=== PATIENT | male | born 1940 | race Caucasian/White ===

== ENCOUNTER 2016-08-20 05:41 | Outpatient (CLI) | payer MEDICARE, MEDICAID ==
[~2016-08-20] VITALS: Ht 167.6 cm; Wt 77.2 kg
[~2016-08-20 05:41] MED LIST: ACHD5005 PO; AMIO400T5 PO; ASP325T PO; ASP81CT PO; ASPI-266 PO; ASPI-875 PO; ATOR40TA70 PO; ATOR80TA PO; DABI150C2 PO; DIGO250T PO; DILT180C55 PO; DILT240C PO; DILT240C53 PO; DILT240C86 PO; ENAL2.5T PO; ENAL5TAB PO; FLEC100T PO; FLEC50TA PO; HYDR-34 PO; METO-272 PO; METO50TA7 PO; MTP25TSR PO; NITR1PAT26 TD; ONDA-42 SL; PNT40TEC PO; PRAS10TA6 PO; RANO10003 PO; RANO500T2 PO; SULF1TAB38 PO
--- OUTSIDE RECORDS SUMMARY | 2016-08-20 05:47 | XMS REPORT | Continuity of Care Document ---
Author Author [facility] Organization [facility] Address Unknown Phone Unavailable Allergies Active Description Code Type Severity Reaction Onset Reported/Identified Relationship to Patient Clinical Status Yes No Known Drug Allergies [id number] Drug Allergy Unknown N/ A 05/22/2010 Medications Problems Date Dx Coded Attending Type Code Diagnosis Diagnosed By 02/23/2010 Ot 802.0 02/23/2010 Ot 850.11 02/23/2010 Ot 871.4 02/23/2010 Ot 959.09 02/23/2010 Ot E000.9 02/23/2010 Ot E849.0 02/23/2010 Ot E906.8 05/22/2010 Ot 401.9 05/22/2010 Ot 414.01 05/22/2010 Ot 425.4 05/22/2010 Ot 427.31 05/22/2010 Ot 785.0 05/22/2010 Ot V58.66 05/22/2010 Ot V58.69 04/23/2011 Ot 272.4 HYPERLIPIDEMIA NEC/NOS 04/23/2011 Ot 305.1 TOBACCO USE DISORDER 04/23/2011 Ot 413.9 ANGINA PECTORIS NEC/NOS 04/23/2011 Ot 414.01 CORONARY ATHEROSCLEROSIS OF [place] CORON 04/23/2011 Ot 427.31 ATRIAL FIBRILLATION 04/23/2011 Ot 428.0 CONGESTIVE HEART FAILURE NOS 04/23/2011 Ot 794.30 ABN CARDIOVASC STUDY NOS 04/23/2011 Ot V45.82 PERCUTANEOUS TRANSLUM CORON ANGIOPLASTY 09/11/2011 Ot 272.4 HYPERLIPIDEMIA NEC/NOS 09/11/2011 Ot 401.9 HYPERTENSION NOS 09/11/2011 Ot 414.01 CORONARY ATHEROSCLEROSIS OF [place] CORON 09/11/2011 Ot 424.0 MITRAL VALVE DISORDER 09/11/2011 Ot 427.31 ATRIAL FIBRILLATION 09/11/2011 Ot 428.0 CONGESTIVE HEART FAILURE NOS 09/11/2011 Ot V58.61 ANTICOAGULANTS,LT,CURRENT USE 09/11/2011 Ot V58.69 OTH MED,LT,CURRENT USE 06/20/2013 DYLAN MARTINS MD Ot V16.0 FAMILY HX-GI MALIGNANCY 06/20/2013 DYLAN MARTINS MD Ot V18.51 FAMILY HISTORY, COLONIC POLYPS 06/20/2013 LAKSHMI CHERRY, DYLAN Alarcon Ot V76.51 SCREEN MAL NEOP-COLON 08/17/2013 LUCITA LYON MD Ot 272.4 HYPERLIPIDEMIA NEC/NOS 08/17/2013 LUCITA LYON MD Ot 401.9 HYPERTENSION NOS 08/17/2013 LUCITA LYON MD Ot 414.01 CORONARY ATHEROSCLEROSIS OF [place] CORON 08/17/2013 LUCITA LYON MD Ot 427.31 ATRIAL FIBRILLATION 08/17/2013 LUCITA LYON MD Ot 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 08/17/2013 LUCITA LYON MD Ot 786.59 CHEST PAIN NEC 08/17/2013 LUCITA LYON MD Ot V45.82 PERCUTANEOUS TRANSLUM CORON ANGIOPLASTY 05/25/2014 Ot 401.9 05/25/2014 Ot 428.0 05/25/2014 Ot 397.0 05/25/2014 Ot 424.0 05/25/2014 Ot 428.0 05/25/2014 Ot 414.00 05/25/2014 Ot 428.0 05/25/2014 Ot 414.01 05/25/2014 Ot 427.31 05/25/2014 Ot 428.0 05/25/2014 Ot V58.66 05/25/2014 Ot V58.69 05/25/2014 Ot 401.9 05/25/2014 Ot 428.0 05/25/2014 DYLAN MARTINS MD Ot V72.84 05/25/2014 DEIDRA HUFF Ot 401.9 05/25/2014 DEIDRA HUFF Ot 414.00 05/25/2014 DEIDRA HUFF Ot 427.31 05/25/2014 DEIDRA HUFF Ot 780.2 06/07/2014 CASE ALLRED DO Ot 729.5 PAIN IN LIMB 06/07/2014 CASE ALLRED DO Ot 844.9 SPRAIN OF KNEE LEG NOS 06/07/2014 CASE ALLRED DO Ot E000.8 OTHER EXTERNAL CAUSE STATUS 06/07/2014 CHALINO DO, CASE K Ot E928.9 ACCIDENT NOS 07/24/2014 Ot 401.9 07/24/2014 Ot 428.0 07/24/2014 Ot 397.0 07/24/2014 Ot 424.0 07/24/2014 Ot 428.0 07/24/2014 Ot 414.00 07/24/2014 Ot 428.0 07/24/2014 Ot 414.01 07/24/2014 Ot 427.31 07/24/2014 Ot 428.0 07/24/2014 Ot V58.66 07/24/2014 Ot V58.69 07/24/2014 Ot 401.9 07/24/2014 Ot 428.0 07/24/2014 LAKSHMI CHERRY, DYLAN Alracon Ot V72.84 07/24/2014 DEIDRA HUFF Ot 401.9 07/24/2014 DEIDRA HUFF Ot 414.00 07/24/2014 DEIDRA HUFF Ot 427.31 07/24/2014 DEIDRA HUFF Ot 780.2 07/24/2014 DEIDRA HUFF Ot 401.9 07/24/2014 DEIDRA HUFF Ot 414.00 07/24/2014 DEIDRA HUFF Ot 427.31 07/24/2014 DEIDRA HUFF Ot 780.2 08/09/2014 LUCITA LYON MD Ot 272.4 HYPERLIPIDEMIA NEC/NOS 08/09/2014 LUCITA LYON MD Ot 401.9 HYPERTENSION NOS 08/09/2014 LUCITA LYON MD Ot 414.01 CORONARY ATHEROSCLEROSIS OF [place] CORON 08/09/2014 LUCITA LYON MD Ot 427.31 ATRIAL FIBRILLATION 08/09/2014 LUCITA LYON MD Ot 428.0 CONGESTIVE HEART FAILURE NOS 08/09/2014 LUCITA LYON MD Ot 780.2 SYNCOPE AND COLLAPSE 08/09/2014 LUCITA LYON MD Ot 786.50 CHEST PAIN NOS 08/09/2014 LUCITA LYON MD Ot V45.82 PERCUTANEOUS TRANSLUM CORON ANGIOPLASTY 08/09/2014 LUCITA LYON MD Ot V58.61 ANTICOAGULANTS,LT,CURRENT USE 08/09/2014 LUCITA LYON MD Ot V58.69 OTH MED,LT,CURRENT USE 08/10/2014 Ot 401.9 08/10/2014 Ot 428.0 08/10/2014 Ot 397.0 08/10/2014 Ot 424.0 08/10/2014 Ot 428.0 08/10/2014 Ot 414.00 08/10/2014 Ot 428.0 08/10/2014 Ot 414.01 08/10/2014 Ot 427.31 08/10/2014 Ot 428.0 08/10/2014 Ot V58.66 08/10/2014 Ot V58.69 08/10/2014 Ot 401.9 08/10/2014 Ot 428.0 08/10/2014 LAKSHMI CHERRY, DYLAN Alarcon Ot V72.84 08/10/2014 DEIDRA HUFF Ot 401.9 08/10/2014 DEIDRA HUFF Ot 414.00 08/10/2014 DEIDRA HUFF Ot 427.31 08/10/2014 DEIDRA HUFF Ot 780.2 11/12/2014 CHIRAG CHERRY, MYRNA Kulkarni Ot 276.8 HYPOPOTASSEMIA 11/12/2014 CHIRAG CHERRY, MYRNA Kulkarni Ot 787.01 NAUSEA WITH VOMITING 11/12/2014 CHIRAG CHERRY, MYRNA Kulkarni Ot 787.91 DIARRHEA 01/31/2015 DEIDRA HUFF Ot 401.9 01/31/2015 DEIDRA HUFF Ot 414.00 01/31/2015 DEIDRA HUFF Ot 427.31 01/31/2015 DEIDRA HUFF Ot 780.2 03/15/2015 Ot 401.9 03/15/2015 Ot 428.0 03/15/2015 Ot 397.0 03/15/2015 Ot 424.0 03/15/2015 Ot 428.0 03/15/2015 Ot 414.00 03/15/2015 Ot 428.0 03/15/2015 Ot 414.01 03/15/2015 Ot 427.31 03/15/2015 Ot 428.0 03/15/2015 Ot V58.66 03/15/2015 Ot V58.69 03/15/2015 Ot 401.9 03/15/2015 Ot 428.0 03/15/2015 DYLAN MARTINS MD Ot V72.84 03/15/2015 DEIDRA HUFF Ot 401.9 03/15/2015 DEIDRA HUFF Ot 414.00 03/15/2015 DEIDRA HUFF Ot 427.31 03/15/2015 DEIDRA HUFF Ot 780.2 05/09/2015 LUCITA LYON MD Ot I25.10 ATHSCL HEART DISEASE OF [place] CORONARY 05/09/2015 LUCITA LYON MD Ot I48.91 UNSPECIFIED ATRIAL FIBRILLATION 05/09/2015 LUCITA LYON MD Ot I65.29 OCCLUSION AND STENOSIS OF UNSPECIFIED CA 05/09/2015 LUCITA LYON MD Ot R55 SYNCOPE AND COLLAPSE 05/15/2015 LUCITA LYON MD Ot I25.10 05/15/2015 LUCITA LYON MD Ot I48.91 05/15/2015 LUCITA LYON MD Ot I65.29 05/15/2015 LUCITA LYON MD Ot R55 05/16/2015 LUCITA LYON MD Ot I25.10 05/16/2015 LUCITA LYON MD Ot I48.91 05/16/2015 LUCITA LYON MD Ot I65.29 05/16/2015 LUCITA LYON MD Ot R55 05/16/2015 LUCITA LYON MD Ot I25.10 05/16/2015 LUCITA LYON MD Ot I48.91 05/16/2015 LUCITA LYON MD Ot I65.29 05/16/2015 LUCITA LYON MD Ot R55 06/06/2015 Dorian CERRATO MD Ot E78.5 HYPERLIPIDEMIA, UNSPECIFIED 06/06/2015 Dorian CERRATO MD Ot I10 ESSENTIAL (PRIMARY) HYPERTENSION 06/06/2015 Dorian CERRATO MD Ot I25.10 ATHSCL HEART DISEASE OF [place] CORONARY 06/06/2015 Dorian CERRATO MD Ot I48.91 UNSPECIFIED ATRIAL FIBRILLATION 06/06/2015 Dorian CERRATO MD Ot I50.9 HEART FAILURE, UNSPECIFIED 06/06/2015 SAQIB CHERRY, Dorian MOONEY Ot R55 SYNCOPE AND COLLAPSE 06/06/2015 Dorian CERRATO MD Ot 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 06/06/2015 Dorian CERRATO MD Ot Z79.899 OTHER TECHNOLOGY OFFICER (CURRENT) DRUG THERAPY 06/11/2015 LUCITA LYON MD Ot I25.10 06/11/2015 LUCITA LYON MD Ot I48.91 06/11/2015 LUCITA LYON MD Ot I65.29 06/11/2015 LUCITA LYON MD Ot R55 06/11/2015 Ot 401.9 06/11/2015 Ot 428.0 06/11/2015 Ot 397.0 06/11/2015 Ot 424.0 06/11/2015 Ot 428.0 06/11/2015 Ot 414.00 06/11/2015 Ot 428.0 06/11/2015 Ot 414.01 06/11/2015 Ot 427.31 06/11/2015 Ot 428.0 06/11/2015 Ot V58.66 06/11/2015 Ot V58.69 06/11/2015 Ot 401.9 06/11/2015 Ot 428.0 06/11/2015 LAKSHMI CHERRY, DYLAN Alarcon Ot V72.84 06/11/2015 DEIDRA HUFF Ot 401.9 06/11/2015 DEIDRA HUFF Ot 414.00 06/11/2015 DEIDRA HUFF Ot 427.31 06/11/2015 DEIDRA HUFF Ot 780.2 06/11/2015 LUCITA LYON MD Ot I25.10 06/11/2015 LUCITA LYON MD Ot I48.91 06/11/2015 LUCITA LYON MD Ot I65.29 06/11/2015 LUCITA LYON MD Ot R55 06/21/2015 Ot 401.9 06/21/2015 Ot 428.0 06/21/2015 Ot 397.0 06/21/2015 Ot 424.0 06/21/2015 Ot 428.0 06/21/2015 Ot 414.00 06/21/2015 Ot 428.0 06/21/2015 Ot 414.01 06/21/2015 Ot 427.31 06/21/2015 Ot 428.0 06/21/2015 Ot V58.66 06/21/2015 Ot V58.69 06/21/2015 Ot 401.9 06/21/2015 Ot 428.0 06/21/2015 LAKSHMI CHERRY, DYLAN Alarcon Ot V72.84 06/21/2015 DEIDRA HUFF Ot 401.9 06/21/2015 DEIDRA HUFF Ot 414.00 06/21/2015 DEIDRA HUFF Ot 427.31 06/21/2015 DEIDRA HUFF Ot 780.2 06/21/2015 SONALI CHERRY, LUCITA Lyles Ot I25.10 06/21/2015 SONALI CHERRY, LUCITA Lyles Ot I48.91 06/21/2015 SONALI CHERRY, LUCITA Lyles Ot I65.29 06/21/2015 SONALI CHERRY, LUCITA Lyles Ot R55 06/27/2015 SNOALI CHERRY, LUCITA Lyles Ot I25.10 06/27/2015 SONALI CHERRY, LUCITA Lyles Ot I48.91 06/27/2015 SONALI CHERRY, LUCITA Lyles Ot I65.29 06/27/2015 SONALI CHERRY, LUCITA Lyles Ot R55 02/13/2016 Ot 397.0 TRICUSPID VALVE DISEASE 02/13/2016 Ot 424.0 MITRAL VALVE DISORDER 02/13/2016 Ot 428.0 CONGESTIVE HEART FAILURE NOS 02/13/2016 Ot 414.00 CORON ATHEROSCLER NOS TYPE VESSEL, NATIV 02/13/2016 Ot 428.0 CONGESTIVE HEART FAILURE NOS 02/13/2016 Ot 414.01 CORONARY ATHEROSCLEROSIS OF [place] CORON 02/13/2016 Ot 427.31 ATRIAL FIBRILLATION 02/13/2016 Ot 428.0 CONGESTIVE HEART FAILURE NOS 02/13/2016 Ot V58.66 LONG-TERM (CURRENT) USE OF ASPIRIN 02/13/2016 Ot V58.69 OTH MED,LT,CURRENT USE 02/13/2016 Ot 401.9 HYPERTENSION NOS 02/13/2016 Ot 428.0 CONGESTIVE HEART FAILURE NOS 02/13/2016 LAKSHMI CHERRY, DYLAN Alarcon Ot V72.84 EXAM PRE-OPERATIVE NOS 02/13/2016 DEIDRA HUFF Ot 401.9 HYPERTENSION NOS 02/13/2016 DEIDRA HUFF Ot 414.00 CORON ATHEROSCLER NOS TYPE VESSEL, NATIV 02/13/2016 DEIDRA HUFF Ot 427.31 ATRIAL FIBRILLATION 02/13/2016 DEIDRA HUFF Ot 780.2 SYNCOPE AND COLLAPSE 02/13/2016 LUCITA LYON MD Ot I25.10 ATHSCL HEART DISEASE OF [place] CORONARY 02/13/2016 LUCITA LYON MD Ot I48.91 UNSPECIFIED ATRIAL FIBRILLATION 02/13/2016 LUCITA LYON MD Ot I65.29 OCCLUSION AND STENOSIS OF UNSPECIFIED CA 02/13/2016 LUCITA LYON MD Ot R55 SYNCOPE AND COLLAPSE 2016 LUCITA LYON MD Ot E78.5 HYPERLIPIDEMIA, UNSPECIFIED 2016 LUCITA LYON MD Ot I10 ESSENTIAL (PRIMARY) HYPERTENSION 2016 LUCITA LYON MD Ot I25.10 ATHSCL HEART DISEASE OF [place] CORONARY 2016 LUCITA LYON MD Ot I48.0 PAROXYSMAL ATRIAL FIBRILLATION 2016 LUCITA LYON MD Ot R55 SYNCOPE AND COLLAPSE 2016 LUCITA LYON MD Ot Z72.0 TOBACCO USE 2016 LUCITA LYON MD Ot Z79.899 OTHER TECHNOLOGY OFFICER (CURRENT) DRUG THERAPY 2016 LUCITA LYON MD Ot Z95.5 PRESENCE OF CORONARY ANGIOPLASTY IMPLANT 03/04/2016 LUCITA LYON MD Ot E78.5 HYPERLIPIDEMIA, UNSPECIFIED 03/04/2016 LUCITA LYON MD Ot I10 ESSENTIAL (PRIMARY) HYPERTENSION 03/04/2016 LUCITA LYON MD Ot I25.10 ATHSCL HEART DISEASE OF [place] CORONARY 03/04/2016 LUCITA LYON MD Ot I48.0 PAROXYSMAL ATRIAL FIBRILLATION 03/04/2016 LUCITA LYON MD Ot R55 SYNCOPE AND COLLAPSE 03/04/2016 LUCITA LYON MD Ot Z72.0 TOBACCO USE 03/04/2016 LUCITA LYON MD Ot Z79.899 OTHER DETENTION (CURRENT) DRUG THERAPY 03/04/2016 LUCITA LYON MD Ot Z95.5 PRESENCE OF CORONARY ANGIOPLASTY IMPLANT 03/04/2016 LUCITA LYON MD Ot E78.5 HYPERLIPIDEMIA, UNSPECIFIED 03/04/2016 LUCITA LYON MD Ot I10 ESSENTIAL (PRIMARY) HYPERTENSION 03/04/2016 LUCITA LYON MD Ot I25.10 ATHSCL HEART DISEASE OF [place] CORONARY 03/04/2016 LUCITA LYON MD Ot I48.0 PAROXYSMAL ATRIAL FIBRILLATION 03/04/2016 LUCITA LYON MD Ot R55 SYNCOPE AND COLLAPSE 03/04/2016 LUICTA LYON MD Ot Z72.0 TOBACCO USE 03/04/2016 LUCITA LYON MD Ot Z79.899 OTHER DETENTION (CURRENT) DRUG THERAPY 03/04/2016 LUCITA LYON MD Ot Z95.5 PRESENCE OF CORONARY ANGIOPLASTY IMPLANT 03/11/2016 Ot 397.0 TRICUSPID VALVE DISEASE 03/11/2016 Ot 424.0 MITRAL VALVE DISORDER 03/11/2016 Ot 428.0 CONGESTIVE HEART FAILURE NOS 03/11/2016 Ot 414.00 CORON ATHEROSCLER NOS TYPE VESSEL, NATIV 03/11/2016 Ot 428.0 CONGESTIVE HEART FAILURE NOS 03/11/2016 Ot 414.01 CORONARY ATHEROSCLEROSIS OF [place] CORON 03/11/2016 Ot 427.31 ATRIAL FIBRILLATION 03/11/2016 Ot 428.0 CONGESTIVE HEART FAILURE NOS 03/11/2016 Ot V58.66 LONG-TERM (CURRENT) USE OF ASPIRIN 03/11/2016 Ot V58.69 OTH MED,LT,CURRENT USE 03/11/2016 Ot 401.9 HYPERTENSION NOS 03/11/2016 Ot 428.0 CONGESTIVE HEART FAILURE NOS 03/11/2016 LAKSHMI CHERRY, DYLAN Alarcon Ot V72.84 EXAM PRE-OPERATIVE NOS 03/11/2016 DEIDRA HUFF Ot 401.9 HYPERTENSION NOS 03/11/2016 DEIDRA HUFF Ot 414.00 CORON ATHEROSCLER NOS TYPE VESSEL, NATIV 03/11/2016 DEIDRA HUFF Ot 427.31 ATRIAL FIBRILLATION 03/11/2016 DEIDRA HUFF Ot 780.2 SYNCOPE AND COLLAPSE 03/11/2016 LUCITA LYON MD Ot I25.10 ATHSCL HEART DISEASE OF [place] CORONARY 03/11/2016 LUCITA LYON MD Ot I48.91 UNSPECIFIED ATRIAL FIBRILLATION 03/11/2016 LUCITA LYON MD Ot I65.29 OCCLUSION AND STENOSIS OF UNSPECIFIED CA 03/11/2016 LUCITA LYON MD Ot R55 SYNCOPE AND COLLAPSE 03/11/2016 LUCITA LYON MD Ot E78.5 HYPERLIPIDEMIA, UNSPECIFIED 03/11/2016 LUCITA LYON MD Ot I10 ESSENTIAL (PRIMARY) HYPERTENSION 03/11/2016 LUCITA LYON MD Ot I25.10 ATHSCL HEART DISEASE OF [place] CORONARY 03/11/2016 LUCITA LYON MD Ot I48.0 PAROXYSMAL ATRIAL FIBRILLATION 03/11/2016 LUCITA LYON MD Ot R55 SYNCOPE AND COLLAPSE 03/11/2016 LUCITA LYON MD Ot Z72.0 TOBACCO USE 03/11/2016 LUCITA LYON MD Ot Z79.899 OTHER TECHNOLOGY OFFICER (CURRENT) DRUG THERAPY 03/11/2016 LUCITA LYON MD Ot Z95.5 PRESENCE OF CORONARY ANGIOPLASTY IMPLANT 03/21/2016 Ot 397.0 TRICUSPID VALVE DISEASE 03/21/2016 Ot 424.0 MITRAL VALVE DISORDER 03/21/2016 Ot 428.0 CONGESTIVE HEART FAILURE NOS 03/21/2016 Ot 414.00 CORON ATHEROSCLER NOS TYPE VESSEL, NATIV 03/21/2016 Ot 428.0 CONGESTIVE HEART FAILURE NOS 03/21/2016 Ot 414.01 CORONARY ATHEROSCLEROSIS OF [place] CORON 03/21/2016 Ot 427.31 ATRIAL FIBRILLATION 03/21/2016 Ot 428.0 CONGESTIVE HEART FAILURE NOS 03/21/2016 Ot V58.66 LONG-TERM (CURRENT) USE OF ASPIRIN 03/21/2016 Ot V58.69 OTH MED,LT,CURRENT USE 03/21/2016 Ot 401.9 HYPERTENSION NOS 03/21/2016 Ot 428.0 CONGESTIVE HEART FAILURE NOS 03/21/2016 DYLAN AMRTINS MD Ot V72.84 EXAM PRE-OPERATIVE NOS 03/21/2016 DEIDRA HUFF Ot 401.9 HYPERTENSION NOS 03/21/2016 DEIDRA HUFF Ot 414.00 CORON ATHEROSCLER NOS TYPE VESSEL, NATIV 03/21/2016 DEIDRA HUFF Ot 427.31 ATRIAL FIBRILLATION 03/21/2016 DEIDRA HUFF Ot 780.2 SYNCOPE AND COLLAPSE 03/21/2016 LUCITA LYON MD Ot I25.10 ATHSCL HEART DISEASE OF [place] CORONARY 03/21/2016 LUCITA LYON MD Ot I48.91 UNSPECIFIED ATRIAL FIBRILLATION 03/21/2016 LUCITA LYON MD Ot I65.29 OCCLUSION AND STENOSIS OF UNSPECIFIED CA 03/21/2016 LUCITA LYON MD Ot R55 SYNCOPE AND COLLAPSE 03/21/2016 LUCITA LYON MD Ot E78.5 HYPERLIPIDEMIA, UNSPECIFIED 03/21/2016 LUCITA LYON MD Ot I10 ESSENTIAL (PRIMARY) HYPERTENSION 03/21/2016 LUCITA LYON MD Ot I25.10 ATHSCL HEART DISEASE OF [place] CORONARY 03/21/2016 LUCITA LYON MD Ot I48.0 PAROXYSMAL ATRIAL FIBRILLATION 03/21/2016 LUCITA LYON MD Ot R55 SYNCOPE AND COLLAPSE 03/21/2016 LUCITA LYON MD Ot Z72.0 TOBACCO USE 03/21/2016 LUCITA LYON MD Ot Z79.899 OTHER TECHNOLOGY OFFICER (CURRENT) DRUG THERAPY 03/21/2016 LUCITA LYON MD Ot Z95.5 PRESENCE OF CORONARY ANGIOPLASTY IMPLANT 03/24/2016 LUCITA LYON MD Ot I48.0 PAROXYSMAL ATRIAL FIBRILLATION 03/24/2016 LUCITA LYON MD Ot E78.2 MIXED HYPERLIPIDEMIA 03/24/2016 LUCITA LYON MD Ot I10 ESSENTIAL (PRIMARY) HYPERTENSION 03/24/2016 LUCITA LYON MD Ot I25.10 ATHSCL HEART DISEASE OF [place] CORONARY 03/24/2016 LUCITA LYON MD Ot I48.0 PAROXYSMAL ATRIAL FIBRILLATION 03/24/2016 LUCITA LYON MD Ot 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 03/24/2016 LUCITA LYON MD Ot E78.2 MIXED HYPERLIPIDEMIA 03/24/2016 LUCITA LYON MD Ot I10 ESSENTIAL (PRIMARY) HYPERTENSION 03/24/2016 LUCITA LYON MD Ot I25.10 ATHSCL HEART DISEASE OF [place] CORONARY 03/24/2016 LUCITA LYON MD Ot I48.0 PAROXYSMAL ATRIAL FIBRILLATION 03/24/2016 LUCITA LYON MD Ot 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 03/25/2016 LUCITA LYON MD Ot E78.2 MIXED HYPERLIPIDEMIA 03/25/2016 LUCITA LYON MD Ot I10 ESSENTIAL (PRIMARY) HYPERTENSION 03/25/2016 LUCITA LYON MD Ot I25.10 ATHSCL HEART DISEASE OF [place] CORONARY 03/25/2016 LUCITA LYON MD Ot I48.0 PAROXYSMAL ATRIAL FIBRILLATION 03/25/2016 LUCITA LYON MD Ot 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 03/25/2016 LUCITA LYON MD Ot I48.0 PAROXYSMAL ATRIAL FIBRILLATION 03/25/2016 LUCITA LYON MD Ot E78.2 MIXED HYPERLIPIDEMIA 03/25/2016 LUCITA LYON MD Ot I10 ESSENTIAL (PRIMARY) HYPERTENSION 03/25/2016 LUCITA LYON MD Ot I25.10 ATHSCL HEART DISEASE OF [place] CORONARY 03/25/2016 LUCITA LYON MD Ot I48.0 PAROXYSMAL ATRIAL FIBRILLATION 03/25/2016 LUCITA LYON MD Ot 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 03/27/2016 LUCITA LYON MD Ot E78.5 HYPERLIPIDEMIA, UNSPECIFIED 03/27/2016 LUCITA LYON MD Ot I10 ESSENTIAL (PRIMARY) HYPERTENSION 03/27/2016 LUCITA LYON MD Ot I25.10 ATHSCL HEART DISEASE OF [place] CORONARY 03/27/2016 LUCITA LYON MD Ot I48.0 PAROXYSMAL ATRIAL FIBRILLATION 03/27/2016 LUCITA LYON MD Ot R55 SYNCOPE AND COLLAPSE 03/27/2016 LUCITA LYON MD Ot Z72.0 TOBACCO USE 03/27/2016 LUCITA LYON MD Ot Z79.899 OTHER TECHNOLOGY OFFICER (CURRENT) DRUG THERAPY 03/27/2016 LUCITA LYON MD Ot Z95.5 PRESENCE OF CORONARY ANGIOPLASTY IMPLANT 03/29/2016 LUCITA LYON MD Ot E78.5 HYPERLIPIDEMIA, UNSPECIFIED 03/29/2016 LUCITA LYON MD Ot I08.0 RHEUMATIC DISORDERS OF BOTH MITRAL AND A 03/29/2016 LUCITA LYON MD Ot I10 ESSENTIAL (PRIMARY) HYPERTENSION 03/29/2016 LUCITA LYON MD Ot I48.0 PAROXYSMAL ATRIAL FIBRILLATION 03/29/2016 LUCITA LYON MD Ot R00.0 TACHYCARDIA, UNSPECIFIED 03/29/2016 LUCITA LYON MD Ot R41.82 ALTERED MENTAL STATUS, UNSPECIFIED 03/29/2016 LUCITA LYON MD Ot R55 SYNCOPE AND COLLAPSE 03/29/2016 LUCITA LYON MD Ot 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 OFFICER (CURRENT) USE OF ANTICOAGULANT 03/29/2016 LUCITA LYON MD Ot Z79.899 OTHER TECHNOLOGY OFFICER (CURRENT) DRUG THERAPY 03/30/2016 LUCITA LYON MD Ot E78.2 MIXED HYPERLIPIDEMIA 03/30/2016 LUCITA LYON MD Ot I10 ESSENTIAL (PRIMARY) HYPERTENSION 03/30/2016 LUCITA LYON MD Ot I25.10 ATHSCL HEART DISEASE OF [place] CORONARY 03/30/2016 LUCITA LYON MD Ot I48.0 PAROXYSMAL ATRIAL FIBRILLATION 03/30/2016 LUCITA LYON MD Ot 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 04/01/2016 Ot 414.00 CORON ATHEROSCLER NOS TYPE VESSEL, NATIV 04/01/2016 Ot 428.0 CONGESTIVE HEART FAILURE NOS 04/01/2016 Ot 414.01 CORONARY ATHEROSCLEROSIS OF [place] CORON 04/01/2016 Ot 427.31 ATRIAL FIBRILLATION 04/01/2016 Ot 428.0 CONGESTIVE HEART FAILURE NOS 04/01/2016 Ot V58.66 LONG-TERM (CURRENT) USE OF ASPIRIN 04/01/2016 Ot V58.69 OTH MED,LT,CURRENT USE 04/01/2016 Ot 401.9 HYPERTENSION NOS 04/01/2016 Ot 428.0 CONGESTIVE HEART FAILURE NOS 04/01/2016 LAKSHMI CHERRY, DYLAN Alarcon Ot V72.84 EXAM PRE-OPERATIVE NOS 04/01/2016 DEIDRA HUFF Ot 401.9 HYPERTENSION NOS 04/01/2016 DEIDRA HUFF Ot 414.00 CORON ATHEROSCLER NOS TYPE VESSEL, NATIV 04/01/2016 DEIDRA HUFF Ot 427.31 ATRIAL FIBRILLATION 04/01/2016 DEIDRA HUFF Ot 780.2 SYNCOPE AND COLLAPSE 04/01/2016 LUCITA LYON MD Ot I25.10 ATHSCL HEART DISEASE OF [place] CORONARY 04/01/2016 LUCITA LYON MD Ot I48.91 UNSPECIFIED ATRIAL FIBRILLATION 04/01/2016 LUCITA LYON MD Ot I65.29 OCCLUSION AND STENOSIS OF UNSPECIFIED CA 04/01/2016 LUCITA LYON MD Ot R55 SYNCOPE AND COLLAPSE 04/01/2016 LUCITA LYON MD Ot E78.5 HYPERLIPIDEMIA, UNSPECIFIED 04/01/2016 LUCITA LYON MD Ot I10 ESSENTIAL (PRIMARY) HYPERTENSION 04/01/2016 LUCITA LYON MD Ot I25.10 ATHSCL HEART DISEASE OF [place] CORONARY 04/01/2016 LUCITA LYON MD Ot I48.0 PAROXYSMAL ATRIAL FIBRILLATION 04/01/2016 LUCITA LYON MD Ot R55 SYNCOPE AND COLLAPSE 04/01/2016 LUCITA LYON MD Ot Z72.0 TOBACCO USE 04/01/2016 LUCITA LYON MD Ot Z79.899 OTHER TECHNOLOGY OFFICER (CURRENT) DRUG THERAPY 04/01/2016 LUCITA LYON MD Ot Z95.5 PRESENCE OF CORONARY ANGIOPLASTY IMPLANT 04/01/2016 LUCITA LYON MD Ot E78.2 MIXED HYPERLIPIDEMIA 04/01/2016 LUCITA LYON MD Ot I10 ESSENTIAL (PRIMARY) HYPERTENSION 04/01/2016 LUCITA LYON MD Ot I25.10 ATHSCL HEART DISEASE OF [place] CORONARY 04/01/2016 LUCITA LYON MD Ot I48.0 PAROXYSMAL ATRIAL FIBRILLATION 04/01/2016 LUCITA LYON MD Ot 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 04/01/2016 LUCITA LYON MD Ot E78.2 MIXED HYPERLIPIDEMIA 04/01/2016 LUCITA LYON MD Ot I10 ESSENTIAL (PRIMARY) HYPERTENSION 04/01/2016 LUCITA LYON MD Ot I25.10 ATHSCL HEART DISEASE OF [place] CORONARY 04/01/2016 LUCITA LYON MD Ot I48.0 PAROXYSMAL ATRIAL FIBRILLATION 04/01/2016 LUCITA LYON MD Ot 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 04/01/2016 LUCITA LYON MD Ot E78.2 MIXED HYPERLIPIDEMIA 04/01/2016 LUCITA LYON MD Ot I10 ESSENTIAL (PRIMARY) HYPERTENSION 04/01/2016 LUCITA LYON MD Ot I25.10 ATHSCL HEART DISEASE OF [place] CORONARY 04/01/2016 LUCITA LYON MD Ot I48.0 PAROXYSMAL ATRIAL FIBRILLATION 04/01/2016 LUCITA LYON MD Ot 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 04/09/2016 LUCITA LYON MD Ot E78.2 MIXED HYPERLIPIDEMIA 04/09/2016 LUCITA LYON MD Ot I10 ESSENTIAL (PRIMARY) HYPERTENSION 04/09/2016 LUCITA LYON MD Ot I25.10 ATHSCL HEART DISEASE OF [place] CORONARY 04/09/2016 LUCITA LYON MD Ot I48.0 PAROXYSMAL ATRIAL FIBRILLATION 04/09/2016 LUCITA LYON MD Ot 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 04/23/2016 LUCITA LYON MD Ot E78.5 HYPERLIPIDEMIA, UNSPECIFIED 04/23/2016 LUCITA LYON MD Ot I08.0 RHEUMATIC DISORDERS OF BOTH MITRAL AND A 04/23/2016 LUCITA LYON MD Ot I10 ESSENTIAL (PRIMARY) HYPERTENSION 04/23/2016 LUCITA LYON MD Ot I48.0 PAROXYSMAL ATRIAL FIBRILLATION 04/23/2016 LUCITA LYON MD Ot R00.0 TACHYCARDIA, UNSPECIFIED 04/23/2016 LUCITA LYON MD Ot R41.82 ALTERED MENTAL STATUS, UNSPECIFIED 04/23/2016 LUCITA LYON MD Ot R55 SYNCOPE AND COLLAPSE 04/23/2016 LUCITA LYON MD Ot 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 OFFICER (CURRENT) USE OF ANTICOAGULANT 04/23/2016 LUCITA LYON MD Ot Z79.899 OTHER DETENTION (CURRENT) DRUG THERAPY 07/03/2016 Ot 401.9 HYPERTENSION NOS 07/03/2016 Ot 428.0 CONGESTIVE HEART FAILURE NOS 07/03/2016 LAKSHMI CHERRY, DYLAN Alarcon Ot V72.84 EXAM PRE-OPERATIVE NOS 07/03/2016 DEIDRA HUFF Ot 401.9 HYPERTENSION NOS 07/03/2016 DEIDRA HUFF Ot 414.00 CORON ATHEROSCLER NOS TYPE VESSEL, NATIV 07/03/2016 DEIDRA HUFF Ot 427.31 ATRIAL FIBRILLATION 07/03/2016 DEIDRA HUFF Ot 780.2 SYNCOPE AND COLLAPSE 07/03/2016 LUCITA LYON MD Ot I25.10 ATHSCL HEART DISEASE OF [place] CORONARY 07/03/2016 LUCITA LYON MD Ot I48.91 UNSPECIFIED ATRIAL FIBRILLATION 07/03/2016 LUCITA LYON MD Ot I65.29 OCCLUSION AND STENOSIS OF UNSPECIFIED CA 07/03/2016 LUICTA LYON MD Ot R55 SYNCOPE AND COLLAPSE 07/03/2016 LUCITA LYON MD Ot E78.5 HYPERLIPIDEMIA, UNSPECIFIED 07/03/2016 LUCITA LYON MD Ot I10 ESSENTIAL (PRIMARY) HYPERTENSION 07/03/2016 LUCITA LYON MD Ot I25.10 ATHSCL HEART DISEASE OF [place] CORONARY 07/03/2016 LUCITA LYON MD Ot I48.0 PAROXYSMAL ATRIAL FIBRILLATION 07/03/2016 LUCITA LYON MD Ot R55 SYNCOPE AND COLLAPSE 07/03/2016 LUCITA LYON MD Ot Z72.0 TOBACCO USE 07/03/2016 LUCITA LYON MD Ot Z79.899 OTHER TECHNOLOGY OFFICER (CURRENT) DRUG THERAPY 07/03/2016 LUCITA LYON MD Ot Z95.5 PRESENCE OF CORONARY ANGIOPLASTY IMPLANT 07/03/2016 LUCITA LYON MD Ot E78.2 MIXED HYPERLIPIDEMIA 07/03/2016 LUCITA LYON MD Ot I10 ESSENTIAL (PRIMARY) HYPERTENSION 07/03/2016 LUCITA LYON MD Ot I25.10 ATHSCL HEART DISEASE OF [place] CORONARY 07/03/2016 LUCITA LYON MD Ot I48.0 PAROXYSMAL ATRIAL FIBRILLATION 07/03/2016 LUCITA LYON MD Ot 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 07/03/2016 LUCITA LYON MD Ot E78.2 MIXED HYPERLIPIDEMIA 07/03/2016 LUCITA LYON MD Ot I10 ESSENTIAL (PRIMARY) HYPERTENSION 07/03/2016 LUCITA LYON MD Ot I25.10 ATHSCL HEART DISEASE OF [place] CORONARY 07/03/2016 LUCITA LYON MD Ot I48.0 PAROXYSMAL ATRIAL FIBRILLATION 07/03/2016 LUCITA LYON MD Ot 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 07/24/2016 Dorian CERRATO MD Ot E78.5 HYPERLIPIDEMIA, UNSPECIFIED 07/24/2016 Dorian CERRATO MD Ot I10 ESSENTIAL (PRIMARY) HYPERTENSION 07/24/2016 Dorian CERRATO MD Ot I25.10 ATHSCL HEART DISEASE OF [place] CORONARY 07/24/2016 Dorian CERRATO MD Ot I48.0 PAROXYSMAL ATRIAL FIBRILLATION 07/24/2016 Dorian CERRATO MD Ot I50.9 HEART FAILURE, UNSPECIFIED 07/24/2016 Dorian CERRATO MD, Ot M79.606 PAIN IN LEG, UNSPECIFIED 07/24/2016 Dorian CERRATO MD Ot R55 SYNCOPE AND COLLAPSE 07/24/2016 Dorian CERRATO MD Ot T82.7XXA INFECT/INFLM REACT D/T OTH CARDI/VASC DE 07/24/2016 Dorian CERRATO MD Ot Z45.09 ENCOUNTER FOR ADJUSTMENT AND MANAGEMENT 07/24/2016 Dorian CERRATO MD, Ot Z79.899 OTHER DETENTION (CURRENT) DRUG THERAPY 07/24/2016 Dorian CERRATO MD Ot Z95.5 PRESENCE OF CORONARY ANGIOPLASTY IMPLANT 08/01/2016 Dorian CERRATO MD Ot E78.5 HYPERLIPIDEMIA, UNSPECIFIED 08/01/2016 Dorian CERRATO MD Ot I10 ESSENTIAL (PRIMARY) HYPERTENSION 08/01/2016 Dorian CERRATO MD Ot I25.10 ATHSCL HEART DISEASE OF [place] CORONARY 08/01/2016 Dorian CERRATO MD Ot I48.0 PAROXYSMAL ATRIAL FIBRILLATION 08/01/2016 Dorian CERRATO MD Ot I50.9 HEART FAILURE, UNSPECIFIED 08/01/2016 Dorian CERRATO MD, Ot M79.606 PAIN IN LEG, UNSPECIFIED 08/01/2016 Dorian CERRATO MD Ot R55 SYNCOPE AND COLLAPSE 08/01/2016 Dorian CERRATO MD, Ot T82.7XXA INFECT/INFLM REACT D/T OTH CARDI/VASC DE 08/01/2016 Dorian CERRATO MD Ot Z45.09 ENCOUNTER FOR ADJUSTMENT AND MANAGEMENT 08/01/2016 Dorian CERRATO MD Ot Z79.899 OTHER DETENTION (CURRENT) DRUG THERAPY 08/01/2016 Dorian CERRATO MD Ot Z95.5 PRESENCE OF CORONARY ANGIOPLASTY IMPLANT Procedures Results Test Result Range Automated blood complete blood count (hemogram) panel - 03/28/16 07:15 Blood leukocytes automated count (number/volume) 7.1 10*3/ uL 4.3-11.0 Blood erythrocytes automated count (number/volume) 4.55 10*6 /uL 4.35-5.85 Venous blood hemoglobin measurement (mass/volume) 15.2 g/dL 13.3-17.7 Blood hematocrit (volume fraction) 44 % 40-54 Automated erythrocyte mean corpuscular volume 97 [foz_us] 80-99 Automated erythrocyte mean corpuscular hemoglobin (mass per erythrocyte) 33 pg 25-34 Automated erythrocyte mean corpuscular hemoglobin concentration measurement ( mass/volume) 34 g/dL 32-36 Automated erythrocyte distribution width ratio 13.2 % 10.0-14.5 Automated blood platelet count (count/volume) 168 10*3/uL 130-400 Automated blood platelet mean volume measurement 10.2 [foz_ us] 7.4-10.4 PT panel in platelet poor plasma by coagulation assay - 03/28/16 07:15 Prothrombin time (PT) in platelet poor plasma by coagulation assay 14.6 s 12.2-14.7 INR in platelet poor plasma or blood by coagulation assay 1.2 0.8-1.4 Activated partial thromboplastin time (aPTT) in platelet poor plasma bycoagulation assay - 03/28/16 07:15 Activated partial thromboplastin time (aPTT) in platelet poor plasma bycoagulation assay 46 s 24-35 Comprehensive metabolic panel - 03/28/16 07:15 Serum or plasma sodium measurement (moles/volume) 142 mmol/ L 135-145 Serum or plasma potassium measurement (moles/volume) 4.2 mmol/L 3.6-5.0 Serum or plasma chloride measurement (moles/volume) 107 mmol /L 98-107 Carbon dioxide 24 mmol/L 21-32 Serum or plasma anion gap determination (moles/volume) 11 mmol/L 5-14 Serum or plasma urea nitrogen measurement (mass/volume) 15 mg/dL 7-18 Serum or plasma creatinine measurement (mass/volume) 1.12 mg /dL 0.60-1.30 Serum or plasma urea nitrogen/creatinine mass ratio 13 NRG Serum or plasma creatinine measurement with calculation of estimated glomerular filtration rate > NRG Serum or plasma glucose measurement (mass/volume) 105 mg/dL 70-105 Serum or plasma calcium measurement (mass/volume) 9.6 mg/dL 8.5-10.1 Serum or plasma total bilirubin measurement (mass/volume) 0.8 mg/dL 0.1-1.0 Serum or plasma alkaline phosphatase measurement (enzymatic activity/volume) 85 U/L 40-136 Serum or plasma aspartate aminotransferase measurement (enzymatic activity/ volume) 12 U/L 5-34 Serum or plasma alanine aminotransferase measurement (enzymatic activity/volume ) 18 U/L 0-55 Serum or plasma protein measurement (mass/volume) 6.7 g/dL 6.4-8.2 Serum or plasma albumin measurement (mass/volume) 4.2 g/dL 3.2-4.5 Lipid 1996 panel - 03/28/16 07:15 Serum or plasma triglyceride measurement (mass/volume) 86 mg /dL <150 Serum or plasma cholesterol measurement (mass/volume) 129 mg /dL < 200 Serum or plasma cholesterol in HDL measurement (mass/volume) 48 mg/dL 40-60 Cholesterol in LDL [mass/volume] in serum or plasma by direct assay 64 mg/dL 1-129 Serum or plasma cholesterol in VLDL measurement (mass/volume) 17 mg/dL 5-40 Methicillin resistant Staphylococcus aureus (MRSA) screening culture - 07:15 Methicillin resistant Staphylococcus aureus (MRSA) screening culture NEG NRG Gram stain microscopy - 07/03/16 15:05 GRAM STAIN RESULT FEW WBC'S NRG Gram stain microscopy - 07/03/16 15:05 GRAM STAIN RESULT OCCASIONAL WBC NRG Bacteria identification in wound by culture - 07/03/16 15:05 Bacteria identification in wound by culture [id number] NRG FREE TEXT EXTERNAL 2 COLONY TYPES OF COAG NEGATIVE STAPH NRG QUANTITY OF GROWTH Moderate Growth NRG FREE TEXT ENTRY 2 NO FURTHER STUDIES UNLESS REQUESTED NRG Bacteria identification in wound by culture - 07/03/16 15:05 Bacteria identification in wound by culture [id number] NRG QUANTITY OF GROWTH Scant Growth NRG Encounters ACCT No. Visit Date/Time Discharge Status Pt. Type Provider Facility Loc./Unit Complaint [id number] 03/28/2016 06:52:00 2015 09:20:00 DIS Outpatient SONALI CHERRY, LUCITA [facility] CATH AF W/RVR,PALPITATIONS,DYSPNEA [id number] 06/06/2015 08:50:00 2014 09:29:00 DIS Outpatient Dorian CERRATO MD [facility] CATH INCISION PAIN [id number] 05/09/2015 10:30:00 2014 13:12:00 DIS Outpatient LUCITA LYON MD [facility] CARD AF, CAD, CAROTID STENOSIS [id number] 05/01/2015 12:54:00 2014 23:59:59 CLS Outpatient LUCITA LYON MD [facility] CARD AF,CAD,CAROTID STENOSIS [id number] 11/12/2014 18:56:00 2014 20:48:00 DIS Emergency MYRNA BEARD MD [facility] ER VOMITING [id number] 08/09/2014 06:42:00 2014 13:25:00 DIS Outpatient LUCITA LYON MD [facility] CATH CHF,AFIB,CAD,HTN,HLP [id number] 06/07/2014 08:56:00 2013 12:42:00 DIS Emergency CHALINO DOCASE K [facility] ER LEFT LEG PAIN [id number] 04/03/2014 07:59:00 2013 23:59:59 CLS Outpatient DEIDRA HUFF [facility] CARD CAD,HTN,CAD [id number] 08/16/2013 10:06:00 2013 12:20:00 DIS Inpatient LUCITA LYON MD [facility] CSD AFIB, RVR [id number] 06/20/2013 06:51:00 2012 10:10:00 DIS Outpatient DYLAN MARTINS MD [facility] SDC SCREENING [id number] 06/15/2013 07:19:00 2012 23:59:59 CLS Outpatient DYLAN MARTINS MD [facility] PREOP SCREENING [id number] 07/03/2016 14:18:00 ACT Outpatient Dorian CERRATO MD [facility] CATH LINQ EXPOSURE [id number] 03/24/2016 08:00:00 ACT Outpatient LUCITA LYON MD [facility] CARD AF,CAD,HTN [id number] 03/21/2016 09:54:00 ACT Outpatient LUCITA LYON MD [facility] CARD AF,CAD,CAROTID STENOSIS [id number] 02/13/2016 07:50:00 ACT Outpatient LUCITA LYON MD [facility] CATH PAF,DIZZINESS,CAD [id number] 01/27/2012 11:50:00 Document Registration [id number] 09/10/2011 07:20:00 Document Registration [id number] 04/23/2011 07:16:00 Document Registration [id number] 12/17/2010 10:09:00 Document Registration [id number] 12/10/2010 09:01:00 Document Registration [id number] 10/07/2010 08:18:00 Document Registration [id number] 08/15/2010 08:47:00 Document Registration [id number] 05/22/2010 06:39:00 Document Registration [id number] 02/23/2010 15:40:00 Document Registration
[2016-08-20 11:49] VITALS: BP 128/75
[2016-08-21] MEDS ORDERED: HYDR-3062 PO (11:08)
== END 2016-08-20 14:54 | disposition home or self-care (01) ==
LOC: PREOP 05:41
PROVIDERS: ATTEND Surgery
DX: Z01.818 Encounter for other preprocedural examination (principal); Z11.2 Encounter for screening for other bacterial diseases; L72.3 Sebaceous cyst
CPT/HCPCS: 87081

== ENCOUNTER 2016-08-21 09:50 | Day surgery (SDC) | payer MEDICARE, MEDICAID ==
[~2016-08-21] VITALS: Ht 167.6 cm; Wt 77.2 kg
--- OUTSIDE RECORDS SUMMARY | 2016-08-21 09:58 | XMS REPORT | Continuity of Care Document ---
Author Author [facility] Organization [facility] Address Unknown Phone Unavailable Care Team Providers Care Industrial Pipefitter Journeyman Name Role Phone BRAULIO GUTIERREZ DO PCP Insurance Providers Payer Name Policy Number Subscriber Name Relationship [employer] Gold Choice [id number] Guerrero Dewitt 18 Self / Same As Patient [facility] [id number] Guerrero Dewitt 18 Self / Same As Patient Advance Directives Directive Response Recorded Date/Time Advance Directives No 08/20/16 11:43am Health Care Power of Spray Machine Operator Y Oralia Esdras 08/20/16 11:43am Organ Donor No 08/20/16 11:43am Resuscitation Status Full Code 08/20/16 11:43am Problems Active Problems Medical Problem Onset Date Status Atrial fibrillation Unknown Acute Diarrhea Unknown Acute Diarrhea Unknown Acute Nausea and vomiting Unknown Acute Strain of left knee and leg Unknown Acute Medications Current Home Medications Medication Dose Units Route Directions Days/Qty Instructions Start Date Nitroglycerin 0.2 Mg/Patch 0.2 Mg Transderm Daily APPLY ONE PATCH TO CHEST WALL EVERY MORNING AND REMOVE AT BEDTIME 04/23/11 Dabigatran Etexilate Mesylate 150 Mg 150 Mg Oral Twice A Day Atorvastatin Calcium 40 Mg 40 Mg Oral Bedtime 08/16/13 Pantoprazole Sod 40 Mg 40 Mg Oral Daily 08/09/14 Metoprolol Succinate 50 Mg 50 Mg Oral Daily 03/28/16 Ranolazine 1,000 Mg 500 Mg Oral Twice A Day TAKES 1/2 (1000MG) TABLET 03/28/16 Flecainide Acetate 100 Mg 100 Mg Oral Twice A Day 60 03/29/16 Past Home Medications Medication Directions Ordered Status Acetaminophen/Hydrocodone Bitart ([place]) 1 Each Tablet, 1 - 2 Each Oral Q6hr Prn 02/23/10 Discontinued Metoprolol Succinate 25 Mg Tab.sr.24h, 25 Mg Oral Daily 05/22/10 Discontinued Diltiazem Hcl 180 Mg Cap.sr.24h, 180 Mg Oral Daily 05/22/10 Discontinued Aspirin 325 Mg Tab, 325 Mg Oral Daily 05/22/10 Discontinued Enalapril Maleate 2.5 Mg Tablet, 2.5 Mg Oral Twice A Day 05/22/10 Discontinued Prasugrel Hydrochloride 10 Mg Tablet, 10 Mg Oral Daily 04/23/11 Discontinued Atorvastatin Calcium 80 Mg Tablet, 40 Mg Oral Bedtime 04/23/11 Discontinued Ranolazine 500 Mg Tab.sr.12h, 500 Mg Oral Twice A Day 04/23/11 Discontinued Aspirin 81 Mg Chew, 81 Mg Oral Daily 09/11/11 Discontinued Amiodarone Hcl 400 Mg Tablet, 200 Mg Oral Twice A Day 09/11/11 Discontinued Enalapril Maleate 5 Mg Tablet, 5 Mg Oral Twice A Day 08/16/13 Discontinued Aspirin 81 Mg Tablet.dr, 81 Mg Oral Daily 08/16/13 Discontinued Diltiazem Hcl (Cardizem Cd) 240 Mg Cap.sr.24h, 240 Mg Oral Daily 08/17/13 Discontinued Pantoprazole Sodium 40 Mg Tablet.dr, 40 Mg Oral Daily@0700 08/17/13 Discontinued Acetaminophen/Hydrocodone Bitart ([place]) 1 Each Tablet, 1-2 Each Oral Every 6 Hours as needed for Pain 06/07/14 Discontinued Diltiazem Hcl 240 Mg Cap.er.24h, 240 Mg Oral Daily 08/09/14 Discontinued Aspirin 81 Mg Tablet.dr, 81 Mg Oral Daily 08/09/14 Discontinued Ondansetron Hcl 4 Mg Tab, 4 Mg Sublingual Every 4HRS as needed for Nausea/ Vomiting 11/12/14 Discontinued Flecainide Acetate 50 Mg Tablet, 50 Mg Oral Every 12 Hours 03/28/16 Discontinued Diltiazem Hcl 240 Mg Cap.er.24h, 240 Mg Oral Daily 03/28/16 Discontinued Social History Social History Problem Response Recorded Date/Time Alcohol Use Occasionally Uses 11/12/2014 7:10pm Recreational Drug Use No 11/12/2014 7:10pm Recent Foreign Travel No 08/20/2016 11:42am Recent Infectious Disease Exposure No 08/20/2016 11:42am Sexually Transmitted Disease No 08/20/2016 11:43am HIV/AIDS No 08/20/2016 11:43am Smoking Status Never a Smoker 08/20/2016 11:43am Do you dip or chew tobacco? Yes 11/12/2014 7:10pm Type Used Smokeless Tobacco 08/20/2016 11:43am Recent Hopitalizations No 08/20/2016 11:43am Sexually Transmitted Disease No 08/20/2016 11:43am Hx Sexually Transmitted Disorders No 10/17/2008 8:48am Query Response Start Date Stop Date Smoking Status Never a Smoker Hospital Discharge Instructions No hospital discharge instructions. Plan of Care Discharge Date 08/20/16 2:54pm Prescriptions See Medication Section Functional Status No functional status results. Allergies, Adverse Reactions, Alerts No known allergies. Immunizations No immunization records. Vital Signs Acute Vital Signs Vital Response Date/Time Pulse Rate (adult) 56 bpm (60 - 90) 08/20/2016 11:49am Respiratory Rate 16 bpm (12 - 24) 08/20/2016 11:49am Blood Pressure 128/75 mm Hg 08/20/2016 11:49am Blood Pressure Mean 92 mm Hg 08/20/2016 11:49am Pain Numeric Pain Scale 3 08/20/2016 11:49am Height (Feet) 5 feet 08/20/2016 11:42am Height (Inches) 6.00 inches 08/20/2016 11:42am Height (Calculated Centimeters) 167.645808 cm 08/20/2016 11:42am Weight (Pounds) 170 pounds 08/20/2016 11:42am Weight (Ounces) 4.0 oz 08/20/2016 11:42am Weight (Calculated Grams) 70981.10 gm 08/20/2016 11:42am Weight (Calculated Kilograms) 77.494948 kilograms 08/20/2016 11:42am Calculated BMI 27.5 08/20/2016 11:42am Results No known relevant diagnostic tests, laboratory data and/or discharge summary. Procedures No known history of procedures. Encounters Encounter Location Arrival/Admit Date Discharge/Depart Date Attending Provider Departed Clinic [facility] 08/20/16 5:41am 08/20/16 2: 54pm SOFI WALLACE DO
--- OUTSIDE RECORDS SUMMARY | 2016-08-21 09:59 | XMS REPORT | Continuity of Care Document ---
Author Author [facility] Organization [facility] Address Unknown Phone Unavailable Care Team Providers Care Wastewater Plant Operator Name Role Phone BRAULIO GUTIERREZ DO PCP Insurance Providers Payer Name Policy Number Subscriber Name Relationship [employer] Gold Choice [id number] Guerrero Dewitt 18 Self / Same As Patient [facility] [id number] Guerrero Dewitt 18 Self / Same As Patient Advance Directives Directive Response Recorded Date/Time Advance Directives No 08/20/16 11:43am Health Care Power of Gps Field Data Collector Y Oralia Esdras 08/20/16 11:43am Organ Donor [...] Medications Medication Directions Ordered Status Acetaminophen/Hydrocodone Bitart ([place]) 1 Each Tablet, 1 - 2 Each [...] Mg Oral Daily@0700 08/17/13 Discontinued Acetaminophen/Hydrocodone Bitart ([place]) 1 Each Tablet, 1-2 Each Oral Every [...] 6.00 inches 08/20/2016 11:42am Height (Calculated Centimeters) 167.765233 cm 08/20/2016 11:42am Weight (Pounds) 170 pounds 08/20/2016 11:42am Weight (Ounces) 4.0 oz 08/20/2016 11:42am Weight (Calculated Grams) 00847.10 gm 08/20/2016 11:42am Weight (Calculated Kilograms) 77.596153 kilograms 08/20/2016 11:42am Calculated BMI 27.5 08/20/2016 11:42am Results No known relevant diagnostic tests, laboratory data and/or discharge summary. Procedures No known history of procedures. Encounters Encounter Location Arrival/Admit Date Discharge/Depart Date Attending Provider Departed Clinic [facility] 08/20/16 5:41am 08/20/16 2: 54pm SOFI WALLACE DO
[2016-08-21 10:05] VITALS: BP 170/92
[2016-08-21] MEDS ORDERED: ceFAZolin 1,000 MG (ANCEF) VIAL ONE (10:14)
[2016-08-21] MEDS ORDERED: NS (IVPB) 50 ML ONE (10:14)
[2016-08-21] MEDS ORDERED: LACTATED RINGERS 1,000 ML IV ONE (10:40)
[2016-08-21] MEDS ORDERED: fentaNYL INJECTION 100 MCG/2 ML AMP ONE (10:40)
[2016-08-21] MEDS ORDERED: proPOfol 200 MG/20 ML (DIPRIVAN) VIAL IV ONE (10:40)
[2016-08-21] MEDS ORDERED: FAMOTIDINE 20MG/2ML IV (PEPCID) ONE (10:41)
[2016-08-21] MEDS ORDERED: BUPIVACAINE 0.5% 30 ML (SENSORCAINE) VIAL ONE (10:41)
[2016-08-21] MEDS ORDERED: LIDOCAINE 1% INJ 20 ML (XYLOCAINE) VIAL ONE (10:42)
[2016-08-21] MEDS ORDERED: MIDAZOLAM 2 MG/2 ML (VERSED) VIAL ONE (10:43)
--- NOTE | 2016-08-21 10:44 | Progress Note-Pre Operative ---
Pre-Operative Progress Note H&P Reviewed The H&P was reviewed, patient examined and no changes noted. Date H&P Reviewed: Aug 21, 2016 Time H&P Reviewed: 10:43 Pre-Operative Diagnosis: cyst back SOFI WALLACE DO Aug 21, 2016 10:44
[2016-08-21] MEDS ORDERED: ceFAZolin 1 GM/NS 50 ML IVPB IV ONE ×2 (11:00)
[2016-08-21] MEDS ORDERED: HYDR-3062 PO (11:08)
--- NOTE | 2016-08-21 11:11 | Discharge Inst-Simple/Standard ---
Discharge Inst-Standard Discharge Medications New, Converted or Re-Newed RX: RX on Chart Patient Instructions/Follow Up Plan of Care/Instructions/FU: Follow up with Dr. Russ 12 days Activity as Tolerated: No Discharge Diet: No Restrictions Other Inst to Patient Follow up Appt: Make appointment for 12 days. Instructions: No lifting greater than 10 pounds. No strenuous activity. May shower in 24 hours, no tub bath or soaking. Use incentive spirometer at home as directed. No Smoking Skin/Wound Care: May remove bandages. You need to leave the white strips over incision on they will fall off on their own. Symptoms to Report: Appetite Changes, Extremity Discoloration, Numbness/Tingling, Swelling Increased , Bleeding Excessive, Eyesight Changes, Pain Increased, Urine Color Change, Constipation(Persistent), Fever over 101 degree F, Pain/Pressure in chest, Urinating Difficulty, Cough Up/Vomit Blood, Heart Beat Irreg/Pounding, Pain/ Pressure in jaw, Vaginal Bleeding Increase, Cramps in feet or legs, Lightheadedness, Pain/Pressure in shoulder, Diarrhea(Persistent), Memory Changes Suddenly, Questions/Concerns, Weight gain consecutive days, Dizziness/ Fainting, Nausea/Vomiting, Shortness of Breath, Weight gain over 2 pounds If questions or concerns contact your physician Or seek help at emergency department. LILI CRUZ APRN Aug 21, 2016 11:11
[2016-08-21] MEDS ORDERED: LACTATED RINGERS 1,000 ML IV SCH (11:15)
--- NOTE | 2016-08-21 11:39 | Progress Note-Post Operative ---
Post-Operative Progess Note Pre-Operative Diagnosis cyst back Post-Operative Diagnosis same Post-Op Procedure Note Date of Procedure: Aug 21, 2016 Name of Procedure: excision cyst back 4.4x2cm skin and subcutaneous tissue Procedure Note/Findings see note Anesthesia Type general Estimated blood loss (mL): minimal Specimen(s) collected skin and cyst SOFI WALLACE DO Aug 21, 2016 11:39 am
[2016-08-21] MEDS ORDERED: morphine INJ 10 MG/ML 1ML (SYR OR VIAL) IV PRN (11:45)
[2016-08-21] MEDS ORDERED: fentaNYL INJECTION 250 MCG/5 ML AMP IV PRN (11:45)
[2016-08-21] MEDS ORDERED: ONDANSETRON 4 MG/2 ML (SDV) Z0FRAN IV PRN (11:45)
[2016-08-21 12:05] VITALS: BP 150/70
[2016-08-21 12:35] VITALS: BP 162/74
--- NOTE | 2016-08-23 10:03 | OPERATIVE REPORT ---
PROCEDURE PHYSICIAN: SOFI WALLACE DATE OF PROCEDURE: 08/21/2016 PREOPERATIVE DIAGNOSIS: Sebaceous cyst of back. POSTOPERATIVE DIAGNOSIS: Sebaceous cyst of back. PROCEDURE: Excision of cyst of the back 4.4 x 2 cm, skin and subcutaneous tissue. SURGEON: Petrona. ANESTHESIA: MAC with local, 10 mL of 1% lidocaine and 0.5% Marcaine at 50:50 ratio. ESTIMATED BLOOD LOSS: Minimal. COMPLICATIONS: None. INDICATIONS: The patient is a 76-year-old male with large cyst on the back that has continued to increase in size. He wished to have this removed. He understands the risks and benefits and consent was signed on the chart. PROCEDURE: The patient was taken to the operating suite. He was prepped and draped in sterile fashion. A surgical pause was performed. Local anesthetic was infiltrated into the area. There was a small spinous which an incision was made around and then cautery was used to dissect down through the subcutaneous tissues. The cyst ruptured on the superior aspect. Dissection was continued to be carried around the cyst removing the cyst and contents. Hemostasis was achieved. The wound was then irrigated with copious amounts of irrigation. The skin was then reapproximated using 3-0 nylon in a simple interrupted fashion. The area was then washed and dried. Sterile bandage was applied. The patient tolerated the procedure well without any complications and taken to the recovery room in stable condition. Job ID: [id number] Dictated Date: 08/21/2016 11:53:04 Staffing Branch Manager Date: 08/23/2016 09:58:37 / matt
== END 2016-08-21 12:46 | disposition home or self-care (01) ==
LOC: SDC 09:50
PROVIDERS: ATTEND Surgery
DX: L72.3 Sebaceous cyst (principal)
CPT/HCPCS: 88304

== ENCOUNTER 2016-11-15 13:55 | Emergency (ER) | payer MEDICARE, MEDICAID ==
[~2016-11-15] VITALS: Ht 175.3 cm; Wt 77.1 kg
[~2016-11-15 13:55] MED LIST changes: +HYDR-3062 PO
[2016-11-15] MEDS ORDERED: DEXAMETHASONE PF 10 MG/ML (DECADRON) VIAL IM STA (14:08)
--- NOTE | 2016-11-15 14:16 | ED Cough/URI ---
General Chief Complaint: Cough/Cold/Flu Symptoms Stated Complaint: HEAD COLD, DIZZINESS Source: patient Exam Limitations: no limitations History of Present Illness Time seen by provider: 14:03 Initial Comments Here with report of cough and congestion with sore throat that began on for a few days. He has been trying Mucinex and that has not helped. Had some increasing dizziness today so presented for further evaluation. Does have heart history which is what the concern was that mainly his complaint is related to sore throat, cough and runny nose. He did have coughing fit today that caused vomiting but otherwise has not had any nausea or difficulty with eating. Timing/Duration: getting worse Severity/Quality: mild, moderate, dry cough Prior Episodes/Possible Cause: occasional episodes Modifying Factors: Worse With Activity, Worse With Coughing, Improves With Rest Associated Symptoms: chest pain/soreness, cough, dizziness, fever/chills, nasal congestion, nasal drainage, shortness of breath, sore throat Allergies and Home Medications Allergies Coded Allergies: No Known Drug Allergies (Unverified , 08/20/16) Home Medications Atorvastatin Calcium 40 Mg Tablet, 40 MG PO HS, (Reported) Dabigatran Etexilate Mesylate 150 Mg Capsule, 150 MG PO BID, (Reported) Flecainide Acetate 100 Mg Tablet, 100 MG PO BID, #60 Prescribed by: SHANNAN IL on 03/29/16 0901 Hydrocodone/Acetaminophen 1 Each Tablet, 1 EACH PO q4-6hrs PRN for PAIN, #10 Prescribed by: LILI LEONARD NWAGW on 08/21/16 1108 Metoprolol Succinate 50 Mg Tab.er.24h, 50 MG PO DAILY, (Reported) Nitroglycerin 0.2 Mg/Patch Patch, 0.2 MG TD DAILY, (Reported) APPLY ONE PATCH TO CHEST WALL EVERY MORNING AND REMOVE AT BEDTIME Pantoprazole Sod 40 Mg Tab, 40 MG PO DAILY, (Reported) Ranolazine 1,000 Mg Tab.er.12h, 500 MG PO BID, (Reported) TAKES 1/2 (1000MG) TABLET Constitutional: see HPI, No chills, No fever EENTM: nose congestion, see HPI, throat pain Respiratory: cough Cardiovascular: No edema, Hx of Intervention Gastrointestinal: No abdominal pain, No diarrhea, No nausea, vomiting Genitourinary: no symptoms reported Musculoskeletal: no symptoms reported Skin: no symptoms reported All Other Systems Reviewed Negative Unless Noted: Yes Past Dhrtcnb-Gsvdkh-Hysvpe Hx Patient Social History Alcohol Use: Denies Use Recreational Drug Use: No Smoking Status: Never a Smoker Type Used: Smokeless Tobacco Recent Foreign Travel: No Contact w/Someone Who Travel: No Recent Hopitalizations: No Seasonal Allergies Seasonal Allergies: No Surgeries HX Surgeries: Yes (BACK SURGERY (2000), HERNIA SURGERY (2007)) Surgeries: Coronary Stent, Eye Surgery Respiratory Hx Respiratory Disorders: No Cardiovascular Hx Cardiac Disorders: Yes Cardiac Disorders: Atrial Fibrillation, Coronary Artery Disease, High Cholesterol Neurological Hx Neurological Disorders: No Reproductive System Hx Reproductive Disorders: No Sexually Transmitted Disease: No HIV/AIDS: No Genitourinary Hx Genitourinary Disorders: No Gastrointestinal Hx Gastrointestinal Disorders: Yes Gastrointestinal Disorders: Gastroesophageal Reflux Musculoskeletal Hx Musculoskeletal Disorders: Yes (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) Musculoskeletal Disorders: Arthritis Endocrine Hx Endocrine Disorders: No HEENT HX ENT Disorders: Yes (GLASSES) HEENT Disorders: Cataract Loss of Vision: Bilateral Hearing Impairment: Denies Cancer Hx Cancer: No Psychosocial Hx Psychiatric Problems: No Integumentary HX Skin/Integumentary Disorder: No Blood Transfusions Hx Blood Disorders: No Adverse Reaction to a Blood Tr: No (N/A) Reviewed Nursing Assessment Reviewed/Agree w Nursing PMH: Yes Family Medical History Family Medial History: Cancer of colon 09 BROTHER Family history: Gastrointestinal disease 09 BROTHER Kidney disease 09 BROTHER Physical Exam Vital Signs Vital Sign - Last 12Hours 11/15/16 14:11 Temp 96.9 Pulse 70 Resp 16 B/P (MAP) 172/81 O2 Delivery Room Air Capillary Refill : General Appearance: WD/WN, no apparent distress HEENT: PERRL/EOMI, pharyngeal erythema, other (moderate bilateral nasal congestion with purulent rhinorrhea and moderate erythema.) Respiratory: no respiratory distress, no accessory muscle use, wheezing (few scattered) Cardiovascular: regular rate, rhythm, no murmur Gastrointestinal: non tender, soft Neurologic/Psychiatric: alert, oriented x 3 Skin: normal color, warm/dry Progress/Results/Core Measures Results/Orders My Orders Orders - IAN PÉREZ MD Chest Pa/Lat (2 View) (11/15/16 14:08) Dexamethasone Pf Injection (Decadron Pf (11/15/16 14:08) Vital Signs/I&O Vital Sign - Last 12Hours 11/15/16 14:11 Temp 96.9 Pulse 70 Resp 16 B/P (MAP) 172/81 O2 Delivery Room Air Progress Note : Progress Note Seen and evaluated. Chest x-ray ordered. Decadron 10 mg IM. No acute findings on x-ray. Likely upper respiratory infection. Discharged home with return precautions. Patient verbalize understanding instructions and agreement with plan. Departure Impression Impression: Primary Impression: Upper respiratory infection Qualified Codes: J06.9 - Acute upper respiratory infection, unspecified Disposition: HOME, SELF-CARE Condition: Stable Departure-Patient Inst. Decision time for Depature: 14:15 Referrals: BRAULIO GUTIERREZ DO (PCP/Family) Primary Care Physician Patient Instructions: Bacterial Upper Respiratory Infection, Adult (DC) Add. Discharge Instructions: All discharge instructions reviewed with patient and/or family. Voiced understanding. Take medications as directed. Follow up with your Dr. in a few days for recheck. Return for worse pain, breathing problems, weakness, dizziness, chest pain, vomiting or other concerns as needed. Drink plenty of fluids. You may use Afrin nasal spray or the generic, 12 hour relief, 2 sprays to each nostril twice daily for 3 hours only and then stop. Do not use for more than 3 days. Scripts Cefdinir (Cefdinir) 300 Mg Capsule 300 MG PO BID, #14 CAP 0 Refills Prov: IAN PÉREZ MD 11/15/16 IAN PÉREZ MD November 15, 2016 14:16
--- NOTE | 2016-11-15 14:33 | Diagnostic Imaging Report ---
INDICATION: Cough, congestion and sore throat for 4 days. EXAMINATION: PA and lateral views of the chest. FINDINGS: The heart size and vascularity are normal. Lungs are clear. There is no effusion. There is no acute bony abnormality. IMPRESSION: No acute abnormality is seen. There is no significant change from 03/28/16. Dictated by: Dictated on workstation # [id number]
[2016-11-15] MEDS ORDERED: CEFD300C3 PO (15:21)
[2016-11-15 16:30] VITALS: BP 132/70
== END 2016-11-15 16:30 | disposition home or self-care (01) ==
LOC: EDUNIT# 13:55 → ER 13:57
DX: J06.9 Acute upper respiratory infection, unspecified (principal); I25.10 Atherosclerotic heart disease of native coronary artery without angina pectoris; I48.2 Chronic atrial fibrillation; Z79.899 Other long term (current) drug therapy; Z95.5 Presence of coronary angioplasty implant and graft
CPT/HCPCS: 71020; 96372; 99282

== ENCOUNTER 2017-03-09 09:24 | Emergency (ER) | payer MEDICARE, MEDICAID ==
[~2017-03-09] VITALS: Ht 175.3 cm; Wt 77.2 kg
[~2017-03-09 09:24] MED LIST changes: +CEFD300C3 PO
[2017-03-09] MEDS ORDERED: LIDOCAINE 2% 20 ML (XYLOCAINE) VIAL ONE (10:55)
[2017-03-09] MEDS ORDERED: cefTRIAXone 1 GM (ROCEPHIN) VIAL IM ONE (11:00)
[2017-03-09] MEDS ORDERED: LIDOCAINE 1% INJ 20 ML (XYLOCAINE) VIAL INJ ONE (11:00)
[2017-03-09] MEDS ORDERED: TETANUS,DIPTH,PERTUSS P/F (BOOSTRIX) 0.5 ML VIAL IM ONE (11:00)
[2017-03-09] MEDS ORDERED: LIDOCAINE 2% 20 ML (XYLOCAINE) VIAL INJ ONE (11:00)
--- NOTE | 2017-03-09 11:12 | ED Upper Extremity ---
General Chief Complaint: Upper Extremity Stated Complaint: RT HAND INJURY Nursing Triage Note: PT. WAS PUSHING GARBAGE CAN. CAUGHT CAN ON ROCKS ET BOTH HANDS GOT JAMMED INTO HANDLES. PT. STATES CUT TO BOTH FINGER ARE DEEP. BANDAGES TO BOTH HANDS BILATE NOTED. Nursing Sepsis Screen: No Definite Risk Source: patient Exam Limitations: no limitations History of Present Illness Time seen by provider: 11:08 Initial Comments To ER with laceration to the dorsal aspect of the right [place] third finger and the left third and fourth finger. Patient was taking his rolling trash dumpster out to the street last night when it hit a large rock causing him to fall. He kept ahold of the trash dumpster and his hands became pinched between the gravel on the ground and the bottom of the trash dumpster. Tetanus is not up-to-date. The bandage this at home the pain is worse today. Onset: yesterday Severity: moderate Pain/Injury Location: bilateral 2nd finger, bilateral 3rd finger Method of Injury: fell Allergies and Home Medications Allergies Coded Allergies: No Known Drug Allergies (Unverified , 08/20/16) Home Medications Atorvastatin Calcium 40 Mg Tablet, 40 MG PO HS, (Reported) Cefdinir 300 Mg Capsule, 300 MG PO BID, #14 Ref 0 Prescribed by: INA PÉREZ on 11/15/16 1521 Dabigatran Etexilate Mesylate 150 Mg Capsule, 150 MG PO BID, (Reported) Flecainide Acetate 100 Mg Tablet, 100 MG PO BID, #60 Prescribed by: SHANNAN LI on 03/29/16 0901 Hydrocodone/Acetaminophen 1 Each Tablet, 1 EACH PO q4-6hrs PRN for PAIN, #10 Prescribed by: LILI [facility] on 08/21/16 1108 Metoprolol Succinate 50 Mg Tab.er.24h, 50 MG PO DAILY, (Reported) Nitroglycerin 0.2 Mg/Patch Patch, 0.2 MG TD DAILY, (Reported) APPLY ONE PATCH TO CHEST WALL EVERY MORNING AND REMOVE AT BEDTIME Pantoprazole Sod 40 Mg Tab, 40 MG PO DAILY, (Reported) Ranolazine 1,000 Mg Tab.er.12h, 500 MG PO BID, (Reported) TAKES 1/2 (1000MG) TABLET Constitutional: see HPI EENTM: see HPI Respiratory: no symptoms reported Cardiovascular: no symptoms reported Genitourinary: no symptoms reported Musculoskeletal: see HPI Skin: see HPI Psychiatric/Neurological: No Symptoms Reported Past Qyxpbgs-Nkidco-Fddsan Hx Patient Social History Alcohol Use: Regular Use Number of Drinks Today: AA Alcohol Beverage of Choice: Beer Recreational Drug Use: Yes (ALCOHOL) Smoking Status: Current Everyday Smoker Type Used: Smokeless Tobacco Former Smoker, Quit: Jul 13, 1975 Recent Foreign Travel: No Contact w/Someone Who Travel: No Recent Infectious Disease Expo: No Recent Hopitalizations: No Seasonal Allergies Seasonal Allergies: No Surgeries History of Surgeries: Yes (BACK SURGERY (1999), HERNIA SURGERY (2007)) Surgeries: Coronary Stent, Eye Surgery Respiratory History of Respiratory Disorde: No Cardiovascular History of Cardiac Disorders: Yes Cardiac Disorders: Atrial Fibrillation, Coronary Artery Disease, High Cholesterol Neurological History of Neurological Disord: No Reproductive System Hx Reproductive Disorders: No Sexually Transmitted Disease: No HIV/AIDS: No Gastrointestinal History of Gastrointestinal Di: Yes Gastrointestinal Disorders: Gastroesophageal Reflux Musculoskeletal History of Musculoskeletal Dis: Yes (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) Musculoskeletal Disorders: Arthritis Endocrine History of Endocrine Disorders: No HEENT HEENT Disorders: Cataract Loss of Vision: Bilateral Hearing Impairment: Denies Cancer History of Cancer: No Psychosocial History of Psychiatric Problem: No Integumentary History of Skin or Integumenta: No Blood Transfusions History of Blood Disorders: No Adverse Reaction to a Blood Tr: No (N/A) Family Medical History Family Medial History: Cancer of colon 09 BROTHER Family history: Gastrointestinal disease 09 BROTHER Kidney disease 09 BROTHER Physical Exam Vital Signs Vital Sign - Last 12Hours 03/09/17 09:57 Temp 98.6 Pulse 60 Resp 18 B/P (MAP) 133/72 Pulse Ox 95 O2 Delivery Room Air Capillary Refill : Less Than 3 Seconds General Appearance: WD/WN, no apparent distress HEENT: PERRL/EOMI, normal ENT inspection Neck: non-tender, full range of motion Respiratory: no respiratory distress, no accessory muscle use Gastrointestinal: normal bowel sounds, non tender, soft Shoulder: normal inspection Elbow/Forearm: normal inspection, non-tender Wrist: Yes normal inspection, Yes non-tender Hand: Bilateral, laceration (abrasions to the dorsal aspect of the middle phalanx of the right second and third finger. These are fairly deep. There is gravel and debris noted within these. There is swelling proximally. The) Neurologic/Psychiatric: alert, normal mood/affect, oriented x 3 Skin: normal color, warm/dry Progress/Results/Core Measures Results/Orders My Orders Orders - JOHN VINSON APRN Dipht,Pertyoanna(Acell),Tet Adult (Boostrix (03/09/17 11:00) Lidocaine 2% Injection 20 Ml (Xylocaine (03/09/17 11:00) Ceftriaxone Injection (Rocephin Injectio (03/09/17 11:00) Lidocaine 1% Injection (Xylocaine 1% Inj (03/09/17 11:00) Lidocaine 2% Injection 20 Ml (Xylocaine (03/09/17 10:55) Hand, Right, 3 Views (03/09/17 11:14) Wound Culture (03/09/17 11:17) Wound Care Physician Consult (03/09/17 11:17) Medications Given in ED Current Medications Medications Dose Ordered Sig/Marika Route Start Time Stop Time Status Last Admin Dose Admin Ceftriaxone Sodium 1,000 mg ONCE ONCE IM 03/09/17 11:00 03/09/17 11:02 DC 03/09/17 11:17 1,000 MG Diphtheria/ Tetanus/Acell Pertussis 0.5 ml ONCE ONCE IM 03/09/17 11:00 03/09/17 11:02 DC 03/09/17 11:19 0.5 ML Lidocaine HCl 2.1 ml ONCE ONCE INJ 03/09/17 11:00 03/09/17 11:02 DC 03/09/17 11:17 2.1 ML Vital Signs/I&O Vital Sign - Last 12Hours 03/09/17 09:57 Temp 98.6 Pulse 60 Resp 18 B/P (MAP) 133/72 Pulse Ox 95 O2 Delivery Room Air Blood Pressure Mean: 92 Progress Note : Progress Note I did a digital block using 10 mL of 2 percent lidocaine without epinephrine to each of the fingers the right pointer and middle finger. I was then able to lift the flap of skin and debridement the foreign bodies. There was a multitude of small gravel chunks beneath the flap and visualization of the extensor tendon on the middle finger. Same to the right pointer finger. However, there was no visualization of the extensor tendon on that finger this was covered with Adaptic and tube gauze. Diagnostic Imaging Diagonstic Imaging: Xray Comments NAME: GUERRERO JONHSON [facility] REC#: [id number] PT STATUS: REG ER : 1940 PHYSICIAN: JOHN VINSON APRN ADMIT DATE: 03/09/17/ER Draft Date of Exam:03/09/17 HAND, RIGHT, 3 VIEWS INDICATION: Fall. Pain. Trauma. COMPARISON: None. FINDINGS: 3 views of the right hand show no fractures, dislocations, or other acute bony abnormalities identified. Osteoarthritic changes are noted. Otherwise, joint spaces are well maintained throughout. The soft tissues appear unremarkable. Benign chronic appearing soft tissue calcifications are present. No radiopaque foreign bodies are identified. IMPRESSION: No acute fractures or dislocations of the right hand. Dictated on workstation # [id number] Dict: 03/09/17 1138 Trans: 03/09/17 1145 [id number] Interpreted by: DICK CASON Electronically signed by: Departure Impression Impression: Primary Impression: Hand laceration Disposition: 01 HOME, SELF-CARE Condition: Stable Departure-Patient Inst. Decision time for Depature: 11:59 Referrals: BRAULIO GUTIERREZ DO (PCP/Family) Primary Care Physician STEPHANY PINA DO Patient Instructions: Wound Care Add. Discharge Instructions: 1. I have left a message with Dr. Pina's construction secretary (hand surgeon) they should be calling you today with an appointment time. If they are unable to see you before Thursday and U should return to the emergency room on Thursday evening for dressing change 2. Pain medication and antibiotics as directed All discharge instructions reviewed with patient and/or family. Voiced understanding. Scripts Hydrocodone/Acetaminophen ([place] 5-325 Tablet) 1 Each Tablet 1 EACH PO Q6H Y for PAIN-MODERATE TO SEVERE, #14 TAB Prov: JOHN VINSON APRN 03/09/17 Clindamycin HCl (Clindamycin HCl) 150 Mg Capsule 300 MG PO TID for 7 Days, CAP Prov: JOHN VINSON APRN 03/09/17 Copy Copies To 1: STEPHANY PINA PETER J APRN Mar 09, 2017 11:12
--- NOTE | 2017-03-09 11:45 | Diagnostic Imaging Report ---
INDICATION: Fall. Pain. Trauma. COMPARISON: None. FINDINGS: 3 views of the right hand show no fractures, dislocations, or other acute bony abnormalities identified. Osteoarthritic changes are noted. Otherwise, joint spaces are well maintained throughout. The soft tissues appear unremarkable. Benign chronic appearing soft tissue calcifications are present. No radiopaque foreign bodies are identified. IMPRESSION: No acute fractures or dislocations of the right hand. Dictated by: Dictated on workstation # [id number]
[2017-03-09] MEDS ORDERED: CLIN150C17 PO (12:04)
[2017-03-09] MEDS ORDERED: HYDR-757 PO (12:04)
[2017-03-09 12:16] VITALS: BP 140/70
== END 2017-03-09 12:16 | disposition home or self-care (01) ==
LOC: EDUNIT# 09:24 → ER 09:26
DX: S61.212A Laceration without foreign body of right middle finger without damage to nail, initial encounter (principal); S61.210A Laceration without foreign body of right index finger without damage to nail, initial encounter; K21.9 Gastro-esophageal reflux disease without esophagitis; I25.10 Atherosclerotic heart disease of native coronary artery without angina pectoris; I48.91 Unspecified atrial fibrillation; E78.00 Pure hypercholesterolemia, unspecified; F17.290 Nicotine dependence, other tobacco product, uncomplicated; Z95.1 Presence of aortocoronary bypass graft; Z23 Encounter for immunization; W23.0XXA Caught, crushed, jammed, or pinched between moving objects, initial encounter
CPT/HCPCS: 73130; 90471; 90715; 96372; 99284

== ENCOUNTER 2017-03-11 13:21 | Emergency (ER) | payer MEDICARE, MEDICAID ==
[~2017-03-11] VITALS: Ht 170.2 cm; Wt 77.1 kg
[~2017-03-11 13:21] MED LIST changes: +CLIN150C17 PO; +HYDR-757 PO
--- NOTE | 2017-03-11 14:32 | ED Suture Removal/Wound Check ---
Suture/Wound Re-check General Appearance: WD/WN, no apparent distress Neuro/Tendon: normal sensation, normal motor functions Skin Exam: normal color, warm/dry Physical Exam Vital Signs Vital Sign - Last 12Hours 03/11/17 13:36 Pulse 86 Resp 14 B/P (MAP) 156/72 Pulse Ox 97 O2 Delivery Room Air Capillary Refill : General Appearance: WD/WN, no apparent distress HEENT: PERRL/EOMI, normal ENT inspection Neck: non-tender, full range of motion Respiratory: no respiratory distress, no accessory muscle use Gastrointestinal: normal bowel sounds, non tender, soft Neurologic/Psychiatric: alert, normal mood/affect, oriented x 3 Skin: normal color, warm/dry Skin Problem Character: other (traumatic wound) Comments . On the pointer finger there is granulation tissue noted with minimal necrotic tissue. On the middle finger there is a bit more necrotic/yellowish fibrinous tissue noted. The necrotic tissue was trimmed as best possible. Redressed with will emulsion dressing and tube gauze. We will continue the clindamycin. As mentioned he is able to make a fist more easily today than he was 3 days ago when I saw him. There is no pus drainage. We will continue the clindamycin. Wound culture has been sent. Dr. Yanes agrees to see the patient next week. Departure Impression Impression: Primary Impression: Visit for wound check Disposition: HOME, SELF-CARE Condition: Stable Departure-Patient Inst. Decision time for Depature: 14:31 Referrals: BRAULIO GUTIERREZ DO (PCP/Family) Primary Care Physician TRACEY YANES MD Patient Instructions: Wound Care (DC) Add. Discharge Instructions: 1. Return here on Thursday for dressing change 2. Call Dr Yanes for an appointment time tomorrow. 3. Continue the antibiotics 4. Return to ER for any concerns All discharge instructions reviewed with patient and/or family. Voiced understanding. Copy Copies To 1: TRACEY YANES MD, PETER J APRN Mar 11, 2017 14:32
[2017-03-11 14:44] VITALS: BP 156/72
== END 2017-03-11 14:43 | disposition home or self-care (01) ==
LOC: EDUNIT# 13:21 → ER 13:24
DX: S61.208D Unspecified open wound of other finger without damage to nail, subsequent encounter (principal); X58.XXXD Exposure to other specified factors, subsequent encounter
CPT/HCPCS: 87070; 87077; 87205; 99282

== ENCOUNTER 2017-03-14 16:12 | Emergency (ER) | payer MEDICARE, MEDICAID ==
[~2017-03-14] VITALS: Ht 170.2 cm; Wt 77.2 kg
[2017-03-14] MEDS ORDERED: HYDR-3812 PO (16:35)
--- NOTE | 2017-03-14 16:35 | ED Suture Removal/Wound Check ---
Physical Exam Vital Signs Vital Sign - Last 12Hours 03/14/17 16:24 Pulse 63 Resp 18 B/P (MAP) 148/75 Pulse Ox 97 Capillary Refill : Departure Departure-Patient Inst. Referrals: BRAULIO GUTIERREZ DO (PCP/Family) Primary Care Physician Scripts Hydrocodone/Acetaminophen (Hydrocodon -Acetaminophen 5-325) 1 Each Tablet 1 EACH PO Q6H Y for PAIN, #20 TAB 0 Refills Prov: BAR BISHOP 03/14/17 BAR BISHOP Mar 14, 2017 16:35
[2017-03-14 16:56] VITALS: BP 132/78
== END 2017-03-14 16:56 | disposition home or self-care (01) ==
LOC: EDUNIT# 16:12 → ER 16:14
DX: S61.210D Laceration without foreign body of right index finger without damage to nail, subsequent encounter (principal); S61.212D Laceration without foreign body of right middle finger without damage to nail, subsequent encounter; S61.213D Laceration without foreign body of left middle finger without damage to nail, subsequent encounter; S61.215D Laceration without foreign body of left ring finger without damage to nail, subsequent encounter; X58.XXXD Exposure to other specified factors, subsequent encounter

== ENCOUNTER → 2017-03-23 | Outpatient (CLI) | payer MEDICARE, MEDICAID ==
[~2017-03-23] MED LIST changes: +HYDR-3812 PO
== END ==
LOC: WOUNDCARE 09:04
PROVIDERS: ATTEND Surgery
DX: S61.200A Unspecified open wound of right index finger without damage to nail, initial encounter (principal); S61.202A Unspecified open wound of right middle finger without damage to nail, initial encounter; L03.113 Cellulitis of right upper limb; T65.212A Toxic effect of chewing tobacco, intentional self-harm, initial encounter
CPT/HCPCS: 11042; 87070; 87075; 87205; 99212

== ENCOUNTER → 2017-03-30 | Outpatient (CLI) | payer MEDICARE, MEDICAID | LOC: WOUNDCARE 08:52 | PROVIDERS: ATTEND Surgery | DX: S61.200A Unspecified open wound of right index finger without damage to nail, initial encounter (principal); S61.202A Unspecified open wound of right middle finger without damage to nail, initial encounter; L03.113 Cellulitis of right upper limb; T65.212A Toxic effect of chewing tobacco, intentional self-harm, initial encounter | CPT/HCPCS: 11042 ==

== ENCOUNTER → 2017-04-06 | Outpatient (CLI) | payer MEDICARE, MEDICAID | LOC: WOUNDCARE 08:54 | PROVIDERS: ATTEND Surgery | DX: S61.202A Unspecified open wound of right middle finger without damage to nail, initial encounter (principal); L03.113 Cellulitis of right upper limb; T65.212A Toxic effect of chewing tobacco, intentional self-harm, initial encounter | CPT/HCPCS: 11042 ==

== ENCOUNTER → 2017-04-13 | Outpatient (CLI) | payer MEDICARE, MEDICAID | LOC: WOUNDCARE 08:54 | PROVIDERS: ATTEND Surgery | DX: S61.202A Unspecified open wound of right middle finger without damage to nail, initial encounter (principal); T65.212A Toxic effect of chewing tobacco, intentional self-harm, initial encounter | CPT/HCPCS: 99212 ==

== ENCOUNTER → 2017-10-12 | Outpatient (CLI) | payer MEDICARE, MEDICAID ==
[~2017-10-12] MED LIST changes: -HYDR-3812 PO; -METO-272 PO; +METO-370 PO
--- NOTE | 2017-10-12 11:04 | Diagnostic Imaging Report ---
INDICATION: Fall. FINDINGS: There is an oblique fracture through the distal fibula. There is no other fracture or dislocation in the foot. There is some degenerative spurring in the calcaneus. IMPRESSION: Oblique fracture through the distal fibular diaphysis. Degenerative spurring of the calcaneus Dictated by: Dictated on workstation # [id number]
== END ==
LOC: RAD 10:43
PROVIDERS: ATTEND Nurse Practitioner Family
DX: S82.431A Displaced oblique fracture of shaft of right fibula, initial encounter for closed fracture (principal); W19.XXXA Unspecified fall, initial encounter
CPT/HCPCS: 73630

== ENCOUNTER 2017-11-25 05:40 | Outpatient (CLI) | payer MEDICARE, MEDICAID ==
[~2017-11-25] VITALS: Ht 170.2 cm; Wt 77.1 kg
[2017-11-25] MEDS ORDERED: DABI150C5 PO (10:19)
[2017-11-25] MEDS ORDERED: NITR1PAT57 TD (10:19)
[2017-11-25] MEDS ORDERED: FLEC100T PO (10:20)
[2017-11-25] MEDS ORDERED: PANT40TA3 PO (10:20)
[2017-11-25] MEDS ORDERED: DIAZ2TAB2 PO (10:20)
[2017-11-25] MEDS ORDERED: ERGO50006 PO (10:20)
[2017-11-25] MEDS ORDERED: RANO500T3 PO (10:20)
[2017-11-25] MEDS ORDERED: ATOR40TA70 PO (10:20)
[2017-11-25] MEDS ORDERED: METO-387 PO (10:20)
[2017-11-25] MEDS ORDERED: DULO30CA48 PO (10:20)
== END 2017-11-25 10:23 ==
LOC: PREOP 05:40
PROVIDERS: ATTEND Specialist
DX: Z01.818 Encounter for other preprocedural examination (principal)

== ENCOUNTER 2018-03-17 07:04 | Day surgery (SDC) | payer MEDICARE, MEDICAID ==
[2018-03-17] VITALS (15 sets, daily range): BP systolic 109–153; BP diastolic 62–100
[~2018-03-17] VITALS: Ht 167.6 cm; Wt 75.7 kg
[~2018-03-17 07:04] MED LIST changes: +DABI150C5 PO; +DIAZ2TAB2 PO; +DULO30CA48 PO; +ERGO50006 PO; +HYDR-4226 PO; -HYDR-757 PO; +METO-387 PO; +NITR1PAT57 TD; +PANT40TA3 PO; +RANO500T3 PO
[2018-03-17] MEDS ORDERED: LIDOCAINE 2% VISCOUS 15 ML UDC ONE (07:14)
[2018-03-17] MEDS ORDERED: NS IV 1000 ML 1,000 ML ONE (07:14)
[2018-03-17] MEDS ORDERED: NS IV 1000 ML 1,000 ML IV SCH (07:20)
--- NOTE | 2018-03-17 07:41 | Diagnostic Imaging Report ---
Indication: Preop. Findings: Portable chest shows lungs to be well aerated and clear. Heart not enlarged. There is no pulmonary edema. No hilar adenopathy. No pneumothorax or pleural effusion. No bony abnormality. Impression: Normal portable chest. Dictated by: Dictated on workstation # [id number]
[2018-03-17 07:52] LABS: MEAN PLATELET VOLUME 9.4 FL (7.4-10.4); RED BLOOD COUNT 4.18 10^6/uL (4.35-5.85); RED CELL DISTRIBUTION WIDTH 12.3 % (10.0-14.5); WHITE BLOOD COUNT 5.7 10^3/uL (4.3-11.0)
[2018-03-17 08:07] LABS: INR 1.2 (0.8-1.4); PROTHROMBIN TIME PATIENT 14.9 SEC (12.2-14.7)
[2018-03-17] MEDS ORDERED: METO-370 PO (08:08)
[2018-03-17] MEDS ORDERED: LISI-556 PO (08:08)
[2018-03-17 08:12] LABS: ALANINE AMINOTRANSFERASE 41 U/L (0-55); ALBUMIN 4.1 GM/DL (3.2-4.5); ALKALINE PHOSPHATASE 92 U/L (40-136); BILIRUBIN,TOTAL 0.8 MG/DL (0.1-1.0); BUN/CREATININE RATIO 9; CALCIUM 9.6 MG/DL (8.5-10.1); CARBON DIOXIDE 22 MMOL/L (21-32); CHLORIDE 104 MMOL/L (98-107); CHOLESTEROL 129 MG/DL (< 200); CREATININE SERUM 0.89 MG/DL (0.60-1.30); GFR ESTIMATED > 60; GLUCOSE 101 MG/DL (70-105); HDL CHOLESTEROL 61 MG/DL (40-60); POTASSIUM 4.2 MMOL/L (3.6-5.0); SODIUM 138 MMOL/L (135-145); TOTAL PROTEIN 6.8 GM/DL (6.4-8.2); TRIGLYCERIDES 48 MG/DL (<150); VLDL CHOLESTEROL 10 MG/DL (5-40)
--- NOTE | 2018-03-17 08:24 | Cardiac Procedure Note-CS/ASA ---
Pre-Procedure Note Pre-Op Procedure Note H&P Reviewed The H&P was reviewed, patient examined and no changes noted. Date H&P Reviewed: Mar 17, 2018 Time H&P Reviewed: 08:23 Conscious Sedation Pre-Proced Time Reviewed: 08:23 ASA Class: 3 Airway Mallampati Classification: ([place] appropriate class) I. II. III, IV Lungs Heart ASA score ASA 1: a normal healthy patient ASA 2: a patient with a mild systemic disease (mid diabetes, controlled hypertension, obesity x ASA 3: a patient with a severe systemic disease that limits activity (angina , COPD, prior Myocardial infarction) ASA 4: a patient with an incapacitating disease that is a constant threat to life (CHF, renal failure) ASA 5: a moribund patient not expected to survive 24 hrs. (ruptured aneurysm) ASA 6: a declared brain patient whose organs are being harvested. For emergent operations, add the letter E after the classification Grade 3 Sedation Plan: Analgesia, Amnesia, Plan communicated to team members, Discussed options with patient/fam, Discussed risks with patient/fam Note The patient is an appropriate candidate to undergo the planned procedure, sedation, and anesthesia. The patient immediately re-assessed prior to indication. LUCITA LYON MD Mar 17, 2018 08:23
[2018-03-17 08:55] LABS: BILIRUBIN,URINE NEGATIVE (NEGATIVE); CLARITY,URINE CLEAR; COLOR,URINE YELLOW; GLUCOSE, URINE (UA) NEGATIVE (NEGATIVE); KETONES,URINE NEGATIVE (NEGATIVE); LEUKOCYTE ESTERASE ,URINE 1+ (NEGATIVE); NITRITE,URINE NEGATIVE (NEGATIVE); PH,URINE 5 (5-9); PROTEIN,URINE 1+ (NEGATIVE); UROBILINOGEN,URINE NORMAL (NORMAL)
[2018-03-17 09:11] LABS: BACTERIA,URINE NEGATIVE /HPF; RBC,URINE RARE /HPF; WBC,URINE 0-2 /HPF
[2018-03-17 09:12] LABS: SQUAMOUS EPITHELIAL CELL,UR 0-2 /HPF
[2018-03-17] MEDS ORDERED: LIDOCAINE 2% VISCOUS 15 ML UDC PO ONE (09:20)
[2018-03-17] MEDS ORDERED: proPOfol 200 MG/20 ML (DIPRIVAN) VIAL IV ONE ×2 (09:25→10:02)
[2018-03-17] MEDS ORDERED: MIDAZOLAM 5 MG/5 ML (VERSED) VIAL ONE (09:25)
--- NOTE | 2018-03-17 09:56 | Clinic Account Progress/Dx ---
Clinic Account Progress/Dx DIAGNOSIS: Date Seen by Provider: Mar 17, 2018 Time Seen by Provider: 09:56 Chronic Atrial flutter Hypertension Hyperlipidemia Palpitation LUCITA LYON MD Mar 17, 2018 09:56
--- NOTE | 2018-03-17 10:08 | Anesthesia-Procedure Note ---
Procedures/Interventions Procedure Start/Stop/Diagnosis Date of Procedure: Mar 17, 2018 Start Time: 09:40 Referring Physician: Ava Preprocedural Diagnosis: atrial flutter Stop Time: 09:54 ENDER/Cardioversion Anesthesia Type: MAC ASA Class: 2 Medications Versed 2 mg and Propofol 50mg Monitors and Equipment: BP Cuff - Left, Continuous EKG, End Tidal CO2, IV ( Right AC), Pulse Oximeter CHERYL VANCE CRNA Mar 17, 2018 10:08
== END 2018-03-17 13:05 | disposition home or self-care (01) ==
LOC: CATH 07:04
PROVIDERS: ATTEND Internal Medicine Cardiovascular Disease
DX: I48.0 Paroxysmal atrial fibrillation (principal); I25.10 Atherosclerotic heart disease of native coronary artery without angina pectoris; I10 Essential (primary) hypertension; E78.5 Hyperlipidemia, unspecified; I34.0 Nonrheumatic mitral (valve) insufficiency; R55 Syncope and collapse; F17.220 Nicotine dependence, chewing tobacco, uncomplicated; Z79.01 Long term (current) use of anticoagulants; Z95.5 Presence of coronary angioplasty implant and graft
CPT/HCPCS: 36415; 71045; 80053; 80061; 81000; 85027; 85610; 85730; 87081; 93005; 93312; 93320; 93325

== ENCOUNTER 2019-05-23 11:42 | Outpatient (RCR) | payer MEDICAID, MEDICARE ==
[~2019-05-23 11:42] MED LIST changes: -DULO30CA48 PO; +DULO30CA49 PO; +LISI-556 PO; -METO-370 PO; -METO-387 PO
== END 2019-08-21 | disposition home or self-care (01) ==
LOC: CARD 11:42
PROVIDERS: ATTEND Internal Medicine Cardiovascular Disease
DX: I48.92 Unspecified atrial flutter (principal); I48.91 Unspecified atrial fibrillation; E78.2 Mixed hyperlipidemia; I10 Essential (primary) hypertension; R55 Syncope and collapse
CPT/HCPCS: 93225; 93226

== ENCOUNTER → 2019-05-30 | Outpatient (CLI) | payer MEDICAID, MEDICARE ==
[~2019-05-30] MED LIST changes: +METO-370 PO; +METO-387 PO
== END ==
LOC: CARD 08:44
PROVIDERS: ATTEND Internal Medicine Cardiovascular Disease
DX: I08.3 Combined rheumatic disorders of mitral, aortic and tricuspid valves (principal); I48.91 Unspecified atrial fibrillation; E78.5 Hyperlipidemia, unspecified; I10 Essential (primary) hypertension
CPT/HCPCS: 93306

== ENCOUNTER → 2019-06-15 | Outpatient (CLI) | payer MEDICAID, MEDICARE ==
[~2019-06-15] VITALS: Ht 172 cm; Wt 72.0 kg
[~2019-06-15] MED LIST changes: +CATHETER FLUSH 10 ML SYR IV PRN; +FLU QUADRIvalent (5+ YOA) 2019-2020 (AFLURIA) 0.5 ML IM ONE; +REGADENOSON 0.4 MG/5 ML SYR (LEXISCAN) IV ONE
[2019-06-15 13:30] VITALS: BP 173/75
--- NOTE | 2019-06-15 18:28 | STRESS TEST ---
DATE OF SERVICE: 06/15/2019 LEXISCAN MYOVIEW STRESS TEST REPORT Baseline heart rate is 56. Baseline blood pressure 168/91. Baseline EKG is sinus rhythm with no ischemic changes. In summary, the patient was injected with 10.29 mCi of technetium-99 Myoview and the resting images were obtained. Then, the patient received 0.4 mg of Lexiscan followed by 27.8 mCi of technetium-99 Myoview. Throughout the test, there were no EKG changes. The resting and stress images were reviewed and compared in the short axis, horizontal long axis, and vertical long axis views. Review of the images showed good radiotracer uptake with no significant ischemia or infarction. SSS is 3, SDS 3, TID value 1.07. On the gated images, the left ventricle appeared to be normal size with normal contractility. Calculated ejection fraction 65%. CONCLUSION: 1. The patient tolerated Lexiscan well. 2. No significant ischemia or infarction on SPECT images. 3. Normal left ventricular size with normal contractility. Calculated ejection fraction 65%. Job ID: [id number] DocumentID: [id number] Dictated Date: 06/15/2019 17:15:10 Postal Carrier Date: 06/15/2019 18:27:10 Dictated By: LUCITA LYON MD
== END ==
LOC: CARD 06-07 11:53
PROVIDERS: ATTEND Internal Medicine Cardiovascular Disease
DX: I48.91 Unspecified atrial fibrillation (principal); E78.5 Hyperlipidemia, unspecified; I10 Essential (primary) hypertension
CPT/HCPCS: 78452; 93017

== ENCOUNTER 2019-09-24 19:33 | Inpatient (IN) | payer MEDICARE ==
[~2019-09-24] VITALS: Ht 167.6 cm; Wt 75.7 kg
[~2019-09-24 19:33] MED LIST changes: -CATHETER FLUSH 10 ML SYR IV PRN; -FLU QUADRIvalent (5+ YOA) 2019-2020 (AFLURIA) 0.5 ML IM ONE; -HYDR-3062 PO; -METO-370 PO; -METO-387 PO; -REGADENOSON 0.4 MG/5 ML SYR (LEXISCAN) IV ONE
[2019-09-24] MEDS ORDERED: NS IV 500 ML 500 ML IV ONE (19:39)
[2019-09-24 19:46] LABS: BASOPHILS % (AUTO) 1 % (0-10); EOSINOPHILS # (AUTO) 0.1 10^3/uL (0.0-0.3); EOSINOPHILS % (AUTO) 2 % (0-10); HEMATOCRIT 44 % (40-54); HEMOGLOBIN 15.7 G/DL (13.3-17.7); LYMPHOCYTES # (AUTO) 1.5 X 10^3 (1.0-4.0); LYMPHOCYTES % (AUTO) 27 % (12-44); MEAN CORPUSCULAR HEMOGLOBIN 35 PG (25-34); MEAN CORPUSCULAR HGB CONC 36 G/DL (32-36); MEAN CORPUSCULAR VOLUME 96 FL (80-99); MEAN PLATELET VOLUME 9.5 FL (7.4-10.4); MONOCYTES # (AUTO) 0.6 X 10^3 (0.0-1.0); MONOCYTES % (AUTO) 10 % (0-12); NEUTROPHILS # (AUTO) 3.5 X 10^3 (1.8-7.8); NEUTROPHILS % (AUTO) 61 % (42-75); PLATELET COUNT 181 10^3/uL (130-400); RED CELL DISTRIBUTION WIDTH 12.5 % (10.0-14.5); WHITE BLOOD COUNT 5.7 10^3/uL (4.3-11.0)
[2019-09-24 20:05] LABS: ALANINE AMINOTRANSFERASE 17 U/L (0-55); ALBUMIN 3.7 GM/DL (3.2-4.5); ALKALINE PHOSPHATASE 84 U/L (40-136); BILIRUBIN,TOTAL 0.8 MG/DL (0.1-1.0); BUN/CREATININE RATIO 9; CALCIUM 8.8 MG/DL (8.5-10.1); CARBON DIOXIDE 18 MMOL/L (21-32); CREATININE SERUM 0.86 MG/DL (0.60-1.30); GFR ESTIMATED > 60; GLUCOSE 93 MG/DL (70-105); TOTAL PROTEIN 6.4 GM/DL (6.4-8.2)
[2019-09-24 20:19] LABS: CHLORIDE 101 MMOL/L (98-107); POTASSIUM 4.1 MMOL/L (3.6-5.0); SODIUM 133 MMOL/L (135-145)
--- NOTE | 2019-09-24 20:23 | Diagnostic Imaging Report ---
INDICATION: Fell and struck head on the floor. EXAMINATION: Portable chest. FINDINGS: Normal heart size and vascularity. The lungs are clear. There is no effusion or pneumothorax. There is no bony abnormality. IMPRESSION: No acute abnormality is seen with no change from 03/17/2018. Dictated by: Dictated on workstation # [id number]
--- NOTE | 2019-09-24 20:25 | Diagnostic Imaging Report ---
PROCEDURE: CT head and CT cervical spine without contrast. TECHNIQUE: Multiple contiguous axial images were obtained through the brain and cervical spine without the use of intravenous contrast. Sagittal and coronal reformations through the cervical spine were then performed. Auto Exposure Controls were utilized during the CT exam to meet ALARA standards for radiation dose reduction. INDICATION: Fell and hit head. Laceration The ventricles are normal in size, shape and position. There is cortical atrophy. There is no acute parenchymal hemorrhage, edema or mass. There is no skull fracture. There is normal height and alignment of the cervical vertebral bodies. There are degenerative changes present with spondylosis causing some narrowing of the canal at C3-C4 and less so at C5-C6. No fracture or other acute abnormality seen. IMPRESSION: CT of the head shows atrophy with no acute abnormality. CT of the cervical spine shows degenerative changes with no acute abnormality. Dictated by: Dictated on workstation # [id number]
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
--- NOTE | 2019-09-24 20:37 | NUR ---
C-COLLAR REMOVED BY DR. PÉREZ
[2019-09-24] MEDS ORDERED: LACTATED RINGERS 1,000 ML IV ONE (21:44)
[2019-09-24 21:45] VITALS: BP 159/95
[2019-09-24 22:00] VITALS: BP 143/86
[2019-09-24 22:00] LABS: BILIRUBIN,URINE NEGATIVE (NEGATIVE); CLARITY,URINE CLEAR; COLOR,URINE AMBER; GLUCOSE, URINE (UA) NEGATIVE (NEGATIVE); KETONES,URINE NEGATIVE (NEGATIVE); LEUKOCYTE ESTERASE ,URINE NEGATIVE (NEGATIVE); NITRITE,URINE NEGATIVE (NEGATIVE); PROTEIN,URINE NEGATIVE (NEGATIVE)
[2019-09-24 22:15] VITALS: BP 148/83
[2019-09-24] MEDS ORDERED: LACTATED RINGERS 1,000 ML IV SCH (22:15)
[2019-09-24] MEDS ORDERED: ACETAMINOPHEN 500 MG TAB (TYLENOL) PO PRN (22:15)
[2019-09-24 22:22] LABS: AMPHETAMINE SCREEN, URINE NEGATIVE (NEGATIVE); BARBITURATE SCREEN URINE NEGATIVE (NEGATIVE); BENZODIAZEPINES SCREEN URINE NEGATIVE (NEGATIVE); CANNABINOID SCREEN, URINE NEGATIVE (NEGATIVE); COCAINE SCREEN URINE NEGATIVE (NEGATIVE); METHADONE STAT NEGATIVE (NEGATIVE); METHAMPHETAMINE SCREEN URINE S NEGATIVE (NEGATIVE); OPIATE SCREEN URINE NEGATIVE (NEGATIVE); OXYCODONE STAT NEGATIVE (NEGATIVE); PROPOXYPHENE STAT NEGATIVE (NEGATIVE); TRICYCLIC ANTIDEPRESSANTS SCRE NEGATIVE (NEGATIVE)
[2019-09-24 22:23] LABS: BACTERIA,URINE NEGATIVE /HPF; SQUAMOUS EPITHELIAL CELL,UR RARE /HPF
[2019-09-24 22:30] VITALS: BP 153/85
[2019-09-24 22:45] VITALS: BP 155/85
[2019-09-24 23:00] VITALS: BP 139/78
[2019-09-24 23:17] LABS: BUN/CREATININE RATIO 12; CALCIUM 8.6 MG/DL (8.5-10.1); CARBON DIOXIDE 18 MMOL/L (21-32); CHLORIDE 102 MMOL/L (98-107); CREATININE SERUM 0.78 MG/DL (0.60-1.30); GFR ESTIMATED > 60; GLUCOSE 90 MG/DL (70-105); POTASSIUM 4.4 MMOL/L (3.6-5.0); SODIUM 133 MMOL/L (135-145)
[2019-09-25] VITALS (14 sets, daily range): BP systolic 119–158; BP diastolic 63–117
--- NOTE | 2019-09-25 01:25 | NUR ---
THIS RN NOTIFIED EICU OF PATIENT THROWING UP. ATTEMPTING TO GET EKG AT THIS TIME. ORDERS RECEIVED, CONTINUE TO MONITOR. EKG FAXED TO EICU THE QTC AND QRS HAVE BOTH INCREASED.
[2019-09-25] MEDS ORDERED: diphenhydrAMINE 50 MG/ML INJ (BENADRYL) ONE (01:47)
[2019-09-25] MEDS ORDERED: diphenhydrAMINE 50 MG/ML INJ (BENADRYL) IVP ONE (02:00)
--- NOTE | 2019-09-25 02:30 | NUR ---
ELISHA SHAVER FROM POISON CONTROL CALLED, DISCUSSED EKG TRACING AND LAB LEVELS. [facility]Q PER KG X1 DIRECTED BY POISON CONTROL DUE TO EKG CHANGES. ORDERS RECEIVED.
[2019-09-25] MEDS ORDERED: SODIUM BICARB 8.4% 50 MEQ/50 ML VIAL ONE (02:38)
[2019-09-25] MEDS ORDERED: SODIUM BICARB 8.4% 50 MEQ/50 ML VIAL IV ONE (03:00)
[2019-09-25 03:23] LABS: BASOPHILS % (AUTO) 0 % (0-10); EOSINOPHILS % (AUTO) 0 % (0-10); HEMATOCRIT 45 % (40-54); HEMOGLOBIN 15.5 G/DL (13.3-17.7); LYMPHOCYTES % (AUTO) 13 % (12-44); MEAN CORPUSCULAR HEMOGLOBIN 34 PG (25-34); MEAN CORPUSCULAR HGB CONC 34 G/DL (32-36); MEAN CORPUSCULAR VOLUME 98 FL (80-99); MONOCYTES # (AUTO) 0.5 X 10^3 (0.0-1.0); MONOCYTES % (AUTO) 7 % (0-12); NEUTROPHILS # (AUTO) 6.2 X 10^3 (1.8-7.8); NEUTROPHILS % (AUTO) 80 % (42-75); PLATELET COUNT 162 10^3/uL (130-400); RED CELL DISTRIBUTION WIDTH 12.7 % (10.0-14.5); WHITE BLOOD COUNT 7.8 10^3/uL (4.3-11.0)
[2019-09-25 03:42] LABS: BUN/CREATININE RATIO 11; CALCIUM 8.8 MG/DL (8.5-10.1); CARBON DIOXIDE 16 MMOL/L (21-32); CHLORIDE 101 MMOL/L (98-107); CREATININE SERUM 0.82 MG/DL (0.60-1.30); GFR ESTIMATED > 60; GLUCOSE 108 MG/DL (70-105); MAGNESIUM 1.9 MG/DL (1.6-2.4); PHOSPHORUS 3.4 MG/DL (2.3-4.7); POTASSIUM 5.2 MMOL/L (3.6-5.0); SODIUM 130 MMOL/L (135-145)
[2019-09-25 03:57] LABS: SALICYLATE < 5.0 MG/DL (5.0-20.0)
[2019-09-25 03:58] LABS: ACETAMINOPHEN < 10 UG/ML (10-30)
--- NOTE | 2019-09-25 04:00 | NUR ---
NOTIFIED EICU OF FURTHER EKG CHANGES, ORDERS RECEIVED.
[2019-09-25] MEDS ORDERED: SODIUM BICARB 8.4% 50 MEQ/50 ML (ABBOTT) SYR IV ONE (04:30)
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
[2019-09-25] MEDS ORDERED: NS IV 1000 ML 1,000 ML IV SCH (06:30)
--- NOTE | 2019-09-25 07:21 | Diagnostic Imaging Report ---
INDICATION: Overdose and head injury. TIME OF EXAM: 3:24 AM CORRELATION is made with prior study of one day earlier. Heart size is normal. The lungs appear to be fairly clear. No significant infiltrate is seen. There is a nodular density in the left base which was not well seen yesterday and may represent superimposition of tissues. There is no effusion or pneumothorax. IMPRESSION: No acute cardiopulmonary process is detected. Dictated by: Dictated on workstation # [id number]
[2019-09-25 07:32] LABS: BUN/CREATININE RATIO 11; CALCIUM 8.5 MG/DL (8.5-10.1); CARBON DIOXIDE 26 MMOL/L (21-32); CHLORIDE 99 MMOL/L (98-107); CREATININE SERUM 0.84 MG/DL (0.60-1.30); GFR ESTIMATED > 60; GLUCOSE 106 MG/DL (70-105); POTASSIUM 4.1 MMOL/L (3.6-5.0); SODIUM 138 MMOL/L (135-145)
--- NOTE | 2019-09-25 08:16 | History & Physical-Hospitalist ---
History of Present Illness HPI/Chief Complaint Pt is a 79yoCM with a PMH of HTN, CAD, pAF who presented to the ER after an intentional overdose. He is very cryptic in his answer and at first did not tell me about the history of overdose without direct asking. He states he is here because he fell 4 days ago and hit his head. He is supposed to be on Pradaxa but states he has not taken his meds in over a year because they cause dizziness. He states this is the only reason he is here. Only when pointedly asked about taking too many pills did he admit to it. He asked me how I knew that and then was very limited with answers. He states that he took too many pills but is unsure when he took them. (At first agreed it was yesterday and then said it was 3-4 days ago.) He states that last week was the anniversary of his 's and that yesterday his dog was hit by a car and that prompted this. When pointedly asked if he took the pills with the intention of not waking up and he said yes. When asked if he still thought that way he shrugged. Source: patient Date Seen 09/25/19 Time Seen by a Provider: 08:14 Attending Physician Lisy Pichardo MD PCP Fariba Christopher MD Referring Physician Date of Admission Sep 24, 2019 at 21:18 Home Medications & Allergies Home Medications Reviewed patient Home Medication Reconciliation performed by pharmacy medication reconciliations obstetrics technician and/or nursing. Patients Allergies have been reviewed. Allergies Allergies Coded Allergies No Known Drug Allergies (Unverified08/20/16) Past Rvflqez-Ricckg-Yvqdnl Hx Past Med/Social Hx: Reviewed Nursing Past Med/Soc Hx Patient Social History Alcohol Use: Occasionally Uses Number of Drinks Today: 2 Alcohol Beverage of Choice: Beer Recreational Drug Use: No Smoking Status: Former Smoker Former Smoker, Quit: Mar 17, 1976 Type Used: Cigarettes Recent Foreign Travel: No Contact w/other who traveled: No Recent Hopitalizations: No Recent Infectious Disease Expo: No Seasonal Allergies Seasonal Allergies: No Past Medical History Surgeries: Coronary Stent, Eye Surgery Cardiac: Atrial Fibrillation, Coronary Artery Disease, High Cholesterol Reproductive: No Sexually Transmitted Disease: No HIV/AIDS: No Gastrointestinal: Gastroesophageal Reflux Musculoskeletal: Arthritis HEENT: Cataract Loss of Vision: Bilateral Hearing Impairment: Denies History of Blood Disorders: No Adverse Reaction to Blood Sánchez: No (N/A) Family History Reviewed Nursing Family Hx Cancer of colon 09 BROTHER Family history: Gastrointestinal disease 09 BROTHER Kidney disease 09 BROTHER Review of Systems Constitutional: No chills, No fever EENTM: no symptoms reported Respiratory: No cough, No short of breath Cardiovascular: No chest pain, No palpitations Gastrointestinal: no symptoms reported Genitourinary: no symptoms reported Musculoskeletal: no symptoms reported Skin: no symptoms reported Psychiatric/Neurological: See HPI Physical Exam Physical Exam Vital Signs Vital Signs - First Documented 09/24/19 19:45 Temp 36.5 Pulse 74 Resp 19 B/P (MAP) 145/10 (55) Pulse Ox 97 O2 Delivery Room Air Capillary Refill : Less Than 3 Seconds Height, Weight, BMI Height: 5'6.00" Weight: 167lbs. 0.0oz. 75.144005tn; 25.99 BMI Method:Stated General Appearance: No Apparent Distress, Chronically ill HEENT: Other (unequeal pupils with right eye cataract (patient reports this is chronic)) Neck: Normal Inspection, Supple Respiratory: Lungs Clear, No Accessory Muscle Use, No Respiratory Distress Cardiovascular: Regular Rate, Rhythm, No Murmur Gastrointestinal: Normal Bowel Sounds, Non Tender, Soft Extremity: Normal Capillary Refill, No Calf Tenderness, No Pedal Edema Neurologic/Psychiatric: Alert, Oriented x3, Other (flat affect) Results Results/Procedures Labs Laboratory Tests 09/24/19 19:35 09/24/19 22:39 09/25/19 02:48 09/25/19 07:07 Patient resulted labs reviewed. Imaging Date of Exam:09/25/19 CHEST 1 VIEW, AP/PA ONLY INDICATION: Overdose and head injury. TIME OF EXAM: 3:24 AM CORRELATION is made with prior study of one day earlier. Heart size is normal. The lungs appear to be fairly clear. No significant infiltrate is seen. There is a nodular density in the left base which was not well seen yesterday and may represent superimposition of tissues. There is no effusion or pneumothorax. IMPRESSION: No acute cardiopulmonary process is detected. Date of Exam:09/24/19 CT HEAD/CERVICAL SPINE WO PROCEDURE: CT head and CT cervical spine without contrast. TECHNIQUE: Multiple contiguous axial images were obtained through the brain and cervical spine without the use of intravenous contrast. Sagittal and coronal reformations through the cervical spine were then performed. Auto Exposure Controls were utilized during the CT exam to meet ALARA standards for radiation dose reduction. INDICATION: Fell and hit head. Laceration The ventricles are normal in size, shape and position. There is cortical atrophy. There is no acute parenchymal hemorrhage, edema or mass. There is no skull fracture. There is normal height and alignment of the cervical vertebral bodies. There are degenerative changes present with spondylosis causing some narrowing of the canal at C3-C4 and less so at C5-C6. No fracture or other acute abnormality seen. IMPRESSION: CT of the head shows atrophy with no acute abnormality. CT of the cervical spine shows degenerative changes with no acute abnormality. Assessment/Plan Admission Diagnosis Intentional Overdose Admission Status: Observation Assessment and Plan Intentional Overdose Suicide Attempt Poison control contact and advised monitoring serial EKGs and treated for prolong QTc Bicarb given x2 last manager diabetes on telemetry Cardiology consulted, appreciate recs Will need behavioral health consult likely tomorrow if continues to do well pAF HTN Consulted, cardiology appreciate recs Hold home Flecainide Resume anticoagulation Fall PT for strengthening Diagnosis/Problems Diagnosis/Problems (1) Suicide attempt Status: Acute (2) Overdose Status: Acute Qualifiers: Encounter type: initial encounter Injury intent: intentional self-harm Qualified Codes: T50.902A - Poisoning by unspecified drugs, medicaments and biological substances, intentional self-harm, initial encounter (3) Minor head injury Status: Acute Qualifiers: Encounter type: initial encounter Qualified Codes: S09.90XA - Unspecified injury of head, initial encounter (4) Atrial fibrillation Status: Acute Qualifiers: Atrial fibrillation type: paroxysmal Qualified Codes: I48.0 - Paroxysmal atrial fibrillation Clinical Quality Measures DVT/VTE Risk/Contraindication: Risk Factor Score Per Nursin RFS Level Per Nursing on Admit: 4+=Very High LISY PICHARDO MD Sep 25, 2019 08:16
[2019-09-25] MEDS ORDERED: MELATONIN 3 MG TABLET PO PRN (09:45)
[2019-09-25] MEDS ORDERED: ONDANSETRON 4 MG/2 ML (SDV) Z0FRAN IV PRN (09:45)
[2019-09-25] MEDS ORDERED: MILK OF MAGNESIA 400 MG/5 ML 30 ML UDC PO PRN (09:45)
[2019-09-25] MEDS ORDERED: BENZONATATE 100 MG (TESSALON) CAPSULE PO PRN (09:45)
[2019-09-25] MEDS ORDERED: ANTACID SUSP 30 ML UDC (MYLANTA) PO PRN (09:45)
--- NOTE | 2019-09-25 10:13 | Consultation-Cardiology ---
HPI-Cardiology Cardiology Consultation Date of Consultation 09/25/19 Date of Admission Time Seen by Provider: 10:07 Indication: Paroxysmal atrial fibrillation HPI 79-year-old gentleman with extensive cardiovascular history, paroxysmal atrial fibrillation, hypertension, has lost his last year and lost his dog recently, attempted suicide with taking multiple flecainide and Ranexa pills. Came into the emergency room, currently feeling better, denied any chest pain, no shortness of breath, no palpitation, no syncope. Sustained a fall earlier last week resulted in laceration on his head. Home Medications & Allergies Allergies: Coded Allergies: No Known Drug Allergies (Unverified , 08/20/16) Home Medication List Reviewed: Yes YFG-Paawrr-Sygvuo Hx Patient Social History Marital Status: , Employed/Student: retired Alcohol Use: Occasionally Uses Recreational Drug Use: No Smoking Status: Former Smoker Type Used: Cigarettes Recent Foreign Travel: No Recent Infectious Disease Expo: No Recent Hopitalizations: No Past Medical History Discussed below Family Medical History Family History: Cancer of colon 09 BROTHER Family history: Gastrointestinal disease 09 BROTHER Kidney disease 09 BROTHER Review of Systems-General Review of Systems Constitutional: no symptoms reported, see HPI, weakness EENTM: see HPI, no symptoms reported Respiratory: see HPI; No cough, No short of breath Cardiovascular: see HPI; No chest pain, No palpitations Gastrointestinal: no symptoms reported, see HPI Genitourinary: no symptoms reported, see HPI Musculoskeletal: no symptoms reported, see HPI Skin: no symptoms reported, see HPI Psychiatric/Neurological: See HPI All Other Systems Reviewed Negative Unless Noted: Yes Reviewed Test Results Reviewed Test Results Lab Laboratory Tests Test 09/24/19 19:35 09/24/19 21:50 09/24/19 22:39 09/25/19 02:48 Range/Units White Blood Count 5.7 7.8 4.3-11.0 10^3/uL Red Blood Count 4.54 4.62 4.35-5.85 10^6/uL Hemoglobin 15.7 15.5 13.3-17.7 G/DL Hematocrit 44 45 40-54 % Mean Corpuscular Volume 96 98 80-99 FL Mean Corpuscular Hemoglobin 35 H 34 25-34 PG Mean Corpuscular Hemoglobin Concent 36 34 32-36 G/DL Red Cell Distribution Width 12.5 12.7 10.0-14.5 % Platelet Count 181 162 130-400 10^3/uL Mean Platelet Volume 9.5 10.0 7.4-10.4 FL Neutrophils (%) (Auto) 61 80 H 42-75 % Lymphocytes (%) (Auto) 27 13 12-44 % Monocytes (%) (Auto) 10 7 0-12 % Eosinophils (%) (Auto) 2 0 0-10 % Basophils (%) (Auto) 1 0 0-10 % Neutrophils # (Auto) 3.5 6.2 1.8-7.8 X 10^3 Lymphocytes # (Auto) 1.5 1.0 1.0-4.0 X 10^3 Monocytes # (Auto) 0.6 0.5 0.0-1.0 X 10^3 Eosinophils # (Auto) 0.1 0.0 0.0-0.3 10^3/uL Basophils # (Auto) 0.0 0.0 0.0-0.1 10^3/uL Sodium Level 133 L 133 L 130 L 135-145 MMOL/L Potassium Level 4.1 4.4 5.2 H 3.6-5.0 MMOL/L Chloride Level 101 102 101 98-107 MMOL/L Carbon Dioxide Level 18 L 18 L 16 L 21-32 MMOL/L Anion Gap 14 13 13 5-14 MMOL/L Blood Urea Nitrogen 8 9 9 7-18 MG/DL Creatinine 0.86 0.78 0.82 0.60-1.30 MG/DL Estimat Glomerular Filtration Rate > 60 > 60 > 60 BUN/Creatinine Ratio 9 12 11 Glucose Level 93 90 108 H 70-105 MG/DL Calcium Level 8.8 8.6 8.8 8.5-10.1 MG/DL Corrected Calcium 9.0 8.5-10.1 MG/DL Magnesium Level 2.0 1.9 1.6-2.4 MG/DL Total Bilirubin 0.8 0.1-1.0 MG/DL Aspartate Amino Transf (AST/SGOT) 22 5-34 U/L Alanine Aminotransferase (ALT/SGPT) 17 0-55 U/L Alkaline Phosphatase 84 40-136 U/L Troponin I < 0.028 <0.028 NG/ML C-Reactive Protein High Sensitivity 0.03 0.00-0.50 MG/DL Total Protein 6.4 6.4-8.2 GM/DL Albumin 3.7 3.2-4.5 GM/DL Serum Alcohol 37 H <10 MG/DL Urine Color BERNARDINO H Urine Clarity CLEAR Urine pH 6.0 5-9 Urine Specific [place] >=1.030 1.016-1.022 Urine Protein NEGATIVE NEGATIVE Urine Glucose (UA) NEGATIVE NEGATIVE Urine Ketones NEGATIVE NEGATIVE Urine Nitrite NEGATIVE NEGATIVE Urine Bilirubin NEGATIVE NEGATIVE Urine Urobilinogen 0.2 < = 1.0 MG/DL Urine Leukocyte Esterase NEGATIVE NEGATIVE Urine RBC (Auto) NEGATIVE NEGATIVE Urine RBC NONE /HPF Urine WBC NONE /HPF Urine Squamous Epithelial Cells RARE /HPF Urine Crystals NONE /LPF Urine Bacteria NEGATIVE /HPF Urine Casts NONE /LPF Urine Mucus NEGATIVE /LPF Urine Culture Indicated NO Urine Opiates Screen NEGATIVE NEGATIVE Urine Oxycodone Screen NEGATIVE NEGATIVE Urine Methadone Screen NEGATIVE NEGATIVE Urine Propoxyphene Screen NEGATIVE NEGATIVE Urine Barbiturates Screen NEGATIVE NEGATIVE Ur Tricyclic Antidepressants Screen NEGATIVE NEGATIVE Urine Phencyclidine Screen NEGATIVE NEGATIVE Urine Amphetamines Screen NEGATIVE NEGATIVE Urine Methamphetamines Screen NEGATIVE NEGATIVE Urine Benzodiazepines Screen NEGATIVE NEGATIVE Urine Cocaine Screen NEGATIVE NEGATIVE Urine Cannabinoids Screen NEGATIVE NEGATIVE Phosphorus Level 3.4 2.3-4.7 MG/DL Salicylates Level < 5.0 L 5.0-20.0 MG/DL Acetaminophen Level < 10 L 10-30 UG/ML Test 09/25/19 07:07 Range/Units Sodium Level 138 135-145 MMOL/L Potassium Level 4.1 3.6-5.0 MMOL/L Chloride Level 99 98-107 MMOL/L Carbon Dioxide Level 26 21-32 MMOL/L Anion Gap 13 5-14 MMOL/L Blood Urea Nitrogen 9 7-18 MG/DL Creatinine 0.84 0.60-1.30 MG/DL Estimat Glomerular Filtration Rate > 60 BUN/Creatinine Ratio 11 Glucose Level 106 H 70-105 MG/DL Calcium Level 8.5 8.5-10.1 MG/DL Physical Exam Physical Exam Vital Signs Vital Signs - First Documented 09/24/19 19:45 Temp 36.5 Pulse 74 Resp 19 B/P (MAP) 145/10 (55) Pulse Ox 97 O2 Delivery Room Air Capillary Refill : Less Than 3 Seconds Height, Weight, BMI Height: 5'6.00" Weight: 167lbs. 0.0oz. 75.726316gt; 25.99 BMI Method:Stated General Appearance: No Apparent Distress, Chronically ill Eyes: Bilateral Eye Normal Inspection, Bilateral Eye PERRL, Bilateral Eye EOMI HEENT: Other Neck: Normal Inspection, Supple Respiratory: Lungs Clear, No Accessory Muscle Use, No Respiratory Distress Cardiovascular: Regular Rate, Rhythm, No Murmur Gastrointestinal: Normal Bowel Sounds, Non Tender, Soft Back: Normal Inspection, No CVA Tenderness, No Vertebral Tenderness Extremity: Normal Capillary Refill, No Calf Tenderness, No Pedal Edema Neurologic/Psychiatric: Alert, Oriented x3, Other Skin: Warm/Dry, Ecchymosis, Other (abrasion/contusion to the right side of the head with bleeding controlled.) Lymphatic: No Adenopathy A/P-Cardiology Admission Diagnosis Prolonged QT interval Paroxysmal atrial fibrillation Depression Hypertension Assessment/Plan Flecainide overdose, took 4 tablets yesterday morning, has been not taking his medication for couple of months. Currently has borderline QT prolongation. Continue to monitor on EKG. Depression, managed by primary care physician Paroxysmal atrial fibrillation, currently in sinus rhythm, maintained on Pradaxa, I will restart oral anticoagulation Status post Reveal device implantation, infection in June 2016, extracted. Site has healed well. Coronary artery disease, history of stent using 2.25x24 mm Taxus drug-eluting stent in May 2010 to LAD. In 2010 patient had a cardiac catheterization showing severe spasm in the LAD responsive to nitroglycerin. Repeat cardiac catheterization was done on August 09, 2014 showing small vessel disease including mid and distal LAD, small arteries, patent stent in the proximal LAD, coronary spasm induced by the catheter in the right coronary artery, normal left ventricle size and function. Planning to repeat stress test and echo Syncope, he is reporting multiple syncopal episodes in the past, His reveal device interrogation showed a pause for 3 seconds occurred on May 18 at 13:48, he was asymptomatic. It occurred when he converted from atrial fibrillation to sinus rhythm. Had another reveal device implanted, had infection at the site, device extracted, no complication, wound is healed well. Tinea to monitor Hypertension, monitor blood pressure Dizziness and lightheadedness, was significant after starting lisinopril and reported improvement after stopping the medication. Does not report any dizziness at this time Hyperlipidemia, monitor lipids History of mild carotid stenosis bilaterally, last carotid duplex done in October 2018, continue to monitor Clinical Quality Measures DVT/VTE Risk/Contraindication: Risk Factor Score Per Nursin RFS Level Per Nursing on Admit: 4+=Very High LUCITA LYON MD Sep 25, 2019 10:13
[2019-09-25] MEDS: NICOTINE 14 MG (NICODERM) PATCH TD SCH (13:08)
[2019-09-25] MEDS: DABIGATRAN 150 MG (PRADAXA) CAPSULE PO SCH (17:03)
[2019-09-25] MEDS: NAPROXEN 250 MG (NAPROSYN) TABLET PO PRN (20:31)
[2019-09-26] VITALS: BP 130/67
[2019-09-26 03:44] LABS: BASOPHILS % (AUTO) 0 % (0-10); EOSINOPHILS # (AUTO) 0.1 10^3/uL (0.0-0.3); EOSINOPHILS % (AUTO) 1 % (0-10); HEMATOCRIT 40 % (40-54); HEMOGLOBIN 13.6 G/DL (13.3-17.7); LYMPHOCYTES # (AUTO) 1.3 X 10^3 (1.0-4.0); LYMPHOCYTES % (AUTO) 19 % (12-44); MEAN CORPUSCULAR HEMOGLOBIN 33 PG (25-34); MEAN CORPUSCULAR HGB CONC 34 G/DL (32-36); MEAN CORPUSCULAR VOLUME 97 FL (80-99); MEAN PLATELET VOLUME 10.2 FL (7.4-10.4); MONOCYTES # (AUTO) 0.6 X 10^3 (0.0-1.0); MONOCYTES % (AUTO) 10 % (0-12); NEUTROPHILS # (AUTO) 4.7 X 10^3 (1.8-7.8); NEUTROPHILS % (AUTO) 70 % (42-75); PLATELET COUNT 135 10^3/uL (130-400); RED CELL DISTRIBUTION WIDTH 12.7 % (10.0-14.5); WHITE BLOOD COUNT 6.7 10^3/uL (4.3-11.0)
[2019-09-26 04:00] VITALS: BP 142/75
[2019-09-26 04:25] LABS: ALANINE AMINOTRANSFERASE 15 U/L (0-55); ALBUMIN 3.2 GM/DL (3.2-4.5); ALKALINE PHOSPHATASE 71 U/L (40-136); BUN/CREATININE RATIO 9; CALCIUM 8.5 MG/DL (8.5-10.1); CARBON DIOXIDE 24 MMOL/L (21-32); CHLORIDE 99 MMOL/L (98-107); CHOLESTEROL 118 MG/DL (< 200); GFR ESTIMATED > 60; GLUCOSE 100 MG/DL (70-105); HDL CHOLESTEROL 52 MG/DL (40-60); MAGNESIUM 1.8 MG/DL (1.6-2.4); PHOSPHORUS 3.1 MG/DL (2.3-4.7); POTASSIUM 3.8 MMOL/L (3.6-5.0); SODIUM 132 MMOL/L (135-145); TOTAL PROTEIN 5.3 GM/DL (6.4-8.2); TRIGLYCERIDES 50 MG/DL (<150); VLDL CHOLESTEROL 10 MG/DL (5-40)
--- NOTE | 2019-09-26 04:44 | Pulmonary Progress Note ---
Subjective Time Seen by a Provider: 04:42 Sepsis Event Evaluation Height, Weight, BMI Height: 5'6.00" Weight: 167lbs. 0.0oz. 75.680350fr; 25.99 BMI Method:Stated Exam Exam Vital Signs Date Time Temp Pulse Resp B/P (MAP) Pulse Ox O2 Delivery O2 Flow Rate FiO2 09/26/19 04:00 37.2 95 Room Air 09/26/19 01:00 65 09/26/19 00:50 37.0 97 Room Air 09/26/19 00:00 65 14 130/67 (88) Room Air 09/25/19 20:15 Room Air 09/25/19 20:00 67 19 158/89 (112) Room Air 09/25/19 20:00 67 19 158/89 (112) 98 Room Air 09/25/19 19:00 67 09/25/19 16:00 69 28 155/76 (102) Room Air 09/25/19 12:47 73 09/25/19 12:30 26 119/63 (81) Room Air 09/25/19 11:55 37.0 09/25/19 10:00 67 16 131/72 (91) 98 Room Air 09/25/19 09:00 70 14 140/67 (91) 97 Room Air 09/25/19 08:00 74 29 127/73 (91) 98 Room Air 09/25/19 07:30 100 Room Air 09/25/19 07:30 37.4 09/25/19 07:00 79 27 157/117 (130) 97 Room Air 09/25/19 06:45 81 09/25/19 06:00 68 14 133/74 (93) 95 Room Air 09/25/19 05:00 71 19 145/71 (95) 96 Room Air I & O 09/26/19 07:00 Intake Total 1650 ml Output Total 1150 ml Balance 500 ml Height & Weight Height: 5'6.00" Weight: 167lbs. 0.0oz. 75.477405dg; 25.99 BMI Method:Stated General Appearance: No Apparent Distress, Chronically ill HEENT: Other Neck: Normal Inspection, Supple Respiratory: Lungs Clear, No Accessory Muscle Use, No Respiratory Distress Cardiovascular: Regular Rate, Rhythm, No Murmur Capillary Refill: Less Than 3 Seconds Extremity: Normal Capillary Refill, No Calf Tenderness, No Pedal Edema Neurologic/Psychiatric: Alert, Oriented x3, Other Skin: Warm/Dry, Ecchymosis, Other (abrasion/contusion to the right side of the head with bleeding controlled.) Lymphatic: No Adenopathy Results Lab Laboratory Tests 09/24/19 19:35 09/24/19 22:39 09/25/19 02:48 09/25/19 07:07 09/26/19 03:18 Assessment/Plan Assessment/Plan Acute OD -Poison control following and treating for prolonged QT -s/p 6 amps bicarb IV -Suicidal attempt -behavioral health -Tele sitter Hyperkalemia -Q4 BMP per poison control -Change LR to NS at 150 -Monitor Alcolol dependance -CIWA protocol S/p fall -CT head negative Major depression MELA BENNETT DO Sep 26, 2019 04:44
[2019-09-26] MEDS ORDERED: POTASSIUM CL 10MEQ/50ML IVPB 50 ML IV SCH (06:00)
[2019-09-26] MEDS ORDERED: MAGNESIUM 1 GM/100 ML IVPB 100 ML IV SCH (06:00)
[2019-09-26] MEDS ORDERED: KCL 20 MEQ TAB (K-DUR) PO SCH (06:00)
[2019-09-26 07:02] VITALS: BP 118/69
[2019-09-26] MEDS: DABIGATRAN 150 MG (PRADAXA) CAPSULE PO SCH (08:16)
[2019-09-26] MEDS: NICOTINE 14 MG (NICODERM) PATCH TD SCH (08:16)
[2019-09-26] MEDS: NAPROXEN 250 MG (NAPROSYN) TABLET PO PRN (08:17)
--- NOTE | 2019-09-26 08:24 | Cardiology Progress Note ---
Subjective Date Seen by Provider: Sep 26, 2019 Time Seen by Provider: 08:23 Subjective/Events-last exam Patient is laying down in bed, feeling better. No new complaint. No chest pain or shortness of breath Review of Systems General: No Chills, No Night Sweats, No Fatigue, No Malaise, No Appetite, No Other HEENT: No Head Aches, No Visual Changes, No Eye Pain, No Ear Pain, No Dysphasia, No Sinus Congestion, No Post Nasal Drip, No Sore Throat, No Other Pulmonary: No Dyspnea, No Cough, No Pleuritic Chest Pain, No Other Cardiovascular: No: Chest Pain, Palpitations, Orthopnea, Paroxysmal Noc. Dyspnea, Edema, Lt Headedness, Other Objective-Cardiology Exam Last Set of Vital Signs Vital Signs 09/26/19 07:02 Temp 37.2 Pulse 73 Resp 16 B/P (MAP) 118/69 (85) Pulse Ox 96 Capillary Refill : Less Than 3 Seconds I&O Intake and Output 09/26/19 00:00 Intake Total 1750 ml Output Total 1925 ml Balance -175 ml Intake Oral 1450 ml IV Total 300 ml Output Urine Total 1925 ml General: Alert, Oriented X3, Cooperative HEENT: Atraumatic, PERRLA Neck: Supple, No JVD, No Thyromegaly Lungs: Clear to Auscultation, Normal Air Movement Heart: Regular Rate, Normal S1, Normal S2, No Murmurs Abdomen: Normal Bowel Sounds, Soft, No Tenderness, No Hepatosplenomegaly, No Masses Extremities: No Clubbing, No Cyanosis, No Edema, Normal Pulses, No Tenderness/Swelling Skin: No Rashes, No Breakdown, No Significant Lesion Neuro: Normal Gait, Normal Speech, Strength at 5/5 X4 Ext, Normal Tone, Sensation Intact Psych/Mental Status: Mental Status NL, Mood NL Results Lab Laboratory Tests 09/26/19 03:18 A/P-Cardiology Admission Diagnosis Prolonged QT interval Paroxysmal atrial fibrillation Depression Hypertension Assessment/Plan Flecainide overdose, EKG is better, return to baseline. Okay for discharge from cardiology standpoint Depression, managed by primary care physician Paroxysmal atrial fibrillation, currently in sinus rhythm, maintained on Pradaxa Status post Reveal device implantation, infection in June 2016, extracted. Site has healed well. Coronary artery disease, history of stent using 2.25x24 mm Taxus drug-eluting stent in May 2010 to LAD. In 2010 patient had a cardiac catheterization showing severe spasm in the LAD responsive to nitroglycerin. Repeat cardiac catheterization was done on August 09, 2014 showing small vessel disease including mid and distal LAD, small arteries, patent stent in the proximal LAD, coronary spasm induced by the catheter in the right coronary artery, normal left ventricle size and function. Planning to repeat stress test and echo Syncope, he is reporting multiple syncopal episodes in the past, His reveal gee ce interrogation showed a pause for 3 seconds occurred on May 18 at 13:48, he was asymptomatic. It occurred when he converted from atrial fibrillation to sinus rhythm. Had another reveal device implanted, had infection at the site, device extracted, no complication, wound is healed well. Tinea to monitor Hypertension, monitor blood pressure Dizziness and lightheadedness, was significant after starting lisinopril and reported improvement after stopping the medication. Does not report any dizziness at this time Hyperlipidemia, monitor lipids History of mild carotid stenosis bilaterally, last carotid duplex done in October 2018, continue to monitor Clinical Quality Measures DVT/VTE Risk/Contraindication: Risk Factor Score Per Nursin RFS Level Per Nursing on Admit: 4+=Very High LUCITA LYON MD Sep 26, 2019 08:24
[2019-09-26] MEDS ORDERED: NICOTINE PATCH REMOVAL TP SCH (08:59)
--- NOTE | 2019-09-26 09:42 | NUR ---
REPORT TAKEN AT THIS TIME FROM Geovanny VEGA RN AT THIS TIME.
--- NOTE | 2019-09-26 10:08 | NUR ---
PT TO ROOM 429 VIA BED ACCOMPANIED BY THIS JERRY AND TECH, FAMILY AT BEDSIDE, ALL PERSONAL BELONGINGS SENT WITH FAMILY. Addendum: 09/26/19 at 1011 by KODY VEGA RN REPORT GIVEN TO KOFI PRIOR TO TRANSFER.
--- NOTE | 2019-09-26 10:12 | NUR ---
1005 PATIENT TO ROOM 429-1 VIA HOSPITAL BED AT THIS TIME ACCOMPANIED BY Geovanny VEGA RN AND PCT FROM ICU. THIS RN WILL ASSUME CARE OF THIS PATIENT AT THIS TIME.
--- NOTE | 2019-09-26 11:56 | Physical Therapy Daily Note ---
PT Daily Note-Current Transfers SCALE: Activities may be completed with or without assistive devices. 1-Oagwcbykst-sqwcsdo completes the activity by him/herself with no assistance from a helper. 5-Set-up or Clean-up Assistance-helper sets up or cleans up; patient completes activity. Clarissa assists only prior to or following the activity. 4-Supervision or Touching Assistance-helper provides verbal cues and/or touching/steadying and/or contact guard assistance as patient completes activity. Assistance may be provided throughout the activity or intermittently. 3-Partial/Moderate Assistance-helper does LESS THAN HALF the effort. Clarissa lifts, holds or supports trunk or limbs, but provides less than half the effort. 2-Substantial/Maximal Assistance-helper does MORE THAN HALF the effort. Clarissa lifts or holds trunk or limbs and provides more than half the effort. 1-Lqzdjjlsv-bbmeam does ALL the effort. Patient does none of the effort to complete the activity. Or, the assistance of 2 or more helpers is required for the patient to complete the activity. If activity was not attempted, code reason: 7-Patient Refused. 9-Not Applicable-not attempted and the patient did not perform the activity before the current illness, exacerbation or injury. 10-Not Attempted due to Environmental Limitations-(lack of equipment, weather restraints, etc.). 88-Not Attempted due to Medical Conditions or Safety Concerns. Gait Training Does the Patient Walk?: No and Walking Goal IS indicated Exercises Supine Ex: Straight leg raise Assessment Current Status: Good Progress, Fair Progress DARION WALTERS PT Sep 26, 2019 11:56
[2019-09-26 12:00] VITALS: BP 173/83
--- NOTE | 2019-09-26 13:46 | NUR ---
CM/SS visited with the patient for social service consult. The patient was sitting up in bed and pleasantly greeted this SS. CM/SS asked what brought the patient in to the hospital and he verbalized that it was due to depression and the anniversary of his 's along with the loss of his dog. He did not state he took pills or tried to kill himself at the beginning of the conversation. CM/SS asked the patient if this was an attempt to kill himself and the patient stated "yes". He was asked if he felt that way today and he verbalized that he didn't and realized how this would negatively affect his family. CM/SS informed the patient that [facility] would be coming to screen him. He verbalized understanding. CM/SS contacted [facility] and spoke with intake. CM/SS made a referral and Tez Carr was the screener. Tez screened the patient and stated that he did not report being suicidal at this time. He was not willing to sign himself in to [facility] and felt that he did not need the treatment. He did however report he would be following up with [facility] outpatient for alcohol use. Tez spoke with this SS and stated he felt the patient was a "high risk" patient to attempt suicide again. Tez suggestion was to call [facility] ([facility]) [facility]. CM/SS contacted [facility] and spoke with intake. Handy Browning, from [facility] called this SS and gathered information and deemed it necessary to assess. Handy assessed the patient and reported that he too, believes he is able to go home with an outpatient plan. A copy of the assessment/ outpatient plan was put into his medical file. Home health could not be set up due to the patient not have a primary care physician. CM/SS gave the patient the number to [facility] where he has his other treatment and he stated he will contact them. No other needs at this time.
--- NOTE | 2019-09-26 14:55 | Physical Therapy Evaluation ---
PT Evaluation-General Medical Diagnosis Admission Date Sep 24, 2019 at 21:18 Medical Diagnosis: OD/Fall/ minor head injury Onset Date: Sep 24, 2019 Therapy Diagnosis Therapy Diagnosis: Impaired mobility Height/Weight Height (Feet): 5 Height (Inches): 6.00 Weight (Pounds): 167 Weight (Ounces): 0.0 Precautions Precautions/Isolations: Fall Prevention, Standard Precautions Weight Bear Status Right Lower Extremity: Right Weight Bearing/Tolerated Left Lower Extremity: Left Weight Bearing/Tolerated Referral Physician: Marino Reason for Referral: Evaluation/Treatment Medical History Pertinent Medical History: Atrial Fib, Alcoholism, CAD, GERD Current History EMS 2nd to OD with fall Reviewed History: Yes Social History Home: Single Level Current Living Status: Family Entry Into Home: Stairs Without Railing (1x) PT Steps Into Home: 1 Prior Prior Level of Function SCALE: Activities may be completed with or without assistive devices. 2-Lnjonrsmrg-jfllutt completes the activity by him/herself with no assistance from a helper. 5-Set-up or Clean-up Assistance-helper sets up or cleans up; patient completes activity. [place] assists only prior to or following the activity. 4-Supervision or Touching Assistance-helper provides verbal cues and/or touching/steadying and/or contact guard assistance as patient completes activit y. Assistance may be provided throughout the activity or intermittently. 3-Partial/Moderate Assistance-helper does LESS THAN HALF the effort. [place] lifts, holds or supports trunk or limbs, but provides less than half the effort. 2-Substantial/Maximal Assistance-helper does MORE THAN HALF the effort. [place] lifts or holds trunk or limbs and provides more than half the effort. 2-Cfiflyhmo-jsdxgh does ALL the effort. Patient does none of the effort to complete the activity. Or, the assistance of 2 or more helpers is required for the patient to complete the activity. If activity was not attempted, code reason: 7-Patient Refused. 9-Not Applicable-not attempted and the patient did not perform the activity before the current illness, exacerbation or injury. 10-Not Attempted due to Environmental Limitations-(lack of equipment, weather restraints, etc.). 88-Not Attempted due to Medical Conditions or Safety Concerns. Bed Mobility: 5 Transfers (B,C,W/C): 5 Gait: 5 Stairs: Independent Prior Device Use: SPC PT Evaluation-Current Subjective No pain reported Pt/Family Goals Return home Objective Patient Orientation: Person, Place, Eyes Open Attachments: IV ROM/Strength ROM Lower Extremities WFL Strength Lower Extremities Gross strength test WNL 5/5 Integumentary/Posture Bowel Incontinence: Yes Bladder Incontinence: Yes Neuromuscular (Tone, Coordination, Reflexes) grossly intact Sensory Vision: Wears Glasses Hearing: Functional Sensation Right Lower Extremit: Intact Sensation Left Lower Extremity: Intact Transfers Roll Left to Right (QC): 5 Sit to Lying (QC): 5 Lying to Sitting/Side of Bed(Q: 5 Sit to Stand (QC): 4 (CGA for safety) Chair/Zmf-py-Vdlbo Xfer(QC): 4 (CGA and progressed to SBA at end of session.) Toilet Transfer: 4 (SBA for safety) Gait Does the Patient Walk?: Yes Walk 10 feet (QC): 4 Walk 50 ft with 2 Turns(QC): 4 (SBA) Walk 150 ft (QC): 4 (SBA) Distance: 450 Gait Assistive Device: FWW Comments/Gait Description safe and functional with rapid pace Balance Sitting Static: Normal Sitting Dynamic: Good Standing Static: Normal Standing Dynamic: Good Picking up an Object (QC): 4 (CGA) Assessment/Needs Patient complete all activities WNL with only safety cues to maintain inpatient safety regulations in the hospital. Rehab Potential: Fair PT Plan Problem List Problem List: Activity Tolerance, Functional Strength, Safety, Balance, Gait, Transfer, Bed Mobility, ROM Treatment/Plan Treatment Plan: Discontinue PT Treatment Plan: Bed Mobility, Concurrent Therapy, Education, Functional Activity Monty, Functional Strength, Group Therapy, Gait, Safety, Therapeutic Exercise, Transfers Treatment Duration: Sep 26, 2019 Frequency: 1 time per week Estimated Hrs Per Day: .5 hour per day Safety Risks/Education Patient Education: Gait Training, Disease Process, Safety Issues Teaching Recipient: Patient Teaching Methods: Demonstration, Discussion, Audiovisual Response to Teaching: Verbalize Understanding, Return Demonstration, Reinforcement Needed Time/GCodes Time In: 1350 Time Out: 1410 Total Billed Treatment Time: 20 Total Billed Treatment 1 visit EVM 20' DARION WALTERS PT Sep 26, 2019 14:55
--- NOTE | 2019-09-26 15:16 | Discharge Summary ---
Discharge Summary Reconcile Patient Problems Problems Reviewed?: Yes Instructions for Patient Via Anonymess, Assessment/Instructions take medications as prescribed. Participate in therapies. Discharge Diet for Home: No Restrictions Hospital Course Date of Admission: Sep 24, 2019 at 21:18 Admission Diagnosis : Family Physician/Provider: Deleted Date of Discharge: 09/26/19 Discharge Diagnosis: [ ] Hospital Course: [ ] Labs and Pending Lab Test: Laboratory Tests 09/26/19 03:18: White Blood Count 6.7, Red Blood Count 4.08L, Hemoglobin 13.6, Hematocrit 40, Mean Corpuscular Volume 97, Mean Corpuscular Hemoglobin 33, Mean Corpuscular Hemoglobin Concent 34, Red Cell Distribution Width 12.7, Platelet Count 135, Mean Platelet Volume 10.2, Neutrophils (%) (Auto) 70, Lymphocytes (%) (Auto) 19, Monocytes (%) (Auto) 10, Eosinophils (%) (Auto) 1, Basophils (%) (Auto) 0, Neutrophils # (Auto) 4.7, Lymphocytes # (Auto) 1.3, Monocytes # (Auto) 0.6, Eosinophils # (Auto) 0.1, Basophils # (Auto) 0.0, Sodium Level 132L, Potassium Level 3.8, Chloride Level 99, Carbon Dioxide Level 24, Anion Gap 9, Blood Urea Nitrogen 10, Creatinine 1.10, Estimat Glomerular Filtration Rate > 60, BUN/Creatinine Ratio 9, Glucose Level 100, Calcium Level 8.5, Corrected Calcium 9.1, Phosphorus Level 3.1, Magnesium Level 1.8, Total Bilirubin 1.0, Aspartate Amino Transf (AST/SGOT) 20, Alanine Aminotransferase (ALT/SGPT) 15, Alkaline Phosphatase 71, Total Protein 5.3L, Albumin 3.2, Triglycerides Level 50, Cholesterol Level 118, LDL Cholesterol Direct 61, VLDL Cholesterol 10, HDL Cholesterol 52 Microbiology 09/24/19 MRSA Screen - Final, Complete MRSA not isolated Home Meds Active Reported Lisinopril 5 Mg Tablet 5 Mg PO DAILY Metoprolol Succinate 50 Mg Tab.er.24h 50 Mg PO DAILY Flecainide Acetate 100 Mg Tablet 100 Mg PO BID Ranexa (Ranolazine) 500 Mg Tab.er.12h 500 Mg PO BID Pantoprazole Sodium 40 Mg Tablet.dr 40 Mg PO DAILY Atorvastatin Calcium 40 Mg Tablet 40 Mg PO HS Pradaxa (Dabigatran Etexilate Mesylate) 150 Mg Capsule 150 Mg PO BID Nitroglycerin 0.2mg/HR Patch (Nitroglycerin) 1 Each Patch.td24 1 Each TD DAILY apply patch in am and removed in pm Patient Allergies: Coded Allergies: No Known Drug Allergies (Unverified , 08/20/16) Height (Feet): 5 Height (Inches): 6.00 Weight (Pounds): 167 Weight (Ounces): 0.0 Home Health Need/Face to Face Date of Face to Face: Sep 26, 2019 Clinical Findings: Instability, Muscle weakness I have seen Pt [id number]: Yes Discharged To: Home Diagnosis/Conditions: weakness Patient is Homebound due to: Lisa fall risk due to instabilty, Muscle weakness Homebound Status Due to the above stated illness, injury or surgical procedure (medical condition or diagnosis) and associated clinical findings, the patient is homebound because of his/her inability to leave home except with aid of a supportive device and/or person AND leaving the home requires a considerable and taxing effort or is medically contraindicated. Pt req the following assistanc: Aid of another person Home Health Nursing Orders Home Health Services Order: Nursing Services, Physical Therapy-Evaluate & Treat Therapy Orders Therapy Orders: Physical Therapy, PT to assess for OT Therapy Specific Orders: Eval assistive deivces, Gait training, Increase strength/endurance Certify Stmt I certify that this patient is under my care and that I, a nurse practitioner or a physician; a surgical services assistant working with me, had a face to face encounter that - meets the physician face to face encounter requirements with this patient as dated. Discharge Physical Exam General: Alert, Oriented X3, Cooperative, No Acute Distress HEENT: EOMI, Mucous Memb Moist/[place] Lungs: Clear to Auscultation, Normal Air Movement Heart: Regular Rate, Normal S1, Normal S2, No Murmurs Abdomen: Normal Bowel Sounds, Soft Extremities: No Edema, No Tenderness/Swelling Skin: No Rashes, No Significant Lesion Neuro: Normal Speech, Normal Tone Psych/Mental Status: Mental Status NL, Mood NL MATILDA WILL MD Sep 26, 2019 15:10
--- NOTE | 2019-09-26 15:33 | Discharge Summary ---
Discharge Summary Hospital Course Was the Problem List Reviewed?: Yes Problems/Dx: (1) Suicide attempt Status: Acute (2) Overdose Status: Acute Qualifiers: Qualified Codes: T50.902A - Poisoning by unspecified drugs, medicaments and biological substances, intentional self-harm, initial encounter (3) Minor head injury Status: Acute Qualifiers: Qualified Codes: S09.90XA - Unspecified injury of head, initial encounter (4) Atrial fibrillation Status: Acute Qualifiers: Qualified Codes: I48.0 - Paroxysmal atrial fibrillation Hospital Course Date of Admission: Sep 24, 2019 at 21:18 Admission Diagnosis : intentional overdose Family Physician/Provider: Deleted Date of Discharge: 09/26/19 Discharge Diagnosis: intentional overdose Hospital Course: Prateek Dewitt is a 79-year-old male who presented after an intentional overdose of flecainide in a suicide attempt. He was monitored and remained medically stable. He was evaluated for psychiatric hospitalization but was cleared. He was discharged home. Labs and Pending Lab Test: Laboratory Tests 09/26/19 03:18: White Blood Count 6.7, Red Blood Count 4.08L, Hemoglobin 13.6, Hematocrit 40, Mean Corpuscular Volume 97, Mean Corpuscular Hemoglobin 33, Mean Corpuscular Hemoglobin Concent 34, Red Cell Distribution Width 12.7, Platelet Count 135, Mean Platelet Volume 10.2, Neutrophils (%) (Auto) 70, Lymphocytes (%) (Auto) 19, Monocytes (%) (Auto) 10, Eosinophils (%) (Auto) 1, Basophils (%) (Auto) 0, Neutrophils # (Auto) 4.7, Lymphocytes # (Auto) 1.3, Monocytes # (Auto) 0.6, Eosinophils # (Auto) 0.1, Basophils # (Auto) 0.0, Sodium Level 132L, Potassium Level 3.8, Chloride Level 99, Carbon Dioxide Level 24, Anion Gap 9, Blood Urea Nitrogen 10, Creatinine 1.10, Estimat Glomerular Filtration Rate > 60, BUN/Creatinine Ratio 9, Glucose Level 100, Calcium Level 8.5, Corrected Calcium 9.1, Phosphorus Level 3.1, Magnesium Level 1.8, Total Bilirubin 1.0, Aspartate Amino Transf (AST/SGOT) 20, Alanine Aminotransferase (ALT/SGPT) 15, Alkaline Ph osphatase 71, Total Protein 5.3L, Albumin 3.2, Triglycerides Level 50, Cholesterol Level 118, LDL Cholesterol Direct 61, VLDL Cholesterol 10, HDL Cholesterol 52 Microbiology 09/24/19 MRSA Screen - Final, Complete MRSA not isolated Home Meds Active Reported Lisinopril 5 Mg Tablet 5 Mg PO DAILY Metoprolol Succinate 50 Mg Tab.er.24h 50 Mg PO DAILY Flecainide Acetate 100 Mg Tablet 100 Mg PO BID Ranexa (Ranolazine) 500 Mg Tab.er.12h 500 Mg PO BID Pantoprazole Sodium 40 Mg Tablet.dr 40 Mg PO DAILY Atorvastatin Calcium 40 Mg Tablet 40 Mg PO HS Pradaxa (Dabigatran Etexilate Mesylate) 150 Mg Capsule 150 Mg PO BID Nitroglycerin 0.2mg/HR Patch (Nitroglycerin) 1 Each Patch.td24 1 Each TD DAILY apply patch in am and removed in pm Assessment/Pt Instructions take medications as prescribed. Establish care with her primary care physician. Follow up with cardiology. Discharge Planning: <30 minutes discharge planning Discharge Instructions Discharge Diet: No Restrictions Activity as Tolerated: Yes Pneumonia Vaccine Order Indica: Yes Discharge Physical Examination Vital Signs Vital Signs Date Time Temp Pulse Resp B/P (MAP) Pulse Ox O2 Delivery O2 Flow Rate FiO2 09/26/19 12:02 66 09/26/19 12:00 36.0 16 173/83 (113) 99 09/26/19 08:44 Room Air General Appearance: No Apparent Distress, WD/WN Respiratory: Lungs Clear, Normal Breath Sounds, No Respiratory Distress Cardiovascular: Regular Rate, Rhythm, No Edema, No Murmur Gastrointestinal: Normal Bowel Sounds, Non Tender, Soft Extremity: Normal Inspection, Non Tender, No Pedal Edema Skin: Normal Color, Warm/Dry Neurologic/Psychiatric: Alert, Oriented x3, No Motor/Sensory Deficits, Depressed Affect Allergies: Coded Allergies: No Known Drug Allergies (Unverified , 08/20/16) Discharge Summary Date of Admission Sep 24, 2019 at 21:18 Date of Discharge Discharge Date: Sep 26, 2019 Discharge Time: 09:00 Admission Diagnosis Intentional Overdose Consults/Procedures Consulations cardiology Discharge Diagnosis (1) Suicide attempt Status: Acute (2) Overdose Status: Acute Qualifiers: Qualified Codes: T50.902A - Poisoning by unspecified drugs, medicaments and biological substances, intentional self-harm, initial encounter (3) Minor head injury Status: Acute Qualifiers: Qualified Codes: S09.90XA - Unspecified injury of head, initial encounter (4) Atrial fibrillation Status: Acute Qualifiers: Qualified Codes: I48.0 - Paroxysmal atrial fibrillation Clinical Quality Measures DVT/VTE Risk/Contraindication: Risk Factor Score Per Nursin RFS Level Per Nursing on Admit: 4+=Very High MATILDA WLIL MD Sep 26, 2019 15:25
[2019-09-26 15:45] VITALS: BP 173/83
== END 2019-09-26 16:20 | disposition home or self-care (01) | DRG 918 ==
LOC: EDUNIT# 19:33 → ER 19:35 → ICU 21:18 → 4TH 09-26 10:03
PROVIDERS: ADMIT Family Medicine; ATTEND Family Medicine
DX: T46.2X2A Poisoning by other antidysrhythmic drugs, intentional self-harm, initial encounter (principal); T44.7X2A Poisoning by beta-adrenoreceptor antagonists, intentional self-harm, initial encounter; R53.1 Weakness; S00.83XA Contusion of other part of head, initial encounter; I48.0 Paroxysmal atrial fibrillation; I25.10 Atherosclerotic heart disease of native coronary artery without angina pectoris; E78.5 Hyperlipidemia, unspecified; K21.9 Gastro-esophageal reflux disease without esophagitis; M19.91 Primary osteoarthritis, unspecified site; F10.20 Alcohol dependence, uncomplicated; E87.5 Hyperkalemia; F32.9 Major depressive disorder, single episode, unspecified; I10 Essential (primary) hypertension; I65.23 Occlusion and stenosis of bilateral carotid arteries; Z87.891 Personal history of nicotine dependence; Z95.5 Presence of coronary angioplasty implant and graft; W19.XXXA Unspecified fall, initial encounter
CPT/HCPCS: 36415; 70450; 71045; 72125; 80048; 80053; 80061; 80306; 80320; 80329; 81000; 82310; 83735; 84100; 84484; 85025; 86141; 87081; 93005; 93041

== ENCOUNTER 2022-08-29 18:33 | Inpatient (IN) | payer MEDICARE ==
[~2022-08-29] VITALS: Ht 165 cm; Wt 69.6 kg
[~2022-08-29 18:33] MED LIST changes: -CLIN150C17 PO; +CLIN150C20 PO; -LISI-556 PO; +LISI5TAB20 PO; -PANT40TA3 PO; +PANT40TA52 PO
[2022-08-29] MEDS ORDERED: NS IV 1000 ML 1,000 ML IV SCH (19:15)
[2022-08-29 19:23] LABS: BASOPHILS % (AUTO) 0 % (0-10); EOSINOPHILS # (AUTO) 0.1 10^3/uL (0.0-0.3); EOSINOPHILS % (AUTO) 2 % (0-10); HEMATOCRIT 47 % (40-54); HEMOGLOBIN 16.4 g/dL (13.3-17.7); LYMPHOCYTES # (AUTO) 1.5 10^3/uL (1.0-4.0); LYMPHOCYTES % (AUTO) 21 % (12-44); MEAN CORPUSCULAR HEMOGLOBIN 34 pg (25-34); MEAN CORPUSCULAR HGB CONC 35 g/dL (32-36); MEAN CORPUSCULAR VOLUME 98 fL (80-99); MEAN PLATELET VOLUME 10.5 fL (9.0-12.2); MONOCYTES # (AUTO) 0.5 10^3/uL (0.0-1.0); MONOCYTES % (AUTO) 7 % (0-12); NEUTROPHILS # (AUTO) 4.7 10^3/uL (1.8-7.8); NEUTROPHILS % (AUTO) 69 % (42-75); PLATELET COUNT 177 10^3/uL (130-400); WHITE BLOOD COUNT 6.9 10^3/uL (4.3-11.0)
--- NOTE | 2022-08-29 19:28 | ED General ---
General Chief Complaint: General Problems/Pain Stated Complaint: LOW BP Source of Information: Patient (POOR HISTORIAN), Other (SON) History of Present Illness Date Seen by Provider: Aug 29, 2022 Time Seen by Provider: 19:00 Initial Comments PT ARRIVES VIA POV FROM HOME WITH SON--PT LIVES WITH SON FOR THE LAST 3 YEARS SON STATES THAT PT HAS HAD A GENERAL DECLINE IN HEALTH OVER THE LAST MONTH. HE HAS HAD GENERALIZED WEAKNESS, PT WAS AMBULATORY, AND NOW CANNOT STAND OR WALK ON HIS OWN AT ALL DECREASED APPETITE--TODAY HE HAD A FEW BITES OF WAFFLE AND A FEW SIPS OF BEER HE NORMALLY DRINKS BEER EVERY DAY AND HAS FOR YEARS HE HAS HAD SEVERAL FALLS, UNKNOWN IF HE HAS HIT HIS HEAD OR HAD LOSS OF CONSCIOUSNESS. SON DOES NOT BELIEVE HE HAS FALLEN IN THE LAST MONTH. C/O LEFT HIP PAIN WITH STANDING HAS HAD SLIGHT SHORTNESS OF BREATH NO CHEST PAIN NO COUGH NO FEVER/SWEATS/CHILLS HE HAD SOME NAUSEA AND VOMITED YESTERDAY. NO DIARRHEA.NO ABDOMINAL PIAN PT STATES HE IS URINATING OK. HE HAS LOST AN UNKNOWN AMOUNT OF WEIGHT OVER THE LAST MONTH. PT HAS NOT SEEN ANY DRFranny IN AT LEAST 5 YEARS, AND NEVER HAD A PRIMARY CARE HE HAS SEEN DR. LYON FOR CARDIOLOGY, YEARS AGO, BUT DOES NOT KNOW WHAT KIND OF HEART PROBLEMS HE HAS HAD. HE HAS BEEN PRESCRIBED UNKNOWN MEDICATIONS IN THE PAST--DOES NOT KNOW WHAT MEDICATIONS OR WHAT THEY WERE FOR--HE HAS NOT TAKEN ANY MEDICATIONS OF ANY KIND FOR AT LEAST 5 YEARS. IN ADDITION TO DRINKING BEER DAILY, HE HAS HISTORY OF CHEWING TOBACCO, BUT NONE RECENTLY PT STATES HAS NOT HAD ANY PRIOR SURGERIES ON REVIEW OF OLD RECORDS, PT HAS HAD BACK SURGERY, HERNIA SURGERY AND CARDIAC STENT ALSO HAS LISTED ON PMH: ATRIAL FIB, HTN, HYPERLIPIDEMIA, CAD WITH STENT. PT HAS NOT HAD COVID OR FLU VACCINES. NONE OF THESE SYMPTOMS ARE DIFFERENT TODAY IN ANY WAY HAS NOT SOUGHT CARE UNTIL TODAY (THURSDAY NIGHT) SON TOOK HIM TO [facility], AND WAS SENT HERE FOR "LOW BLOOD PRESSURE"--REPORTEDLY WAS 80 SYSTOLIC PCP: NONE Allergies and Home Medications Allergies Coded Allergies: No Known Drug Allergies (Unverified , 08/20/16) Patient Home Medication List Home Medication List Reviewed: Yes No Active Prescriptions or Reported Meds Review of Systems Review of Systems Constitutional: see HPI; No chills, No diaphoresis, No dizziness, No fever; malaise, weakness EENTM: no symptoms reported Respiratory: see HPI, short of breath Cardiovascular: no symptoms reported; No chest pain, No edema, No palpitations, No syncope, No vascular heart diseas Gastrointestinal: see HPI; No abdominal pain, No diarrhea; nausea, vomiting Genitourinary: no symptoms reported Musculoskeletal: see HPI, other (HIP PAIN ) Skin: no symptoms reported Psychiatric/Neurological: See HPI; Denies Headache, Denies Numbness, Denies Pa resthesia, Denies Seizure, Denies Tingling, Denies Tremors; Weakness (GENERALIZED WEAKNESS) Hematologic/Lymphatic: No Symptoms Reported Immunological/Allergic: no symptoms reported Past Qqbjwhq-Hjydlz-Otbbvk Hx Patient Social History Tobacco Use?: Yes Tobacco type used: Cigarettes Smoking Status: Former Smoker Smokeless Tobacco Frequency: Former User Substance use?: No Alcohol Use?: Yes Alcohol type: Beer Alcohol Frequency: Daily Seasonal Allergies Seasonal Allergies: No Past Medical History Surgeries: Yes (BACK SURGERY (1999), HERNIA SURGERY (2007)) Abdominal, Cardiac, Coronary Stent, Eye Surgery, Orthopedic Respiratory: No Cardiac: Yes (CHF; TRICUSPID & MITRAL REGURG; CAROTID STENOSIS) Atrial Fibrillation, Coronary Artery Disease, High Cholesterol, Hypertension, Peripheral Vascular, Valvular Heart Disease Neurological: No Reproductive Disorders: No Sexually Transmitted Disease: No HIV/AIDS: No Genitourinary: No Gastrointestinal: Yes Gastroesophageal Reflux Musculoskeletal: Yes (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) Arthritis, Chronic Back Pain Endocrine: No HEENT: Yes (LEFT PUPIL LARGER THAN RIGHT SECONDARY TO CATARACT SURGERY) Cataract Loss of Vision: Bilateral Hearing Impairment: Denies Cancer: No Psychosocial: Yes (OVERDOSED 2019 WITH SUICIDE ATTEMPT-FLECANIDE + RANEXA) Suicide Attempts, Depression Integumentary: No Blood Disorders: No Adverse Reaction/Blood Tranf: No (N/A) Family Medical History Cancer of colon 09 BROTHER Family history: Gastrointestinal disease 09 BROTHER Kidney disease 09 BROTHER SOCIAL HISTORY: -SMOKED 1 PPD, QUIT SEVERAL YEARS AGO -CHEWED TOBACCO 1/2 CAN/DAY--QUIT SEVERAL YEARS AGO -ETOH--DRINKS BEER DAILY--USED TO DRINK VERY HEAVILY EVERY DAY, BUT NOW FAMILY RATIONS HIM TO 2 BEERS A DAY. -DRUGS--DENIES USE PAST SURGICAL HISTORY: -BACK SURGERY 1999 -RIGHT INGUINAL SURGERY 2008 -CATARACT SURGERY--RIGHT 11/2017; -CARDIAC CATH WITH STENT TO LAD 05/2010 -CARDIAC CATH 08/06/[address] LYON: PATENT STENT TO LAD. NO INTERVENTION -REVEAL DEVICE PLACED 2015--REMOVED DUE TO INFECTION Physical Exam Vital Signs Vital Signs - First Documented 08/29/22 08/29/22 18:55 19:00 Temp 36.0 Pulse 144 Resp 20 B/P (MAP) 128/77 (94) Pulse Ox 100 O2 Delivery Nasal Cannula O2 Flow Rate 2.00 Capillary Refill : Height, Weight, BMI Height: 5'6.00" Weight: 167lbs. 0.0oz. 75.058144ge; 25.99 BMI Method:Stated General Appearance: No Apparent Distress, WD/WN, Chronically ill HEENT: Other (RIGHT PUPIL IS PINPOINT, LEFT PUPIL IS DILATED 5-6 MM--THIS IS CHRONIC FOR PT, DUE TO PREVIOUS CATARACT SURGERY; EDENTULOUS. ORAL MUCOSA DRY) Neck: Normal Inspection, Non Tender, Supple; No JVD Respiratory: Chest Non Tender, Normal Breath Sounds, No Accessory Muscle Use, No Respiratory Distress Cardiovascular: Systolic Murmur (2/6), Irregularly Irregular, Tachycardia Gastrointestinal: Normal Bowel Sounds, No Organomegaly, No Pulsatile Mass, Non Tender, Soft Back: No CVA Tenderness, No Vertebral Tenderness, Other (ENTIRE BACK WITH EXTENSIVE BRUISING OF VARIOUS AGES, WITH SOME PETECHIAE SCATTERED OVER BACK, WITH SCABBED WOUND TO RIGHT POSTERIOR LOWER RIB AREA. THERE IS A DECUBITUS ULCER TO RIGHT ISCHIAL TUBEROSITY AREA--AT LEAST STAGE 2 ON GROSS EXAM. NO DRAINAGE. NO OBVIOUS SIGNS OF INFECTION. SKIN TO BUTTOCKS AND LOWER BACK HAS THICK SCALING / SLOUGHING OF SKIN. THERE IS NO GROSS DEFORMITY TO SPINE OR RIBS, NO CREPITANCE OR SUB Q AIR. ) Extremity: Other (THERE ARE EXTENSIVE BRUISES OF VARIOUS AGES TO ARMS AND LEGS. LEFT HIP IS NON-TENDER TO TOUCH--PT STATES IT JUST HURTS WHEN HE WALKS. HANDS ARE COLD AND DUSKY, WITH VERY POOR CAPILLARY REFILL. FEET, ANKLES AND LOWER LEGS ARE DUSKY, COLD AND WITH DIFFUSE PETECHIAE INCLUDING ON SOLES OF FEET. PEDAL PULSES ARE NOT PALPABLE. THERE IS NO EDEMA. THERE ARE NO OBVIOUS ULCERATIONS TO FEET. ) Neurologic/Psychiatric: Alert, Oriented x3, No Motor/Sensory Deficits (MOVES ALL EXTREMITIES EQUALLY--NO FOCAL DEFICITS, BUT PT HAS GENERALIZED WEAKNESS. ), ethnic origins teacher II-XII Norm as Tested Skin: Ecchymosis, Petechia, Other ( ABOVE) Focused Exam Lactate Level 08/29/22 19:08: Lactic Acid Level 3.13*H Lactic Acid Level Laboratory Tests Test 08/29/22 19:08 Lactic Acid Level 3.13 MMOL/L (0.50-2.00) *H Progress/Results/Core Measures Suspected Sepsis SIRS Temperature: Pulse: Respiratory Rate: Blood Pressure / Mean: 08/29/22 19:08: Lactic Acid Level 3.13*H Laboratory Tests 08/29/22 19:08: INR Comment 1.1 Results/Orders Lab Results Laboratory Tests Test 08/29/22 00:02 08/29/22 19:08 08/29/22 19:27 08/29/22 19:35 Range/Units Troponin I < 0.028 < 0.028 <0.028 NG/ML Vitamin B1 Level Vitamin B12 Level 838 284-4522 pg/mL White Blood Count 6.9 4.3-11.0 10^3/uL Red Blood Count 4.79 4.30-5.52 10^6/uL Hemoglobin 16.4 13.3-17.7 g/dL Hematocrit 47 40-54 % Mean Corpuscular Volume 98 80-99 fL Mean Corpuscular Hemoglobin 34 25-34 pg Mean Corpuscular Hemoglobin Concent 35 32-36 g/dL Red Cell Distribution Width 13.2 10.0-14.5 % Platelet Count 177 130-400 10^3/uL Mean Platelet Volume 10.5 9.0-12.2 fL Immature Granulocyte % (Auto) 1 % Neutrophils (%) (Auto) 69 42-75 % Lymphocytes (%) (Auto) 21 12-44 % Monocytes (%) (Auto) 7 0-12 % Eosinophils (%) (Auto) 2 0-10 % Basophils (%) (Auto) 0 0-10 % Neutrophils # (Auto) 4.7 1.8-7.8 10^3/uL Lymphocytes # (Auto) 1.5 1.0-4.0 10^3/uL Monocytes # (Auto) 0.5 0.0-1.0 10^3/uL Eosinophils # (Auto) 0.1 0.0-0.3 10^3/uL Basophils # (Auto) 0.0 0.0-0.1 10^3/uL Immature Granulocyte # (Auto) 0.1 0.0-0.1 10^3/uL Erythrocyte Sedimentation Rate 45 H 0-30 MM/HR Prothrombin Time 15.1 H 12.2-14.7 SEC INR Comment 1.1 0.8-1.4 Activated Partial Thromboplast Time 32 24-35 SEC Sodium Level 136 135-145 MMOL/L Potassium Level 3.9 3.6-5.0 MMOL/L Chloride Level 99 98-107 MMOL/L Carbon Dioxide Level 18 L 21-32 MMOL/L Anion Gap 19 H 5-14 MMOL/L Blood Urea Nitrogen 29 H 7-18 MG/DL Creatinine 1.23 0.60-1.30 MG/DL Estimat Glomerular Filtration Rate 59 BUN/Creatinine Ratio 24 Glucose Level 98 70-105 MG/DL Lactic Acid Level 3.13 *H 0.50-2.00 MMOL/L Calcium Level 9.8 8.5-10.1 MG/DL Corrected Calcium 10.4 H 8.5-10.1 MG/DL Magnesium Level 2.1 1.6-2.4 MG/DL Total Bilirubin 2.5 H 0.1-1.0 MG/DL Aspartate Amino Transf (AST/SGOT) 18 5-34 U/L Alanine Aminotransferase (ALT/SGPT) 13 0-55 U/L Alkaline Phosphatase 72 40-136 U/L Ammonia 17 11-32 UMOL/L Total Creatine Kinase 24 L 30-200 U/L Creatine Kinase MB 0.4 <6.6 NG/ML Myoglobin 52.7 10.0-92.0 NG/ML C-Reactive Protein High Sensitivity 2.72 H 0.00-0.50 MG/DL B-Type Natriuretic Peptide 315.0 H <100.0 PG/ML Total Protein 6.6 6.4-8.2 GM/DL Albumin 3.3 3.2-4.5 GM/DL Amylase Level 35 25-125 U/L Lipase 45 8-78 U/L TSH [place] Testing 4.80 0.35-4.94 UIU/ML Serum Alcohol 11 H <10 MG/DL Influenza Type A (RT-PCR) Not Detected Not Detecte Influenza Type B (RT-PCR) Not Detected Not Detecte SARS-CoV-2 RNA (RT-PCR) Not Detected Not Detecte Urine Color ORANGE Urine Clarity SL CLOUDY Urine pH 5.5 5-9 Urine Specific Cornish >=1.030 1.016-1.022 Urine Protein 1+ H NEGATIVE Urine Glucose (UA) TRACE H NEGATIVE Urine Ketones 1+ H NEGATIVE Urine Nitrite POSITIVE H NEGATIVE Urine Bilirubin 3+ H NEGATIVE Urine Urobilinogen 4.0 < = 1.0 MG/DL Urine Leukocyte Esterase NEGATIVE NEGATIVE Urine RBC (Auto) TRACE-I H NEGATIVE Urine RBC 2-5 H /HPF Urine WBC 5-10 H /HPF Urine Squamous Epithelial Cells 2-5 /HPF Urine Crystals PRESENT H /LPF Urine Amorphous Sediment FEW JUSTINO URATES H /LPF Urine Bacteria FEW H /HPF Urine Casts PRESENT /LPF Urine Hyaline Casts >50 H /LPF Urine Granular Casts 0-2 H /LPF Urine White Blood Cell Casts 2-5 H /LPF Urine Mucus LARGE H /LPF Urine Culture Indicated YES Urine Opiates Screen NEGATIVE NEGATIVE Urine Oxycodone Screen NEGATIVE NEGATIVE Urine Methadone Screen NEGATIVE NEGATIVE Urine Propoxyphene Screen NEGATIVE NEGATIVE Urine Barbiturates Screen NEGATIVE NEGATIVE Ur Tricyclic Antidepressants Screen NEGATIVE NEGATIVE Urine Phencyclidine Screen NEGATIVE NEGATIVE Urine Amphetamines Screen NEGATIVE NEGATIVE Urine Methamphetamines Screen NEGATIVE NEGATIVE Urine Benzodiazepines Screen NEGATIVE NEGATIVE Urine Cocaine Screen NEGATIVE NEGATIVE Urine Cannabinoids Screen NEGATIVE NEGATIVE Blood Gas Puncture Site R RAD Blood Gas Patient Temperature 36 Arterial Blood pH 7.47 H 7.37-7.43 Arterial Blood Partial Pressure CO2 23 L 35-45 MMHG Arterial Blood Partial Pressure O2 178 H 79-93 MMHG Arterial Blood HCO3 17 *L 23-27 MMOL/L Arterial Blood Total CO2 17.7 L 21.0-31.0 MMOL/L Arterial Blood Oxygen Saturation 100 94-100 % Arterial Blood Base Excess -6.3 L -2.5-2.5 MMOL/L Tommy Test YES-POS Blood Gas Ventilator Setting NO Blood Gas Inspired Oxygen UNK Micro Results Microbiology 08/29/22 Urine Culture - Final, Complete NO GROWTH My Orders Orders - CASE ALLRED DO Ekg Tracing (08/29/22 19:06) O2 (08/29/22 19:06) Monitor-Rhythm Ecg Trace Only (08/29/22 19:06) Chest 1 View, Ap/Pa Only (08/29/22 19:06) Pelvis/Deonte Hips 5> Views (08/29/22 19:06) Acetaminophen (2/17/23 19:06) Alcohol (08/29/22 19:06) Ammonia (08/29/22 19:06) Amylase (08/29/22 19:) Arterial Blood Gas (08/29/22 19:35) Bnp Casi (08/29/22 19:06) Cbc With Automated Diff (08/29/22 19:06) Comprehensive Metabolic Panel (08/29/22:) Creatine Kinase (08/29/22:) Creatine Kinase Mb (08/29/22 19:06) Hs C Reactive Protein (08/29/22 19:06) Lactic Acid Analyzer (08/29/22:) Lipase (08/29/22:) Magnesium (08/29/22:) Protime With Inr (08/29/22:) Partial Thromboplastin Time (08/29/22:06) Thyroid Analyzer (08/29/22 19:06) Ua Culture If Indicated (08/29/22:) Erythrocyte Sedimentation Rate (08/29/22 19:06) Myoglobin Serum (08/29/22 19:06) Troponin I Casi (08/29/22 19:06) Ct Head/Cervical Spine Wo (08/29/22 19:06) Covid 19 Inhouse Test (08/29/22 19:06) Influenza A And B By Pcr (08/29/22 19:06) Isolation Central Supply Req (08/29/22 19:06) Ed Iv/Invasive Line Start (08/29/22 19:10) Ns Iv 1000 Ml (Sodium Chloride 0.9%) (08/29/22 19:15) Diltiazem Injection (Cardizem Injection) (08/29/22 19:30) Diltiazem Drip Pre-Mix (Cardizem Drip Pr (08/29/22 19:30) Lidocaine 2% (Urojet) (Xylocaine Urojet) (08/29/22 19:45) Ekg Tracing (08/29/22 19:55) Urine Culture (08/29/22 19:27) Ceftriaxone 1 Gm Pre-Mix (Rocephin 1 Gm (08/29/22 20:15) Enoxaparin Injection (Lovenox Injection) (08/29/22 21:00) Aspirin Chewable Tablet (Baby Aspirin Ch (08/29/22 21:00) Pantoprazole Injection (Protonix Injecti (08/29/22 21:00) Ct Roxanne Chest/Noang Abd-Pelv W (08/29/22 21:00) Ct Thoracic/Lumbar Spine Wo (08/29/22 21:00) Iohexol Injection (Omnipaque 350 Mg/Ml 1 (08/29/22 21:15) Di Iv Start (Assessment) .IV start (08/29/22 21:10) Received Contrast (Hold Metformin- Contr (08/29/22 21:15) Ns (Ivpb) (Sodium Chloride 0.9% Ivpb Bag (08/29/22 21:15) Medications Given in ED Vital Signs/I&O 08/29/22 08/29/22 08/29/22 08/29/22 18:55 19:00 19:45 19:46 Temp 36.0 Pulse 144 135 135 Resp 20 B/P (MAP) 128/77 (94) 112/99 112/99 Pulse Ox 100 97 O2 Delivery Nasal Cannula O2 Flow Rate 2.00 08/29/22 22:06 Pulse 98 Resp 14 B/P (MAP) 107/66 Pulse Ox 100 Capillary Refill : Progress Note : Progress Note GIVEN: -IV FLUIDS -CARDIZEM BOLUS AND DRIP -ASPIRIN -LOVENOX VITALS STABLE AT TIME OF ADMIT HR <100, BP 110'S SYSTOLIC. O2 SATS 98-100% ON 2L/NC. NO DETERIORATION IN PT'S CONDITION DURING ER STAY COMPLEX PATIENT DUE TO MULTIPLE ISSUES, INCLUDING: ATRIAL FIBRILLATION WITH RVR, GENERALIZED WEAKNESS AND DECONDITIONING, DAILY ALCOHOL USE, DEHYDRATION, PULMONARY EMBOLI, DECUBITUS ULCER, VERY POOR PERIPHERAL CIRCULATION, WITH POSSIBLE DISTAL ARTERIAL OCCLUSIONS REVIEWED PRIOR RECORDS, INCLUDING ER VISITS, H&P'S, CONSULTS, TESTS/PROCEDURES, DISCHARGE SUMMARIES DISCUSSED TEST RESULTS WITH PT AND SON, AND NEED FOR ADMIT. DISCUSSED CODE STATUS WITH SON, WHO STATES HE IS TO BE A DNR/DNI. ECG Initial ECG Impression Date: Aug 29, 2022 Initial ECG Impression Time: 19:17 Initial ECG Rate: 150 Initial ECG Rhythm: A Fib/Flutter Initial ECG Impression: Atrial Fibrillation w/RVR Comment INTERPRETED BY ME EKG : EKG Time: 19:52 Rate: 98 Rhythm: A Fib/Flutter Comment INTERPRETED BY UNCHANGED, EXCEPT FOR LOWER HEART RATE Diagnostic Imaging Comments PER RADIOLOGIST REPORTS AT 2030 CXR-- FINDINGS: Lungs/pleura: Lungs are clear. There is no pneumothorax. There is no pleural effusion. Mediastinum: Unremarkable. Pulmonary vasculature: Unremarkable. Heart: Unremarkable. Bones/extrathoracic soft tissue: There are hypertrophic spurs involving the thoracic spine. There is no acute fracture seen. IMPRESSION: There is no radiographic evidence of acute cardiopulmonary process. PELVIS/BILATERAL HIPS: FINDINGS: X-ray of the pelvis and both hips show no acute fracture or dislocation. There are hypertrophic spurs involving the lower lumbar spine. Sacroiliac joints show mild sclerosis and spurring, but otherwise unremarkable. There is no gross fracture of the pelvis or sacrum. Multiple surgical clips are seen overlying the pelvis. IMPRESSION: There is no acute fracture or dislocation. CT HEAD/CERVICAL SPINE-- Findings: Head CT: There is no evidence of acute cerebral infarct, intracranial hemorrhage or gross mass effect. There is interval progression of diffuse brain parenchymal volume loss including the temporal lobes. Chronic small vessel ischemic disease is seen. There is normal cabello-white matter distinction. There is no significant midline shift or herniation. There is no evidence of hydrocephalus. The basal cisterns are unremarkable. The skull, extracranial soft tissue and orbits are unremarkable. The paranasal sinuses are unremarkable. Temporal bones show no significant abnormality. Cervical spine CT: There is no acute cervical spine fracture or dislocation. There is slight progression of vertebral body spurs and now severe loss of disk space height involving the C3-C4 and C5-C6 levels. There is severe right C3-C4 and C5-C6 neural foramen narrowing and moderate left C3-C4 and C5-C6 neural foramen narrowing. There is no significant neck soft tissue abnormality. Impression: 1: There is no evidence of acute intracranial process. There is no skull fracture. 2: There is interval progression of brain parenchymal volume loss and chronic small vessel ischemic disease. 3: There is progression of cervical spine degenerative disease with no acute fracture. CT CHEST ANGIOGRAM / ABDOMEN-PELVIS--PER RADIOLOGIST VIA PHONE AT 2154 Findings: There is bilateral apical pleural parenchymal thickening/scarring. There is small amount of patchy airspace opacities involving the posterior aspects of both lungs. There is a nodular opacity involving the mid posterior aspect of right lung. These findings may be related to atelectasis, but superimposed infiltrates cannot be completely excluded. There is a calcified granuloma in the right lung apex. Otherwise, lungs are clear. There is no pleural effusion or pneumothorax. There is no mediastinal, hilar or axillary lymphadenopathy. There is an abrupt area of diminished contrast within a right lower lobe pulmonary artery posteriorly concerning for pulmonary emboli. There is also concern for possible pulmonary emboli within a distal subsegmental branch of the anterior aspect of the right lower lobe. There are no other areas of pulmonary embolism seen. The thoracic aorta is nonaneurysmal. There is no significant contrast within the thoracic aorta to evaluate for dissection regarding the arch. The distal descending thoracic aorta, abdominal aorta and bilateral common iliac arteries are patent with no aneurysmal dilation or dissection. The bilateral external and internal iliac arteries are patent. The celiac artery and SMA show no significant stenosis and are patent. Left renal artery is patent. There is mild narrowing of the origin of the right renal artery. The liver, spleen, pancreas, gallbladder and adrenal glands are unremarkable. There is a roughly 4.6 cm cyst involving the midportion of the right kidney. Both kidneys are otherwise unremarkable. No hydronephrosis or mass. Bladder is partially fluid-filled with bowel wall thickening. This is nonspecific and may be related to incomplete distention, sequelae from bladder dysfunction or cystitis. There is no intra-abdominal free air or free fluid. There is no lymphadenopathy. There is no intestinal obstruction. There is wall thickening involving the distal esophagus which may be related to contraction or esophagitis. There is no significant stool load. Appendix is unremarkable. The extra-abdominal and extra-pelvic soft tissue structures are unremarkable. Impression: 1: There is evidence of occlusive pulmonary emboli involving the right lower lobe with two vessels involved. There is no evidence of heart strain. 2: There is no aneurysmal dilation of the thoracic aorta. The abdominal aorta and common iliac arteries show no aneurysmal dilation or dissection. 3: There is mild patchy airspace opacities involving both lower lobes with the right side more than the left which may represent atelectasis, but infiltrates may also be considered. These findings may also be due to pulmonary embolism in this region. 4: There is bladder wall thickening which is nonspecific and may be related to contraction versus cystitis or bladder dysfunction. 5: The remainder of this exam shows no other acute abnormality. CT THORACIC / LUMBAR SPINE--PER RADIOLOGIST REPORT VIA PHONE AT [id number] Findings: There is no acute thoracic spine fracture or dislocation. There are hypertrophic flowing osteophytes seen throughout the thoracic spine. There is no significant bony central canal or neural foramen narrowing. There is atelectasis involving the posterior aspects of both lungs. There is no significant paraspinal soft tissue abnormality. There is no acute lumbar spine fracture. There is grade 1 anterolisthesis of L4 on L5 with facet arthropathy/hypertrophy. There is no pars defect seen. There are hypertrophic spurs throughout the lumbar spine and facet arthropathy. There is concern for at least moderate stenosis at the L4-L5 level. There is severe bilateral L4-L5 neural foramen narrowing. There is also severe bilateral L5-S1 neural foramen narrowing with diffuse disk bulges and facet arthropathy. There is no significant paraspinal soft tissue abnormality. There is a roughly 4.4 cm cyst involving the right kidney. Impression: 1: There is no acute thoracic spine or lumbar spine fracture. 2: There is multilevel lumbar spine degenerative disease. Reviewed: Reviewed by Me Critical Care Note Critical Care Start Time: 19:00 Stop Time: 20:00 Total Time (minutes) 60 Departure Communication (Admissions) 2039--SPOKE WITH DR. WILL, HOSPITALIST, ACCEPTS PT FOR ADMIT. ( CT CHEST/ABD PELVIS AND SPINE REPORT PENDING) 2050--SPOKE WITH DR. LYON, POULTRYMAN, FOR CONSULT, ORDERS NOTED. ( CT CHEST/ABD PELVIS AND SPINE REPORT PENDING) 2231--REPORT TO E-ICU PHYSICIAN Impression Primary Impression: Atrial fibrillation with RVR Additional Impressions: Generalized weakness Frequent falls Urinary tract infection Alcohol abuse, daily use Lactic acidosis Dehydration Pulmonary emboli Disposition: ADMITTED INPATIENT Condition: Stable Admissions Decision to Admit Reason: Admit from ER (General) Decision to Admit/Date: Aug 29, 2022 Time/Decision to Admit Time: 20:40 Departure-Patient Inst. Referrals: NO,LOCAL PHYSICIAN (PCP/Family) Primary Care Physician Scripts No Active Prescriptions or Reported Meds CASE ALLRED DO Aug 29, 2022 19:27
[2022-08-29] MEDS ORDERED: dilTIAZem DRIP PRE-MIX 125 ML IV SCH (19:30)
[2022-08-29 19:35] LABS: INR 1.1 (0.8-1.4); PROTHROMBIN TIME PATIENT 15.1 SEC (12.2-14.7)
[2022-08-29 19:36] LABS: CLARITY,URINE SL CLOUDY; COLOR,URINE ORANGE; GLUCOSE, URINE (UA) TRACE (NEGATIVE); KETONES,URINE 1+ (NEGATIVE); LEUKOCYTE ESTERASE ,URINE NEGATIVE (NEGATIVE); NITRITE,URINE POSITIVE (NEGATIVE); PH,URINE 5.5 (5-9); PROTEIN,URINE 1+ (NEGATIVE)
[2022-08-29] MEDS ORDERED: LIDOCAINE UROJET 2% GEL 10 ML PKG TOP ONE (19:45)
[2022-08-29 19:48] LABS: ALANINE AMINOTRANSFERASE 13 U/L (0-55); ALBUMIN 3.3 GM/DL (3.2-4.5); ALKALINE PHOSPHATASE 72 U/L (40-136); AMMONIA 17 UMOL/L (11-32); AMYLASE 35 U/L (25-125); BILIRUBIN,TOTAL 2.5 MG/DL (0.1-1.0); BUN/CREATININE RATIO 24; CALCIUM 9.8 MG/DL (8.5-10.1); CARBON DIOXIDE 18 MMOL/L (21-32); CHLORIDE 99 MMOL/L (98-107); CREATINE KINASE 24 U/L (30-200); CREATININE SERUM 1.23 MG/DL (0.60-1.30); GFR ESTIMATED 59; GLUCOSE 98 MG/DL (70-105); LIPASE 45 U/L (8-78); MAGNESIUM 2.1 MG/DL (1.6-2.4); POTASSIUM 3.9 MMOL/L (3.6-5.0); SODIUM 136 MMOL/L (135-145); TOTAL PROTEIN 6.6 GM/DL (6.4-8.2)
[2022-08-29 19:51] LABS: ERYTHROCYTE SEDIMENTATION RATE 45 MM/HR (0-30)
[2022-08-29 19:54] LABS: BILIRUBIN,URINE 3+ (NEGATIVE); HYALINE CASTS, URINE >50 /LPF
[2022-08-29 19:58] LABS: AMORPHOUS SEDIMENT,UR FEW AMOR URATES /LPF; BACTERIA,URINE FEW /HPF
[2022-08-29 20:00] LABS: CREATINE KINASE MB 0.4 NG/ML (<6.6)
[2022-08-29 20:02] LABS: GRANULAR CASTS,URINE 0-2 /LPF
[2022-08-29] MEDS ORDERED: cefTRIAXone 1 GM PRE-MIX 50 ML IV ONE (20:15)
--- NOTE | 2022-08-29 20:17 | Diagnostic Imaging Report ---
CLINICAL INDICATION: Patient status post fall with chest pain. EXAM: Portable chest x-ray upright view. COMPARISON: None. FINDINGS: Lungs/pleura: Lungs are clear. There is no pneumothorax. There is no pleural effusion. Mediastinum: Unremarkable. Pulmonary vasculature: Unremarkable. Heart: Unremarkable. Bones/extrathoracic soft tissue: There are hypertrophic spurs involving the thoracic spine. There is no acute fracture seen. IMPRESSION: There is no radiographic evidence of acute cardiopulmonary process. Dictated by: Dictated on workstation # [id number]
--- NOTE | 2022-08-29 20:18 | Diagnostic Imaging Report ---
CLINICAL INDICATION: Patient with pelvic pain status post fall. EXAM: X-ray of the pelvis AP view and x-ray of both hips, AP and frog-leg views. COMPARISON: None. FINDINGS: X-ray of the pelvis and both hips show no acute fracture or dislocation. There are hypertrophic spurs involving the lower lumbar spine. Sacroiliac joints show mild sclerosis and spurring, but otherwise unremarkable. There is no gross fracture of the pelvis or sacrum. Multiple surgical clips are seen overlying the pelvis. IMPRESSION: There is no acute fracture or dislocation. Dictated by: Dictated on workstation # [id number]
--- NOTE | 2022-08-29 20:29 | Diagnostic Imaging Report ---
Clinical indication: Patient is status post fall. Exam: Head CT without IV contrast with sagittal and coronal reformations. Axial CT scan of the cervical spine with sagittal and coronal reformations. Auto Exposure Controls were utilized during the CT exam to meet ALARA standards for radiation dose reduction. Comparison: CT scan of the head and cervical spine without contrast dated 09/24/2019. Findings: Head CT: There is no evidence of acute cerebral infarct, intracranial hemorrhage or gross mass effect. There is interval progression of diffuse brain parenchymal volume loss including the temporal lobes. Chronic small vessel ischemic disease is seen. There is normal cabello-white matter distinction. There is no significant midline shift or herniation. There is no evidence of hydrocephalus. The basal cisterns are unremarkable. The skull, extracranial soft tissue and orbits are unremarkable. The paranasal sinuses are unremarkable. Temporal bones show no significant abnormality. Cervical spine CT: There is no acute cervical spine fracture or dislocation. There is slight progression of vertebral body spurs and now severe loss of disk space height involving the C3-C4 and C5-C6 levels. There is severe right C3-C4 and C5-C6 neural foramen narrowing and moderate left C3-C4 and C5-C6 neural foramen narrowing. There is no significant neck soft tissue abnormality. Impression: 1: There is no evidence of acute intracranial process. There is no skull fracture. 2: There is interval progression of brain parenchymal volume loss and chronic small vessel ischemic disease. 3: There is progression of cervical spine degenerative disease with no acute fracture. Dictated by: Dictated on workstation # [id number]
[2022-08-29] MEDS ORDERED: ASPIRIN 81 MG CHEW (CHILDREN'S ASA) PO ONE (21:00)
[2022-08-29] MEDS ORDERED: PANTOPRAZOLE 40 MG (PROTONIX) VIAL IV ONE (21:00)
[2022-08-29] MEDS ORDERED: ENOXAPARIN 80 MG/0.8 ML (LOVENOX) SYR SC ONE (21:00)
[2022-08-29] MEDS ORDERED: HOLD METFORMIN - RECEIVED CONTRAST 20 ML VIAL IV SCH (21:15)
[2022-08-29] MEDS ORDERED: NS 100 ML (IVPB) BAG IV ONE (21:15)
[2022-08-29] MEDS ORDERED: IOHEXOL 350 MG/ML 100 ML (OMNIPAQUE 350) VIAL IV ONE (21:15)
--- NOTE | 2022-08-29 21:51 | Diagnostic Imaging Report ---
Clinical indication: Patient with low blood pressure, trauma and dyspnea. Exam: Axial CT scan of the thoracic and lumbar spine performed without IV contrast. Sagittal and coronal reformations were performed. Bone and soft tissue windows were created. Auto Exposure Controls were utilized during the CT exam to meet ALARA standards for radiation dose reduction. Comparison: None. Findings: There is no acute thoracic spine fracture or dislocation. There are hypertrophic flowing osteophytes seen throughout the thoracic spine. There is no significant bony central canal or neural foramen narrowing. There is atelectasis involving the posterior aspects of both lungs. There is no significant paraspinal soft tissue abnormality. There is no acute lumbar spine fracture. There is grade 1 anterolisthesis of L4 on L5 with facet arthropathy/hypertrophy. There is no pars defect seen. There are hypertrophic spurs throughout the lumbar spine and facet arthropathy. There is concern for at least moderate stenosis at the L4-L5 level. There is severe bilateral L4-L5 neural foramen narrowing. There is also severe bilateral L5-S1 neural foramen narrowing with diffuse disk bulges and facet arthropathy. There is no significant paraspinal soft tissue abnormality. There is a roughly 4.4 cm cyst involving the right kidney. Impression: 1: There is no acute thoracic spine or lumbar spine fracture. 2: There is multilevel lumbar spine degenerative disease. Dictated by: Dictated on workstation # [id number]
--- NOTE | 2022-08-29 22:22 | Diagnostic Imaging Report ---
Clinical indication: Patient states he was here for low blood pressure. Patient states a month ago he was able to walk and now he can barely walk. Patient states patient has declined over the last month. Exam: CT angiogram of the chest, abdomen and pelvis performed with 63 cc Omnipaque 350 IV contrast. Coronal and oblique MIP images of the vasculature were created to better evaluate anatomy. Auto Exposure Controls were utilized during the CT exam to meet ALARA standards for radiation dose reduction. Comparison: CT scan of the thoracic and lumbar spine without contrast dated 08/29/2022. Findings: There is bilateral apical pleural parenchymal thickening/scarring. There is small amount of patchy airspace opacities involving the posterior aspects of both lungs. There is a nodular opacity involving the mid posterior aspect of right lung. These findings may be related to atelectasis, but superimposed infiltrates cannot be completely excluded. There is a calcified granuloma in the right lung apex. Otherwise, lungs are clear. There is no pleural effusion or pneumothorax. There is no mediastinal, hilar or axillary lymphadenopathy. There is an abrupt area of diminished contrast within a right lower lobe pulmonary artery posteriorly concerning for pulmonary emboli. There is also concern for possible pulmonary emboli within a distal subsegmental branch of the anterior aspect of the right lower lobe. There are no other areas of pulmonary embolism seen. The thoracic aorta is nonaneurysmal. There is no significant contrast within the thoracic aorta to evaluate for dissection regarding the arch. The distal descending thoracic aorta, abdominal aorta and bilateral common iliac arteries are patent with no aneurysmal dilation or dissection. The bilateral external and internal iliac arteries are patent. The celiac artery and SMA show no significant stenosis and are patent. Left renal artery is patent. There is mild narrowing of the origin of the right renal artery. The liver, spleen, pancreas, gallbladder and adrenal glands are unremarkable. There is a roughly 4.6 cm cyst involving the midportion of the right kidney. Both kidneys are otherwise unremarkable. No hydronephrosis or mass. Bladder is partially fluid-filled with bowel wall thickening. This is nonspecific and may be related to incomplete distention, sequelae from bladder dysfunction or cystitis. There is no intra-abdominal free air or free fluid. There is no lymphadenopathy. There is no intestinal obstruction. There is wall thickening involving the distal esophagus which may be related to contraction or esophagitis. There is no significant stool load. Appendix is unremarkable. The extra-abdominal and extra-pelvic soft tissue structures are unremarkable. Impression: 1: There is evidence of occlusive pulmonary emboli involving the right lower lobe with two vessels involved. There is no evidence of heart strain. 2: There is no aneurysmal dilation of the thoracic aorta. The abdominal aorta and common iliac arteries show no aneurysmal dilation or dissection. 3: There is mild patchy airspace opacities involving both lower lobes with the right side more than the left which may represent atelectasis, but infiltrates may also be considered. These findings may also be due to pulmonary embolism in this region. 4: There is bladder wall thickening which is nonspecific and may be related to contraction versus cystitis or bladder dysfunction. 5: The remainder of this exam shows no other acute abnormality. Results of this report discussed with Dr. Janell Sanchez via the telephone on 08/29/2022 at 2155 hours. Dictated by: Dictated on workstation # [id number]
[2022-08-29 22:31] LABS: ABG BASE EXCESS -6.3 MMOL/L (-2.5-2.5); ABG OXYGEN SATURATION 100 % (94-100); ABG PCO2 23 MMHG (35-45); ABG PH 7.47 (7.37-7.43); ABG PO2 178 MMHG (79-93); ABG TCO2 17.7 MMOL/L (21.0-31.0); ALLENS TEST YES-POS; PATIENT TEMP 36; VENTILATOR NO
[2022-08-29] MEDS ORDERED: dilTIAZem DRIP 125 MG/125 ML DRIP IV SCH (23:45)
[2022-08-29] MEDS ORDERED: ACETAMINOPHEN 500 MG TAB (TYLENOL) PO PRN (23:45)
--- NOTE | 2022-08-29 23:52 | Tele-ICU Progress Note ---
Progress Note eICU- New admit 83 yo man admitted through ED with history of decline in health over 1 month, fatigue, difficult to walk, stand, scant eating- but did take waffle and beer (acc to ED Physician report and discussion)- daily beer intake , falling frequently. Reported that he is aware of history of chronic atrial fibrillation but does not take any prescription Rx or follow through on previous history of A fib, HTN, HLD, CAD, post stent. Reported asymmetry in pupil responses which is chronically R pinpoint, L dilated and contusions over the entire back and scabbing around R posterior thorax- as per EM physician notes. EKG #1 19:17 atrial fibrillation, nl axis, rate 90 ST depression, V3-V5- flattened T waves EKG #2 19:52 atrial fibrillation rate 90s essentially no other changes Labs : Na 136 K 3.9 Cl 99 Bicarb 18 Gluc 98 BUN 29 Cr 1.23 Mg 2.1 Total Bilirubin 2.5 with nl ALT/AST amylase, lipase, trop, CK CBC Hgb 16.4 WBCs 6900 Plts 177,000 PT 15.1 PTT 32 ESR 45 LA 3.13 CRP 2.72 Flu, COVID neg UA sp grav >1.030 wbcs 5-10 , + casts, + nitrite, + ketones, ETOH 33 ABGs 7.47/23/178/ [address] Head, C spine, Radiol reported Impression: 1: There is no evidence of acute intracranial process. There is no skull fracture. 2: There is interval progression of brain parenchymal volume loss and chronic small vessel ischemic disease. 3: There is progression of cervical spine degenerative disease with no acute fracture. CT Thoracic and Lumbar Spine: Radiol reported impression: 1: There is no acute thoracic spine or lumbar spine fracture. 2: There is multilevel lumbar spine degenerative disease. CXR, Pelvis : reported neg. CTA Chest: Radiol reported Impression: 1: There is evidence of occlusive pulmonary emboli involving the right lower lobe with two vessels involved. There is no evidence of heart strain. 2: There is no aneurysmal dilation of the thoracic aorta. The abdominal aorta and common iliac arteries show no aneurysmal dilation or dissection. 3: There is mild patchy airspace opacities involving both lower lobes with the right side more than the left which may represent atelectasis, but infiltrates may also be considered. These findings may also be due to pulmonary embolism in this region. 4: There is bladder wall thickening which is nonspecific and may be related to contraction versus cystitis or bladder dysfunction. 5: The remainder of this exam shows no other acute abnormality. Per video- HR 79 afib , 100/70 sats 100% on 2lpm NC A: Pulmonary emboli,atrial fibrillation, chronic etoh abuse , chronic falls- soft tissue injuries, multiple contusions, urosepsis P: Has been initiated on lovenox 70 mg BID for PE, Pantoprazole for GIB prophylaxis, Ceftriaxone for urosepsis, Diltiazem for afib rate control . I have added urine drug screen, thiamine and B12 levels to the blood in lab. I have initiated also, IV thiamine and PO B12to be started. Focused Exam Lactate Level 08/29/22 19:08: Lactic Acid Level 3.13*H Height, Weight, BMI Height: 5'6.00" Weight: 167lbs. 0.0oz. [id number]; 25.45 BMI Method:Stated BEBA FORREST DO Aug 29, 2022 23:52
[2022-08-30 00:10] LABS: AMPHETAMINE SCREEN, URINE NEGATIVE (NEGATIVE); BARBITURATE SCREEN URINE NEGATIVE (NEGATIVE); BENZODIAZEPINES SCREEN URINE NEGATIVE (NEGATIVE); CANNABINOID SCREEN, URINE NEGATIVE (NEGATIVE); COCAINE SCREEN URINE NEGATIVE (NEGATIVE); METHADONE STAT NEGATIVE (NEGATIVE); OPIATE SCREEN URINE NEGATIVE (NEGATIVE); OXYCODONE STAT NEGATIVE (NEGATIVE); PROPOXYPHENE STAT NEGATIVE (NEGATIVE); TRICYCLIC ANTIDEPRESSANTS SCRE NEGATIVE (NEGATIVE)
[2022-08-30] MEDS: D5 1/2 NS W/KCL 20 MEQ/L 1,000 ML IV SCH ×3 (00:37→15:51)
[2022-08-30] MEDS: THIAMINE INJECTION 100 MG in NS (IVPB) 50 ML IV SCH ×2 (00:38→09:29)
[2022-08-30] MEDS: RT-ALBUTEROL SULF 2.5 MG/3 ML PRE-MIX VIAL INH SCH ×4 (02:51→19:20)
[2022-08-30] MEDS ORDERED: RT-IPRATROPIUM (ATROVENT) 0.5MG/2.5ML AMP IH STA (03:30)
[2022-08-30 07:02] LABS: ALBUMIN 2.7 GM/DL (3.2-4.5); POTASSIUM 3.5 MMOL/L (3.6-5.0)
[2022-08-30 07:03] LABS: CALCIUM 8.3 MG/DL (8.5-10.1)
[2022-08-30 07:05] LABS: TOTAL PROTEIN 5.2 GM/DL (6.4-8.2)
[2022-08-30 07:06] LABS: BILIRUBIN,TOTAL 1.8 MG/DL (0.1-1.0)
[2022-08-30 07:08] LABS: CREATININE SERUM 0.98 MG/DL (0.60-1.30); PHOSPHORUS 2.9 MG/DL (2.3-4.7)
[2022-08-30 07:11] LABS: MAGNESIUM 1.7 MG/DL (1.6-2.4)
[2022-08-30] MEDS: CYANOCOBALAMIN 1,000 MCG (VITAMIN B-12) TABLET PO SCH (08:06)
[2022-08-30] MEDS ORDERED: KCL 20 MEQ TAB (K-DUR) PO ONE (08:30)
[2022-08-30] MEDS ORDERED: ENOXAPARIN 80 MG/0.8 ML (LOVENOX) SYR SC SCH (09:00)
[2022-08-30] MEDS ORDERED: ASPIRIN E.C. 81 MG (ECOTRIN) TAB PO SCH (09:00)
[2022-08-30] MEDS ORDERED: PANTOPRAZOLE 40 MG (PROTONIX) VIAL IV SCH (09:00)
[2022-08-30 09:18] LABS: BASOPHILS % (AUTO) 1 % (0-10); HEMOGLOBIN 12.5 g/dL (13.3-17.7); MEAN CORPUSCULAR VOLUME 99 fL (80-99)
[2022-08-30 09:20] LABS: EOSINOPHILS # (AUTO) 0.1 10^3/uL (0.0-0.3); EOSINOPHILS % (AUTO) 2 % (0-10); HEMATOCRIT 35 % (40-54); LYMPHOCYTES # (AUTO) 0.9 10^3/uL (1.0-4.0); LYMPHOCYTES % (AUTO) 23 % (12-44); MEAN CORPUSCULAR HEMOGLOBIN 35 pg (25-34); MEAN CORPUSCULAR HGB CONC 36 g/dL (32-36); MEAN PLATELET VOLUME 10.5 fL (9.0-12.2); MONOCYTES # (AUTO) 0.4 10^3/uL (0.0-1.0); MONOCYTES % (AUTO) 9 % (0-12); NEUTROPHILS # (AUTO) 2.6 10^3/uL (1.8-7.8); NEUTROPHILS % (AUTO) 66 % (42-75); PLATELET COUNT 126 10^3/uL (130-400); WHITE BLOOD COUNT 3.9 10^3/uL (4.3-11.0)
[2022-08-30 09:23] LABS: SMEAR SCAN COMMENT YES
[2022-08-30] MEDS: MAGNESIUM 1 GM/100 ML IVPB 100 ML IV SCH ×2 (09:30→09:31)
--- NOTE | 2022-08-30 11:21 | Physical Therapy Evaluation ---
PT Evaluation-General Medical Diagnosis Admission Date Aug 29, 2022 at 22:11 Medical Diagnosis: a-fib, weakness Onset Date: Aug 29, 2022 Therapy Diagnosis Therapy Diagnosis: debility Height/Weight Height (Feet): 5 Height (Inches): 6.00 Weight (Pounds): 167 Weight (Ounces): 0.0 Precautions Precautions/Isolations: Fall Prevention, Standard Precautions Weight Bear Status Right Lower Extremity: Right Full Weight Bearing Left Lower Extremity: Left Full Weight Bearing Referral Physician: Ricky Reason for Referral: Evaluation/Treatment Medical History Pertinent Medical History: Atrial Fib, Alcoholism, CAD, GERD Current History Pt. lives with son who has noted a decrease in ability to walk/stand over the last 3-4 weeks. Reviewed History: Yes Social History Home: Single Level Current Living Status: Children Prior Prior Level of Function SCALE: Activities may be completed with or without assistive devices. 5-Wknzchqjsw-gpgpavz completes the activity by him/herself with no assistance from a helper. 5-Set-up or Clean-up Assistance-helper sets up or cleans up; patient completes activity. [place] assists only prior to or following the activity. 4-Supervision or Touching Assistance-helper provides verbal cues and/or touching/steadying and/or contact guard assistance as patient completes activity. Assistance may be provided throughout the activity or intermittently. 3-Partial/Moderate Assistance-helper does LESS THAN HALF the effort. [place] lifts, holds or supports trunk or limbs, but provides less than half the effort. 2-Substantial/Maximal Assistance-helper does MORE THAN HALF the effort. [place] lifts or holds trunk or limbs and provides more than half the effort. 1-Okuiemlog-sljtrc does ALL the effort. Patient does none of the effort to complete the activity. Or, the assistance of 2 or more helpers is required for the patient to complete the activity. If activity was not attempted, code reason: 7-Patient Refused. 9-Not Applicable-not attempted and the patient did not perform the activity before the current illness, exacerbation or injury. 10-Not Attempted due to Environmental Limitations-(lack of equipment, weather restraints, etc.). 88-Not Attempted due to Medical Conditions or Safety Concerns. Bed Mobility: 2 Transfers (B,C,W/C): 2 Prior Devices Use: Manual wheelchair, Other-see list below Prior Device Use: w/c and cane Pt. was using a cane for basic household ambulation 3-4 weeks ago but as of the last few weeks he has been assist with all mobility and using a w/c. PT Evaluation-Current Subjective Pt. in bed, agrees to PT, son present. Pt/Family Goals home with son Objective Patient Orientation: Person Attachments: SCD's, Oxygen, IV ROM/Strength ROM Upper Extremities WFL ROM Lower Extremities WFL Strength Upper Extremities WFL Strength Lower Extremities Grossly 3+/5 (B) Integumentary/Posture Integumentary grossly intact Bladder Incontinence: Monique Cath Posture generally upright Neuromuscular (Tone, Coordination, Reflexes) diminished Sensory Vision: Wears Glasses Hearing: Functional Sensation Right Upper Extremit: Intact Sensation Left Upper Extremity: Intact Sensation Right Lower Extremit: Impaired Sensation Left Lower Extremity: Impaired Transfers Sit to Lying (QC): 4 Lying to Sitting/Side of Bed(Q: 4 Sit to Stand (QC): 3 Gait Does the Patient Walk?: No and Walking Goal IS indicated Mode of Locomotion: Walk Anticipated Mode of Locomotion: Walk Balance Sitting Static: Fair Sitting Dynamic: Fair Standing Static: Fair Standing Dynamic: Fair Assessment/Needs Pt. is an 82 y.o. male with progressive weakness over the last several weeks to being non-ambulatory. Pt. did well with initial PT, needing mod A with sit to stands x 3 at edge of bed. Pt. was able to take a few sidesteps to head of bed with walker but fatigued very quickly. Pt. would benefit from skilled PT to improve mobility and strength for return home with son. Rehab Potential: Fair PT Short Term Goals Short Term Goals Time Frame: Sep 06, 2022 Sit to lyin Lying to sitting on side of be: 6 Sit to stand: 6 Chair/jpp-xn-nghww transfer: 4 Walk 10 feet: 4 PT Plan Problem List Problem List: Activity Tolerance, Functional Strength, Safety, Balance, Gait, Transfer, Bed Mobility, ROM Treatment/Plan Treatment Plan: Continue Plan of Care Treatment Plan: Bed Mobility, Concurrent Therapy, Education, Functional Activity Monty, Functional Strength, Gait, Safety, Therapeutic Exercise, Transfers Treatment Duration: Sep 06, 2022 Frequency: 6 times per week Estimated Hrs Per Day: .25 hour per day Patient and/or Family Agrees t: Yes Time Time In: 1055 Time Out: 1110 DATE: Aug 30, 2022 Total Billed Treatment Time: 15 Total Billed Treatment 1, EVH 15' MARIELY DAVIS PT Aug 30, 2022 11:21
--- NOTE | 2022-08-30 11:47 | Tele-ICU Progress Note ---
Subjective Date Seen by a Provider: Aug 30, 2022 Time Seen by a Provider: 11:46 Subjective/Events-last exam (Tele-ICU Physician , consultation) Available chart/ vitals / labs / Images reviewed H&P is from ER notes Patient's information available about PMH, allergy reviewed in EMR. ROS as per chart and RN report Video assessment done using teleICU camera, rest of exam as per RN Discussed with RN. He is a 82-year-old male who lives with his a son admitted with overall general decline in the health with inability to walk on his own with a decrease in appetite. Apparently had a several falls but the skeletal survey did not show any fractures. CT head also negative for any acute changes. However CT of the chest with angiogram revealed acute pulmonary emboli. Hence he is admitted to the intensive care unit as his blood pressure is slightly on the soft side but not symptomatic. He is on room air with oxygen saturation of 100%. Also he has a history of alcohol abuse and a current evidence of urinary tract infection. He is on a Cardizem drip for atrial fibrillation currently heart rate contro lled. His magnesium and potassium are low which are being replaced. Impression 1. 1. Acute pulmonary emboli 2. Atrial fibrillation with rapid ventricular rate 3. Urinary tract infection 4. Severe deconditioning 5. History of alcohol abuse Recommendations 1. Continue Cardizem per cardiology services 2. Monitor electrolytes and replace as needed 3. Continue Rocephin for urinary tract infection 4. Lovenox full dose for pulmonary emboli as well as atrial fibrillation. 5. We will continue thiamine and folic acid 6. Physical therapy. Critical care time 20 minutes Coordination of care with bedside consultants and primary care physician Sepsis Event Evaluation Height, Weight, BMI Height: 5'6.00" Weight: 167lbs. 0.0oz. 75.580905wm; 25.45 BMI Method:Stated Focused Exam Lactate Level 08/29/22 19:08: Lactic Acid Level 3.13*H 08/30/22 06:35: Lactic Acid Level 1.48 Exam Exam Patient acknowledged, consented, and participated in this virtual visit which was conducted using real time audio/video Vital Signs Date Time Temp Pulse Resp B/P (MAP) Pulse Ox O2 Delivery O2 Flow Rate FiO2 08/30/22 10:00 85 11 101/67 (78) 100 Room Air 08/30/22 09:00 94 12 95/60 (72) 96 Room Air 08/30/22 08:17 92 08/30/22 08:00 97 Room Air 08/30/22 08:00 86 18 103/57 (72) 92 Room Air 08/30/22 07:49 94 Room Air 08/30/22 07:00 73 08/30/22 07:00 73 16 97/61 (73) 100 Room Air 08/30/22 07:00 81 08/30/22 06:00 81 16 106/61 (76) 100 Room Air 08/30/22 05:33 36.0 08/30/22 05:00 93 15 124/97 (106) 100 Room Air 08/30/22 04:00 86 14 105/52 (69) 100 Room Air 08/30/22 04:00 97 Room Air 08/30/22 03:00 67 15 95/57 (70) 100 Room Air 08/30/22 02:53 95 Room Air 08/30/22 02:00 73 17 88/58 (68) 100 Room Air 08/30/22 01:00 71 14 101/58 (72) 100 Room Air 08/30/22 01:00 78 08/30/22 00:00 36.0 08/30/22 00:00 74 19 104/74 (84) 100 Room Air 08/29/22 23:59 97 Room Air 08/29/22 23:50 97 28 08/29/22 23:49 Nasal Cannula 2.00 08/29/22 23:30 69 16 89/53 (65) 100 Room Air 08/29/22 23:00 73 14 90/53 (65) 100 Room Air 08/29/22 22:45 89 16 100/70 (80) 100 Room Air 08/29/22 22:30 Room Air 08/29/22 22:30 101 11 93 Room Air 08/29/22 22:27 117 08/29/22 22:27 117 08/29/22 22:15 106 11 114/69 (84) 93 Room Air 08/29/22 22:06 98 14 107/66 100 08/29/22 19:46 135 112/99 08/29/22 19:45 135 112/99 08/29/22 19:00 97 Nasal Cannula 2.00 08/29/22 18:55 36.0 144 20 128/77 (94) 100 I & O 08/30/22 07:00 Intake Total 1275 ml Output Total 0 ml Balance 1275 ml Height & Weight Height: 5'6.00" Weight: 167lbs. 0.0oz. 75.122253kk; 25.45 BMI Method:Stated General Appearance: No Apparent Distress, WD/WN, Chronically ill HEENT: Other (RIGHT PUPIL IS PINPOINT, LEFT PUPIL IS DILATED 5-6 MM--THIS IS CHRONIC FOR PT, DUE TO PREVIOUS CATARACT SURGERY; EDENTULOUS. ORAL MUCOSA DRY) Neck: Normal Inspection, Non Tender, Supple; No JVD Respiratory: Chest Non Tender, Normal Breath Sounds, No Accessory Muscle Use, No Respiratory Distress Cardiovascular: Systolic Murmur (08/18), Irregularly Irregular, Tachycardia Extremity: Other (THERE ARE EXTENSIVE BRUISES OF VARIOUS AGES TO ARMS AND LEGS. LEFT HIP IS NON-TENDER TO TOUCH--PT STATES IT JUST HURTS WHEN HE WALKS. HANDS ARE COLD AND DUSKY, WITH VERY POOR CAPILLARY REFILL. FEET, ANKLES AND LOWER LEGS ARE DUSKY, COLD AND WITH DIFFUSE PETECHIAE INCLUDING ON SOLES OF FEET. PEDAL PULSES ARE NOT PALPABLE. THERE IS NO EDEMA. THERE ARE NO OBVIOUS ULCERATIONS TO FEET. ) Neurologic/Psychiatric: Alert, Oriented x3, No Motor/Sensory Deficits (MOVES ALL EXTREMITIES EQUALLY--NO FOCAL DEFICITS, BUT PT HAS GENERALIZED WEAKNESS. ), plaster molder II-XII Norm as Tested Skin: Ecchymosis, Petechia, Other ( ABOVE) Other comments I am remotely monitoring this patient from another state. I am unable to do the bedside exam, and history/physical and pertinent information is taken from other notes in the computer and bedside staff. Results Lab Laboratory Tests 08/29/22 19:08 08/30/22 06:35 08/30/22 09:08 Assessment/Plan Assessment/Plan as above Critical Care: Critically Ill Patient Time spent with patient (mins): 20 BELLE MULLINS MD Aug 30, 2022 11:47
--- NOTE | 2022-08-30 12:02 | Consultation-Cardiology ---
HPI-Cardiology Cardiology Consultation Date of Consultation 08/30/22 Date of Admission Time Seen by Provider: 11:57 Indication: Atrial fibrillation HPI 82 years old gentleman with history of coronary artery disease, paroxysmal atrial fibrillation. Has been noncompliant with medication, stopped taking all his medications few years ago. Reportedly had worsening decline in his ab ilities and was unable to get out of bed by himself. Having significant weakness. No chest pain. Continue to progress and brought by his son to the emergency room. He was noted to be in atrial fibrillation with rapid ventricular response. He denied any chest pain but has been having generalized fatigue, dyspnea on exertion, generalized weakness Home Medications & Allergies Allergies: Coded Allergies: No Known Drug Allergies (Unverified , 08/20/16) Home Medication List Reviewed: Yes HIC-Ysiojb-Gmqdjc Hx Patient Social History Marital Status: single Employed/Student: retired Smoking Status: Former Smoker Type Used: Cigarettes Recent Hopitalizations: No Have you traveled recently?: No Alcohol Use?: Yes Past Medical History Discussed below Family Medical History Family History: Cancer of colon 09 BROTHER Family history: Gastrointestinal disease 09 BROTHER Kidney disease 09 BROTHER Review of Systems-General Review of Systems Constitutional: see HPI; No chills, No diaphoresis, No dizziness, No fever; m alaise, weakness EENTM: no symptoms reported Respiratory: see HPI, dyspnea on exertion, short of breath Cardiovascular: see HPI; No chest pain, No edema, No palpitations, No syncope, No vascular heart diseas Gastrointestinal: see HPI; No abdominal pain, No diarrhea; nausea, vomiting Genitourinary: no symptoms reported, see HPI Musculoskeletal: see HPI, other (HIP PAIN ) Skin: no symptoms reported, see HPI Psychiatric/Neurological: See HPI; Denies Headache, Denies Numbness, Denies Paresthesia, Denies Seizure, Denies Tingling, Denies Tremors; Weakness (GENERALIZED WEAKNESS) Reviewed Test Results Reviewed Test Results Lab Laboratory Tests Test 08/29/22 19:08 08/29/22 19:27 08/29/22 19:35 08/30/22 06:35 Range/Units White Blood Count 6.9 4.3-11.0 10^3/uL Red Blood Count 4.79 4.30-5.52 10^6/uL Hemoglobin 16.4 13.3-17.7 g/dL Hematocrit 47 40-54 % Mean Corpuscular Volume 98 80-99 fL Mean Corpuscular Hemoglobin 34 25-34 pg Mean Corpuscular Hemoglobin Concent 35 32-36 g/dL Red Cell Distribution Width 13.2 10.0-14.5 % Platelet Count 177 130-400 10^3/uL Mean Platelet Volume 10.5 9.0-12.2 fL Immature Granulocyte % (Auto) 1 % Neutrophils (%) (Auto) 69 42-75 % Lymphocytes (%) (Auto) 21 12-44 % Monocytes (%) (Auto) 7 0-12 % Eosinophils (%) (Auto) 2 0-10 % Basophils (%) (Auto) 0 0-10 % Neutrophils # (Auto) 4.7 1.8-7.8 10^3/uL Lymphocytes # (Auto) 1.5 1.0-4.0 10^3/uL Monocytes # (Auto) 0.5 0.0-1.0 10^3/uL Eosinophils # (Auto) 0.1 0.0-0.3 10^3/uL Basophils # (Auto) 0.0 0.0-0.1 10^3/uL Immature Granulocyte # (Auto) 0.1 0.0-0.1 10^3/uL Erythrocyte Sedimentation Rate 45 H 0-30 MM/HR Prothrombin Time 15.1 H 12.2-14.7 SEC INR Comment 1.1 0.8-1.4 Activated Partial Thromboplast Time 32 24-35 SEC Sodium Level 136 131 L 135-145 MMOL/L Potassium Level 3.9 3.5 L 3.6-5.0 MMOL/L Chloride Level 99 102 98-107 MMOL/L Carbon Dioxide Level 18 L 19 L 21-32 MMOL/L Anion Gap 19 H 10 5-14 MMOL/L Blood Urea Nitrogen 29 H 25 H 7-18 MG/DL Creatinine 1.23 0.98 0.60-1.30 MG/DL Estimat Glomerular Filtration Rate 59 77 BUN/Creatinine Ratio 24 26 Glucose Level 98 157 H 70-105 MG/DL Lactic Acid Level 3.13 *H 1.48 0.50-2.00 MMOL/L Calcium Level 9.8 8.3 L 8.5-10.1 MG/DL Corrected Calcium 10.4 H 9.3 8.5-10.1 MG/DL Magnesium Level 2.1 1.7 1.6-2.4 MG/DL Total Bilirubin 2.5 H 1.8 H 0.1-1.0 MG/DL Aspartate Amino Transf (AST/SGOT) 18 14 5-34 U/L Alanine Aminotransferase (ALT/SGPT) 13 13 0-55 U/L Alkaline Phosphatase 72 52 40-136 U/L Ammonia 17 11-32 UMOL/L Total Creatine Kinase 24 L 30-200 U/L Creatine Kinase MB 0.4 <6.6 NG/ML Myoglobin 52.7 10.0-92.0 NG/ML Troponin I < 0.028 <0.028 NG/ML C-Reactive Protein High Sensitivity 2.72 H 0.00-0.50 MG/DL B-Type Natriuretic Peptide 315.0 H <100.0 PG/ML Total Protein 6.6 5.2 L 6.4-8.2 GM/DL Albumin 3.3 2.7 L 3.2-4.5 GM/DL Amylase Level 35 25-125 U/L Lipase 45 8-78 U/L TSH [place] Testing 4.80 0.35-4.94 UIU/ML Serum Alcohol 11 H <10 MG/DL Influenza Type A (RT-PCR) Not Detected Not Detecte Influenza Type B (RT-PCR) Not Detected Not Detecte SARS-CoV-2 RNA (RT-PCR) Not Detected Not Detecte Urine Color ORANGE Urine Clarity SL CLOUDY Urine pH 5.5 5-9 Urine Specific [place] >=1.030 1.016-1.022 Urine Protein 1+ H NEGATIVE Urine Glucose (UA) TRACE H NEGATIVE Urine Ketones 1+ H NEGATIVE Urine Nitrite POSITIVE H NEGATIVE Urine Bilirubin 3+ H NEGATIVE Urine Urobilinogen 4.0 < = 1.0 MG/DL Urine Leukocyte Esterase NEGATIVE NEGATIVE Urine RBC (Auto) TRACE-I H NEGATIVE Urine RBC 2-5 H /HPF Urine WBC 5-10 H /HPF Urine Squamous Epithelial Cells 2-5 /HPF Urine Crystals PRESENT H /LPF Urine Amorphous Sediment FEW JUSTINO URATES H /LPF Urine Bacteria FEW H /HPF Urine Casts PRESENT /LPF Urine Hyaline Casts >50 H /LPF Urine Granular Casts 0-2 H /LPF Urine White Blood Cell Casts 2-5 H /LPF Urine Mucus LARGE H /LPF Urine Culture Indicated YES Urine Opiates Screen NEGATIVE NEGATIVE Urine Oxycodone Screen NEGATIVE NEGATIVE Urine Methadone Screen NEGATIVE NEGATIVE Urine Propoxyphene Screen NEGATIVE NEGATIVE Urine Barbiturates Screen NEGATIVE NEGATIVE Ur Tricyclic Antidepressants Screen NEGATIVE NEGATIVE Urine Phencyclidine Screen NEGATIVE NEGATIVE Urine Amphetamines Screen NEGATIVE NEGATIVE Urine Methamphetamines Screen NEGATIVE NEGATIVE Urine Benzodiazepines Screen NEGATIVE NEGATIVE Urine Cocaine Screen NEGATIVE NEGATIVE Urine Cannabinoids Screen NEGATIVE NEGATIVE Blood Gas Puncture Site R RAD Blood Gas Patient Temperature 36 Arterial Blood pH 7.47 H 7.37-7.43 Arterial Blood Partial Pressure CO2 23 L 35-45 MMHG Arterial Blood Partial Pressure O2 178 H 79-93 MMHG Arterial Blood HCO3 17 *L 23-27 MMOL/L Arterial Blood Total CO2 17.7 L 21.0-31.0 MMOL/L Arterial Blood Oxygen Saturation 100 94-100 % Arterial Blood Base Excess -6.3 L -2.5-2.5 MMOL/L Tommy Test YES-POS Blood Gas Ventilator Setting NO Blood Gas Inspired Oxygen UNK Phosphorus Level 2.9 2.3-4.7 MG/DL Test 08/30/22 09:08 Range/Units White Blood Count 3.9 L 4.3-11.0 10^3/uL Red Blood Count 3.57 L 4.30-5.52 10^6/uL Hemoglobin 12.5 #L 13.3-17.7 g/dL Hematocrit 35 L 40-54 % Mean Corpuscular Volume 99 80-99 fL Mean Corpuscular Hemoglobin 35 H 25-34 pg Mean Corpuscular Hemoglobin Concent 36 32-36 g/dL Red Cell Distribution Width 13.2 10.0-14.5 % Platelet Count 126 L 130-400 10^3/uL Mean Platelet Volume 10.5 9.0-12.2 fL Immature Granulocyte % (Auto) 0 % Neutrophils (%) (Auto) 66 42-75 % Lymphocytes (%) (Auto) 23 12-44 % Monocytes (%) (Auto) 9 0-12 % Eosinophils (%) (Auto) 2 0-10 % Basophils (%) (Auto) 1 0-10 % Neutrophils # (Auto) 2.6 1.8-7.8 10^3/uL Lymphocytes # (Auto) 0.9 L 1.0-4.0 10^3/uL Monocytes # (Auto) 0.4 0.0-1.0 10^3/uL Eosinophils # (Auto) 0.1 0.0-0.3 10^3/uL Basophils # (Auto) 0.0 0.0-0.1 10^3/uL Immature Granulocyte # (Auto) 0.0 0.0-0.1 10^3/uL Percent Immature Platelet Fraction 3.8 0.0-7.6 % Smear Scan YES Physical Exam Physical Exam Vital Signs Vital Signs - First Documented 08/29/22 08/29/22 08/29/22 18:55 19:00 23:50 Temp 36.0 Pulse 144 Resp 20 B/P (MAP) 128/77 (94) Pulse Ox 100 O2 Delivery Nasal Cannula O2 Flow Rate 2.00 FiO2 28 Capillary Refill : Height, Weight, BMI Height: 5'6.00" Weight: 167lbs. 0.0oz. [id number]; 25.45 BMI Method:Stated General Appearance: No Apparent Distress, WD/WN, Chronically ill HEENT: Other (RIGHT PUPIL IS PINPOINT, LEFT PUPIL IS DILATED 5-6 MM--THIS IS CHRONIC FOR PT, DUE TO PREVIOUS CATARACT SURGERY; EDENTULOUS. ORAL MUCOSA DRY) Neck: Normal Inspection, Non Tender, Supple; No JVD Respiratory: Chest Non Tender, Normal Breath Sounds, No Accessory Muscle Use, No Respiratory Distress Cardiovascular: Systolic Murmur (2/6), Irregularly Irregular, Tachycardia Gastrointestinal: Normal Bowel Sounds, No Organomegaly, No Pulsatile Mass, Non Tender, Soft Back: No CVA Tenderness, No Vertebral Tenderness, Other (ENTIRE BACK WITH EXTENSIVE BRUISING OF VARIOUS AGES, WITH SOME PETECHIAE SCATTERED OVER BACK, WITH SCABBED WOUND TO RIGHT POSTERIOR LOWER RIB AREA. THERE IS A DECUBITUS ULCER TO RIGHT ISCHIAL TUBEROSITY AREA--AT LEAST STAGE 2 ON GROSS EXAM. NO DRAINAGE. NO OBVIOUS SIGNS OF INFECTION. SKIN TO BUTTOCKS AND LOWER BACK HAS THICK SCALING / SLOUGHING OF SKIN. THERE IS NO GROSS DEFORMITY TO SPINE OR RIBS, NO CREPITANCE OR SUB Q AIR. ) Extremity: Other (THERE ARE EXTENSIVE BRUISES OF VARIOUS AGES TO ARMS AND LEGS. LEFT HIP IS NON-TENDER TO TOUCH--PT STATES IT JUST HURTS WHEN HE WALKS. HANDS ARE COLD AND DUSKY, WITH VERY POOR CAPILLARY REFILL. FEET, ANKLES AND LOWER LEGS ARE DUSKY, COLD AND WITH DIFFUSE PETECHIAE INCLUDING ON SOLES OF FEET. PEDAL PULSES ARE NOT PALPABLE. THERE IS NO EDEMA. THERE ARE NO OBVIOUS ULCERATIONS TO FEET. ) Neurologic/Psychiatric: Alert, Oriented x3, No Motor/Sensory Deficits (MOVES ALL EXTREMITIES EQUALLY--NO FOCAL DEFICITS, BUT PT HAS GENERALIZED WEAKNESS. ), electromechanical technician II-XII Norm as Tested Skin: Ecchymosis, Petechia, Other ( ABOVE) A/P-Cardiology Admission Diagnosis Acute pulmonary embolism Paroxysmal atrial fibrillation Hypertension Hyperlipidemia Assessment/Plan Acute pulmonary embolism. Right lower lobe. Started on Lovenox, will change to Eliquis 10 mg twice daily and monitor tolerance and response Paroxysmal atrial fibrillation, currently in atrial fibrillation with rapid ventricular response. Started on Cardizem drip, heart rate is better I will switch him to oral Cardizem and monitor. Coronary artery disease History of stent in May 2010 Taxus 2.25 x 24 to the LAD. Cardiac catheterization 2010 with severe spasm in the LAD responsive to nitroglycerin. Cardiac catheterization July 2014 small vessel disease including mid and distal LAD with small arteries, patent stent in the proximal LAD. Coronary spasm induced by the catheter in the right coronary artery. Depression, followed and managed by primary care physician History of syncope Multiple syncopal episodes in the past. Had history of loop monitor implant. Hypertension, monitor blood pressure History of dizziness and lightheadedness, currently getting worse. Started on IV fluid History of mild bilateral carotid stenosis Hyperlipidemia, monitor lipids History of noncompliance with medications LUCITA LYON MD Aug 30, 2022 12:02
[2022-08-30] MEDS: NICOTINE 14 MG (NICODERM) PATCH TD SCH (15:51)
--- NOTE | 2022-08-30 20:12 | History & Physical-Hospitalist ---
History of Present Illness HPI/Chief Complaint Prateek Dewitt is an 82 year old male with PMH HTN, HLD, CAD, AFib, who presented with weakness. He has been unable to walk for the past few weeks. He was previously using a cane or walker. He lives with his son. He has not seen a doctor or taking medications for at least 5 years according to his son. He denies chest pain. He has been short of breath. He denies fevers and chills. He denies palpitiatons. He denies abdominal pain, nausea, vomiting, and diarrhea. Until a few weeks ago, he drank 2 beers daily. He has not been feeling well enough to drink his beers. He has also not been eating as well as he used to. Source: patient, family Exam Limitations: no limitations Date Seen 08/30/22 Time Seen by a Provider: 10:35 Attending Physician No,Local Physician PCP Admitting Physician: Kathy Will MD Attending Physician: Kathy Will MD Referring Physician Date of Admission Aug 29, 2022 at 22:11 Home Medications & Allergies Home Medications Reviewed patient Home Medication Reconciliation performed by pharmacy medication reconciliations automobile glass technician and/or nursing. Patients Allergies have been reviewed. Allergies Allergies Coded Allergies No Known Drug Allergies (Unverified08/20/16) Past Brutaya-Ehumtg-Koihfk Hx Patient Social History Marrital Status: single Employed/Student: retired Tobacco Use?: No Smoking Status: Former Smoker Smokeless type used: Chew Smokeless Tobacco Frequency: Former User Use of E-Cig and/or Vaping dev: No Substance use?: No Alcohol Use?: Yes Alcohol type: Beer Alcohol Frequency: Daily Pt feels they are or have been: No Immunizations Up To Date Tetanus Booster (TDap): Unknown Seasonal Allergies Seasonal Allergies: No Current Status Advance Directives: No Communicates: Verbally Primary Language: Romansh Preferred Spoken Language: Romansh Is interpretation needed?: No Sensory deficits: Vision impairment Implanted or Applied Medical D: None Past Medical History Surgeries: Abdominal, Cardiac, Coronary Stent, Eye Surgery, Orthopedic Atrial Fibrillation, Coronary Artery Disease, High Cholesterol, Hypertension, Peripheral Vascular, Valvular Heart Disease Sexually Transmitted Disease: No HIV/AIDS: No Gastroesophageal Reflux Arthritis, Chronic Back Pain Cataract Loss of Vision: Bilateral Hearing Impairment: Denies Suicide Attempts, Depression Blood Disorders: No Adverse Reaction/Blood Tranf: No (N/A) Family Medical History Cancer of colon 09 BROTHER Family history: Gastrointestinal disease 09 BROTHER Kidney disease 09 BROTHER SOCIAL HISTORY: -SMOKED 1 PPD, QUIT SEVERAL YEARS AGO -CHEWED TOBACCO 1/2 CAN/DAY--QUIT SEVERAL YEARS AGO -ETOH--DRINKS BEER DAILY--USED TO DRINK VERY HEAVILY EVERY DAY, BUT NOW FAMILY RATIONS HIM TO 2 BEERS A DAY. -DRUGS--DENIES USE PAST SURGICAL HISTORY: -BACK SURGERY 1999 -RIGHT INGUINAL SURGERY 2008 -CATARACT SURGERY--RIGHT 11/2017; -CARDIAC CATH WITH STENT TO LAD 05/2010 -CARDIAC CATH 08/06/[address] LYON: PATENT STENT TO LAD. NO INTERVENTION -REVEAL DEVICE PLACED 2015--REMOVED DUE TO INFECTION Review of Systems Constitutional: weakness EENTM: no symptoms reported Respiratory: short of breath Cardiovascular: no symptoms reported Gastrointestinal: no symptoms reported Genitourinary: hesitancy, incontinence Physical Exam Physical Exam Vital Signs Vital Signs - First Documented 08/29/22 08/29/22 08/29/22 18:55 19:00 23:50 Temp 36.0 Pulse 144 Resp 20 B/P (MAP) 128/77 (94) Pulse Ox 100 O2 Delivery Nasal Cannula O2 Flow Rate 2.00 FiO2 28 Capillary Refill : Height, Weight, BMI Height: 5'6.00" Weight: 167lbs. 0.0oz. 75.049249sd; 25.45 BMI Method:Stated General Appearance: No Apparent Distress, Chronically ill HEENT: PERRL/EOMI, Pharynx Normal Neck: Normal Inspection, Supple Respiratory: Lungs Clear, Normal Breath Sounds, No Respiratory Distress Cardiovascular: No Murmur, Irregularly Irregular Gastrointestinal: Normal Bowel Sounds, Non Tender, Soft Extremity: Normal Inspection, No Pedal Edema Neurologic/Psychiatric: Alert, Oriented x3, Depressed Affect, Motor Weakness Skin: Normal Color, Warm/Dry Results Results/Procedures Labs Laboratory Tests 08/29/22 19:08 08/30/22 06:35 08/30/22 09:08 Patient resulted labs reviewed. Imaging: Reviewed Imaging Report Assessment/Plan Admission Diagnosis Atrial fibrillation with rapid ventricular response Admission Status: Inpatient Order (span 2 midnights) Reason for Inpatient Admission: PE Debility Assessment and Plan Atrial fibrillation with rapid ventricular response Cardiology consulted IV Cardizem Eliquis Acute pulmonary embolism CT with PE Eliquis Lactic acidosis Acute kidney injury Improved with IV fluids Hyponatremia Hypokalemia Monitor and correct as needed Pancytopenia Folate deficiency Begin folic acid replacement Monitor UTI Likely BPH Rocephin Flomax Debility PT/OT May need skilled placement Consult Critical Care Critically Ill Patient Diagnosis/Problems Diagnosis/Problems (1) Atrial fibrillation with RVR Status: Acute (2) Pulmonary emboli Status: Acute (3) Lactic acidosis Status: Acute (4) Urinary tract infection Status: Acute (5) Generalized weakness Status: Acute KATHY WILL MD Aug 30, 2022 20:12
[2022-08-30] MEDS ORDERED: FOLIC ACID 1 MG TAB PO ONE (20:15)
[2022-08-30] MEDS: TAMSULOSIN 0.4 MG (FLOMAX) CAP PO SCH (20:38)
[2022-08-30] MEDS: APIXABAN 5 MG (ELIQUIS) TABLET PO SCH (20:38)
[2022-08-30] MEDS: cefTRIAXone 1 GM IV (PRE-MIX) 50 ML IV SCH (20:39)
[2022-08-31] MEDS: D5 1/2 NS W/KCL 20 MEQ/L 1,000 ML IV SCH ×4 (00:31→20:38)
[2022-08-31] MEDS: ONDANSETRON 4 MG/2 ML (SDV) Z0FRAN IV PRN (01:23)
[2022-08-31 05:38] LABS: MEAN CORPUSCULAR HEMOGLOBIN 35 pg (25-34); MEAN CORPUSCULAR HGB CONC 35 g/dL (32-36); MONOCYTES # (AUTO) 0.3 10^3/uL (0.0-1.0)
[2022-08-31 05:40] LABS: BASOPHILS % (AUTO) 1 % (0-10); EOSINOPHILS # (AUTO) 0.1 10^3/uL (0.0-0.3); EOSINOPHILS % (AUTO) 3 % (0-10); HEMATOCRIT 36 % (40-54); HEMOGLOBIN 12.3 g/dL (13.3-17.7); LYMPHOCYTES # (AUTO) 0.7 10^3/uL (1.0-4.0); LYMPHOCYTES % (AUTO) 16 % (12-44); MEAN CORPUSCULAR VOLUME 101 fL (80-99); MEAN PLATELET VOLUME 10.7 fL (9.0-12.2); MONOCYTES % (AUTO) 6 % (0-12); NEUTROPHILS # (AUTO) 3.1 10^3/uL (1.8-7.8); NEUTROPHILS % (AUTO) 75 % (42-75); PLATELET COUNT 140 10^3/uL (130-400); WHITE BLOOD COUNT 4.2 10^3/uL (4.3-11.0)
[2022-08-31] MEDS: RT-ALBUTEROL SULF 2.5 MG/3 ML PRE-MIX VIAL INH SCH ×4 (05:41→19:43)
[2022-08-31 06:01] LABS: ALBUMIN 2.8 GM/DL (3.2-4.5); BILIRUBIN,TOTAL 1.5 MG/DL (0.1-1.0); CALCIUM 8.4 MG/DL (8.5-10.1); CREATININE SERUM 0.82 MG/DL (0.60-1.30); MAGNESIUM 1.8 MG/DL (1.6-2.4); POTASSIUM 4.1 MMOL/L (3.6-5.0); TOTAL PROTEIN 5.5 GM/DL (6.4-8.2)
[2022-08-31] MEDS: POTASSIUM CL 10MEQ/50ML IVPB 50 ML IV SCH (06:02)
[2022-08-31] MEDS: KCL 20 MEQ TAB (K-DUR) PO SCH (06:03)
[2022-08-31] MEDS: MAGNESIUM 1 GM/100 ML IVPB 100 ML IV SCH ×2 (06:08→07:29)
[2022-08-31] MEDS: CYANOCOBALAMIN 1,000 MCG (VITAMIN B-12) TABLET PO SCH (06:08)
[2022-08-31] MEDS: PANTOPRAZOLE 40 MG (PROTONIX) TAB PO SCH (06:08)
[2022-08-31] MEDS: THIAMINE 100 MG (VITAMIN B-1) TAB PO SCH (06:08)
[2022-08-31] MEDS: APIXABAN 5 MG (ELIQUIS) TABLET PO SCH ×2 (08:45→20:38)
[2022-08-31] MEDS: ASPIRIN E.C. 81 MG (ECOTRIN) TAB PO SCH (08:45)
[2022-08-31] MEDS: NICOTINE 14 MG (NICODERM) PATCH TD SCH (08:45)
[2022-08-31] MEDS: NICOTINE PATCH REMOVAL TP SCH (08:45)
[2022-08-31] MEDS: FOLIC ACID 1 MG TAB PO SCH (08:45)
--- NOTE | 2022-08-31 10:00 | Cardiology Progress Note ---
Subjective Date Seen by Provider: Aug 31, 2022 Time Seen by Provider: 09:59 Subjective/Events-last exam Patient was seen at bedside, laying down comfortably, feeling better. Review of Systems General: No Chills, No Night Sweats, No Fatigue, No Malaise, No Appetite, No Other HEENT: No Head Aches, No Visual Changes, No Eye Pain, No Ear Pain, No Dysphasia, No Sinus Congestion, No Post Nasal Drip, No Sore Throat, No Other Pulmonary: No Dyspnea, No Cough, No Pleuritic Chest Pain, No Other Cardiovascular: No: Chest Pain, Palpitations, Orthopnea, Paroxysmal Noc. Dyspnea, Edema, Lt Headedness, Other Focused Exam Lactate Level 08/29/22 19:08: Lactic Acid Level 3.13*H 08/30/22 06:35: Lactic Acid Level 1.48 Objective-Cardiology Exam Last Set of Vital Signs Vital Signs 08/29/22 08/31/22 08/31/22 08/31/22 23:50 07:57 09:00 09:40 Temp 35.8 Pulse 79 Resp 23 B/P (MAP) 100/60 (73) Pulse Ox 98 O2 Delivery Room Air O2 Flow Rate 0.00 FiO2 28 I&O Intake and Output 08/31/22 00:00 Intake Total 1340 ml Output Total 200 ml Balance 1140 ml Intake Oral 1090 ml IV Total 250 ml Output Urine Total 200 ml # Voids 5 General: Alert, Oriented X3, Cooperative HEENT: Atraumatic, PERRLA Neck: Supple, No JVD, No Thyromegaly Lungs: Clear to Auscultation, Normal Air Movement Heart: Normal S1, Normal S2, Other (Atrial fibrillation, systolic murmur) Abdomen: Normal Bowel Sounds, Soft, No Tenderness, No Hepatosplenomegaly, No Masses Extremities: No Clubbing, No Cyanosis, No Edema, Normal Pulses, No Tenderness/Swelling Skin: No Rashes, No Breakdown, No Significant Lesion Neuro: Normal Speech, Normal Tone, Sensation Intact Psych/Mental Status: Mental Status NL, Mood NL Results Lab Laboratory Tests 08/31/22 04:47 A/P-Cardiology Admission Diagnosis Acute pulmonary embolism Paroxysmal atrial fibrillation Hypertension Hyperlipidemia Assessment/Plan Acute pulmonary embolism. Right lower lobe. Started on Lovenox then switched to Eliquis 10 mg twice daily Paroxysmal atrial fibrillation, borderline tachycardic Increase Cardizem to 60 mg every 6 hours and evaluate tolerance and response Coronary artery disease History of stent in May 2010 Taxus 2.25 x 24 to the LAD. Cardiac catheterization 2010 with severe spasm in the LAD responsive to nitroglycerin. Cardiac catheterization July 2014 small vessel disease including mid and distal LAD with small arteries, patent stent in the proximal LAD. Coronary spasm induced by the catheter in the right coronary artery. Depression, followed and managed by primary care physician History of syncope Multiple syncopal episodes in the past. Had history of loop monitor implant. Hypertension, monitor blood pressure History of dizziness and lightheadedness, currently getting worse. Started on IV fluid History of mild bilateral carotid stenosis Hyperlipidemia, monitor lipids History of noncompliance with medications LUCITA LYON MD Aug 31, 2022 10:00
--- NOTE | 2022-08-31 12:12 | Tele-ICU Progress Note ---
Subjective Date Seen by a Provider: Aug 31, 2022 Time Seen by a Provider: 12:12 Subjective/Events-last exam (Tele-ICU Physician , Progress Note ) Service provided via interactive audio and video telecommunications E-CARE system to a patient admitted to ICU bed in [facility]. Patient is seen today due to persistent need of ICU care Available chart/ vitals / labs / Images reviewed Video assessment done using teleICU camera, rest of exam as per RN Discussed with RN Events overnight : Afebrile hemodynamically stable Respiratory - I/O = Drips: Pressors- no Consultants: Hospital course: A/P Acute pulmonary emboli -lovenox , changed to Po Eliquis - ECHO 2017 - 35 mmHg Atrial fibrillation with rapid ventricular rate - Cardizem Po per cardiology services - ECHO 08/30 - EF 35 % diffuse hypokinesis CAD - as per cards UTI - Rocephin History of alcohol abuse - thiamine and folic acid MONITOR VOLUME STATUS TO AVOID VO Lines : p eriph , (Central Line Necessity Reviewed) Monique: void OG: Nutrition: poor appetite Analgesia: Anxiety/ delirium VTE Prophylaxis: eliquis Stress Ulcer Prophylaxis: ppi Plans in collaboration with bedside consultants and IM MDs. Discussed with RN to reach out if any questions or concerns A total of 23 minutes of critical care time was devoted to this patient today, required to treat and/or prevent further deterioration of critical care condition ( as above ) I am remotely monitoring this patient from another state. I am unable to do the bedside exam, and history/physical and pertinent information is taken from other notes in the computer and bedside staff. Sepsis Event Evaluation Height, Weight, BMI Height: 5'6.00" Weight: 167lbs. 0.0oz. 75.442636wp; 25.45 BMI Method:Stated Focused Exam Lactate Level 08/29/22 19:08: Lactic Acid Level 3.13*H 08/30/22 06:35: Lactic Acid Level 1.48 Exam Exam Patient acknowledged, consented, and participated in this virtual visit which was conducted using real time audio/video Vital Signs Date Time Temp Pulse Resp B/P (MAP) Pulse Ox O2 Delivery O2 Flow Rate FiO2 08/31/22 12:00 116 20 97/67 (73) 100 Room Air 08/31/22 11:51 36.0 08/31/22 11:00 98 18 104/60 (69) 100 Room Air 08/31/22 10:00 95 11 92/64 (77) 100 Room Air 08/31/22 09:40 98 Room Air 0.00 08/31/22 09:00 79 23 100/60 (73) 93 Room Air 08/31/22 08:00 86 23 94/59 (71) 100 Room Air 08/31/22 08:00 100 Room Air 08/31/22 07:57 35.8 08/31/22 07:00 102 25 107/85 (97) 100 Room Air 08/31/22 07:00 103 08/31/22 06:00 87 19 96/68 (77) 100 Room Air 08/31/22 06:00 36.3 08/31/22 05:00 94 16 136/79 (98) 100 Room Air 08/31/22 04:00 105 11 107/72 (84) 100 Room Air 08/31/22 04:00 99 Room Air 08/31/22 03:00 83 20 89/58 (68) 100 Room Air 08/31/22 02:00 120 20 90/57 (68) 100 Room Air 08/31/22 01:00 105 22 94/65 (75) 100 Room Air 08/31/22 00:12 102 08/31/22 00:00 99 Room Air 08/31/22 00:00 36.2 08/31/22 00:00 96 20 98/64 (75) 100 Room Air 08/30/22 23:00 105 24 103/54 (70) 100 Room Air 08/30/22 22:00 102 19 99/53 (68) 100 Room Air 08/30/22 21:00 96 19 110/72 (85) 100 Room Air 08/30/22 20:00 121 21 96/74 (81) 100 Room Air 08/30/22 20:00 99 Room Air 08/30/22 19:48 36.2 08/30/22 19:20 99 Room Air 08/30/22 19:00 111 17 104/66 (79) 100 Room Air 08/30/22 19:00 103 08/30/22 18:00 106 15 104/69 (81) 100 Room Air 08/30/22 17:00 98 20 92/71 (78) 100 Room Air 2/18/23 16:12 36.1 08/30/22 16:00 131 29 115/85 (95) 93 Room Air 08/30/22 16:00 97 Room Air 08/30/22 15:02 94 Room Air 08/30/22 15:00 101 20 107/67 (80) 98 Room Air 08/30/22 14:00 89 14 97/69 (78) 94 Room Air 08/30/22 13:00 78 36 107/70 (82) 99 Room Air 08/30/22 13:00 81 08/30/22 13:00 78 I & O 08/31/22 07:00 Intake Total 2240 ml Output Total 200 ml Balance 2040 ml Height & Weight Height: 5'6.00" Weight: 167lbs. 0.0oz. 75.720482ea; 25.45 BMI Method:Stated General Appearance: No Apparent Distress, Chronically ill HEENT: PERRL/EOMI, Pharynx Normal Neck: Normal Inspection, Supple Respiratory: Lungs Clear, Normal Breath Sounds, No Respiratory Distress Cardiovascular: No Murmur, Irregularly Irregular Extremity: Normal Inspection, No Pedal Edema Neurologic/Psychiatric: Alert, Oriented x3, Depressed Affect, Motor Weakness Skin: Normal Color, Warm/Dry Results Lab Laboratory Tests 08/29/22 19:08 08/30/22 06:35 08/30/22 09:08 08/31/22 04:47 Assessment/Plan Assessment/Plan 1 RAFFAELE JEAN MD Aug 31, 2022 12:12
[2022-08-31] MEDS: TAMSULOSIN 0.4 MG (FLOMAX) CAP PO SCH (17:47)
--- NOTE | 2022-08-31 20:27 | Progress Note - Hospitalist ---
Subjective HPI/CC On Admission Date Seen by Provider: Aug 31, 2022 Time Seen by Provider: 09:45 Prateek Dewitt is an 82 year old male with PMH HTN, HLD, CAD, AFib, who presented with weakness. He has been unable to walk for the past few weeks. He was previously using a cane or walker. He lives with his son. He has not seen a doctor or taking medications for at least 5 years according to his son. He denies chest pain. He has been short of breath. He denies fevers and chills. He denies palpitiatons. He denies abdominal pain, nausea, vomiting, and diarrhea. Until a few weeks ago, he drank 2 beers daily. He has not been feeling well enough to drink his beers. He has also not been eating as well as he used to. Subjective/Events-last exam He is feeling better. He has no complaints. He denies shortness of breath. He is getting a breathing treatment. Focused Exam Lactate Level 08/29/22 19:08: Lactic Acid Level 3.13*H 08/30/22 06:35: Lactic Acid Level 1.48 Objective Exam Vital Signs Vital Signs Date Time Temp Pulse Resp B/P (MAP) Pulse Ox O2 Delivery O2 Flow Rate FiO2 08/31/22 19:43 97 Room Air 08/31/22 18:00 137 18 99/73 (79) 08/31/22 16:00 36.0 08/31/22 15:01 0.00 08/29/22 23:50 28 Capillary Refill : General Appearance: No Apparent Distress, WD/WN Respiratory: Lungs Clear, No Respiratory Distress Cardiovascular: No Murmur, Irregularly Irregular Gastrointestinal: Normal Bowel Sounds, Soft Extremity: Normal Inspection, Pedal Edema Neurologic/Psychiatric: Alert, Normal Mood/Affect Skin: Normal Color, Warm/Dry Results/Procedures Lab Laboratory Tests 08/31/22 04:47 Patient resulted labs reviewed. Imaging: Reviewed Imaging Report Assessment/Plan Assessment and Plan Assess & Plan/Chief Complaint Atrial fibrillation with rapid ventricular response Cardiology following Cardizem Eliquis Echo ordered Acute pulmonary embolism CT with PE Eliquis Lactic acidosis Acute kidney injury Improved with IV fluids Hyponatremia Hypokalemia Monitor and correct as needed Pancytopenia Folate deficiency Folic acid replacement UTI Likely BPH Rocephin Flomax Debility PT/OT Will likely require skilled placement SW consulted Diagnosis/Problems Diagnosis/Problems (1) Atrial fibrillation with RVR Status: Acute (2) Pulmonary emboli Status: Acute (3) Lactic acidosis Status: Acute (4) Urinary tract infection Status: Acute (5) Generalized weakness Status: Acute MATILDA WILL MD Aug 31, 2022 20:27
[2022-08-31] MEDS: cefTRIAXone 1 GM IV (PRE-MIX) 50 ML IV SCH (20:38)
[2022-09-01] MEDS: ONDANSETRON 4 MG/2 ML (SDV) Z0FRAN IV PRN (01:11)
[2022-09-01] MEDS: RT-ALBUTEROL SULF 2.5 MG/3 ML PRE-MIX VIAL INH SCH ×3 (02:06→21:50)
[2022-09-01 03:40] LABS: BASOPHILS % (AUTO) 0 % (0-10); EOSINOPHILS % (AUTO) 1 % (0-10); HEMATOCRIT 32 % (40-54); HEMOGLOBIN 11.1 g/dL (13.3-17.7); LYMPHOCYTES # (AUTO) 0.5 10^3/uL (1.0-4.0); LYMPHOCYTES % (AUTO) 16 % (12-44); MEAN CORPUSCULAR HEMOGLOBIN 35 pg (25-34); MEAN CORPUSCULAR HGB CONC 35 g/dL (32-36); MEAN CORPUSCULAR VOLUME 101 fL (80-99); MEAN PLATELET VOLUME 10.7 fL (9.0-12.2); MONOCYTES # (AUTO) 0.3 10^3/uL (0.0-1.0); MONOCYTES % (AUTO) 9 % (0-12); NEUTROPHILS # (AUTO) 2.3 10^3/uL (1.8-7.8); NEUTROPHILS % (AUTO) 73 % (42-75); PLATELET COUNT 106 10^3/uL (130-400); WHITE BLOOD COUNT 3.2 10^3/uL (4.3-11.0)
[2022-09-01 03:59] LABS: ALBUMIN 2.5 GM/DL (3.2-4.5); POTASSIUM 4.5 MMOL/L (3.6-5.0)
[2022-09-01 04:01] LABS: TOTAL PROTEIN 4.7 GM/DL (6.4-8.2)
[2022-09-01 04:05] LABS: CREATININE SERUM 0.75 MG/DL (0.60-1.30); PHOSPHORUS 1.7 MG/DL (2.3-4.7)
[2022-09-01 04:08] LABS: MAGNESIUM 1.9 MG/DL (1.6-2.4)
[2022-09-01] MEDS: KCL 20 MEQ TAB (K-DUR) PO SCH (04:38)
[2022-09-01] MEDS: POTASSIUM CL 10MEQ/50ML IVPB 50 ML IV SCH (04:38)
[2022-09-01] MEDS: MAGNESIUM 1 GM/100 ML IVPB 100 ML IV SCH ×2 (04:44→05:35)
[2022-09-01] MEDS: PANTOPRAZOLE 40 MG (PROTONIX) TAB PO SCH (06:03)
[2022-09-01] MEDS: CYANOCOBALAMIN 1,000 MCG (VITAMIN B-12) TABLET PO SCH (06:03)
[2022-09-01] MEDS: THIAMINE 100 MG (VITAMIN B-1) TAB PO SCH (06:03)
[2022-09-01] MEDS: D5 1/2 NS W/KCL 20 MEQ/L 1,000 ML IV SCH (06:42)
[2022-09-01] MEDS: APIXABAN 5 MG (ELIQUIS) TABLET PO SCH ×2 (08:20→20:28)
[2022-09-01] MEDS: ASPIRIN E.C. 81 MG (ECOTRIN) TAB PO SCH (08:20)
[2022-09-01] MEDS: NICOTINE 14 MG (NICODERM) PATCH TD SCH (08:20)
[2022-09-01] MEDS: FOLIC ACID 1 MG TAB PO SCH (08:20)
[2022-09-01] MEDS: NICOTINE PATCH REMOVAL TP SCH (08:27)
--- NOTE | 2022-09-01 08:37 | Progress Note - Hospitalist ---
Subjective HPI/CC On Admission Date Seen by Provider: Sep 01, 2022 Prateek Dewitt is an 82 year old male with PMH HTN, HLD, CAD, AFib, who presented with weakness. He has been unable to walk for the past few weeks. He was previously using a cane or walker. He lives with his son. He has not seen a doctor or taking medications for at least 5 years according to his son. He denies chest pain. He has been short of breath. He denies fevers and chills. He denies palpitiatons. He denies abdominal pain, nausea, vomiting, and diarrhea. Until a few weeks ago, he drank 2 beers daily. He has not been feeling well enough to drink his beers. He has also not been eating as well as he used to. Subjective/Events-last exam Pt reports not feeling well but states that has been his baseline for few weeks. No worse overnight. No new complaints. Focused Exam Lactate Level 08/29/22 19:08: Lactic Acid Level 3.13*H 08/30/22 06:35: Lactic Acid Level 1.48 Objective Exam Vital Signs Vital Signs Date Time Temp Pulse Resp B/P (MAP) Pulse Ox O2 Delivery O2 Flow Rate FiO2 09/01/22 08:00 75 86/75 (79) 100 Room Air 09/01/22 05:00 37 09/01/22 00:00 36.1 08/31/22 15:01 0.00 08/29/22 23:50 28 Capillary Refill : General Appearance: No Apparent Distress, Chronically ill, Thin Respiratory: Lungs Clear, No Respiratory Distress Cardiovascular: Regular Rate, Rhythm Neurologic/Psychiatric: Alert, Oriented x3 Results/Procedures Lab Laboratory Tests 09/01/22 03:20 Patient resulted labs reviewed. Imaging: Reviewed Imaging Report Assessment/Plan Assessment and Plan Assess & Plan/Chief Complaint Atrial fibrillation with rapid ventricular response- Cardiology following Cardizem Eliquis Echo shows EF of 35-40%, diffuse hypokinesis Acute pulmonary embolism CT with PE Eliquis Lactic acidosis Acute kidney injury Improved, DC IVF rate For some reason I/O state 12L positive yesterday but confirmed with nurse that this is inaccurate Hyponatremia Hypokalemia Monitor and correct as needed per protocol Pancytopenia Folate deficiency Folic acid replacement UTI Likely BPH Rocephin Flomax Debility PT/OT Will likely require skilled placement SW consulted LISY WEBSTER MD Sep 01, 2022 08:37
[2022-09-01] MEDS ORDERED: NS (IVPB) 500 ML IV ONE (08:45)
[2022-09-01] MEDS: NS IV 500 ML 500 ML IV PRN ×3 (09:06→09:08)
--- NOTE | 2022-09-01 09:44 | Physical Therapy Daily Note ---
PT Daily Note-Current Subjective Patient agrees to PT. Pain Section J - Health Conditions 1. Rarely or not at all 2. Occasionally 3. Frequently 4. Almost constantly 8. Unable to answer Pain Effect on Sleep: 1 Pain Interference with Therapy: 1 Pain Interference w/Day-to-Day: 1 Mental Status Patient Orientation: Person, Time Attachments: Oxygen, IV Transfers SCALE: Activities may be completed with or without assistive devices. 1-Hncvyubqwd-otbiwgg completes the activity by him/herself with no assistance from a helper. 5-Set-up or Clean-up Assistance-helper sets up or cleans up; patient completes activity. [place] assists only prior to or following the activity. 4-Supervision or Touching Assistance-helper provides verbal cues and/or touching/steadying and/or contact guard assistance as patient completes activity. Assistance may be provided throughout the activity or intermittently. 3-Partial/Moderate Assistance-helper does LESS THAN HALF the effort. Armour lifts, holds or supports trunk or limbs, but provides less than half the effort. 2-Substantial/Maximal Assistance-helper does MORE THAN HALF the effort. Armour lifts or holds trunk or limbs and provides more than half the effort. 5-Cnteapdpa-qqdmnj does ALL the effort. Patient does none of the effort to complete the activity. Or, the assistance of 2 or more helpers is required for the patient to complete the activity. If activity was not attempted, code reason: 7-Patient Refused. 9-Not Applicable-not attempted and the patient did not perform the activity before the current illness, exacerbation or injury. 10-Not Attempted due to Environmental Limitations-(lack of equipment, weather restraints, etc.). 88-Not Attempted due to Medical Conditions or Safety Concerns. Lying to Sitting/Side of Bed(Q: 3 Sit to Stand (QC): 3 Chair/Qja-uw-Lbefh Xfer(QC): 3 mod assist with patient displaying retropulsion with sit to stand and transfer to recliner with FWW use. Weight Bearing Right Lower Extremity: Right Full Weight Bearing Left Lower Extremity: Left Full Weight Bearing Exercises Supine Ex: Ankle pumps, Quad Set, Heel Slides, Straight leg raise Supine Reps: 12 Seated Therapy Exercises: Long arc quads Seated Reps: 15 Assessment Patient is up in recliner with needs met. Patient requires redirection to remain on task. PT to increase activity as tolerated. PT Short Term Goals Short Term Goals Time Frame: Sep 06, 2022 Sit to lyin Lying to sitting on side of be: 6 Sit to stand: 6 Chair/sor-tr-wxdkt transfer: 4 Walk 10 feet: 4 PT Plan Treatment/Plan Treatment Plan: Continue Plan of Care Treatment Plan: Bed Mobility, Concurrent Therapy, Education, Functional Activity Monty, Functional Strength, Gait, Safety, Therapeutic Exercise, Transfers Treatment Duration: Sep 06, 2022 Frequency: 6 times per week Estimated Hrs Per Day: .25 hour per day Patient and/or Family Agrees t: Yes Time Time In: 745 Time Out: 808 DATE: Sep 01, 2022 Total Billed Treatment Time: 23 Total Billed Treatment 1 visit EX x 2 23 min DARION WALTERS PT Sep 01, 2022 09:44
--- NOTE | 2022-09-01 09:58 | Cardiology Progress Note ---
Subjective Date Seen by Provider: Sep 01, 2022 Time Seen by Provider: 09:56 Subjective/Events-last exam Patient was seen and evaluated bedside, sitting comfortably, complaining of generalized weakness Review of Systems General: No Chills, No Night Sweats, No Fatigue, No Malaise, No Appetite, No Other HEENT: No Head Aches, No Visual Changes, No Eye Pain, No Ear Pain, No Dysphasia, No Sinus Congestion, No Post Nasal Drip, No Sore Throat, No Other Focused Exam Lactate Level 08/29/22 19:08: Lactic Acid Level 3.13*H 08/30/22 06:35: Lactic Acid Level 1.48 Objective-Cardiology Exam Last Set of Vital Signs Vital Signs 08/29/22 08/31/22 09/01/22 09/01/22 09/01/22 23:50 15:01 00:00 05:00 09:00 Temp 36.1 Pulse 109 Resp 37 B/P (MAP) 89/62 (71) Pulse Ox 91 O2 Delivery Room Air O2 Flow Rate 0.00 FiO2 28 I&O Intake and Output 09/01/22 00:00 Intake Total 90284 ml Balance 99618 ml Intake Oral 1155 ml IV Total 40742 ml # Voids 6 # Urine Diapers 2 # Emeses 1 General: Alert, Oriented X3, Cooperative HEENT: Atraumatic, PERRLA Neck: Supple, No JVD, No Thyromegaly Lungs: Clear to Auscultation, Normal Air Movement Heart: Normal S1, Normal S2, Other (Atrial fibrillation, systolic murmur) Abdomen: Normal Bowel Sounds, Soft, No Tenderness, No Hepatosplenomegaly, No Masses Extremities: No Clubbing, No Cyanosis, No Edema, Normal Pulses, No Tenderness/Swelling Skin: No Rashes, No Breakdown, No Significant Lesion Neuro: Normal Speech, Normal Tone, Sensation Intact Psych/Mental Status: Mental Status NL, Mood NL Results Lab Laboratory Tests 09/01/22 03:20 A/P-Cardiology Admission Diagnosis Acute pulmonary embolism Paroxysmal atrial fibrillation Hypertension Hyperlipidemia Assessment/Plan Acute pulmonary embolism. Right lower lobe. Continue on Eliquis 10 mg twice daily then taper down to 5 mg twice daily Paroxysmal atrial fibrillation, heart rate is better controlled, continue on oral Cardizem and evaluate tolerance and response Coronary artery disease History of stent in May 2010 Taxus 2.25 x 24 to the LAD. Cardiac catheterization 2010 with severe spasm in the LAD responsive to nitroglycerin. Cardiac catheterization July 2014 small vessel disease including mid and distal LAD with small arteries, patent stent in the proximal LAD. Coronary spasm induced by the catheter in the right coronary artery. Depression, followed and managed by primary care physician History of syncope Multiple syncopal episodes in the past. Had history of loop monitor implant. Hypertension, monitor blood pressure History of dizziness and lightheadedness, currently getting worse. Started on IV fluid History of mild bilateral carotid stenosis Hyperlipidemia, monitor lipids History of noncompliance with medications LUCITA LYON MD Sep 01, 2022 09:58
--- NOTE | 2022-09-01 10:11 | Tele-ICU Progress Note ---
Subjective Date Seen by a Provider: Sep 01, 2022 Time Seen by a Provider: 10:11 Subjective/Events-last exam (Tele-ICU Physician , Progress Note ) Service provided via interactive audio and video telecommunications E-CARE system to a patient admitted to ICU bed in [facility]. Patient is seen today due to persistent need of ICU care Available chart/ vitals / labs / Images reviewed Video assessment done using teleICU camera, rest of exam as per RN Discussed with RN Events overnight : Afebrile hemodynamically stable Respiratory - I/O = Drips: Pressors- no Consultants: Hospital course: (08/29) 82yo M admitted for Afib, UTI, chronic falls occlusive pulmonary emboli RLL w/ 2 vessels involved. A/P Acute pulmonary emboli -lovenox , changed to Po Eliquis - ECHO 2017 - 35 mmHg Atrial fibrillation with rapid ventricular rate - Cardizem Po per cardiology services - ECHO 08/30 - EF 35 % diffuse hypokinesis CAD - as per cards UTI - Rocephin History of alcohol abuse - thiamine and folic acid MONITOR VOLUME STATUS TO AVOID VO Lines : periph , (Central Line Necessity Reviewed) Monique: void OG: Nutrition: poor appetite, Analgesia: Anxiety/ delirium VTE Prophylaxis: eliquis Stress Ulcer Prophylaxis: ppi Plans in collaboration with bedside consultants and IM MDs. Discussed with RN to reach out if any questions or concerns A total of 20 minutes of critical care time was devoted to this patient today, required to treat and/or prevent further deterioration of critical care condition ( as above ) I am remotely monitoring this patient from another state. I am unable to do the bedside exam, and history/physical and pertinent information is taken from other notes in the computer and bedside staff. Sepsis Event Evaluation Height, Weight, BMI Height: 5'6.00" Weight: 167lbs. 0.0oz. 75.068308cw; 25.45 BMI Method:Stated Focused Exam Lactate Level 08/29/22 19:08: Lactic Acid Level 3.13*H 08/30/22 06:35: Lactic Acid Level 1.48 Exam Exam Patient acknowledged, consented, and participated in this virtual visit which was conducted using real time audio/video Vital Signs Date Time Temp Pulse Resp B/P (MAP) Pulse Ox O2 Delivery O2 Flow Rate FiO2 09/01/22 09:00 109 89/62 (71) 91 Room Air 09/01/22 08:00 75 86/75 (79) 100 Room Air 09/01/22 08:00 99 Room Air 09/01/22 07:00 69 09/01/22 07:00 69 90/51 (64) 100 Room Air 09/01/22 06:54 78 95/41 (65) Room Air 09/01/22 06:00 57 83/51 (66) 100 Room Air 09/01/22 05:00 71 37 90/67 (76) 89 Room Air 09/01/22 04:08 81 88/64 (78) 100 Room Air 09/01/22 04:00 99 Room Air 09/01/22 03:00 92 11 91/56 (65) 100 Room Air 09/01/22 02:07 100 Room Air 09/01/22 02:00 96 20 112/76 (83) 100 Room Air 09/01/22 01:00 98 09/01/22 01:00 98 25 116/75 (85) 100 Room Air 09/01/22 00:00 135 101/69 (74) 95 Room Air 09/01/22 00:00 36.1 Room Air 08/31/22 23:59 99 Room Air 08/31/22 23:00 122 98/65 (73) 100 Room Air 08/31/22 22:00 115 109/90 (93) 100 Room Air 08/31/22 21:00 134 108/51 (60) 100 Room Air 08/31/22 20:00 124 103/59 (70) 100 Room Air 08/31/22 20:00 36.0 08/31/22 20:00 99 Room Air 08/31/22 19:43 97 Room Air 08/31/22 19:00 124 08/31/22 19:00 109 13 108/59 (75) 100 Room Air 08/31/22 18:00 137 18 99/73 (79) 100 Room Air 08/31/22 17:00 125 16 96/71 (83) 95 Room Air 08/31/22 16:00 36.0 08/31/22 16:00 98 Room Air 08/31/22 16:00 108 17 91/61 (66) 100 Room Air 08/31/22 15:01 100 Room Air 0.00 2/19/23 15:00 97 16 98/69 (82) 100 Room Air 08/31/22 14:00 93 20 91/59 (71) 95 Room Air 08/31/22 13:00 97 17 71/59 (64) 96 Room Air 08/31/22 12:53 97 08/31/22 12:00 96 Room Air 08/31/22 12:00 116 20 97/67 (73) 100 Room Air 08/31/22 11:51 36.0 08/31/22 11:00 98 18 104/60 (69) 100 Room Air I & O 09/01/22 06:59 Intake Total 42639 ml Balance 53117 ml Height & Weight Height: 5'6.00" Weight: 167lbs. 0.0oz. 75.321624jx; 25.45 BMI Method:Stated General Appearance: No Apparent Distress, Chronically ill, Thin HEENT: PERRL/EOMI, Pharynx Normal Neck: Normal Inspection, Supple Respiratory: Lungs Clear, No Respiratory Distress Cardiovascular: Regular Rate, Rhythm Extremity: Normal Inspection, Pedal Edema Neurologic/Psychiatric: Alert, Oriented x3 Skin: Normal Color, Warm/Dry Results Lab Laboratory Tests 08/31/22 04:47 09/01/22 03:20 Assessment/Plan Assessment/Plan 1 RAFFAELE JEAN MD Sep 01, 2022 10:11
--- NOTE | 2022-09-01 11:20 | Wound Care Assessment ---
Wound Care Assessment Date Seen by Provider: Sep 01, 2022 Time Seen by Provider: 09:52 Chief Complaint Weakness & debility HPI Mr. Dewitt is a 82 yo M with PMH significant for HTN, CAD, AFib, HLD, prior tabacco, and ETOH use who presents with a chief complaint of weakness and inability to perform ADLs. He lives at home with his son who assists Mr. Dewitt and brought him to the ED due to general worsening condition of his father. Pt has not visited a primary doctor or taken any medications for the previous 5 yrs. Initial and subsequent evaluations reveled PE and AFib as primary contributors to his weakness, which is being managed by cardiology and medicine. Secondarily an ischial ulcer was identified during his initial work up in the ED and wound care services were consulted. Mr. Dewitt is incontinent and spent long hours in a sitting position leading up to his hospitalization contributing to the development of his ulcer. He does not complain of pain from the area, he is tolerant to and able to assist with positioning for off-loading, cleaning and examination of his wound. He is generally pleasant, demonstrates some diminished cognitive ability and does not voice any questions of complaints at this time. Denies n/v/d/f/c. Past Medical History: Admits Heart Disease Smoking Status: Former Smoker Recreational Drug Use: No Alcohol Use: Regular Use Review of Systems General: No Chills, No Night Sweats; Fatigue (d) HEENT: No Head Aches, No Dysphasia Pulmonary: Cough; No Pleuritic Chest Pain Cardiovascular: No: Chest Pain, Palpitations Gastrointestinal: No: Nausea, Vomiting, Abdominal Pain Genitourinary: Incontinence; No Hematuria, No Retention Musculoskeletal: No: neck pain, shoulder pain, back pain Neurological: Weakness; No: Seizures Exam Vital Signs Date Time Temp Pulse Resp B/P (MAP) Pulse Ox O2 Delivery O2 Flow Rate FiO2 09/01/22 09:00 109 89/62 (71) 91 Room Air 09/01/22 05:00 37 09/01/22 00:00 36.1 08/31/22 15:01 0.00 08/29/22 23:50 28 Capillary Refill : General Appearance: thin HEENT: pale conjunctivae (R), pale conjunctivae (L) Neck: non-tender, supple Cardiovascular: no edema, no JVD Respiratory: chest non-tender, no respiratory distress, no accessory muscle use Gastrointestinal: non tender, soft, no organomegaly Back: no CVA tenderness, no vertebral tenderness Extremities: normal range of motion, no pedal edema, no calf tenderness Neurologic/Psychiatric: no motor/sensory deficits, alert, normal mood/affect Skin: pallor Skin Problem Location: other (RT Ischial/Sacral stage 3 ulcer 1.1cm X 1.9cmx0.1cm , primary pressure, secondary moisture, epithelization is none, no tunneling or undermining, drainage is serosanguinous and medium, granulation is none, necrotic is none, wound margins are flat, there are no deep structures exposed.) Skin Character: erythema (Supperior scral stage 1 pressure ulcer), lesion, patchy, petechial Lymphatic: no adenopathy Results Laboratory Tests 09/01/22 03:20: White Blood Count 3.2L, Red Blood Count 3.20L, Hemoglobin 11.1L, Hematocrit 32L, Mean Corpuscular Volume 101H, Mean Corpuscular Hemoglobin 35H, Mean Corpuscular Hemoglobin Concent 35, Red Cell Distribution Width 13.3, Platelet Count 106L, Mean Platelet Volume 10.7, Immature Granulocyte % (Auto) 1, Neutrophils (%) (Auto) 73, Lymphocytes (%) (Auto) 16, Monocytes (%) (Auto) 9, Eosinophils (%) (Auto) 1, Basophils (%) (Auto) 0, Neutrophils # (Auto) 2.3, Lymphocytes # (Auto) 0.5L, Monocytes # (Auto) 0.3, Eosinophils # (Auto) 0.0, Basophils # (Auto) 0.0, Immature Granulocyte # (Auto) 0.0, Sodium Level 131L, Potassium Level 4.5, Chloride Level 106, Carbon Dioxide Level 17L, Anion Gap 8, Blood Urea Nitrogen 7, Creatinine 0.75, Estimat Glomerular Filtration Rate 90, BUN/Creatinine Ratio 9, Glucose Level 118H, Calcium Level 8.0L, Corrected Calcium 9.2, Phosphorus Level 1.7L, Magnesium Level 1.9, Total Bilirubin 1.0, Aspartate Amino Transf (AST/SGOT) 11, Alanine Aminotransferase (ALT/SGPT) 8, Alkaline Phosphatase 57, Total Protein 4.7L, Albumin 2.5L Microbiology 08/29/22 MRSA Screen - Final, Complete MRSA not isolated 08/29/22 Urine Culture - Final, Complete NO GROWTH Assessment/Plan/Dx Assessment: 1) AFib 2) HTN 3) HLD 4) CAD 5) Pulmonary Embolism 6) Non-compliance 7) Stg3 right ischial pressure ulcer Plan: 1-6) Medicine and cardiology managing 7) Q2h turning/offloading, silver alginate with bordered foam dressing changed 1x/day, clean with Vasche and barrier ointment daily Supervisory-Addendum Brief Verification & Attestation Participated in pt care: history, MDM, physical Personally performed: exam, history, MDM, supervision of care Care discussed with: Medical Student Procedures: n/a Results interpretation: Verified all documentation EMEKA Rodríguez Sep 01, 2022 11:20 ETHEL WILSON MD Sep 01, 2022 16:57
[2022-09-01 15:14] VITALS: BP 103/71
[2022-09-01 15:16] VITALS: BP 89/62
[2022-09-01] MEDS: HYPOCHLOROUS ACID/NaCl (VASHE) 250 ML IR SCH (17:04)
[2022-09-01] MEDS: TAMSULOSIN 0.4 MG (FLOMAX) CAP PO SCH (17:06)
[2022-09-01 19:06] VITALS: BP 98/51
[2022-09-01] MEDS: cefTRIAXone 1 GM IV (PRE-MIX) 50 ML IV SCH (20:28)
[2022-09-02] VITALS (7 sets, daily range): BP systolic 96–118; BP diastolic 52–72
[2022-09-02] MEDS: D5 1/2 NS W/KCL 20 MEQ/L 1,000 ML IV SCH ×2 (01:13→20:37)
[2022-09-02 05:51] LABS: BASOPHILS % (AUTO) 1 % (0-10); HEMATOCRIT 33 % (40-54); MEAN CORPUSCULAR VOLUME 101 fL (80-99)
[2022-09-02 05:53] LABS: EOSINOPHILS % (AUTO) 1 % (0-10); HEMOGLOBIN 11.6 g/dL (13.3-17.7); LYMPHOCYTES # (AUTO) 0.8 10^3/uL (1.0-4.0); LYMPHOCYTES % (AUTO) 21 % (12-44); MEAN CORPUSCULAR HEMOGLOBIN 35 pg (25-34); MEAN CORPUSCULAR HGB CONC 35 g/dL (32-36); MONOCYTES # (AUTO) 0.3 10^3/uL (0.0-1.0); MONOCYTES % (AUTO) 7 % (0-12); NEUTROPHILS # (AUTO) 2.6 10^3/uL (1.8-7.8); NEUTROPHILS % (AUTO) 70 % (42-75); PLATELET COUNT 122 10^3/uL (130-400); WHITE BLOOD COUNT 3.7 10^3/uL (4.3-11.0)
[2022-09-02 06:31] LABS: ALBUMIN 2.4 GM/DL (3.2-4.5); BILIRUBIN,TOTAL 1.1 MG/DL (0.1-1.0); CALCIUM 8.1 MG/DL (8.5-10.1); CREATININE SERUM 0.72 MG/DL (0.60-1.30); PHOSPHORUS 1.9 MG/DL (2.3-4.7); POTASSIUM 5.1 MMOL/L (3.6-5.0); TOTAL PROTEIN 4.8 GM/DL (6.4-8.2)
[2022-09-02] MEDS: CYANOCOBALAMIN 1,000 MCG (VITAMIN B-12) TABLET PO SCH (06:31)
[2022-09-02] MEDS: PANTOPRAZOLE 40 MG (PROTONIX) TAB PO SCH (06:31)
[2022-09-02] MEDS: THIAMINE 100 MG (VITAMIN B-1) TAB PO SCH (06:31)
[2022-09-02] MEDS: MAGNESIUM 1 GM/100 ML IVPB 100 ML IV SCH (06:50)
[2022-09-02] MEDS: POTASSIUM CL 10MEQ/50ML IVPB 50 ML IV SCH (06:50)
[2022-09-02] MEDS: KCL 20 MEQ TAB (K-DUR) PO SCH (06:50)
[2022-09-02] MEDS ORDERED: THIAMINE 100 MG (VITAMIN B-1) TAB PO SCH (07:00)
[2022-09-02] MEDS: RT-ALBUTEROL SULF 2.5 MG/3 ML PRE-MIX VIAL INH SCH ×2 (07:18→19:12)
[2022-09-02] MEDS: NICOTINE PATCH REMOVAL TP SCH (08:42)
[2022-09-02] MEDS: APIXABAN 5 MG (ELIQUIS) TABLET PO SCH ×2 (08:42→20:37)
[2022-09-02] MEDS: FOLIC ACID 1 MG TAB PO SCH (08:42)
[2022-09-02] MEDS: ASPIRIN E.C. 81 MG (ECOTRIN) TAB PO SCH (08:42)
[2022-09-02] MEDS: NICOTINE 14 MG (NICODERM) PATCH TD SCH (08:42)
[2022-09-02] MEDS: HYPOCHLOROUS ACID/NaCl (VASHE) 250 ML IR SCH (09:52)
--- NOTE | 2022-09-02 10:12 | Physical Therapy Daily Note ---
PT Daily Note-Current Subjective Patient reluctantly agrees to PT. Pain Section J - Health Conditions 1. Rarely or not at all 2. Occasionally 3. Frequently 4. Almost constantly 8. Unable to answer Pain Effect on Sleep: 1 Pain Interference with Therapy: 1 Pain Interference w/Day-to-Day: 1 Mental Status Patient Orientation: Person Attachments: IV Transfers SCALE: Activities may be completed with or without assistive devices. 8-Zacwkozitk-vfejsbr completes the activity by him/herself with no assistance from a helper. 5-Set-up or Clean-up Assistance-helper sets up or cleans up; patient completes activity. [place] assists only prior to or following the activity. 4-Supervision or Touching Assistance-helper provides verbal cues and/or touching/steadying and/or contact guard assistance as patient completes activity. Assistance may be provided throughout the activity or intermittently. 3-Partial/Moderate Assistance-helper does LESS THAN HALF the effort. Delong lifts, holds or supports trunk or limbs, but provides less than half the effort. 2-Substantial/Maximal Assistance-helper does MORE THAN HALF the effort. Delong lifts or holds trunk or limbs and provides more than half the effort. 3-Shcukjjos-ogchzh does ALL the effort. Patient does none of the effort to complete the activity. Or, the assistance of 2 or more helpers is required for the patient to complete the activity. If activity was not attempted, code reason: 7-Patient Refused. 9-Not Applicable-not attempted and the patient did not perform the activity before the current illness, exacerbation or injury. 10-Not Attempted due to Environmental Limitations-(lack of equipment, weather restraints, etc.). 88-Not Attempted due to Medical Conditions or Safety Concerns. Lying to Sitting/Side of Bed(Q: 3 Sit to Stand (QC): 3 Chair/Orn-xo-Nxxow Xfer(QC): 3 slightly retropulsive with PT correct to allow RN to cleanse and change brief due to incontinence Weight Bearing Right Lower Extremity: Right Full Weight Bearing Left Lower Extremity: Left Full Weight Bearing Gait Training Distance: 10' Walk 10 feet (QC): 3 Walk 50 ft with 2 Turns(QC): 88 Gait Assistive Device: FWW unsteady with PT correct Exercises Supine Ex: Ankle pumps, Heel Slides, Straight leg raise Supine Reps: 12 (AAROM) Seated Therapy Exercises: Long arc quads Seated Reps: 15 Assessment Patient up in recliner with needs met. Patient requires encouragement to participate with PT and up to chair. Increase activity as tolerated by patient. PT Short Term Goals Short Term Goals Time Frame: Sep 06, 2022 Sit to lyin Lying to sitting on side of be: 6 Sit to stand: 6 Chair/gzw-fq-uwnsx transfer: 4 Walk 10 feet: 4 PT Plan Treatment/Plan Treatment Plan: Continue Plan of Care Treatment Plan: Bed Mobility, Concurrent Therapy, Education, Functional Activity Monty, Functional Strength, Gait, Safety, Therapeutic Exercise, Transfers Treatment Duration: Sep 06, 2022 Frequency: 6 times per week Estimated Hrs Per Day: .25 hour per day Patient and/or Family Agrees t: Yes Time Time In: 901 Time Out: 924 DATE: Sep 02, 2022 Total Billed Treatment Time: 23 Total Billed Treatment 1 visit EX 13 min FA 10 min DARION WALTERS PT Sep 02, 2022 10:12
--- NOTE | 2022-09-02 10:26 | Cardiology Progress Note ---
Subjective Date Seen by Provider: Sep 02, 2022 Time Seen by Provider: 08:38 Subjective/Events-last exam Patient is sitting up in bed, denies any chest pain or dyspnea. Objective-Cardiology Exam Last Set of Vital Signs Vital Signs 09/01/22 09/03/22 09/03/22 15:16 08:00 11:36 Temp 36.0 Pulse 83 Resp 18 B/P (MAP) 100/61 (74) Pulse Ox 100 O2 Delivery Room Air O2 Flow Rate 0.00 FiO2 21 I&O Intake and Output 09/03/22 00:00 Intake Total 3540 ml Balance 3540 ml Intake Oral 1490 ml IV Total 2050 ml # Voids 6 General: Alert, Oriented X3, Cooperative HEENT: Atraumatic, PERRLA Neck: Supple, No JVD, No Thyromegaly Lungs: Clear to Auscultation, Normal Air Movement Heart: Normal S1, Normal S2, Other (Atrial fibrillation, systolic murmur) Abdomen: Normal Bowel Sounds, Soft, No Tenderness, No Hepatosplenomegaly, No Masses Extremities: No Clubbing, No Cyanosis, No Edema, Normal Pulses, No Tenderness/S welling Skin: No Rashes, No Breakdown, No Significant Lesion Neuro: Normal Speech, Normal Tone, Sensation Intact Psych/Mental Status: Mental Status NL, Mood NL Results Lab Laboratory Tests 09/03/22 05:47 A/P-Cardiology Admission Diagnosis Acute pulmonary embolism Paroxysmal atrial fibrillation Hypertension Hyperlipidemia Assessment/Plan Acute pulmonary embolism. Right lower lobe. Continue on Eliquis 10 mg twice daily then taper down to 5 mg twice daily Paroxysmal atrial fibrillation, heart rate is better controlled, continue on oral Cardizem and evaluate tolerance and response Coronary artery disease History of stent in May 2010 Taxus 2.25 x 24 to the LAD. Cardiac catheterization 2010 with severe spasm in the LAD responsive to nitroglycerin. Cardiac catheterization July 2014 small vessel disease including mid and distal LAD with small arteries, patent stent in the proximal LAD. Coronary spasm induced by the catheter in the right coronary artery. Depression, followed and managed by primary care physician History of syncope Multiple syncopal episodes in the past. Had history of loop monitor implant. Hypertension, patient hypotensive this morning, monitor blood pressure History of dizziness and lightheadedness, reporting some improvement. Continue IVF History of mild bilateral carotid stenosis Hyperlipidemia, monitor lipids History of noncompliance with medications Supervisory-Addendum Brief Supervisory Addendum Participated in pt care: history, MDM, physical Personally performed: exam, history, MDM Care discussed with: SHAUN Results interpretation: Verified all documentation Notes: Patient was seen and evaluated with Deidra, examination performed, management plan was discussed, agree with the current scribed note, I made few changes to the note using Italic font Patient was seen at bedside, laying down comfortably, confused. No chest pain Still tachycardic Overall significantly better, responding well to treatment. Continue to monitor DEIDRA VAUGHAN Sep 02, 2022 10:26 LUCITA LYON MD Sep 03, 2022 13:42
--- NOTE | 2022-09-02 11:12 | Progress Note - Hospitalist ---
Subjective HPI/CC On Admission Date Seen by Provider: Sep 02, 2022 Prateek Dewitt is an 82 year old male with PMH HTN, HLD, CAD, AFib, who presented with weakness. He has been unable to walk for the past few weeks. He was previously using a cane or walker. He lives with his son. He has not seen a doctor or taking medications for at least 5 years according to his son. He denies chest pain. He has been short of breath. He denies fevers and chills. He denies palpitiatons. He denies abdominal pain, nausea, vomiting, and diarrhea. Until a few weeks ago, he drank 2 beers daily. He has not been feeling well enough to drink his beers. He has also not been eating as well as he used to. Subjective/Events-last exam Pt reports doing well but having some leg pain. Would like Tylenol. No other complaints. Objective Exam Vital Signs Vital Signs Date Time Temp Pulse Resp B/P (MAP) Pulse Ox O2 Delivery O2 Flow Rate FiO2 09/02/22 08:07 35.8 79 18 97/53 (68) 100 Room Air 09/02/22 08:00 0.00 09/01/22 15:16 21 Capillary Refill : General Appearance: No Apparent Distress, Chronically ill Respiratory: Lungs Clear, No Respiratory Distress Cardiovascular: Regular Rate, Rhythm, No Murmur Extremity: No Calf Tenderness, No Pedal Edema Neurologic/Psychiatric: Alert, Oriented x3 Results/Procedures Lab Laboratory Tests 09/02/22 05:10 Patient resulted labs reviewed. Imaging: Reviewed Imaging Report Assessment/Plan Assessment and Plan Assess & Plan/Chief Complaint Atrial fibrillation with rapid ventricular response- resolved Cardiology following Cardizem oral Eliquis Echo shows EF of 35-40%, diffuse hypokinesis Acute pulmonary embolism CT with PE Eliquis Lactic acidosis Acute kidney injury Resolved Hyponatremia Hypokalemia Monitor and correct as needed per protocol Pancytopenia Folate deficiency Folic acid replacement UTI Likely BPH Rocephin Flomax Debility PT/OT Will likely require skilled placement, awaiting acceptance SW consulted LISY WEBSTER MD Sep 02, 2022 11:12
[2022-09-02] MEDS: TAMSULOSIN 0.4 MG (FLOMAX) CAP PO SCH (17:37)
[2022-09-02] MEDS: cefTRIAXone 1 GM IV (PRE-MIX) 50 ML IV SCH (20:37)
[2022-09-03 00:06] VITALS: BP 114/64
[2022-09-03 03:51] VITALS: BP 105/53
[2022-09-03 06:20] LABS: BASOPHILS % (AUTO) 1 % (0-10); HEMATOCRIT 31 % (40-54); MEAN CORPUSCULAR VOLUME 100 fL (80-99); MEAN PLATELET VOLUME 10.3 fL (9.0-12.2)
[2022-09-03 06:22] LABS: EOSINOPHILS % (AUTO) 1 % (0-10); HEMOGLOBIN 10.8 g/dL (13.3-17.7); LYMPHOCYTES # (AUTO) 0.8 10^3/uL (1.0-4.0); LYMPHOCYTES % (AUTO) 23 % (12-44); MEAN CORPUSCULAR HEMOGLOBIN 35 pg (25-34); MEAN CORPUSCULAR HGB CONC 35 g/dL (32-36); MONOCYTES # (AUTO) 0.3 10^3/uL (0.0-1.0); MONOCYTES % (AUTO) 8 % (0-12); NEUTROPHILS # (AUTO) 2.4 10^3/uL (1.8-7.8); NEUTROPHILS % (AUTO) 68 % (42-75); PLATELET COUNT 118 10^3/uL (130-400); WHITE BLOOD COUNT 3.5 10^3/uL (4.3-11.0)
[2022-09-03] MEDS: CYANOCOBALAMIN 1,000 MCG (VITAMIN B-12) TABLET PO SCH (06:32)
[2022-09-03] MEDS: THIAMINE 100 MG (VITAMIN B-1) TAB PO SCH (06:33)
[2022-09-03] MEDS: PANTOPRAZOLE 40 MG (PROTONIX) TAB PO SCH (06:33)
[2022-09-03 06:47] LABS: ALBUMIN 2.3 GM/DL (3.2-4.5); BILIRUBIN,TOTAL 1.2 MG/DL (0.1-1.0); CALCIUM 8.2 MG/DL (8.5-10.1); CREATININE SERUM 0.73 MG/DL (0.60-1.30); POTASSIUM 4.5 MMOL/L (3.6-5.0); TOTAL PROTEIN 4.5 GM/DL (6.4-8.2)
[2022-09-03] MEDS: POTASSIUM CL 10MEQ/50ML IVPB 50 ML IV SCH (06:55)
[2022-09-03] MEDS: KCL 20 MEQ TAB (K-DUR) PO SCH (06:55)
[2022-09-03] MEDS: RT-ALBUTEROL SULF 2.5 MG/3 ML PRE-MIX VIAL INH SCH (07:19)
[2022-09-03 07:30] VITALS: BP 99/58
[2022-09-03] MEDS: MAGNESIUM 1 GM/100 ML IVPB 100 ML IV SCH (08:32)
[2022-09-03] MEDS ORDERED: DILT60TA PO (08:49)
[2022-09-03] MEDS ORDERED: TMSL.4C PO (08:49)
[2022-09-03] MEDS ORDERED: PANT40TA52 PO (08:49)
[2022-09-03] MEDS ORDERED: APIX5TAB PO (08:49)
[2022-09-03] MEDS ORDERED: ASPI-1238 PO (08:49)
[2022-09-03] MEDS: APIXABAN 5 MG (ELIQUIS) TABLET PO SCH (09:04)
[2022-09-03] MEDS: NICOTINE 14 MG (NICODERM) PATCH TD SCH (09:04)
[2022-09-03] MEDS: ASPIRIN E.C. 81 MG (ECOTRIN) TAB PO SCH (09:04)
[2022-09-03] MEDS: FOLIC ACID 1 MG TAB PO SCH (09:10)
[2022-09-03] MEDS: NICOTINE PATCH REMOVAL TP SCH (09:11)
--- NOTE | 2022-09-03 11:05 | Physical Therapy Daily Note ---
PT Daily Note-Current Subjective Pt initially refused treatment, but was able to be convinced to participate with bed exercises. Pain Section J - Health Conditions 1. Rarely or not at all 2. Occasionally 3. Frequently 4. Almost constantly 8. Unable to answer Pain Effect on Sleep: 1 Pain Interference with Therapy: 1 Pain Interference w/Day-to-Day: 1 Mental Status Patient Orientation: Person, Place Attachments: IV Transfers SCALE: Activities may be completed with or without assistive devices. 8-Gxmlqoipts-iheeerb completes the activity by him/herself with no assistance from a helper. 5-Set-up or Clean-up Assistance-helper sets up or cleans up; patient completes activity. [place] assists only prior to or following the activity. 4-Supervision or Touching Assistance-helper provides verbal cues and/or t ouching/steadying and/or contact guard assistance as patient completes activity. Assistance may be provided throughout the activity or intermittently. 3-Partial/Moderate Assistance-helper does LESS THAN HALF the effort. [place] lifts, holds or supports trunk or limbs, but provides less than half the effort. 2-Substantial/Maximal Assistance-helper does MORE THAN HALF the effort. [place] lifts or holds trunk or limbs and provides more than half the effort. 0-Axrdiipwj-dmyehg does ALL the effort. Patient does none of the effort to complete the activity. Or, the assistance of 2 or more helpers is required for the patient to complete the activity. If activity was not attempted, code reason: 7-Patient Refused. 9-Not Applicable-not attempted and the patient did not perform the activity before the current illness, exacerbation or injury. 10-Not Attempted due to Environmental Limitations-(lack of equipment, weather restraints, etc.). 88-Not Attempted due to Medical Conditions or Safety Concerns. Weight Bearing Right Lower Extremity: Right Full Weight Bearing Left Lower Extremity: Left Full Weight Bearing Exercises Supine Ex: LE Protocol Supine Reps: 20 Pt requires assistance with all (B) LE exercises. Assessment Current Status: Fair Progress Pt initially refused, but thought it was night time. He is able to perform heel slide to ~100 degree knee flexion (B). Pt fatigues quickly. Pt moved up in bed, with pillows under his (R) flank. (B) podus boots on after treatment. PT Short Term Goals Short Term Goals Time Frame: Sep 06, 2022 Sit to lyin Lying to sitting on side of be: 6 Sit to stand: 6 Chair/utt-ez-knylv transfer: 4 Walk 10 feet: 4 PT Plan Treatment/Plan Treatment Plan: Continue Plan of Care Treatment Plan: Bed Mobility, Concurrent Therapy, Education, Functional Activity Monty, Functional Strength, Gait, Safety, Therapeutic Exercise, Transfers Treatment Duration: Sep 06, 2022 Frequency: 6 times per week Estimated Hrs Per Day: .25 hour per day Patient and/or Family Agrees t: Yes Time Time In: 1042 Time Out: 1057 DATE: Sep 03, 2022 Total Billed Treatment Time: 15 Total Billed Treatment 1, ex 15 LORA OCAMPO PT Sep 03, 2022 11:05
[2022-09-03 11:36] VITALS: BP 100/61
[2022-09-03] MEDS: HYPOCHLOROUS ACID/NaCl (VASHE) 250 ML IR SCH (12:25)
--- NOTE | 2022-09-03 13:00 | D/C HH Face to Face Order ---
D/C Face to Face Orders Instructions for Patient Via [facility], Patient Instructions/FollowUp: Please continue to take your medications as written. Please follow up with your primary care doctor to follow up this hospital stay. Physician to follow Patient: [facility] Discharge Diet for Home: Cardiac Diet Patient Data-Allergies,Ht & Wt Patient Allergies: Coded Allergies: No Known Drug Allergies (Unverified , 08/20/16) Height (Feet): 5 Height (Inches): 6.00 Weight (Pounds): 167 Weight (Ounces): 0.0 Home Health Need/Face to Face Date of Face to Face: Sep 03, 2022 Clinical Findings: Generalized weakness and fatigue I have seen Pt [id number]: Yes Discharged To: Home Diagnosis/Conditions: Pulmonary embolus, atrial fibrillation Patient is Homebound due to: Muscle weakness, Shortness of breath/distress Homebound Status Due to the above stated illness, injury or surgical procedure (medical condition or diagnosis) and associated clinical findings, the patient is homebound because of his/her inability to leave home except with aid of a supportive device and/or person AND leaving the home requires a considerable and taxing effort or is medically contraindicated. Pt req the following assistanc: Aid of another person Home Health Nursing Orders Home Health Services Order: Nursing Services, [employer] Representative-Evaluate & Treat, Physical Therapy-Evaluate & Treat Therapy Orders Therapy Orders: OT (must have SN or PT order), Physical Therapy Therapy Specific Orders: Eval assistive deivces, Teach enviro modifications/safety, Gait training, Increase strength/endurance [facility] cert[facility] that this patient is under my care and that I, a nurse practitioner or a physician; a assistant dean working with me, had a face to face encounter that - meets the physician face to face encounter requirements with this patient as dated. LISY WEBSTER MD Sep 03, 2022 13:00
--- NOTE | 2022-09-03 13:02 | Discharge Summary ---
Diagnosis/Chief Complaint Date of Admission Aug 29, 2022 at 22:11 Date of Discharge Discharge Date: Sep 03, 2022 Admission Diagnosis Atrial fibrillation with rapid ventricular response Primary Care No,Local Physician Discharge Diagnosis (1) Atrial fibrillation with RVR Status: Acute (2) Pulmonary emboli Status: Acute (3) Lactic acidosis Status: Acute (4) Urinary tract infection Status: Acute (5) Generalized weakness Status: Acute Discharge Summary Discharge Physical Exam Allergies: Coded Allergies: No Known Drug Allergies (Unverified , 08/20/16) Vitals & I&Os Vital Signs Date Time Temp Pulse Resp B/P (MAP) Pulse Ox O2 Delivery O2 Flow Rate FiO2 09/03/22 11:36 36.0 83 18 100/61 (74) 100 Room Air 09/03/22 08:00 0.00 09/01/22 15:16 21 Hospital Course Labs (last 24 hrs) Laboratory Tests 09/03/22 05:47: White Blood Count 3.5L, Red Blood Count 3.09L, Hemoglobin 10.8L, Hematocrit 31L, Mean Corpuscular Volume 100H, Mean Corpuscular Hemoglobin 35H, Mean Corpuscular Hemoglobin Concent 35, Red Cell Distribution Width 13.7, Platelet Count 118L, Mean Platelet Volume 10.3, Immature Granulocyte % (Auto) 0, Neutrophils (%) (Auto) 68, Lymphocytes (%) (Auto) 23, Monocytes (%) (Auto) 8, Eosinophils (%) (Auto) 1, Basophils (%) (Auto) 1, Neutrophils # (Auto) 2.4, Lymphocytes # (Auto) 0.8L, Monocytes # (Auto) 0.3, Eosinophils # (Auto) 0.0, Basophils # (Auto) 0.0, Immature Granulocyte # (Auto) 0.0, Percent Immature Platelet Fraction 3.9, Sodium Level 130L, Potassium Level 4.5, Chloride Level 106, Carbon Dioxide Level 19L, Anion Gap 5, Blood Urea Nitrogen 9, Creatinine 0.73, Estimat Glomerular Filtration Rate 91, BUN/Creatinine Ratio 12, Glucose Level 88, Calcium Level 8.2L, Corrected Calcium 9.6, Magnesium Level 1.7, Total Bilirubin 1.2H, Aspa rtate Amino Transf (AST/SGOT) 14, Alanine Aminotransferase (ALT/SGPT) 11, Alkaline Phosphatase 64, Total Protein 4.5L, Albumin 2.3L Microbiology 08/29/22 MRSA Screen - Final, Complete MRSA not isolated 08/29/22 Urine Culture - Final, Complete NO GROWTH Patient resulted labs reviewed. Pending Labs Laboratory Tests 09/03/22 05:47: White Blood Count 3.5, Red Blood Count 3.09, Hemoglobin 10.8, Hematocrit 31, Mean Corpuscular Volume 100, Mean Corpuscular Hemoglobin 35, Mean Corpuscular Hemoglobin Concent 35, Red Cell Distribution Width 13.7, Platelet Count 118, Mean Platelet Volume 10.3, Immature Granulocyte % (Auto) 0, Neutrophils (%) (Auto) 68, Lymphocytes (%) (Auto) 23, Monocytes (%) (Auto) 8, Eosinophils (%) (Auto) 1, Basophils (%) (Auto) 1, Neutrophils # (Auto) 2.4, Lymphocytes # (Auto) 0.8, Monocytes # (Auto) 0.3, Eosinophils # (Auto) 0.0, Basophils # (Auto) 0.0, Immature Granulocyte # (Auto) 0.0, Percent Immature Platelet Fraction 3.9, Sodium Level 130, Potassium Level 4.5, Chloride Level 106, Carbon Dioxide Level 19, Anion Gap 5, Blood Urea Nitrogen 9, Creatinine 0.73, Estimat Glomerular Filtration Rate 91, BUN/Creatinine Ratio 12, Glucose Level 88, Calcium Level 8.2, Corrected Calcium 9.6, Magnesium Level 1.7, Total Bilirubin 1.2, Aspartate Amino Transf (AST/SGOT) 14, Alanine Aminotransferase (ALT/SGPT) 11, Alkaline Phosphatase 64, Total Protein 4.5, Albumin 2.3 Imaging: Reviewed Imaging Report Discharge Home Medications: Active Scripts Active Eliquis (Apixaban) 5 Mg Tablet 5 Mg PO BID 30 Days TAKE 2 TABLETS BID X 7 DAYS, THEN 1 TABLET BID Flomax (Tamsulosin HCl) 0.4 Mg Cap 0.4 Mg PO DAILY@1800 Pantoprazole Sodium 40 Mg Tablet. 40 Mg PO DAILY@0700 Aspirin EC (Aspirin) 81 Mg Tablet. 81 Mg PO DAILY Diltiazem HCl 60 Mg Tablet 60 Mg PO Q6HR Instructions to patient/family Please see electronic discharge instructions given to patient. LISY WEBSTER MD Sep 03, 2022 13:02
--- NOTE | 2022-09-03 13:57 | Cardiology Progress Note ---
Subjective Date Seen by Provider: Sep 03, 2022 Time Seen by Provider: 10:15 Subjective/Events-last exam Patient is in bed, no new complaints. Denies any chest pain Objective-Cardiology Exam Last Set of Vital Signs Vital Signs 09/01/22 09/03/22 09/03/22 15:16 08:00 11:36 Temp 36.0 Pulse 83 Resp 18 B/P (MAP) 100/61 (74) Pulse Ox 100 O2 Delivery Room Air O2 Flow Rate 0.00 FiO2 21 I&O Intake and Output 09/03/22 00:00 Intake Total 3540 ml Balance 3540 ml Intake Oral 1490 ml IV Total 2050 ml # Voids 6 General: Alert, Oriented X3, Cooperative HEENT: Atraumatic, PERRLA Neck: Supple, No JVD, No Thyromegaly Lungs: Clear to Auscultation, Normal Air Movement Heart: Normal S1, Normal S2, Other (Atrial fibrillation, systolic murmur) Abdomen: Normal Bowel Sounds, Soft, No Tenderness, No Hepatosplenomegaly, No Masses Extremities: No Clubbing, No Cyanosis, No Edema, Normal Pulses, No Tenderness/Swelling Skin: No Rashes, No Breakdown, No Significant Lesion Neuro: Normal Speech, Normal Tone, Sensation Intact Psych/Mental Status: Mental Status NL, Mood NL Results Lab Laboratory Tests 09/03/22 05:47 A/P-Cardiology Admission Diagnosis Acute pulmonary embolism Paroxysmal atrial fibrillation Hypertension Hyperlipidemia Assessment/Plan Acute pulmonary embolism. Right lower lobe. Continue on Eliquis 10 mg twice daily then taper down to 5 mg twice daily Paroxysmal atrial fibrillation, heart rate is better controlled, continue on oral Cardizem and evaluate tolerance and response Coronary artery disease History of stent in May 2010 Taxus 2.25 x 24 to the LAD. Cardiac catheterization 2010 with severe spasm in the LAD responsive to ni troglycerin. Cardiac catheterization July 2014 small vessel disease including mid and distal LAD with small arteries, patent stent in the proximal LAD. Coronary spasm induced by the catheter in the right coronary artery. Depression, followed and managed by primary care physician History of syncope Multiple syncopal episodes in the past. Had history of loop monitor implant. Hypertension, patient hypotensive this morning, monitor blood pressure History of dizziness and lightheadedness, reporting some improvement. Continue IVF History of mild bilateral carotid stenosis Hyperlipidemia, monitor lipids History of noncompliance with medications DEIDRA VAUGHAN Sep 03, 2022 13:57
[2022-09-03 15:45] VITALS: BP 102/58
[2022-09-06] MEDS ORDERED: APIXABAN 5 MG (ELIQUIS) TABLET PO SCH (21:00)
== END 2022-09-03 15:45 | disposition home health service (06) | DRG 175 ==
LOC: EDUNIT# 18:33 → ER 18:34 → ICU 22:11 → 4TH 09-01 13:20
PROVIDERS: ADMIT Internal Medicine; ATTEND Internal Medicine
DX: I26.99 Other pulmonary embolism without acute cor pulmonale (principal); L89.153 Pressure ulcer of sacral region, stage 3; N39.0 Urinary tract infection, site not specified; E87.21 Acute metabolic acidosis; N17.9 Acute kidney failure, unspecified; E87.1 Hypo-osmolality and hyponatremia; D61.818 Other pancytopenia; I48.0 Paroxysmal atrial fibrillation; Z66 Do not resuscitate; Z20.822 Contact with and (suspected) exposure to COVID-19; E86.0 Dehydration; I25.10 Atherosclerotic heart disease of native coronary artery without angina pectoris; I11.0 Hypertensive heart disease with heart failure; I50.9 Heart failure, unspecified; S20.229A Contusion of unspecified back wall of thorax, initial encounter; S40.022A Contusion of left upper arm, initial encounter; S40.021A Contusion of right upper arm, initial encounter; S80.12XA Contusion of left lower leg, initial encounter; S80.11XA Contusion of right lower leg, initial encounter; W19.XXXA Unspecified fall, initial encounter; Z91.81 History of falling; T50.91 Poisoning by, adverse effect of and underdosing of multiple unspecified drugs, medicaments and biological substances; Z91.128 Patient's intentional underdosing of medication regimen for other reason; E87.6 Hypokalemia; E53.8 Deficiency of other specified B group vitamins; E78.00 Pure hypercholesterolemia, unspecified; Z28.310 Unvaccinated for COVID-19; Z28.9 Immunization not carried out for unspecified reason; Z28.39 Other underimmunization status; I08.1 Rheumatic disorders of both mitral and tricuspid valves; K21.9 Gastro-esophageal reflux disease without esophagitis; F32.A Depression, unspecified; H54.3 Unqualified visual loss, both eyes; F10.90 Alcohol use, unspecified, uncomplicated; Y90.0 Blood alcohol level of less than 20 mg/100 ml; N40.1 Benign prostatic hyperplasia with lower urinary tract symptoms; N39.498 Other specified urinary incontinence; I65.23 Occlusion and stenosis of bilateral carotid arteries; Z87.891 Personal history of nicotine dependence; Z95.5 Presence of coronary angioplasty implant and graft
CPT/HCPCS: 36415; 51701; 70450; 71045; 71275; 72125; 72128; 72131; 73523; 74177; 80053; 80306; 80320; 81000; 82140; 82150; 82550; 82553; 82607; 82746; 82805; 83605; 83690; 83735; 83874; 83880; 84100; 84425; 84443; 84484; 85025; 85610; 85652; 85730; 86141; 87081; 87088; 87636; 93005; 93041; 93306; 94640

== ENCOUNTER 2022-11-13 16:05 | Inpatient (IN) | payer MEDICARE, OTHER ==
[~2022-11-13] VITALS: Ht 167 cm; Wt 69.0 kg
[~2022-11-13 16:05] MED LIST changes: +APIX5TAB PO; +ASPI-1238 PO; +DILT60TA PO; +TMSL.4C PO
--- NOTE | 2022-11-13 16:26 | ED General ---
General Chief Complaint: General Problems/Pain Stated Complaint: LOSS OF STRENGTH| MOBILITY Nursing Triage Note: PT TO RM 6 PER W/C CO OF GETTING WEAKER PAST FEW DAYS. PT UNABLE TO WALK, UNABLE TO GET SELF IN AND OUT OF CHAIR. PT LIVES AT HOME W SON. PT WAS JUST SEEN AT DR LYON'S OFFICE. PT DENIES C/P. PT HAS BRUISE ON L CHEST WALL Source of Information: Patient, Family (son) Exam Limitations: No Limitations History of Present Illness Date Seen by Provider: November 13, 2022 Time Seen by Provider: 16:13 Initial Comments 82-year-old male with history of atrial fibrillation, pulmonary emboli presents to the emergency department today for generalized weakness. His son states he lives with him and he has been unable to walk for the last 4 days. He typically is able to use a walker and get around at home as he needs but over the last several months has had increasing generalized weakness. He was discharged from our facility on 09/03 with similar symptoms after he was found to have pulmonary emboli and a urinary tract infection. It was recommended upon discharge that he spent some time at a alf facility and the patient and family declined at that time. I had a conversation with his son in the room today and he again states he does not want to put his father in a skilled nursing if at all possible. No recent fevers or chills. No recent changes in his medications. No recent infections or antibiotics. All other systems reviewed and negative except documented per HPI. Voice recognition software was used to help create this chart Allergies and Home Medications Allergies Coded Allergies: No Known Drug Allergies (Unverified , 08/20/16) Patient Home Medication List Home Medication List Reviewed: Yes Apixaban (Eliquis) 5 Mg Tablet, 5 MG PO BID Prescribed by: ILSY WEBSTER on 09/03/22 0849 Aspirin (Aspirin EC) 81 Mg Tablet., 81 MG PO DAILY Prescribed by: LISY WEBSTER on 09/03/22 0849 Diltiazem HCl (Diltiazem HCl) 60 Mg Tablet, 60 MG PO Q6HR Prescribed by: LISY WEBSTER on 09/03/22 0849 Pantoprazole Sodium (Pantoprazole Sodium) 40 Mg Tablet., 40 MG PO DAILY@0700 Prescribed by: LISY WEBSTER on 09/03/22 0849 Tamsulosin HCl (Flomax) 0.4 Mg Cap, 0.4 MG PO DAILY@1800 Prescribed by: LISY WEBSTER on 09/03/22 0849 Review of Systems Review of Systems Constitutional: see HPI Past Eebrvgm-Anijyl-Lhxnmu Hx Patient Social History Tobacco Use?: No Use of E-Cig and/or Vaping dev: No Substance use?: No Alcohol Use?: No Seasonal Allergies Seasonal Allergies: No Past Medical History Surgeries: Yes (BACK SURGERY (1999), HERNIA SURGERY (2007)) Abdominal, Cardiac, Coronary Stent, Eye Surgery, Orthopedic Respiratory: No Cardiac: Yes (CHF; TRICUSPID & MITRAL REGURG; CAROTID STENOSIS) Atrial Fibrillation, Coronary Artery Disease, High Cholesterol, Hypertension, Peripheral Vascular, Valvular Heart Disease Neurological: No Reproductive Disorders: No Sexually Transmitted Disease: No HIV/AIDS: No Genitourinary: No Gastrointestinal: Yes Gastroesophageal Reflux Musculoskeletal: Yes (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) Arthritis, Chronic Back Pain Endocrine: No HEENT: Yes (LEFT PUPIL LARGER THAN RIGHT SECONDARY TO CATARACT SURGERY) Cataract Loss of Vision: Bilateral Hearing Impairment: Denies Cancer: No Psychosocial: Yes (OVERDOSED 2019 WITH SUICIDE ATTEMPT-FLECANIDE + RANEXA) Suicide Attempts, Depression Integumentary: No Blood Disorders: No Adverse Reaction/Blood Tranf: No (N/A) Family Medical History Cancer of colon 09 BROTHER Family history: Gastrointestinal disease 09 BROTHER Kidney disease 09 BROTHER SOCIAL HISTORY: -SMOKED 1 PPD, QUIT SEVERAL YEARS AGO -CHEWED TOBACCO 1/2 CAN/DAY--QUIT SEVERAL YEARS AGO -ETOH--DRINKS BEER DAILY--USED TO DRINK VERY HEAVILY EVERY DAY, BUT NOW FAMILY RATIONS HIM TO 2 BEERS A DAY. -DRUGS--DENIES USE PAST SURGICAL HISTORY: -BACK SURGERY 1999 -RIGHT INGUINAL SURGERY 2008 -CATARACT SURGERY--RIGHT 11/2017; -CARDIAC CATH WITH STENT TO LAD 05/2010 -CARDIAC CATH 08/06/[address] LYON: PATENT STENT TO LAD. NO INTERVENTION -REVEAL DEVICE PLACED 2015--REMOVED DUE TO INFECTION Physical Exam Vital Signs Vital Signs - First Documented 11/13/22 16:10 Temp 35.0 Pulse 93 Resp 13 B/P (MAP) 123/67 (85) Pulse Ox 96 Capillary Refill : Less Than 3 Seconds Height, Weight, BMI Height: 5'6.00" Weight: 167lbs. 0.0oz. 75.618001ka; 24.00 BMI Method:Stated General Appearance: No Apparent Distress, WD/WN HEENT: Normal ENT Inspection, Pharynx Normal Neck: Normal Inspection, Non Tender, Supple Respiratory: Lungs Clear, Normal Breath Sounds, No Accessory Muscle Use, Other (Bruising to his left anterior lateral chest wall. No crepitus.) Cardiovascular: No Murmur, Normal Peripheral Pulses, Irregularly Irregular Gastrointestinal: Normal Bowel Sounds, No Organomegaly, No Pulsatile Mass, Non Tender, Soft Extremity: Normal Capillary Refill, Normal Inspection, Swelling (2+ pitting edema bilateral lower extremities) Neurologic/Psychiatric: Alert, Oriented x3, Normal Mood/Affect, religious education teacher II-XII Norm as Tested, Other (Equal significant weakness to bilateral lower extremities. There is minimal effort against gravity. Neurovascular and sensory intact) Skin: Normal Color, Warm/Dry Progress/Results/Core Measures Suspected Sepsis SIRS Temperature: Pulse: 93 Respiratory Rate: 13 Laboratory Tests 11/13/22 16:20: White Blood Count 5.7 Blood Pressure 123 /67 Mean: 85 Laboratory Tests 11/13/22 16:20: Creatinine 0.72, Platelet Count 168, Total Bilirubin 1.5H Results/Orders Lab Results Laboratory Tests Test 11/13/22 16:20 Range/Units White Blood Count 5.7 4.3-11.0 10^3/uL Red Blood Count 3.47 L 4.30-5.52 10^6/uL Hemoglobin 11.9 L 13.3-17.7 g/dL Hematocrit 33 L 40-54 % Mean Corpuscular Volume 95 80-99 fL Mean Corpuscular Hemoglobin 34 25-34 pg Mean Corpuscular Hemoglobin Concent 36 32-36 g/dL Red Cell Distribution Width 13.1 10.0-14.5 % Platelet Count 168 130-400 10^3/uL Mean Platelet Volume 9.1 9.0-12.2 fL Immature Granulocyte % (Auto) 0 % Neutrophils (%) (Auto) 66 42-75 % Lymphocytes (%) (Auto) 20 12-44 % Monocytes (%) (Auto) 10 0-12 % Eosinophils (%) (Auto) 3 0-10 % Basophils (%) (Auto) 1 0-10 % Neutrophils # (Auto) 3.8 1.8-7.8 10^3/uL Lymphocytes # (Auto) 1.1 1.0-4.0 10^3/uL Monocytes # (Auto) 0.6 0.0-1.0 10^3/uL Eosinophils # (Auto) 0.2 0.0-0.3 10^3/uL Basophils # (Auto) 0.0 0.0-0.1 10^3/uL Immature Granulocyte # (Auto) 0.0 0.0-0.1 10^3/uL Sodium Level 128 L 135-145 MMOL/L Potassium Level 3.7 3.6-5.0 MMOL/L Chloride Level 94 L 98-107 MMOL/L Carbon Dioxide Level 18 L 21-32 MMOL/L Anion Gap 16 H 5-14 MMOL/L Blood Urea Nitrogen 5 L 7-18 MG/DL Creatinine 0.72 0.60-1.30 MG/DL Estimat Glomerular Filtration Rate 91 BUN/Creatinine Ratio 7 Glucose Level 78 70-105 MG/DL Calcium Level 8.8 8.5-10.1 MG/DL Corrected Calcium 9.8 8.5-10.1 MG/DL Total Bilirubin 1.5 H 0.1-1.0 MG/DL Aspartate Amino Transf (AST/SGOT) 59 H 5-34 U/L Alanine Aminotransferase (ALT/SGPT) 23 0-55 U/L Alkaline Phosphatase 67 40-136 U/L Total Protein 5.5 L 6.4-8.2 GM/DL Albumin 2.8 L 3.2-4.5 GM/DL My Orders Orders - JEMGIOVANY DO Comprehensive Metabolic Panel (11/13/22 16:18) Ua Culture If Indicated (11/13/22 16:18) Chest 1 View, Ap/Pa Only (11/13/22 16:18) Cbc With Automated Diff (11/13/22 16:18) Ekg Tracing (11/13/22 16:18) Ceftriaxone Iv/Im (Rocephin Iv/Im) (11/13/22 17:00) Azithromycin Injection (Zithromax Inject (11/13/22 17:00) Vital Signs/I&O 11/13/22 16:10 Temp 35.0 Pulse 93 Resp 13 B/P (MAP) 123/67 (85) Pulse Ox 96 Capillary Refill : Less Than 3 Seconds Blood Pressure Mean: 85 ECG Comment Atrial fibrillation rate of 73 bpm. Normal intervals outside of UT interval. Normal axis. No ST or T wave abnormalities. No ectopy. Departure Communication (Admissions) 1710: Patient has right lower lobe pneumonia. Started on Zithromax and Rocephin IV. He does have profound generalized weakness but no evidence of focal weakness to indicate stroke. No evidence for CT scanning. Labs are relatively unremarkable outside of some relatively chronic hyponatremia, 128 sodium today. Back in August had a 129 as well. I spoke to Dr. Mckay and she agrees to admission at this time. Request observation. She will place acute orders. Impression Primary Impression: CAP (community acquired pneumonia) Qualified Codes: J18.9 - Pneumonia, unspecified organism Additional Impression: Hyponatremia Disposition: ADMITTED INPATIENT Condition: Stable Admissions Decision to Admit Reason: Admit from ER (General) Departure-Patient Inst. Referrals: [facility] (PCP/Family) Primary Care Physician GIOVANY PARISH DO November 13, 2022 16:26
[2022-11-13 16:27] LABS: BASOPHILS % (AUTO) 1 % (0-10); EOSINOPHILS # (AUTO) 0.2 10^3/uL (0.0-0.3); EOSINOPHILS % (AUTO) 3 % (0-10); HEMATOCRIT 33 % (40-54); HEMOGLOBIN 11.9 g/dL (13.3-17.7); LYMPHOCYTES # (AUTO) 1.1 10^3/uL (1.0-4.0); LYMPHOCYTES % (AUTO) 20 % (12-44); MEAN CORPUSCULAR HEMOGLOBIN 34 pg (25-34); MEAN CORPUSCULAR HGB CONC 36 g/dL (32-36); MEAN CORPUSCULAR VOLUME 95 fL (80-99); MEAN PLATELET VOLUME 9.1 fL (9.0-12.2); MONOCYTES # (AUTO) 0.6 10^3/uL (0.0-1.0); MONOCYTES % (AUTO) 10 % (0-12); NEUTROPHILS # (AUTO) 3.8 10^3/uL (1.8-7.8); NEUTROPHILS % (AUTO) 66 % (42-75); PLATELET COUNT 168 10^3/uL (130-400); WHITE BLOOD COUNT 5.7 10^3/uL (4.3-11.0)
[2022-11-13 16:35] LABS: ALBUMIN 2.8 GM/DL (3.2-4.5)
[2022-11-13 16:36] LABS: POTASSIUM 3.7 MMOL/L (3.6-5.0)
[2022-11-13 16:37] LABS: CALCIUM 8.8 MG/DL (8.5-10.1)
[2022-11-13 16:38] LABS: TOTAL PROTEIN 5.5 GM/DL (6.4-8.2)
[2022-11-13 16:40] LABS: BILIRUBIN,TOTAL 1.5 MG/DL (0.1-1.0)
[2022-11-13 16:42] LABS: CREATININE SERUM 0.72 MG/DL (0.60-1.30)
--- NOTE | 2022-11-13 16:46 | Diagnostic Imaging Report ---
INDICATION: Progressive weakness. Ecchymosis. COMPARISON: CT dated 08/29/2022. FINDINGS: Single frontal radiographic view of the chest was obtained and demonstrates interval development of large masslike consolidative opacity projecting over the right lung base. Area in question measures approximately 5.6 x 7.3 cm. Left lung is relatively clear. Small right effusion may be present. There is no large effusion on the left. No pneumothorax is seen on either side. Cardiac silhouette and pulmonary vasculature within normal limits. Osseous structures show no gross acute abnormalities. IMPRESSION: 1. Large masslike consolidative opacity of the right lung base, which is favored to represent area of pneumonia. Followup to resolution however is advised, as underlying mass cannot be excluded. 2. Possible small right basal effusion. Dictated by: Dictated on workstation # [id number]
[2022-11-13] MEDS ORDERED: AZITHROMYCIN INJECTION 500 MG in NS (IVPB) 250 ML IV ONE (17:00)
[2022-11-13] MEDS ORDERED: cefTRIAXone IV/IM 1,000 MG in NS (IVPB) 50 ML IV ONE (17:00)
[2022-11-13 17:17] LABS: CLARITY,URINE CLEAR; COLOR,URINE ORANGE; GLUCOSE, URINE (UA) TRACE (NEGATIVE); KETONES,URINE 1+ (NEGATIVE); LEUKOCYTE ESTERASE ,URINE NEGATIVE (NEGATIVE); NITRITE,URINE NEGATIVE (NEGATIVE); PROTEIN,URINE TRACE (NEGATIVE)
[2022-11-13 17:29] LABS: BACTERIA,URINE TRACE /HPF; BILIRUBIN,URINE 2+ (NEGATIVE); SQUAMOUS EPITHELIAL CELL,UR RARE /HPF
[2022-11-13] MEDS ORDERED: ONDANSETRON 4 MG (ZOFRAN) ORAL DISSOLVE TAB PO PRN (17:45)
[2022-11-13] MEDS ORDERED: polyethylene glycoL POWDER 17 GM (MIRALAX) PACK PO PRN (17:45)
[2022-11-13] MEDS ORDERED: MELATONIN 3 MG TABLET PO PRN (17:45)
[2022-11-13] MEDS ORDERED: HYDROmorphone 2 MG/ML VIAL (DILAUDID) IV PRN (17:45)
[2022-11-13] MEDS ORDERED: LACTULOSE SYRUP 10GM/15ML (ENULOSE) 30ML UDC PO PRN (17:45)
[2022-11-13] MEDS ORDERED: BISACODYL 10 MG SUPP (DULCOLAX) PR PRN (17:45)
[2022-11-13] MEDS ORDERED: diphenhydrAMINE 50 MG/ML INJ (BENADRYL) IVP PRN (17:45)
[2022-11-13] MEDS ORDERED: ONDANSETRON 4 MG/2 ML (SDV) Z0FRAN IV PRN (17:45)
[2022-11-13] MEDS ORDERED: MILK OF MAGNESIA 400 MG/5 ML 30 ML UDC PO PRN (17:45)
[2022-11-13] MEDS ORDERED: diphenhydrAMINE 25 MG TAB (BENADRYL) PO PRN (17:45)
[2022-11-13] MEDS ORDERED: ANTACID SUSP 30 ML UDC (MYLANTA) PO PRN (17:45)
[2022-11-13] MEDS ORDERED: CALCIUM CARBONATE 500 MG (TUMS) TAB.CHEW PO PRN (17:45)
[2022-11-13] MEDS ORDERED: ACETAMINOPHEN 325 MG TABLET PO PRN (17:45)
[2022-11-13] MEDS: NS IV 1000 ML 1,000 ML IV SCH (18:43)
[2022-11-13] MEDS: cefTRIAXone IV/IM 1,000 MG in NS (IVPB) 50 ML IV SCH ×2 (18:43→18:47)
[2022-11-13 19:01] VITALS: BP 100/60
[2022-11-13] MEDS: DOCUSATE SODIUM 100 MG (COLACE) CAP PO SCH (20:12)
[2022-11-13] MEDS: APIXABAN 5 MG (ELIQUIS) TABLET PO SCH (20:12)
[2022-11-13] MEDS: SENNOSIDES 8.6 MG (SENOKOT) TAB PO SCH (20:12)
[2022-11-13] MEDS: RT-ALBUTEROL/IPRATROPIUM 3 ML (DUONEB) VIAL INH SCH (20:57)
[2022-11-14 00:17] VITALS: BP 104/56
[2022-11-14] MEDS: RT-ALBUTEROL/IPRATROPIUM 3 ML (DUONEB) VIAL INH SCH ×4 (02:26→21:22)
[2022-11-14 04:24] VITALS: BP 98/51
[2022-11-14 06:02] LABS: BASOPHILS % (AUTO) 1 % (0-10); MEAN CORPUSCULAR HEMOGLOBIN 35 pg (25-34)
[2022-11-14 06:04] LABS: EOSINOPHILS % (AUTO) 1 % (0-10); HEMATOCRIT 28 % (40-54); HEMOGLOBIN 10.2 g/dL (13.3-17.7); LYMPHOCYTES # (AUTO) 0.8 10^3/uL (1.0-4.0); LYMPHOCYTES % (AUTO) 25 % (12-44); MEAN CORPUSCULAR HGB CONC 37 g/dL (32-36); MEAN CORPUSCULAR VOLUME 95 fL (80-99); MEAN PLATELET VOLUME 9.8 fL (9.0-12.2); MONOCYTES # (AUTO) 0.4 10^3/uL (0.0-1.0); MONOCYTES % (AUTO) 11 % (0-12); NEUTROPHILS # (AUTO) 2.1 10^3/uL (1.8-7.8); NEUTROPHILS % (AUTO) 63 % (42-75); PLATELET COUNT 135 10^3/uL (130-400); WHITE BLOOD COUNT 3.4 10^3/uL (4.3-11.0)
[2022-11-14 06:22] LABS: ALBUMIN 2.3 GM/DL (3.2-4.5); BILIRUBIN,TOTAL 0.9 MG/DL (0.1-1.0); CALCIUM 7.8 MG/DL (8.5-10.1); CREATININE SERUM 0.63 MG/DL (0.60-1.30); POTASSIUM 3.1 MMOL/L (3.6-5.0); TOTAL PROTEIN 4.8 GM/DL (6.4-8.2)
[2022-11-14 08:00] VITALS: BP 113/66
[2022-11-14] MEDS ORDERED: LIDOCAINE UROJET 2% GEL 10 ML PKG ONE (08:07)
[2022-11-14] MEDS: NS IV 1000 ML 1,000 ML IV SCH ×2 (08:12→17:27)
[2022-11-14] MEDS ORDERED: LIDOCAINE UROJET 2% GEL 10 ML PKG TOP ONE ×2 (08:15→08:30)
[2022-11-14] MEDS: NICOTINE 14 MG (NICODERM) PATCH TD SCH (08:21)
[2022-11-14] MEDS: DOCUSATE SODIUM 100 MG (COLACE) CAP PO SCH ×2 (08:21→20:17)
[2022-11-14] MEDS: APIXABAN 5 MG (ELIQUIS) TABLET PO SCH ×2 (08:22→20:17)
[2022-11-14] MEDS: SENNOSIDES 8.6 MG (SENOKOT) TAB PO SCH ×2 (08:22→20:17)
--- NOTE | 2022-11-14 11:34 | Physical Therapy Evaluation ---
PT Evaluation-General Medical Diagnosis Admission Date November 13, 2022 at 17:40 Medical Diagnosis: CAP Onset Date: November 13, 2022 Therapy Diagnosis Therapy Diagnosis: severe debility/weakness Height/Weight Height (Feet): 5 Height (Inches): 6.00 Weight (Pounds): 167 Weight (Ounces): 0.0 Precautions Precautions/Isolations: Fall Prevention, Standard Precautions Weight Bear Status Right Lower Extremity: Right Full Weight Bearing Left Lower Extremity: Left Full Weight Bearing Referral Physician: Woody Reason for Referral: Evaluation/Treatment Medical History Pertinent Medical History: Atrial Fib, Alcoholism, CAD, GERD Current History ER secondary to progressive weakness and inability to ambulate Reviewed History: Yes Social History Home: Single Level Current Living Status: Other Family Prior Prior Level of Function SCALE: Activities may be completed with or without assistive devices. 8-Xncbtmlmcn-rfczlmk completes the activity by him/herself with no assistance from a helper. 5-Set-up or Clean-up Assistance-helper sets up or cleans up; patient completes activity. [place] assists only prior to or following the activity. 4-Supervision or Touching Assistance-helper provides verbal cues and/or touching/steadying and/or contact guard assistance as patient completes activity. Assistance may be provided throughout the activity or intermittently. 3-Partial/Moderate Assistance-helper does LESS THAN HALF the effort. [place] lifts, holds or supports trunk or limbs, but provides less than half the effort. 2-Substantial/Maximal Assistance-helper does MORE THAN HALF the effort. [place] lifts or holds trunk or limbs and provides more than half the effort. 0-Bkiedlyix-oqqhax does ALL the effort. Patient does none of the effort to complete the activity. Or, the assistance of 2 or more helpers is required for the patient to complete the activity. If activity was not attempted, code reason: 7-Patient Refused. 9-Not Applicable-not attempted and the patient did not perform the activity before the current illness, exacerbation or injury. 10-Not Attempted due to Environmental Limitations-(lack of equipment, weather restraints, etc.). 88-Not Attempted due to Medical Conditions or Safety Concerns. Bed Mobility: 2 Transfers (B,C,W/C): 2 Gait: 9 (per patient) PT Evaluation-Current Subjective Patient reports he is in bed or a chair all day and his sons assist him with mobility and ADL's Objective Patient Orientation: Person ROM/Strength ROM Lower Extremities bilateral LE WFL Strength Lower Extremities 3-/5 grossly bilateral LE all planes Integumentary/Posture Bladder Incontinence: Monique Cath Neuromuscular (Tone, Coordination, Reflexes) noted tremors/ataxia Sensory Vision: Functional Hearing: Impaired Transfers Lying to Sitting/Side of Bed(Q: 1 Sit to Stand (QC): 1 Chair/Lmq-rf-Hnkyt Xfer(QC): 1 patient is severely retropulsive with all mobility requiring dependent assist of 2 to maintain upright position Gait Walk 10 feet (QC): 1 (x 2) Distance: 10' Gait Assistive Device: FWW Comments/Gait Description ataxic/retropulsive Balance Sitting Static: Fair Sitting Dynamic: Fair Standing Static: Poor Standing Dynamic: Poor Assessment/Needs Patient will benefit from skilled PT to address functional strength and mobility to improve current LOF. Rehab Potential: Guarded PT Blanking Press Operator Goals Half-Way Goals PT Blanking Press Operator Goals Time Frame: December 06, 2022 Roll Left & Right (QC): 3 Sit to Lying (QC): 3 Lying-Sitting on Side/Bed(QC): 3 Sit to Stand (QC): 3 Chair/Gjd-ic-Vojvx Xfer(QC): 3 Toilet Transfer (QC): 3 Walk 10 feet (QC): 3 Walk 50ft with 2 Turns (QC): 3 PT Plan Problem List Problem List: Activity Tolerance, Functional Strength, Safety, Balance, Gait, Transfer, Bed Mobility Treatment/Plan Treatment Plan: Continue Plan of Care Treatment Plan: Bed Mobility, Education, Functional Activity Monty, Functional Strength, Gait, Safety, Therapeutic Exercise, Transfers Treatment Duration: December 06, 2022 Frequency: 6 times per week Estimated Hrs Per Day: .25 hour per day Time Time In: 1015 Time Out: 1030 DATE: November 14, 2022 Total Billed Treatment Time: 15 Total Billed Treatment [facility] 15 min DARION WALTERS PT November 14, 2022 11:34
[2022-11-14] MEDS: KCL 20 MEQ TAB (K-DUR) PO SCH ×2 (11:48→20:17)
[2022-11-14 12:39] VITALS: BP 120/70
--- NOTE | 2022-11-14 12:46 | History & Physical-Hospitalist ---
MATHIEU JOSEPH 11/14/22 1246: History of Present Illness HPI/Chief Complaint CC: PNA + Weakness Per ED report: 82-year-old male with history of atrial fibrillation, pulmonary emboli presents to the emergency department today for generalized weakness. His son states he lives with him and he has been unable to walk for the last 4 days. He typically is able to use a walker and get around at home as he needs but over the last several months has had increasing generalized weakness. He was discharged from our facility on 09/03 with similar symptoms after he was found to have pulmonary emboli and a urinary tract infection. It was recommended upon discharge that he spent some time at a [place] [facility] [place] facility and the patient and family declined at that time. I had a conversation with his son in the room today and he again states he does not want to put his father in a retirement if at all possible. No recent fevers or chills. No recent changes in his medications. No recent infections or antibiotics. On exam today pt is doing well. He denies pain, n/v/f/c. He is producing urine but has not yet had a BM. He is ambulating some with assistance. He is eating and drinking without issue. Date Seen 11/14/22 Time Seen by a Provider: 11:00 Attending Physician [facility] PCP Admitting Physician: Tanya Mckay DO Attending Physician: Tanya Mckay DO Referring Physician Date of Admission November 13, 2022 at 17:40 Home Medications & Allergies Home Medications Reviewed patient Home Medication Reconciliation performed by pharmacy medication reconciliations criminal records technician and/or nursing. Patients Allergies have been reviewed. Allergies Allergies Coded Allergies No Known Drug Allergies (Unverified08/20/16) Past [place]-Skoacw-Qnlert Hx Patient Social History Tobacco Use?: No Use of E-Cig and/or Vaping dev: No Substance use?: No Alcohol Use?: Yes Alcohol type: Beer Alcohol Frequency: Daily Additional Alcohol Comments: 2 BEERS A DAY Pt feels they are or have been: No Immunizations Up To Date Tetanus Booster (TDap): Unknown Seasonal Allergies Seasonal Allergies: No Current Status Advance Directives: No Communicates: Verbally Primary Language: Montene[place]in Preferred Spoken Language: Montenegrin Is interpretation needed?: No Sensory deficits: Vision impairment, Hearing impairment, Speech impairment Implanted or Applied Medical D: None Past Medical History Surgeries: Abdominal, Cardiac, Coronary Stent, Eye Surgery, Orthopedic Atrial Fibrillation, Coronary Artery Disease, High Cholesterol, Hypertension, Peripheral Vascular, Valvular Heart Disease Sexually Transmitted Disease: No HIV/AIDS: No Gastroesophageal Reflux Arthritis, Chronic Back Pain Cataract Loss of Vision: Bilateral Hearing Impairment: Denies Suicide Attempts, Depression Blood Disorders: No Adverse Reaction/Blood Tranf: No (N/A) Family Medical History Cancer of colon 09 BROTHER Family history: Gastrointestinal disease 09 BROTHER Kidney disease 09 BROTHER SOCIAL HISTORY: -SMOKED 1 PPD, QUIT SEVERAL YEARS AGO -CHEWED TOBACCO 1/2 CAN/DAY--QUIT SEVERAL YEARS AGO -ETOH--DRINKS BEER DAILY--USED TO DRINK VERY HEAVILY EVERY DAY, BUT NOW FAMILY RATIONS HIM TO 2 BEERS A DAY. -DRUGS--DENIES USE PAST SURGICAL HISTORY: -BACK SURGERY 1999 -RIGHT INGUINAL SURGERY 2008 -CATARACT SURGERY--RIGHT 11/2017; -CARDIAC CATH WITH STENT TO LAD 05/2010 -CARDIAC CATH 08/06/[address] LYON: PATENT STENT TO LAD. NO INTERVENTION -REVEAL DEVICE PLACED 2015--REMOVED DUE TO INFECTION Review of Systems Constitutional: see HPI Physical Exam Physical Exam Vital Signs Vital Signs - First Documented 11/13/22 11/13/22 11/13/22 16:10 17:42 18:06 Temp 35.0 Pulse 93 Resp 13 B/P (MAP) 123/67 (85) Pulse Ox 96 O2 Delivery Room Air FiO2 21 Capillary Refill : Less Than 3 Seconds Height, Weight, BMI Height: 5'6.00" Weight: 167lbs. 0.0oz. 75.047501xt; 24.74 BMI Method:Stated General Appearance: No Apparent Distress, WD/WN HEENT: Normal ENT Inspection, Pharynx Normal Neck: Normal Inspection, Non Tender, Supple Respiratory: Chest Non Tender, Lungs Clear, Normal Breath Sounds, No Accessory Muscle Use, No Respiratory Distress Cardiovascular: Regular Rate, Rhythm, No Gallop, No Murmur, Normal Peripheral Pulses Gastrointestinal: Normal Bowel Sounds, No Organomegaly, No Pulsatile Mass, Non Tender, Soft Extremity: Normal Capillary Refill, Normal Inspection, Swelling (2+ edema BL) Neurologic/Psychiatric: Alert, Oriented x3, Normal Mood/Affect, chief ultrasound technologist II-XII Norm as Tested, Motor Weakness (diffuse weakness) Skin: Normal Color, Warm/Dry Results Results/Procedures Labs Laboratory Tests 11/13/22 16:20 11/14/22 05:46 Patient resulted labs reviewed. Assessment/Plan Admission Diagnosis PNA Assessment and Plan CAP - CXR (11/13) demonstrating lobular PNA - cont Ceftriaxone and Azithromycin - cx's pending - narrow abx as able pending microbe id and susceptibilities Chronic Hyponatremia - Na 126, Total Prot 5.5, Albumin 2.8 - no hyperglycemia - reported history of hyponatremia - unclear eating habits at home - start fluid restriction - ctm closely TANYA MCKAY DO 11/14/222125: Past Loulgnr-Dgynvv-Oztnrt Hx Family Medical History Cancer of colon 09 BROTHER Family history: Gastrointestinal disease 09 BROTHER Kidney disease 09 BROTHER Review of Systems Constitutional: see HPI Physical Exam Physical Exam General Appearance: No Apparent Distress, Chronically ill Respiratory: No Accessory Muscle Use, No Respiratory Distress, Decreased Breath Sounds Cardiovascular: Regular Rate, Rhythm Neurologic/Psychiatric: Alert, Disoriented Assessment/Plan Admission Diagnosis Admission Status: Observation Supervisory-Addendum Brief Verification & Attestation Participated in pt care: history, MDM, physical Personally performed: exam, history, MDM, supervision of care Care discussed with: Medical Student Procedures: n/a Results interpretation: Verified all documentation Verification and Attestation of Medical Student E/M Service A medical student performed and documented this service in my presence. I reviewed and verified all information documented by the medical student and made modifications to such information, when appropriate. I personally performed the physical exam and medical decision making. Tanya Mckay November 14, 2022,21:26 MATHIEU JOSEPH November 14, 2022 12:46 TANYA MCKAY DO November 14, 2022 21:26
--- NOTE | 2022-11-14 13:54 | Occupational Therapy Eval ---
OT Evaluation-General/PLF Medical Diagnosis Admission Date November 13, 2022 at 17:40 Medical Diagnosis: CAP Onset Date: November 13, 2022 Therapy Diagnosis Therapy Diagnosis: weakness Height/Weight Height (Feet): 5 Height (Inches): 6.00 Weight (Pounds): 167 Weight (Ounces): 0.0 Precautions Precautions/Isolations: Fall Prevention, Standard Precautions Referral Physician: Woody Referral Reason: Activity Tolerance, Self Care, Evaluation/Treatment, Strengthening/ROM Medical History Pertinent Medical History: Atrial Fib, Alcoholism, CAD, GERD Current History Per ED report: 82-year-old male with history of atrial fibrillation, pulmonary emboli presents to the emergency department today for generalized weakness. His son states he lives with him and he has been unable to walk for the last 4 days. He typically is able to use a walker and get around at home as he needs but over the last several months has had increasing generalized weakness. He was discharged from our facility on 09/03 with similar symptoms after he was found to have pulmonary emboli and a urinary tract infection. It was recommended upon discharge that he spent some time at a [place] [facility] facility and the patient and family declined at that time. I had a conversation with his son in the room today and he again states he does not want to put his father in a half-way if at all possible Social History Home: Single Level Current Living Status: Other Family ADL-Prior Level of Function SCALE: Activities may be completed with or without assistive devices. 8-Lpwdrmvfpi-ydetriv completes the activity by him/herself with no assistance from a helper. 5-Set-up or Clean-up Assistance-helper sets up or cleans up; patient completes activity. [place] assists only prior to or following the activity. 4-Supervision or Touching Assistance-helper provides verbal cues and/or touching/steadying and/or contact guard assistance as patient completes activity. Assistance may be provided throughout the activity or intermittently. 3-Partial/Moderate Assistance-helper does LESS THAN HALF the effort. [place] lifts, holds or supports trunk or limbs, but provides less than half the effort. 2-Substantial/Maximal Assistance-helper does MORE THAN HALF the effort. [place] lifts or holds trunk or limbs and provides more than half the effort. 5-Vrdluyvpq-newkjm does ALL the effort. Patient does none of the effort to complete the activity. Or, the assistance of 2 or more helpers is required for the patient to complete the activity. If activity was not attempted, code reason: 7-Patient Refused. 9-Not Applicable-not attempted and the patient did not perform the activity before the current illness, exacerbation or injury. 10-Not Attempted due to Environmental Limitations-(lack of equipment, weather restraints, etc.). 88-Not Attempted due to Medical Conditions or Safety Concerns. Self Care: Needed Some Help Functional Cognition: Needed Some Help Drive Self: No OT Current Status Subjective Agreeable to OT, patient in inconsistent in PLOF Mental Status/Objective Patient reports he ambulates and reports he stays in bed all day and someone helps him transfer Attachments: Monique Catheter, IV Current Upper Extremity ROM 90 degree active flexion increases tone w/ gains Upper Extremity Coordination Impaired Upper Extremity Strength 3/5 BUE grossly ADL-Treatment Eating (QC): 5 Oral Hygiene (QC): 3 Shower/Bathe Self (QC): 88 (multiple wounds, sponge bath recommended) Upper Body Dressing (QC): 3 Lower Body Dressing (QC): 1 On/Off Footwear (QC): 1 Toileting Hygiene (QC): 1 Education OT Patient Education: Modified ADL techniques, Progress toward Goal/Update tx plan, Purpose of tx/functional activities, Reviewed precautions, Rehab process, Safety issues, Transfer techniques, Use of adapted equipment Teaching Recipient: Patient Teaching Methods: Demonstration, Discussion Response to Teaching: Unable to Return Demonstration, Unable to Comprehend, Reinforcement Needed OT Fdc Goals Fdc Goals Eating (QC): 6 Oral Hygiene (QC): 4 Toileting Hygiene (QC): 4 Shower/Bathe Self (QC): 3 Upper Body Dressing (QC): 4 Lower Body Dressing (QC): 3 On/Off Footwear (QC): 3 1=Demonstrate adherence to instructed precautions during ADL tasks. 2=Patient will verbalize/demonstrate understanding of assistive devices/modifications for ADL. 3=Patient will improve strength/tolerance for activity to enable patient to perform ADL's. OT Education/Plan Problem List/Assessment Assessment: Decreased Activ Tolerance, Decreased Safety Aware, Decreased UE Strength, Dependent Transfers, Impaired Bed Mobility, Impaired Cognition, Impaired Coordination, Impaired Funct Balance, Impaired Self-Care Skills Discharge Recommendations Plan/Recommendations: Continue POC Treatment Plan/Plan of Care Treatment,Training & Education: Yes Patient would benefit from OT for education, treatment and training to promote independence in ADL's, mobility, safety and/or upper extremity function for ADL's. Plan of Care: ADL Retraining, Functional Mobility, Group Exercise/Act as Ind, UE Funct Exercise/Act Treatment Duration: November 14, 2022 Frequency: 3 times per week (3-5 times per week) Rehab Potential: Guarded Remains upright in chair w/ alarm set Time Start Time: 10:40 Stop Time: 10:55 DATE: November 14, 2022 Total Time Billed (hr/min): 15 Billed Treatment Time EVM 15 min DIANA PRO OT November 14, 2022 13:54
[2022-11-14 16:30] VITALS: BP 105/60
[2022-11-14] MEDS: cefTRIAXone IV/IM 1,000 MG in NS (IVPB) 50 ML IV SCH (17:27)
[2022-11-14 19:48] VITALS: BP 116/66
[2022-11-15] VITALS (7 sets, daily range): BP systolic 97–110; BP diastolic 48–66
[2022-11-15] MEDS: RT-ALBUTEROL/IPRATROPIUM 3 ML (DUONEB) VIAL INH SCH ×4 (03:15→22:06)
[2022-11-15 06:03] LABS: BASOPHILS % (AUTO) 1 % (0-10); EOSINOPHILS % (AUTO) 1 % (0-10); HEMATOCRIT 29 % (40-54); HEMOGLOBIN 10.8 g/dL (13.3-17.7); LYMPHOCYTES # (AUTO) 0.8 10^3/uL (1.0-4.0); LYMPHOCYTES % (AUTO) 24 % (12-44); MEAN CORPUSCULAR HEMOGLOBIN 35 pg (25-34); MEAN CORPUSCULAR HGB CONC 37 g/dL (32-36); MEAN CORPUSCULAR VOLUME 95 fL (80-99); MEAN PLATELET VOLUME 9.6 fL (9.0-12.2); MONOCYTES # (AUTO) 0.3 10^3/uL (0.0-1.0); MONOCYTES % (AUTO) 9 % (0-12); NEUTROPHILS # (AUTO) 2.1 10^3/uL (1.8-7.8); NEUTROPHILS % (AUTO) 65 % (42-75); PLATELET COUNT 142 10^3/uL (130-400); WHITE BLOOD COUNT 3.2 10^3/uL (4.3-11.0)
[2022-11-15 06:15] LABS: ALBUMIN 2.3 GM/DL (3.2-4.5); POTASSIUM 3.4 MMOL/L (3.6-5.0)
[2022-11-15 06:16] LABS: CALCIUM 7.9 MG/DL (8.5-10.1)
[2022-11-15 06:17] LABS: TOTAL PROTEIN 4.5 GM/DL (6.4-8.2)
[2022-11-15 06:19] LABS: BILIRUBIN,TOTAL 0.7 MG/DL (0.1-1.0)
[2022-11-15 06:21] LABS: CREATININE SERUM 0.54 MG/DL (0.60-1.30)
--- NOTE | 2022-11-15 06:53 | Progress Note - Hospitalist ---
Subjective HPI/CC On Admission Date Seen by Provider: November 15, 2022 Time Seen by Provider: 11:30 CC: PNA + Weakness Per ED report: 82-year-old male with history of atrial fibrillation, pulmonary emboli presents to the emergency department today for generalized weakness. His son states he lives with him and he has been unable to walk for the last 4 days. He typically is able to use a walker and get around at home as he needs but over the last several months has had increasing generalized weakness. He was di scharged from our facility on 09/03 with similar symptoms after he was found to have pulmonary emboli and a urinary tract infection. It was recommended upon discharge that he spent some time at a [facility] facility and the patient and family declined at that time. I had a conversation with his son in the room today and he again states he does not want to put his father in a retirement if at all possible. No recent fevers or chills. No recent changes in his medications. No recent infections or antibiotics. On exam today pt is doing well. He denies pain, n/v/f/c. He is producing urine but has not yet had a BM. He is ambulating some with assistance. He is eating and drinking without issue. Subjective/Events-last exam No major issues IVF HL Eating No pain Family at bedside Review of Systems General: Fatigue, Malaise Objective Exam Vital Signs Vital Signs Date Time Temp Pulse Resp B/P (MAP) Pulse Ox O2 Delivery O2 Flow Rate FiO2 11/15/22 12:14 72 18 110/60 (77) 11/15/22 12:02 36.0 100 Room Air 11/14/22 16:30 3.00 11/13/22 18:06 21 Capillary Refill : Less Than 3 Seconds General Appearance: No Apparent Distress, WD/WN Respiratory: Lungs Clear, Normal Breath Sounds Cardiovascular: Regular Rate, Rhythm Neurologic/Psychiatric: Alert, Oriented x3 Results/Procedures Lab Laboratory Tests 11/15/22 05:35 Patient resulted labs reviewed. Assessment/Plan Assessment and Plan Assess & Plan/Chief Complaint Assessment: PNA Dementia Debility Plan: Monitor closely HLIVF IV abx BARB SALINAS DO November 15, 2022 06:53
[2022-11-15] MEDS: NS IV 1000 ML 1,000 ML IV SCH (07:30)
[2022-11-15] MEDS: AZITHROMYCIN 250 MG TAB (ZITHROMAX) PO SCH (08:23)
[2022-11-15] MEDS: KCL 20 MEQ TAB (K-DUR) PO SCH ×2 (08:23→20:57)
[2022-11-15] MEDS: DOCUSATE SODIUM 100 MG (COLACE) CAP PO SCH ×2 (08:23→20:57)
[2022-11-15] MEDS: APIXABAN 5 MG (ELIQUIS) TABLET PO SCH ×2 (08:23→20:57)
[2022-11-15] MEDS: SENNOSIDES 8.6 MG (SENOKOT) TAB PO SCH ×2 (08:23→20:57)
[2022-11-15] MEDS: NICOTINE 14 MG (NICODERM) PATCH TD SCH (08:23)
[2022-11-15] MEDS: NICOTINE PATCH REMOVAL TP SCH (08:25)
--- NOTE | 2022-11-15 08:36 | Physical Therapy Daily Note ---
PT Daily Note-Current Subjective States that he can't walk or get out of bed and only agrees to bed exercises. Very lethargic. Pain Section J - Health Conditions 1. Rarely or not at all 2. Occasionally 3. Frequently 4. Almost constantly 8. Unable to answer Pain Effect on Sleep: 8 Pain Interference with Therapy: 8 Pain Interference w/Day-to-Day: 8 Transfers SCALE: Activities may be completed with or without assistive devices. 7-Kxpvkpxqde-qqflsel completes the activity by him/herself with no assistance from a helper. 5-Set-up or Clean-up Assistance-helper sets up or cleans up; patient completes activity. [place] assists only prior to or following the activity. 4-Supervision or Touching Assistance-helper provides verbal cues and/or touching/steadying and/or contact guard assistance as patient completes activity. Assistance may be provided throughout the activity or intermittently. 3-Partial/Moderate Assistance-helper does LESS THAN HALF the effort. [place] lifts, holds or supports trunk or limbs, but provides less than half the effort. 2-Substantial/Maximal Assistance-helper does MORE THAN HALF the effort. [place] lifts or holds trunk or limbs and provides more than half the effort. 1-Zwgxvibpv-juxyzc does ALL the effort. Patient does none of the effort to complete the activity. Or, the assistance of 2 or more helpers is required for the patient to complete the activity. If activity was not attempted, code reason: 7-Patient Refused. 9-Not Applicable-not attempted and the patient did not perform the activity before the current illness, exacerbation or injury. 10-Not Attempted due to Environmental Limitations-(lack of equipment, weather restraints, etc.). 88-Not Attempted due to Medical Conditions or Safety Concerns. Weight Bearing Right Lower Extremity: Right Full Weight Bearing Left Lower Extremity: Left Full Weight Bearing Exercises Supine Ex: LE Protocol Supine Reps: 20 Assessment Current Status: Fair Progress Patient very lethargic during treatment today. PT Product Development Assistant Goals Jail Goals PT Jail Goals Time Frame: December 06, 2022 Roll Left & Right (QC): 3 Sit to Lying (QC): 3 Lying-Sitting on Side/Bed(QC): 3 Sit to Stand (QC): 3 Chair/Oid-dg-Yxuzh Xfer(QC): 3 Toilet Transfer (QC): 3 Walk 10 feet (QC): 3 Walk 50ft with 2 Turns (QC): 3 PT Plan Treatment/Plan Treatment Plan: Continue Plan of Care Treatment Plan: Bed Mobility, Education, Functional Activity Monty, Functional Strength, Gait, Safety, Therapeutic Exercise, Transfers Treatment Duration: December 06, 2022 Frequency: 6 times per week Estimated Hrs Per Day: .25 hour per day Time Time In: 08 Time Out: 829 DATE: November 15, 2022 Total Billed Treatment Time: 10 Total Billed Treatment 1, EX x 10' LORA PINEDO PT November 15, 2022 08:36
[2022-11-15] MEDS: cefTRIAXone IV/IM 1,000 MG in NS (IVPB) 50 ML IV SCH (17:18)
[2022-11-16] VITALS (8 sets, daily range): BP systolic 104–145; BP diastolic 59–77
[2022-11-16] MEDS: RT-ALBUTEROL/IPRATROPIUM 3 ML (DUONEB) VIAL INH SCH ×4 (03:01→21:27)
--- NOTE | 2022-11-16 07:02 | Progress Note - Hospitalist ---
Subjective HPI/CC On Admission Date Seen by Provider: November 16, 2022 Time Seen by Provider: 11:00 CC: PNA + Weakness Per ED report: 82-year-old male with history of atrial fibrillation, pulmonary emboli presents to the emergency department today for generalized weakness. His son states he lives with him and he has been unable to walk for the last 4 days. He typically is able to use a walker and get around at home as he needs but over the last several months has had increasing generalized weakness. He was di scharged from our facility on 09/03 with similar symptoms after he was found to have pulmonary emboli and a urinary tract infection. It was recommended upon discharge that he spent some time at a halfway facility and the patient and family declined at that time. I had a conversation with his son in the room today and he again states he does not want to put his father in a alf if at all possible. No recent fevers or chills. No recent changes in his medications. No recent infections or antibiotics. On exam today pt is doing well. He denies pain, n/v/f/c. He is producing urine but has not yet had a BM. He is ambulating some with assistance. He is eating and drinking without issue. Subjective/Events-last exam No major issues Remains in bed most of the time IV abx maintained Review of Systems General: Fatigue, Malaise Objective Exam Vital Signs Vital Signs Date Time Temp Pulse Resp B/P (MAP) Pulse Ox O2 Delivery O2 Flow Rate FiO2 11/16/22 14:51 93 Room Air 0.00 11/16/22 12:42 36.4 99 19 119/76 (90) 11/13/22 18:06 21 Capillary Refill : Less Than 3 Seconds General Appearance: No Apparent Distress, WD/WN, Chronically ill Respiratory: Lungs Clear, Normal Breath Sounds Cardiovascular: Regular Rate, Rhythm Neurologic/Psychiatric: Alert, Oriented x3, Disoriented Results/Procedures Lab Laboratory Tests 11/16/22 07:40 Patient resulted labs reviewed. Assessment/Plan Assessment and Plan Assess & Plan/Chief Complaint Assessment: PNA Dementia Debility Plan: Monitor closely HLIVF IV abx BARB SALINAS DO November 16, 2022 06:57
[2022-11-16 07:50] LABS: BASOPHILS % (AUTO) 1 % (0-10); EOSINOPHILS # (AUTO) 0.1 10^3/uL (0.0-0.3); EOSINOPHILS % (AUTO) 1 % (0-10); HEMATOCRIT 30 % (40-54); HEMOGLOBIN 10.9 g/dL (13.3-17.7); LYMPHOCYTES # (AUTO) 0.9 10^3/uL (1.0-4.0); LYMPHOCYTES % (AUTO) 22 % (12-44); MEAN CORPUSCULAR HEMOGLOBIN 35 pg (25-34); MEAN CORPUSCULAR HGB CONC 37 g/dL (32-36); MEAN CORPUSCULAR VOLUME 95 fL (80-99); MEAN PLATELET VOLUME 9.4 fL (9.0-12.2); MONOCYTES # (AUTO) 0.5 10^3/uL (0.0-1.0); MONOCYTES % (AUTO) 11 % (0-12); NEUTROPHILS # (AUTO) 2.7 10^3/uL (1.8-7.8); NEUTROPHILS % (AUTO) 65 % (42-75); PLATELET COUNT 153 10^3/uL (130-400); WHITE BLOOD COUNT 4.2 10^3/uL (4.3-11.0)
[2022-11-16 07:59] LABS: ALBUMIN 2.2 GM/DL (3.2-4.5)
[2022-11-16 08:00] LABS: POTASSIUM 4.2 MMOL/L (3.6-5.0)
[2022-11-16 08:01] LABS: CALCIUM 7.9 MG/DL (8.5-10.1)
[2022-11-16 08:02] LABS: TOTAL PROTEIN 4.8 GM/DL (6.4-8.2)
[2022-11-16 08:04] LABS: BILIRUBIN,TOTAL 0.7 MG/DL (0.1-1.0)
[2022-11-16 08:06] LABS: CREATININE SERUM 0.53 MG/DL (0.60-1.30)
[2022-11-16] MEDS: KCL 20 MEQ TAB (K-DUR) PO SCH ×2 (10:15→20:47)
[2022-11-16] MEDS: SENNOSIDES 8.6 MG (SENOKOT) TAB PO SCH ×2 (10:15→20:48)
[2022-11-16] MEDS: NICOTINE 14 MG (NICODERM) PATCH TD SCH (10:15)
[2022-11-16] MEDS: APIXABAN 5 MG (ELIQUIS) TABLET PO SCH ×2 (10:15→20:47)
[2022-11-16] MEDS: AZITHROMYCIN 250 MG TAB (ZITHROMAX) PO SCH (10:15)
[2022-11-16] MEDS: DOCUSATE SODIUM 100 MG (COLACE) CAP PO SCH ×2 (10:16→20:47)
[2022-11-16] MEDS: NICOTINE PATCH REMOVAL TP SCH ×2 (10:16→20:51)
[2022-11-16] MEDS: cefTRIAXone IV/IM 1,000 MG in NS (IVPB) 50 ML IV SCH (17:21)
[2022-11-17] MEDS: RT-ALBUTEROL/IPRATROPIUM 3 ML (DUONEB) VIAL INH SCH ×4 (02:22→21:15)
[2022-11-17 03:42] VITALS: BP 124/57
[2022-11-17 06:00] LABS: BASOPHILS % (AUTO) 1 % (0-10); EOSINOPHILS # (AUTO) 0.1 10^3/uL (0.0-0.3); EOSINOPHILS % (AUTO) 2 % (0-10); HEMATOCRIT 30 % (40-54); HEMOGLOBIN 10.8 g/dL (13.3-17.7); LYMPHOCYTES # (AUTO) 1.3 10^3/uL (1.0-4.0); LYMPHOCYTES % (AUTO) 27 % (12-44); MEAN CORPUSCULAR HEMOGLOBIN 34 pg (25-34); MEAN CORPUSCULAR HGB CONC 36 g/dL (32-36); MEAN CORPUSCULAR VOLUME 94 fL (80-99); MEAN PLATELET VOLUME 9.6 fL (9.0-12.2); MONOCYTES # (AUTO) 0.6 10^3/uL (0.0-1.0); MONOCYTES % (AUTO) 12 % (0-12); NEUTROPHILS # (AUTO) 2.7 10^3/uL (1.8-7.8); NEUTROPHILS % (AUTO) 58 % (42-75); PLATELET COUNT 166 10^3/uL (130-400); WHITE BLOOD COUNT 4.7 10^3/uL (4.3-11.0)
[2022-11-17 06:41] LABS: ALBUMIN 2.3 GM/DL (3.2-4.5); BILIRUBIN,TOTAL 0.9 MG/DL (0.1-1.0); CALCIUM 7.9 MG/DL (8.5-10.1); CREATININE SERUM 0.56 MG/DL (0.60-1.30); POTASSIUM 4.2 MMOL/L (3.6-5.0); TOTAL PROTEIN 4.7 GM/DL (6.4-8.2)
[2022-11-17 08:22] VITALS: BP 138/79
[2022-11-17] MEDS: AZITHROMYCIN 250 MG TAB (ZITHROMAX) PO SCH (08:51)
[2022-11-17] MEDS: KCL 20 MEQ TAB (K-DUR) PO SCH ×2 (08:51→21:11)
[2022-11-17] MEDS: DOCUSATE SODIUM 100 MG (COLACE) CAP PO SCH ×2 (08:51→19:30)
[2022-11-17] MEDS: SENNOSIDES 8.6 MG (SENOKOT) TAB PO SCH ×2 (08:51→19:30)
[2022-11-17] MEDS: APIXABAN 5 MG (ELIQUIS) TABLET PO SCH ×2 (08:51→21:11)
[2022-11-17] MEDS: NICOTINE 14 MG (NICODERM) PATCH TD SCH (08:51)
[2022-11-17] MEDS: NICOTINE PATCH REMOVAL TP SCH (08:52)
[2022-11-17] MEDS ORDERED: HYPOCHLOROUS ACID/NaCl (VASHE) 250 ML IR PRN (10:45)
--- NOTE | 2022-11-17 10:48 | Physical Therapy Progress Note ---
Therapy Progress Note Patient adamantly refused therapy on this date. RN aware. PT will attempt later today or tomorrow a.m. 1 ref DARION WALTERS PT November 17, 2022 10:48
[2022-11-17 11:33] VITALS: BP 130/72
--- NOTE | 2022-11-17 12:47 | Occ Therapy Progress Note ---
Therapy Progress Note Patient adamantly refused therapy on this date. RN aware. DIANA PRO OT November 17, 2022 12:47
[2022-11-17 15:29] VITALS: BP 110/72
--- NOTE | 2022-11-17 16:16 | Progress Note ---
Subjective Subjective/Events-last exam Patient doing ok this AM. Denies any pain. Tolerating PO diet. Nurse reports max assist. Review of Systems General: Fatigue Pulmonary: No Dyspnea, No Cough Cardiovascular: No: Chest Pain, Palpitations, Edema Gastrointestinal: No: Nausea, Vomiting, Abdominal Pain, Diarrhea Neurological: Weakness, Incoordination, Confusion Objective Exam Last Set of Vital Signs Vital Signs Date Time Temp Pulse Resp B/P (MAP) Pulse Ox O2 Delivery O2 Flow Rate FiO2 11/17/22 15:29 36.0 105 18 110/72 (85) 97 Room Air 11/16/22 14:51 0.00 11/13/22 18:06 21 Capillary Refill : Less Than 3 Seconds I&O Intake and Output 11/17/22 00:00 Intake Total 960 ml Output Total 1250 ml Balance -290 ml Intake Oral 960 ml Output Urine Total 1250 ml # Bowel Movements 2 General: Alert, No Acute Distress Lungs: Clear to Auscultation, Normal Air Movement Heart: Regular Rate, No Murmurs Abdomen: Normal Bowel Sounds, Soft, No Tenderness Extremities: Other (2+ pitting edema) Neuro: Normal Speech Results/Procedures Lab Laboratory Tests 11/17/22 05:13: White Blood Count 4.7, Red Blood Count 3.17L, Hemoglobin 10.8L, Hematocrit 30L, Mean Corpuscular Volume 94, Mean Corpuscular Hemoglobin 34, Mean Corpuscular Hemoglobin Concent 36, Red Cell Distribution Width 12.9, Platelet Count 166, Mean Platelet Volume 9.6, Immature Granulocyte % (Auto) 0, Neutrophils (%) (Auto) 58, Lymphocytes (%) (Auto) 27, Monocytes (%) (Auto) 12, Eosinophils (%) (Auto) 2, Basophils (%) (Auto) 1, Neutrophils # (Auto) 2.7, Lymphocytes # (Auto) 1.3, Monocytes # (Auto) 0.6, Eosinophils # (Auto) 0.1, Basophils # (Auto) 0.0, Immature Granulocyte # (Auto) 0.0, Sodium Level 125*L, Potassium Level 4.2, Chloride Level 98, Carbon Dioxide Level 20L, Anion Gap 7, Blood Urea Nitrogen 3L , Creatinine 0.56L, Estimat Glomerular Filtration Rate 98, BUN/Creatinine Ratio 5, Glucose Level 66L, Calcium Level 7.9L, Corrected Calcium 9.3, Total Bilirubin 0.9, Aspartate Amino Transf (AST/SGOT) 29, Alanine Aminotransferase (ALT/SGPT) 17, Alkaline Phosphatase 69, Total Protein 4.7L, Albumin 2.3L Assessment/Plan Assessment/Plan (1) CAP (community acquired pneumonia) Status: Acute Assessment & Plan: 11/17: On RA, continue IV antibiotics, MAT protocol Qualifiers: Qualified Codes: J18.9 - Pneumonia, unspecified organism (2) Hyponatremia Status: Acute Assessment & Plan: 11/17: Trending down, will continue to monitor, will start fluid restriction, possible SIADH 2/2 PNA (3) Generalized weakness Status: Acute Assessment & Plan: 11/17: PT (4) Frequent falls Status: Acute (5) Pulmonary emboli Status: Acute Assessment & Plan: 11/17: Continue OAC Qualifiers: Qualified Codes: I26.99 - Other pulmonary embolism without acute cor pulmonale (6) Dementia Status: Chronic Assessment & Plan: 11/17: Seems to be at baseline (7) Physical debility Status: Acute THEA SUMMERS MD November 17, 2022 16:16
[2022-11-17] MEDS: cefTRIAXone IV/IM 1,000 MG in NS (IVPB) 50 ML IV SCH (18:06)
[2022-11-17 19:37] VITALS: BP 144/84
[2022-11-18] VITALS (9 sets, daily range): BP systolic 92–149; BP diastolic 53–84
[2022-11-18] MEDS: RT-ALBUTEROL/IPRATROPIUM 3 ML (DUONEB) VIAL INH SCH ×3 (02:26→15:24)
[2022-11-18 05:11] LABS: BASOPHILS # (AUTO) 0.1 10^3/uL (0.0-0.1); BASOPHILS % (AUTO) 1 % (0-10); EOSINOPHILS # (AUTO) 0.1 10^3/uL (0.0-0.3); EOSINOPHILS % (AUTO) 1 % (0-10); HEMATOCRIT 29 % (40-54); HEMOGLOBIN 10.5 g/dL (13.3-17.7); LYMPHOCYTES % (AUTO) 27 % (12-44); MEAN CORPUSCULAR HEMOGLOBIN 35 pg (25-34); MEAN CORPUSCULAR HGB CONC 37 g/dL (32-36); MEAN CORPUSCULAR VOLUME 95 fL (80-99); MEAN PLATELET VOLUME 9.2 fL (9.0-12.2); MONOCYTES # (AUTO) 0.5 10^3/uL (0.0-1.0); MONOCYTES % (AUTO) 15 % (0-12); NEUTROPHILS % (AUTO) 55 % (42-75); PLATELET COUNT 138 10^3/uL (130-400); WHITE BLOOD COUNT 3.7 10^3/uL (4.3-11.0)
[2022-11-18 05:27] LABS: ALBUMIN 2.3 GM/DL (3.2-4.5); BILIRUBIN,TOTAL 0.8 MG/DL (0.1-1.0); CREATININE SERUM 0.62 MG/DL (0.60-1.30); POTASSIUM 4.2 MMOL/L (3.6-5.0); TOTAL PROTEIN 4.7 GM/DL (6.4-8.2)
[2022-11-18] MEDS: NICOTINE PATCH REMOVAL TP SCH (09:03)
[2022-11-18] MEDS: AZITHROMYCIN 250 MG TAB (ZITHROMAX) PO SCH (09:03)
[2022-11-18] MEDS: NICOTINE 14 MG (NICODERM) PATCH TD SCH (09:03)
[2022-11-18] MEDS: SENNOSIDES 8.6 MG (SENOKOT) TAB PO SCH ×2 (09:03→20:16)
[2022-11-18] MEDS: DOCUSATE SODIUM 100 MG (COLACE) CAP PO SCH ×2 (09:03→20:16)
[2022-11-18] MEDS: KCL 20 MEQ TAB (K-DUR) PO SCH ×2 (09:03→20:16)
[2022-11-18] MEDS: APIXABAN 5 MG (ELIQUIS) TABLET PO SCH ×2 (09:03→20:16)
--- NOTE | 2022-11-18 11:47 | Physical Therapy Daily Note ---
PT Daily Note-Current Subjective Patient agrees to PT. Pain Section J - Health Conditions 1. Rarely or not at all 2. Occasionally 3. Frequently 4. Almost constantly 8. Unable to answer Pain Effect on Sleep: 8 Pain Interference with Therapy: 8 Pain Interference w/Day-to-Day: 8 Transfers SCALE: Activities may be completed with or without assistive devices. 5-Vsaufsdqfc-wtgzbkx completes the activity by him/herself with no assistance from a helper. 5-Set-up or Clean-up Assistance-helper sets up or cleans up; patient completes activity. [place] assists only prior to or following the activity. 4-Supervision or Touching Assistance-helper provides verbal cues and/or touching/steadying and/or contact guard assistance as patient completes activity. Assistance may be provided throughout the activity or intermittently. 3-Partial/Moderate Assistance-helper does LESS THAN HALF the effort. [place] lifts, holds or supports trunk or limbs, but provides less than half the effort. 2-Substantial/Maximal Assistance-helper does MORE THAN HALF the effort. [place] lifts or holds trunk or limbs and provides more than half the effort. 7-Irywipbiy-dvwbqz does ALL the effort. Patient does none of the effort to complete the activity. Or, the assistance of 2 or more helpers is required for the patient to complete the activity. If activity was not attempted, code reason: 7-Patient Refused. 9-Not Applicable-not attempted and the patient did not perform the activity before the current illness, exacerbation or injury. 10-Not Attempted due to Environmental Limitations-(lack of equipment, weather restraints, etc.). 88-Not Attempted due to Medical Conditions or Safety Concerns. Lying to Sitting/Side of Bed(Q: 1 Sit to Stand (QC): 1 Chair/Yki-nj-Mbyvj Xfer(QC): 1 dependent assist with patient demonstrating severe right lean and is very resistive/retropulsive with sitting EOB and SPT. Weight Bearing Right Lower Extremity: Right Full Weight Bearing Left Lower Extremity: Left Full Weight Bearing Assessment Patient remains dependent with all mobility and is up in recliner with chair alarm activated and pillow placement right side due to severe lean. Call light in hand PT Fdc Goals Pressing Machine Operator Goals PT Fdc Goals Time Frame: December 06, 2022 Roll Left & Right (QC): 3 Sit to Lying (QC): 3 Lying-Sitting on Side/Bed(QC): 3 Sit to Stand (QC): 3 Chair/Nkm-nu-Qqxss Xfer(QC): 3 Toilet Transfer (QC): 3 Walk 10 feet (QC): 3 Walk 50ft with 2 Turns (QC): 3 PT Plan Treatment/Plan Treatment Plan: Continue Plan of Care Treatment Plan: Bed Mobility, Education, Functional Activity Monty, Functional Strength, Gait, Safety, Therapeutic Exercise, Transfers Treatment Duration: December 06, 2022 Frequency: 6 times per week Estimated Hrs Per Day: .25 hour per day Time Time In: 1115 Time Out: 1125 DATE: November 18, 2022 Total Billed Treatment Time: 10 Total Billed Treatment 1 visit FA 10 min DARION WALTERS PT November 18, 2022 11:47
[2022-11-18] MEDS ORDERED: PANT40TA52 PO (11:59)
[2022-11-18] MEDS ORDERED: APIX5TAB PO (11:59)
[2022-11-18] MEDS ORDERED: DILT-27 PO (11:59)
[2022-11-18] MEDS ORDERED: ASPI-1238 PO (11:59)
[2022-11-18] MEDS ORDERED: DIGO125T3 PO (11:59)
[2022-11-18] MEDS ORDERED: TMSL.4C PO (11:59)
[2022-11-18] MEDS ORDERED: RT-ALBUTEROL/IPRATROPIUM 3 ML (DUONEB) VIAL INH PRN (15:30)
--- NOTE | 2022-11-18 17:31 | Progress Note ---
Subjective Subjective/Events-last exam Patient doing well this AM. Still having pain and weakness in legs but tolerating PO diet. Continues to be max assist Review of Systems General: Fatigue Pulmonary: No Dyspnea, No Cough Cardiovascular: No: Chest Pain, Palpitations, Edema Gastrointestinal: No: Nausea, Vomiting, Abdominal Pain, Diarrhea, Constipation Neurological: Weakness, Incoordination, Confusion (occassional) Objective Exam Last Set of Vital Signs Vital Signs Date Time Temp Pulse Resp B/P (MAP) Pulse Ox O2 Delivery O2 Flow Rate FiO2 11/18/22 15:53 36.5 120 16 128/84 (99) 99 Room Air 11/16/22 14:51 0.00 11/13/22 18:06 21 Capillary Refill : Less Than 3 Seconds I&O Intake and Output 11/18/22 00:00 Intake Total 1530 ml Output Total 1450 ml Balance 80 ml Intake Oral 1530 ml Output Urine Total 1450 ml # Bowel Movements 2 General: Alert, No Acute Distress Lungs: Clear to Auscultation, Normal Air Movement Heart: Regular Rate, No Murmurs Abdomen: Normal Bowel Sounds, Soft, No Tenderness Extremities: No Edema, No Tenderness/Swelling Neuro: Normal Speech Results/Procedures Lab Laboratory Tests 11/18/22 04:53: White Blood Count 3.7L, Red Blood Count 3.03L, Hemoglobin 10.5L, Hematocrit 29L, Mean Corpuscular Volume 95, Mean Corpuscular Hemoglobin 35H, Mean Corpuscular Hemoglobin Concent 37H, Red Cell Distribution Width 13.2, Platelet Count 138, Mean Platelet Volume 9.2, Immature Granulocyte % (Auto) 1, Neutrophils (%) (Auto) 55, Lymphocytes (%) (Auto) 27, Monocytes (%) (Auto) 15H, Eosinophils (%) (Auto) 1, Basophils (%) (Auto) 1, Neutrophils # (Auto) 2.0, Lymphocytes # (Auto) 1.0, Monocytes # (Auto) 0.5, Eosinophils # (Auto) 0.1, Basophils # (Auto) 0.1, Immature Granulocyte # (Auto) 0.0, Sodium Level 126L, Potassium Level 4.2, Chloride Level 97L, Carbon Dioxide Level 21, Anion Gap 8, Blood Urea Nitrogen 5L , Creatinine 0.62, Estimat Glomerular Filtration Rate 95, BUN/Creatinine Ratio 8, Glucose Level 78, Calcium Level 8.0L, Corrected Calcium 9.4, Total Bilirubin 0.8, Aspartate Amino Transf (AST/SGOT) 23, Alanine Aminotransferase (ALT/SGPT) 14, Alkaline Phosphatase 59, Total Protein 4.7L, Albumin 2.3L Assessment/Plan Assessment/Plan (1) CAP (community acquired pneumonia) Status: Acute Assessment & Plan: 11/17: On RA, continue IV antibiotics, MAT protocol Qualifiers: Qualified Codes: J18.9 - Pneumonia, unspecified organism (2) Hyponatremia Status: Acute Assessment & Plan: 11/17: Trending down, will continue to monitor, will start fluid restriction, possible SIADH /2 PNA 11/18: Alert, will continue to monitor, likely chronic hypoNa (3) Generalized weakness Status: Acute Assessment & Plan: 11/17: PT 11/18: Would recommend placement because patient is max assist (4) Frequent falls Status: Acute (5) Pulmonary emboli Status: Acute Assessment & Plan: 11/17: Continue OAC Qualifiers: Qualified Codes: I26.99 - Other pulmonary embolism without acute cor pulmonale (6) Dementia Status: Chronic Assessment & Plan: 11/17: Seems to be at baseline (7) Physical debility Status: Acute THEA SUMMERS MD November 18, 2022 17:31
[2022-11-18] MEDS: cefTRIAXone IV/IM 1,000 MG in NS (IVPB) 50 ML IV SCH (17:48)
[2022-11-18] MEDS ORDERED: dilTIAZem120 MG (CARDIZEM CD) CAP PO ONE (22:45)
[2022-11-19 03:22] VITALS: BP 116/75
[2022-11-19 05:44] LABS: BASOPHILS % (AUTO) 1 % (0-10); EOSINOPHILS # (AUTO) 0.1 10^3/uL (0.0-0.3); EOSINOPHILS % (AUTO) 2 % (0-10); HEMATOCRIT 29 % (40-54); HEMOGLOBIN 10.5 g/dL (13.3-17.7); LYMPHOCYTES # (AUTO) 0.8 10^3/uL (1.0-4.0); LYMPHOCYTES % (AUTO) 21 % (12-44); MEAN CORPUSCULAR HEMOGLOBIN 35 pg (25-34); MEAN CORPUSCULAR HGB CONC 37 g/dL (32-36); MEAN CORPUSCULAR VOLUME 95 fL (80-99); MEAN PLATELET VOLUME 9.2 fL (9.0-12.2); MONOCYTES # (AUTO) 0.6 10^3/uL (0.0-1.0); MONOCYTES % (AUTO) 17 % (0-12); NEUTROPHILS # (AUTO) 2.2 10^3/uL (1.8-7.8); NEUTROPHILS % (AUTO) 59 % (42-75); PLATELET COUNT 145 10^3/uL (130-400); WHITE BLOOD COUNT 3.8 10^3/uL (4.3-11.0)
[2022-11-19 05:56] LABS: ALBUMIN 2.2 GM/DL (3.2-4.5); POTASSIUM 4.3 MMOL/L (3.6-5.0)
[2022-11-19 05:58] LABS: CALCIUM 8.3 MG/DL (8.5-10.1)
[2022-11-19 05:59] LABS: TOTAL PROTEIN 4.8 GM/DL (6.4-8.2)
[2022-11-19 06:01] LABS: BILIRUBIN,TOTAL 0.9 MG/DL (0.1-1.0)
[2022-11-19 06:02] LABS: CREATININE SERUM 0.58 MG/DL (0.60-1.30)
[2022-11-19 07:47] VITALS: BP 133/66
[2022-11-19] MEDS: dilTIAZem120 MG (CARDIZEM CD) CAP PO SCH ×2 (08:29→20:42)
[2022-11-19] MEDS: SENNOSIDES 8.6 MG (SENOKOT) TAB PO SCH ×2 (08:29→20:42)
[2022-11-19] MEDS: APIXABAN 5 MG (ELIQUIS) TABLET PO SCH ×2 (08:29→20:42)
[2022-11-19] MEDS: KCL 20 MEQ TAB (K-DUR) PO SCH ×2 (08:29→20:42)
[2022-11-19] MEDS: DOCUSATE SODIUM 100 MG (COLACE) CAP PO SCH ×2 (08:30→20:42)
[2022-11-19] MEDS: NICOTINE 14 MG (NICODERM) PATCH TD SCH (08:30)
[2022-11-19] MEDS: NICOTINE PATCH REMOVAL TP SCH (08:30)
[2022-11-19] MEDS: UREA 15 GM POWDER (URE-NA) PO SCH (10:43)
--- NOTE | 2022-11-19 11:37 | Occ Therapy Progress Note ---
Therapy Progress Note Patient sleeping on arrival, OT wakes patient and encourages participation w/ OT, patient reports "NO" twice and turns head into pillow. OT pursues for attempt for participation and patient ignores OT. OT addresses refusal w/ Nursing and OT communicate s on whiter write board for family to encourage participation.OT will attempt tomorrow and DC pending participation DIANA PRO OT November 19, 2022 11:37
[2022-11-19 11:58] VITALS: BP 130/70
--- NOTE | 2022-11-19 15:46 | Physical Therapy Daily Note ---
PT Daily Note-Current Subjective Patient lying supine in bed upon PT arrival, agreeable to treatment. Patient rates pain currently at 0/10. Pain Section J - Health Conditions 1. Rarely or not at all 2. Occasionally 3. Frequently 4. Almost constantly 8. Unable to answer Pain Effect on Sleep: 8 Pain Interference with Therapy: 8 Pain Interference w/Day-to-Day: 8 Mental Status Patient Orientation: Person Transfers SCALE: Activities may be completed with or without assistive devices. 3-Jkfjzlzfzn-wdwuxsh completes the activity by him/herself with no assistance from a helper. 5-Set-up or Clean-up Assistance-helper sets up or cleans up; patient completes activity. [place] assists only prior to or following the activity. 4-Supervision or Touching Assistance-helper provides verbal cues and/or touching/steadying and/or contact guard assistance as patient completes activity. Assistance may be provided throughout the activity or intermittently. 3-Partial/Moderate Assistance-helper does LESS THAN HALF the effort. [place] lifts, holds or supports trunk or limbs, but provides less than half the effort. 2-Substantial/Maximal Assistance-helper does MORE THAN HALF the effort. [place] lifts or holds trunk or limbs and provides more than half the effort. 4-Iiecivpew-uhckek does ALL the effort. Patient does none of the effort to complete the activity. Or, the assistance of 2 or more helpers is required for the patient to complete the activity. If activity was not attempted, code reason: 7-Patient Refused. 9-Not Applicable-not attempted and the patient did not perform the activity before the current illness, exacerbation or injury. 10-Not Attempted due to Environmental Limitations-(lack of equipment, weather restraints, etc.). 88-Not Attempted due to Medical Conditions or Safety Concerns. Roll Left & Right (QC): 1 Sit to Lying (QC): 1 Lying to Sitting/Side of Bed(Q: 2 Sit to Stand (QC): 2 Chair/Dbx-bh-Mbkfz Xfer(QC): 1 Weight Bearing Right Lower Extremity: Right Full Weight Bearing Left Lower Extremity: Left Full Weight Bearing Assessment Current Status: Poor Progress Patient tolerated treatment without any report of pain, however was unable to assist much with transfer. Patient performs all bed mobility and transfers with max to total A. Patient in chair post treatment with all needs met, nursing notified, call light in reach and chair alarm activated. PT Detention Goals Resistance Machine Welder Setter Goals PT Detention Goals Time Frame: December 06, 2022 Roll Left & Right (QC): 3 Sit to Lying (QC): 3 Lying-Sitting on Side/Bed(QC): 3 Sit to Stand (QC): 3 Chair/Vyx-qu-Mmlzf Xfer(QC): 3 Toilet Transfer (QC): 3 Walk 10 feet (QC): 3 Walk 50ft with 2 Turns (QC): 3 PT Plan Treatment/Plan Treatment Plan: Continue Plan of Care Treatment Plan: Bed Mobility, Education, Functional Activity Monty, Functional Strength, Gait, Safety, Therapeutic Exercise, Transfers Treatment Duration: December 06, 2022 Frequency: 6 times per week Estimated Hrs Per Day: .25 hour per day Safety Risks/Education Patient Education: Transfer Techniques Teaching Recipient: Patient Teaching Methods: Demonstration, Discussion Response to Teaching: Reinforcement Needed Time Time In: 1346 Time Out: 1400 DATE: November 19, 2022 Total Billed Treatment Time: 14 Total Billed Treatment Visit, TRACEY SHULTZ PT November 19, 2022 15:46
[2022-11-19 16:01] VITALS: BP 103/66
--- NOTE | 2022-11-19 16:01 | Progress Note ---
Subjective Subjective/Events-last exam Patient w/o concerns. Refusing to work with OT/PT. He desires to go home but sodium remains low. Review of Systems General: Fatigue Pulmonary: Dyspnea, Cough Cardiovascular: Edema; No: Chest Pain, Palpitations Gastrointestinal: No: Nausea, Vomiting, Abdominal Pain, Diarrhea, Constipation Neurological: Weakness, Incoordination, Confusion Objective Exam Last Set of Vital Signs Vital Signs Date Time Temp Pulse Resp B/P (MAP) Pulse Ox O2 Delivery O2 Flow Rate FiO2 11/19/22 11:58 36.6 101 18 130/70 (90) 96 Room Air 11/16/22 14:51 0.00 11/13/22 18:06 21 Capillary Refill : Less Than 3 Seconds I&O Intake and Output 11/18/22 23:59 Intake Total 1020 ml Output Total 1625 ml Balance -605 ml Intake Oral 970 ml IV Total 50 ml Output Urine Total 1625 ml # Bowel Movements 1 General: Alert, No Acute Distress Lungs: Clear to Auscultation, Normal Air Movement Heart: Regular Rate, No Murmurs Abdomen: Soft, No Tenderness Extremities: Other (1+ edema bilaterally) Results/Procedures Lab Laboratory Tests 11/19/22 05:23: White Blood Count 3.8L, Red Blood Count 3.01L, Hemoglobin 10.5L, Hematocrit 29L, Mean Corpuscular Volume 95, Mean Corpuscular Hemoglobin 35H, Mean Corpuscular Hemoglobin Concent 37H, Red Cell Distribution Width 13.1, Platelet Count 145, Mean Platelet Volume 9.2, Immature Granulocyte % (Auto) 0, Neutrophils (%) ( Auto) 59, Lymphocytes (%) (Auto) 21, Monocytes (%) (Auto) 17H, Eosinophils (%) (Auto) 2, Basophils (%) (Auto) 1, Neutrophils # (Auto) 2.2, Lymphocytes # (Auto) 0.8L, Monocytes # (Auto) 0.6, Eosinophils # (Auto) 0.1, Basophils # (Auto) 0.0, Immature Granulocyte # (Auto) 0.0, Sodium Level 124*L, Potassium Level 4.3, Chloride Level 95L, Carbon Dioxide Level 19L, Anion Gap 10, Blood Urea Nitrogen 5L, Creatinine 0.58L, Estimat Glomerular Filtration Rate 97, BUN/Creatinine Ratio 9, Glucose Level 78, Calcium Level 8.3L, Corrected Calcium 9.7, Total Bilirubin 0.9, Aspartate Amino Transf (AST/SGOT) 26, Alanine Aminotransferase (ALT/SGPT) 17, Alkaline Phosphatase 56, Total Protein 4.8L, Albumin 2.2L Assessment/Plan Assessment/Plan (1) CAP (community acquired pneumonia) Status: Acute Assessment & Plan: 11/17: On RA, continue IV antibiotics, MAT protocol 11/19: Will transition to PO antibiotics Qualifiers: Qualified Codes: J18.9 - Pneumonia, unspecified organism (2) Hyponatremia Status: Acute Assessment & Plan: 11/17: Trending down, will continue to monitor, will start fluid restriction, possible SIADH /2 PNA 11/18: Alert, will continue to monitor, likely chronic hypoNa 11/19: Will start supplementation, chronic hypoNa, Patient alert (3) Generalized weakness Status: Acute Assessment & Plan: 11/17: PT 11/18: Would recommend placement because patient is max assist 11/19: Patient refusing PT/OT, will plan on home with HH (4) Frequent falls Status: Acute (5) Pulmonary emboli Status: Acute Assessment & Plan: 11/17: Continue OAC Qualifiers: Qualified Codes: I26.99 - Other pulmonary embolism without acute cor p ulmonale (6) Dementia Status: Chronic Assessment & Plan: 11/17: Seems to be at baseline (7) Physical debility Status: Acute THEA SUMMERS MD November 19, 2022 16:01
[2022-11-19] MEDS: cefTRIAXone IV/IM 1,000 MG in NS (IVPB) 50 ML IV SCH (17:04)
[2022-11-19 19:08] VITALS: BP_SYST 105; BP_SYST 144; BP_DIAS 67; BP_DIAS 68
[2022-11-19 23:58] VITALS: BP 117/62
[2022-11-20 03:25] VITALS: BP 105/53
[2022-11-20 05:50] LABS: BASOPHILS % (AUTO) 1 % (0-10); EOSINOPHILS # (AUTO) 0.1 10^3/uL (0.0-0.3); EOSINOPHILS % (AUTO) 2 % (0-10); HEMATOCRIT 27 % (40-54); HEMOGLOBIN 9.6 g/dL (13.3-17.7); LYMPHOCYTES # (AUTO) 0.9 10^3/uL (1.0-4.0); LYMPHOCYTES % (AUTO) 25 % (12-44); MEAN CORPUSCULAR HEMOGLOBIN 34 pg (25-34); MEAN CORPUSCULAR HGB CONC 36 g/dL (32-36); MEAN CORPUSCULAR VOLUME 96 fL (80-99); MEAN PLATELET VOLUME 9.5 fL (9.0-12.2); MONOCYTES # (AUTO) 0.6 10^3/uL (0.0-1.0); MONOCYTES % (AUTO) 16 % (0-12); NEUTROPHILS # (AUTO) 1.9 10^3/uL (1.8-7.8); NEUTROPHILS % (AUTO) 55 % (42-75); PLATELET COUNT 148 10^3/uL (130-400); WHITE BLOOD COUNT 3.5 10^3/uL (4.3-11.0)
[2022-11-20 06:03] LABS: ALBUMIN 2.3 GM/DL (3.2-4.5)
[2022-11-20 06:04] LABS: POTASSIUM 4.2 MMOL/L (3.6-5.0)
[2022-11-20 06:05] LABS: CALCIUM 8.1 MG/DL (8.5-10.1)
[2022-11-20 06:06] LABS: TOTAL PROTEIN 4.9 GM/DL (6.4-8.2)
[2022-11-20 06:08] LABS: BILIRUBIN,TOTAL 0.9 MG/DL (0.1-1.0)
[2022-11-20 06:10] LABS: CREATININE SERUM 0.56 MG/DL (0.60-1.30)
[2022-11-20 07:12] VITALS: BP 113/59
[2022-11-20] MEDS: dilTIAZem120 MG (CARDIZEM CD) CAP PO SCH ×2 (08:20→20:47)
[2022-11-20] MEDS: DOCUSATE SODIUM 100 MG (COLACE) CAP PO SCH ×2 (08:20→20:47)
[2022-11-20] MEDS: SENNOSIDES 8.6 MG (SENOKOT) TAB PO SCH ×2 (08:20→20:47)
[2022-11-20] MEDS: APIXABAN 5 MG (ELIQUIS) TABLET PO SCH ×2 (08:20→20:47)
[2022-11-20] MEDS: KCL 20 MEQ TAB (K-DUR) PO SCH ×2 (08:20→20:47)
[2022-11-20] MEDS: NICOTINE 14 MG (NICODERM) PATCH TD SCH (08:20)
[2022-11-20] MEDS: NICOTINE PATCH REMOVAL TP SCH (08:21)
[2022-11-20] MEDS: UREA 15 GM POWDER (URE-NA) PO SCH (08:21)
[2022-11-20 11:17] VITALS: BP 95/52
--- NOTE | 2022-11-20 11:51 | Physical Therapy Daily Note ---
PT Daily Note-Current Subjective Patient lying supine in bed upon PT arrival, agreeable to treatment. Patient rates pain currently at 0/10. Pain Section J - Health Conditions 1. Rarely or not at all 2. Occasionally 3. Frequently 4. Almost constantly 8. Unable to answer Pain Effect on Sleep: 8 Pain Interference with Therapy: 8 Pain Interference w/Day-to-Day: 8 Transfers SCALE: Activities may be completed with or without assistive devices. 4-Blkhtqahbi-ggszoiz completes the activity by him/herself with no assistance from a helper. 5-Set-up or Clean-up Assistance-helper sets up or cleans up; patient completes activity. [place] assists only prior to or following the activity. 4-Supervision or Touching Assistance-helper provides verbal cues and/or touching/steadying and/or contact guard assistance as patient completes activity. Assistance may be provided throughout the activity or intermittently. 3-Partial/Moderate Assistance-helper does LESS THAN HALF the effort. [place] lif ts, holds or supports trunk or limbs, but provides less than half the effort. 2-Substantial/Maximal Assistance-helper does MORE THAN HALF the effort. [place] lifts or holds trunk or limbs and provides more than half the effort. 0-Mrywudaih-pwkbpq does ALL the effort. Patient does none of the effort to complete the activity. Or, the assistance of 2 or more helpers is required for the patient to complete the activity. If activity was not attempted, code reason: 7-Patient Refused. 9-Not Applicable-not attempted and the patient did not perform the activity before the current illness, exacerbation or injury. 10-Not Attempted due to Environmental Limitations-(lack of equipment, weather restraints, etc.). 88-Not Attempted due to Medical Conditions or Safety Concerns. Roll Left & Right (QC): 1 Sit to Lying (QC): 1 Lying to Sitting/Side of Bed(Q: 2 Sit to Stand (QC): 2 Chair/Reo-hy-Uhtgh Xfer(QC): 1 Weight Bearing Right Lower Extremity: Right Full Weight Bearing Left Lower Extremity: Left Full Weight Bearing Assessment Current Status: Poor Progress Patient tolerated treatment without any report of pain, however was unable to assist much with transfer. Patient performs all bed mobility and transfers with max to total A. Patient in chair post treatment with all needs met, nursing notified, call light in reach and chair alarm activated. PT [facility] Goals Housing Assistant Property Manager Goals PT Housing Assistant Property Manager Goals Time Frame: December 06, 2022 Roll Left & Right (QC): 3 Sit to Lying (QC): 3 Lying-Sitting on Side/Bed(QC): 3 Sit to Stand (QC): 3 Chair/Rvs-ys-Mdqud Xfer(QC): 3 Toilet Transfer (QC): 3 Walk 10 feet (QC): 3 Walk 50ft with 2 Turns (QC): 3 PT Plan Treatment/Plan Treatment Plan: Continue Plan of Care Treatment Plan: Bed Mobility, Education, Functional Activity Monty, Functional Strength, Gait, Safety, Therapeutic Exercise, Transfers Treatment Duration: December 06, 2022 Frequency: 6 times per week Estimated Hrs Per Day: .25 hour per day Safety Risks/Education Patient Education: Transfer Techniques Teaching Recipient: Patient Teaching Methods: Demonstration, Discussion Response to Teaching: Reinforcement Needed Time Time In: 1039 Time Out: 1049 DATE: November 20, 2022 Total Billed Treatment Time: 10 Total Billed Treatment Visit, FA TRACEY CURTIS PT November 20, 2022 11:51
[2022-11-20] MEDS: SODIUM CHLORIDE 1 GM TABLET PO SCH ×2 (12:36→20:47)
--- NOTE | 2022-11-20 14:20 | Occupational Ther Daily Note ---
OT Current Status-Daily Note Subjective Nursing call and request to assist w/ recliner chair to bed transfer. Patient family present Mental Status/Objective Patient Orientation: Person, Eyes Open ADL-Treatment NO ADLS performed this visit, safe transfer performed to allow patient access to bed to rest.Patient delayed response to command following for transfer sequences and use of ADs Therapy Code Descriptions/Definitions Functional [place] Measure: 0=Not Assessed/NA 4=Minimal Assistance 1=Total Assistance 5=Supervision or Setup 2=Maximal Assistance 6=Modified [place] 3=Moderate Assistance 7=Complete IndependenceSCALE: Activities may be completed with or without assistive devices. 1-Umclpfpkgc-kwulwde completes the activity by him/herself with no assistance from a helper. 5-Set-up or Clean-up Assistance-helper sets up or cleans up; patient completes activity. [place] assists only prior to or following the activity. 4-Supervision or Touching Assistance-helper provides verbal cues and/or touching/steadying and/or contact guard assistance as patient completes acti vity. Assistance may be provided throughout the activity or intermittently. 3-Partial/Moderate Assistance-helper does LESS THAN HALF the effort. [place] lifts, holds or supports trunk or limbs, but provides less than half the effort. 2-Substantial/Maximal Assistance-helper does MORE THAN HALF the effort. [place] lifts or holds trunk or limbs and provides more than half the effort. 5-Gtnazygfi-afhfly does ALL the effort. Patient does none of the effort to complete the activity. Or, the assistance of 2 or more helpers is required for the patient to complete the activity. If activity was not attempted, code reason: 7-Patient Refused. 9-Not Applicable-not attempted and the patient did not perform the activity before the current illness, exacerbation or injury. 10-Not Attempted due to Environmental Limitations-(lack of equipment, weather restraints, etc.). 88-Not Attempted due to Medical Conditions or Safety Concerns. Education OT Patient Education: Correct positioning, Disease process Teaching Recipient: Patient, Family Response to Teaching: Unable to Return Demonstration OT Leather Shaver Goals Leather Shaver Goals Eating (QC): 6 Oral Hygiene (QC): 4 Toileting Hygiene (QC): 4 Shower/Bathe Self (QC): 3 Upper Body Dressing (QC): 4 Lower Body Dressing (QC): 3 On/Off Footwear (QC): 3 1=Demonstrate adherence to instructed precautions during ADL tasks. 2=Patient will verbalize/demonstrate understanding of assistive devices/modifications for ADL. 3=Patient will improve strength/tolerance for activity to enable patient to perform ADL's. OT Education/Plan Problem List/Assessment Assessment: Decreased Activ Tolerance, Decreased Safety Aware, Decreased UE Strength, Dependent Transfers, Impaired Bed Mobility, Impaired Cognition, I mpaired Coordination, Impaired Funct Balance, Impaired Self-Care Skills Discharge Recommendations Plan/Recommendations: Continue POC Treatment Plan/Plan of Care Treatment,Training & Education: Yes Patient would benefit from OT for education, treatment and training to promote independence in ADL's, mobility, safety and/or upper extremity function for ADL's. Plan of Care: ADL Retraining, Functional Mobility, Group Exercise/Act as Ind, UE Funct Exercise/Act Treatment Duration: November 14, 2022 Frequency: 3 times per week (3-5 times per week) Rehab Potential: Guarded Time Start Time: 12:45 Stop Time: 13:00 DATE: November 20, 2022 Total Time Billed (hr/min): 15 Billed Treatment Time FA 15 min DIANA PRO OT November 20, 2022 14:20
[2022-11-20 15:59] VITALS: BP 103/57
--- NOTE | 2022-11-20 16:31 | Progress Note ---
Subjective Subjective/Events-last exam Patient states that he feels ok. Pleasantly demented. Tolerating PO diet. Max assist Review of Systems General: Fatigue Pulmonary: No Dyspnea, No Cough Cardiovascular: No: Chest Pain, Palpitations, Edema Gastrointestinal: No: Nausea, Vomiting, Abdominal Pain, Diarrhea, Constipation Neurological: Weakness, Incoordination, Confusion Objective Exam Last Set of Vital Signs Vital Signs Date Time Temp Pulse Resp B/P (MAP) Pulse Ox O2 Delivery O2 Flow Rate FiO2 11/20/22 15:59 36.8 81 18 103/57 (72) 95 Room Air 11/20/22 08:00 0.00 Capillary Refill : Less Than 3 Seconds I&O Intake and Output 11/20/22 00:00 Intake Total 1410 ml Balance 1410 ml Intake Oral 1410 ml # Voids 8 # Bowel Movements 2 General: Alert, No Acute Distress HEENT: Other (unequal pupils L>R) Lungs: Clear to Auscultation, Normal Air Movement Heart: Regular Rate, No Murmurs Abdomen: Normal Bowel Sounds, Soft, No Tenderness Extremities: Other (trace edema bilaterally) Neuro: Normal Speech Results/Procedures Lab Laboratory Tests 11/20/22 05:19: White Blood Count 3.5L, Red Blood Count 2.80L, Hemoglobin 9.6L, Hematocrit 27L, Mean Corpuscular Volume 96, Mean Corpuscular Hemoglobin 34, Mean Corpuscular Hemoglobin Concent 36, Red Cell Distribution Width 13.2, Platelet Count 148, Mean Platelet Volume 9.5, Immature Granulocyte % (Auto) 0, Neutrophils (%) (Auto) 55, Lymphocytes (%) (Auto) 25, Monocytes (%) (Auto) 16H, Eosinophils (%) (Auto) 2, Basophils (%) (Auto) 1, Neutrophils # (Auto) 1.9, Lymphocytes # (Auto) 0.9L, Monocytes # (Auto) 0.6, Eosinophils # (Auto) 0.1, Basophils # (Auto) 0.0, Immature Granulocyte # (Auto) 0.0, Sodium Level 125*L, Potassium Level 4.2, Chloride Level 98, Carbon Dioxide Level 19L, Anion Gap 8, Blood Urea Nitrogen 13, Creatinine 0.56L, Estimat Glomerular Filtration Rate 98, BUN/Creatinine Ratio 23, Glucose Level 83, Calcium Level 8.1L, Corrected Calcium 9.5, Total Bilirubin 0.9, Aspartate Amino Transf (AST/SGOT) 25, Alanine Aminotransferase (ALT/SGPT) 16, Alkaline Phosphatase 56, Total Protein 4.9L, Albumin 2.3L Assessment/Plan Assessment/Plan (1) CAP (community acquired pneumonia) Status: Acute Assessment & Plan: 11/17: On RA, continue IV antibiotics, MAT protocol 11/19: Will transition to PO antibiotics Qualifiers: Qualified Codes: J18.9 - Pneumonia, unspecified organism (2) Hyponatremia Status: Acute Assessment & Plan: 11/17: Trending down, will continue to monitor, will start fluid restriction, possible SIADH /2 PNA 11/18: Alert, will continue to monitor, likely chronic hypoNa 11/19: Will start supplementation, chronic hypoNa, Patient alert 11/20: Trending sodium, if trending up will plan on d/c tomorrow with HH (3) Generalized weakness Status: Acute Assessment & Plan: 11/17: PT 11/18: Would recommend placement because patient is max assist 11/19: Patient refusing PT/OT, will plan on home with HH (4) Frequent falls Status: Acute (5) Pulmonary emboli Status: Acute Assessment & Plan: 11/17: Continue OAC Qualifiers: Qualified Codes: I26.99 - Other pulmonary embolism without acute cor pulmonale (6) Dementia Status: Chronic Assessment & Plan: 11/17: Seems to be at baseline (7) Physical debility Status: Acute THEA SUMMERS MD November 20, 2022 16:31
[2022-11-20 20:45] VITALS: BP 117/71
[2022-11-21 00:35] VITALS: BP 103/73
[2022-11-21 03:01] VITALS: BP_SYST 106; BP_SYST 120; BP_DIAS 65
[2022-11-21 05:34] LABS: BASOPHILS % (AUTO) 1 % (0-10); EOSINOPHILS # (AUTO) 0.1 10^3/uL (0.0-0.3); EOSINOPHILS % (AUTO) 2 % (0-10); HEMATOCRIT 30 % (40-54); HEMOGLOBIN 10.6 g/dL (13.3-17.7); LYMPHOCYTES % (AUTO) 26 % (12-44); MEAN CORPUSCULAR HEMOGLOBIN 34 pg (25-34); MEAN CORPUSCULAR HGB CONC 36 g/dL (32-36); MEAN CORPUSCULAR VOLUME 96 fL (80-99); MEAN PLATELET VOLUME 9.2 fL (9.0-12.2); MONOCYTES # (AUTO) 0.6 10^3/uL (0.0-1.0); MONOCYTES % (AUTO) 16 % (0-12); NEUTROPHILS # (AUTO) 2.2 10^3/uL (1.8-7.8); NEUTROPHILS % (AUTO) 55 % (42-75); PLATELET COUNT 163 10^3/uL (130-400); WHITE BLOOD COUNT 3.9 10^3/uL (4.3-11.0)
[2022-11-21 05:59] LABS: ALBUMIN 2.4 GM/DL (3.2-4.5); BILIRUBIN,TOTAL 0.9 MG/DL (0.1-1.0); CALCIUM 8.1 MG/DL (8.5-10.1); CREATININE SERUM 0.57 MG/DL (0.60-1.30); POTASSIUM 4.4 MMOL/L (3.6-5.0)
[2022-11-21 08:50] VITALS: BP 99/61
[2022-11-21] MEDS: SENNOSIDES 8.6 MG (SENOKOT) TAB PO SCH (09:48)
[2022-11-21] MEDS: DOCUSATE SODIUM 100 MG (COLACE) CAP PO SCH (09:48)
[2022-11-21] MEDS: NICOTINE 14 MG (NICODERM) PATCH TD SCH (09:48)
[2022-11-21] MEDS: KCL 20 MEQ TAB (K-DUR) PO SCH (09:48)
[2022-11-21] MEDS: APIXABAN 5 MG (ELIQUIS) TABLET PO SCH (09:48)
[2022-11-21] MEDS: SODIUM CHLORIDE 1 GM TABLET PO SCH ×2 (09:48→13:42)
[2022-11-21] MEDS: NICOTINE PATCH REMOVAL TP SCH (09:49)
--- NOTE | 2022-11-21 11:06 | Occupational Ther Daily Note ---
OT Current Status-Daily Note Subjective reclined in bed w/ food tray bedside Mental Status/Objective Patient Orientation: Person, Confused ADL-Treatment Therapy Code Descriptions/Definitions Functional [place] Measure: 0=Not Assessed/NA 4=Minimal Assistance 1=Total Assistance 5=Supervision or Setup 2=Maximal Assistance 6=Modified [place] 3=Moderate Assistance 7=Complete IndependenceSCALE: Activities may be completed with or without assistive devices. 6-Vkepmehbta-zzebeiv completes the activity by him/herself with no assistance from a helper. 5-Set-up or Clean-up Assistance-helper sets up or cleans up; patient completes activity. [place] assists only prior to or following the activity. 4-Supervision or Touching Assistance-helper provides verbal cues and/or touching/steadying and/or contact guard assistance as patient completes activity. Assistance may be provided throughout the activity or intermittently. 3-Partial/Moderate Assistance-helper does LESS THAN HALF the effort. [place] lifts, holds or supports trunk or limbs, but provides less than half the effort. 2-Substantial/Maximal Assistance-helper does MORE THAN HALF the effort. [place] lifts or holds trunk or limbs and provides more than half the effort. 0-Dcnyucgsb-nnlgun does ALL the effort. Patient does none of the effort to complete the activity. Or, the assistance of 2 or more helpers is required for the patient to complete the activity. If activity was not attempted, code reason: 7-Patient Refused. 9-Not Applicable-not attempted and the patient did not perform the activity before the current illness, exacerbation or injury. 10-Not Attempted due to Environmental Limitations-(lack of equipment, weather restraints, etc.). 88-Not Attempted due to Medical Conditions or Safety Concerns. Eating (QC): 4 (OT set up food plate w/ patient in recliner) Oral Hygiene (QC): 3 Bathing Location: L Arm, R Arm, Chest, Abdomen Shower/Bathe Self (QC): 2 (UB Sponge bath) Upper Body Dressing (QC): 3 Lower Body Dressing (QC): 1 On/Off Footwear: 1 Toileting Hygiene (QC): 1 Toilet Transfer (QC): 1 Education OT Patient Education: Correct positioning, Modified ADL techniques, Progress toward Goal/Update tx plan, Purpose of tx/functional activities, Reviewed precautions, Rehab process, Safety issues, Transfer techniques Teaching Recipient: Patient Teaching Methods: Demonstration, Discussion Response to Teaching: Reinforcement Needed OT Skilled Nursing Goals Washing Machine Mechanic Goals Eating (QC): 6 Oral Hygiene (QC): 4 Toileting Hygiene (QC): 4 Shower/Bathe Self (QC): 3 Upper Body Dressing (QC): 4 Lower Body Dressing (QC): 3 On/Off Footwear (QC): 3 1=Demonstrate adherence to instructed precautions during ADL tasks. 2=Patient will verbalize/demonstrate understanding of assistive devices/modifications for ADL. 3=Patient will improve strength/tolerance for activity to enable patient to perform ADL's. OT Education/Plan Problem List/Assessment Assessment: Decreased Activ Tolerance, Decreased Safety Aware, Decreased UE Strength, Dependent Transfers, Impaired Bed Mobility, Impaired Cognition, Impaired Coordination, Impaired Funct Balance, Impaired Self-Care Skills Discharge Recommendations Plan/Recommendations: Continue POC Treatment Plan/Plan of Care Patient would benefit from OT for education, treatment and training to promote independence in ADL's, mobility, safety and/or upper extremity function for ADL's. Plan of Care: ADL Retraining, Functional Mobility, Group Exercise/Act as Ind, UE Funct Exercise/Act Treatment Duration: November 14, 2022 Frequency: 3 times per week (3-5 times per week) Estimated Hrs Per Day: .25 hour per day Rehab Potential: Guarded Time Start Time: 09:30 Stop Time: 09:45 DATE: November 21, 2022 Total Time Billed (hr/min): 15 Billed Treatment Time ADL 15 DIANA PRO OT November 21, 2022 11:06
--- NOTE | 2022-11-21 11:33 | Physical Therapy Daily Note ---
PT Daily Note-Current Subjective Patient sitting in chair upon PT arrival, agreeable to treatment, however he frequently falls asleep. Shakes his head "no" when asked if he has pain. Pain Section J - Health Conditions 1. Rarely or not at all 2. Occasionally 3. Frequently 4. Almost constantly 8. Unable to answer Pain Effect on Sleep: 8 Pain Interference with Therapy: 8 Pain Interference w/Day-to-Day: 8 Mental Status Patient Orientation: Person Transfers SCALE: Activities may be completed with or without assistive devices. 1-Uubooeoofs-ghbazno completes the activity by him/herself with no assistance from a helper. 5-Set-up or Clean-up Assistance-helper sets up or cleans up; patient completes activity. [place] assists only prior to or following the activity. 4-Supervision or Touching Assistance-helper provides verbal cues and/or touching/steadying and/or contact guard assistance as patient completes activity. Assistance may be provided throughout the activity or intermittently. 3-Partial/Moderate Assistance-helper does LESS THAN HALF the effort. [place] lifts, holds or supports trunk or limbs, but provides less than half the effort. 2-Substantial/Maximal Assistance-helper does MORE THAN HALF the effort. [place] lifts or holds trunk or limbs and provides more than half the effort. 5-Rlttdmizg-aavxru does ALL the effort. Patient does none of the effort to complete the activity. Or, the assistance of 2 or more helpers is required for the patient to complete the activity. If activity was not attempted, code reason: 7-Patient Refused. 9-Not Applicable-not attempted and the patient did not perform the activity before the current illness, exacerbation or injury. 10-Not Attempted due to Environmental Limitations-(lack of equipment, weather restraints, etc.). 88-Not Attempted due to Medical Conditions or Safety Concerns. Weight Bearing Right Lower Extremity: Right Full Weight Bearing Left Lower Extremity: Left Full Weight Bearing Exercises Supine Ex: Ankle pumps, Quad Set Supine Reps: 20 Seated Therapy Exercises: Long arc quads, Hip flexion, Hamstring Curls, Hip abd/add Seated Reps: 20 Assessment Current Status: Poor Progress Patient sitting in chair having just been transferred a few minutes prior by OT and WAREHOUSE HAND. Patient agreeable to exercises. Performs LE therapeutic exercise as listed above with AAROM/PROM. Patient in chair post treatment with all needs met, nursing notified, call light in hand and chair alarm activated. PT [facility] Goals Insurance Auditor Goals PT [facility] Goals Time Frame: December 06, 2022 Roll Left & Right (QC): 3 Sit to Lying (QC): 3 Lying-Sitting on Side/Bed(QC): 3 Sit to Stand (QC): 3 Chair/Vbk-fc-Gwjtx Xfer(QC): 3 Toilet Transfer (QC): 3 Walk 10 feet (QC): 3 Walk 50ft with 2 Turns (QC): 3 PT Plan Treatment/Plan Treatment Plan: Continue Plan of Care Treatment Plan: Bed Mobility, Education, Functional Activity Monty, Functional Strength, Gait, Safety, Therapeutic Exercise, Transfers Treatment Duration: December 06, 2022 Frequency: 6 times per week Estimated Hrs Per Day: .25 hour per day Time Time In: 944 Time Out: 1000 DATE: November 21, 2022 Total Billed Treatment Time: 16 Total Billed Treatment Visit, EX TRACEY CURTIS PT November 21, 2022 11:33
[2022-11-21 12:42] VITALS: BP 127/64
[2022-11-21] MEDS ORDERED: SODI100047 MC (12:45)
--- NOTE | 2022-11-21 12:46 | D/C HH Face to Face Order ---
D/C Face to Face Orders Reconcile Patient Problems Problems Reviewed?: Yes Instructions for Patient Via [facility], Patient Instructions/FollowUp: PCP 1 week Physician to follow Patient: [facility] Discharge Diet for Home: other diet Patient Problems: Dementia Patient Data-Allergies,Ht & Wt Patient Allergies: Coded Allergies: No Known Drug Allergies (Unverified , 08/20/16) Height (Feet): 5 Height (Inches): 6.00 Weight (Pounds): 167 Weight (Ounces): 0.0 Home Health Need/Face to Face Date of Face to Face: November 21, 2022 Clinical Findings: Generalized weakness and fatigue, Instability, Muscle weakness, Unsteady gait I have seen Pt [id number]: Yes Discharged To: Home Diagnosis/Conditions: Dementia Patient is Homebound due to: Muscle weakness Homebound Status Due to the above stated illness, injury or surgical procedure (medical condition or diagnosis) and associated clinical findings, the patient is homeb ound because of his/her inability to leave home except with aid of a supportive device and/or person AND leaving the home requires a considerable and taxing effort or is medically contraindicated. Pt req the following assistanc: Walker, Wheelchair Home Health Nursing Orders Home Health Services Order: Nursing Services, Bottom Presser-Evaluate & Treat, Physical Therapy-Evaluate & Treat Home Health Infusion Therapy Line Start Date: November 13, 2022 Certify Stmt I certify that this patient is under my care and that I, a nurse practitioner or a physician; a wellness assistant working with me, had a face to face encounter that - meets the physician face to face encounter requirements with this patient as dated. BARB SALINAS DO November 21, 2022 12:46
--- NOTE | 2022-11-21 12:46 | Discharge Summary ---
Discharge Summary Hospital Course Was the Problem List Reviewed?: Yes Problems/Dx: (1) Generalized weakness Status: Acute (2) Physical debility Status: Acute (3) Frequent falls Status: Acute (4) CAP (community acquired pneumonia) Status: Acute Qualifiers: Qualified Codes: J18.9 - Pneumonia, unspecified organism (5) Pulmonary emboli Status: Acute Qualifiers: Qualified Codes: I26.99 - Other pulmonary embolism without acute cor pulmonale (6) Dementia Status: Chronic (7) Hyponatremia Status: Acute (8) Atrial fibrillation with RVR Status: Acute Hospital Course Date of Admission: November 19, 2022 at 10:15 Admission Diagnosis : Family Physician/Provider: Center/[facility] Date of Discharge: 11/21/22 Discharge Diagnosis: [ ] Hospital Course: Uneventful course but lengthy since family did not wish to place in NH. Severe dementia precluded anything but poor prognosis. PNA resolved with abx. OAC maintained for AF. Hospice recommended but family chose HH and DC home with grandson. Labs and Pending Lab Test: Laboratory Tests 11/21/22 05:13: White Blood Count 3.9L, Red Blood Count 3.09L, Hemoglobin 10.6L, Hematocrit 30L, Mean Corpuscular Volume 96, Mean Corpuscular Hemoglobin 34, Mean Corpuscular Hemoglobin Concent 36, Red Cell Distribution Width 13.2, Platelet Count 163, Mean Platelet Volume 9.2, Immature Granulocyte % (Auto) 1, Neutrophils (%) (Auto) 55, Lymphocytes (%) (Auto) 26, Monocytes (%) (Auto) 16H, Eosinophils (%) (Auto) 2, Basophils (%) (Auto) 1, Neutrophils # (Auto) 2.2, Lymphocytes # (Auto) 1.0, Monocytes # (Auto) 0.6, Eosinophils # (Auto) 0.1, Basophils # (Auto) 0.0, Immature Granulocyte # (Auto) 0.0, Sodium Level 123*L, Potassium Level 4.4, Chloride Level 96L, Carbon Dioxide Level 20L, Anion Gap 7, Blood Urea Nitrogen 9, Creatinine 0.57L, Estimat Glomerular Filtration Rate 98, BUN/Creatinine Ratio 16, Glucose Level 88, Calcium Level 8.1L, Corrected Calcium 9.4, Total Bilirubin 0.9, Aspartate Amino Transf (AST/SGOT) 27, Alanine Aminotransferase (ALT/SGPT) 14, Alkaline Phosphatase 60, Total Protein 5.0L, Albumin 2.4L Home Meds Active Sodium Chloride 1,000 Mg Tablet.nohemy 1,000 Mg MC BID Reported Eliquis (Apixaban) 5 Mg Tablet 5 Mg PO BID Pantoprazole Sodium 40 Mg Tablet.dr 40 Mg PO DAILY Diltiazem 24Hr ER (Diltiazem HCl) 120 Mg Cap.er.24h 120 Mg PO BID Flomax (Tamsulosin HCl) 0.4 Mg Cap 0.4 Mg PO 1800 Digoxin 125 Mcg (0.125 Mg) Tablet 125 Mcg PO DAILY Aspirin EC (Aspirin) 81 Mg Tablet.dr 81 Mg PO DAILY Assessment/Pt Instructions PCP 1 week Discharge Planning: <30 minutes discharge planning Discharge Instructions Discharge Diet: Other Diet (fluid restriction) Discharge Physical Examination Vital Signs Vital Signs Date Time Temp Pulse Resp B/P (MAP) Pulse Ox O2 Delivery O2 Flow Rate FiO2 11/21/22 08:50 36.1 86 20 99/61 (74) 93 Room Air 11/21/22 08:00 0.00 General Appearance: No Apparent Distress, WD/WN, Chronically ill Allergies: Coded Allergies: No Known Drug Allergies (Unverified , 08/20/16) Discharge Summary Date of Admission November 19, 2022 at 10:15 Date of Discharge Discharge Date: November 21, 2022 Admission Diagnosis Discharge Diagnosis Assessment: PNA Dementia Debility Plan: Monitor closely HLIVF IV BARB Fisher DO November 21, 2022 12:46
[2022-11-21] MEDS: dilTIAZem120 MG (CARDIZEM CD) CAP PO SCH (13:39)
[2022-11-21 15:05] VITALS: BP 127/64
== END 2022-11-21 15:45 | disposition home health service (06) | DRG 193 ==
LOC: EDUNIT# 16:05 → ER 16:10 → 4TH 17:40 → OBSVTOIN 11-19 10:15 → 4TH 11-19 15:29
PROVIDERS: ADMIT Internal Medicine; ATTEND Family Medicine
DX: J18.9 Pneumonia, unspecified organism (principal); I26.99 Other pulmonary embolism without acute cor pulmonale; E87.1 Hypo-osmolality and hyponatremia; F03.90 Unspecified dementia, unspecified severity, without behavioral disturbance, psychotic disturbance, mood disturbance, and anxiety; I48.91 Unspecified atrial fibrillation; Z79.82 Long term (current) use of aspirin; Z79.01 Long term (current) use of anticoagulants; Z79.899 Other long term (current) drug therapy; Z95.5 Presence of coronary angioplasty implant and graft; I50.9 Heart failure, unspecified; I25.10 Atherosclerotic heart disease of native coronary artery without angina pectoris; E78.00 Pure hypercholesterolemia, unspecified; I11.0 Hypertensive heart disease with heart failure; K21.9 Gastro-esophageal reflux disease without esophagitis; M19.90 Unspecified osteoarthritis, unspecified site; G89.29 Other chronic pain; M54.9 Dorsalgia, unspecified; F32.A Depression, unspecified; I73.9 Peripheral vascular disease, unspecified; Z87.891 Personal history of nicotine dependence; R53.81 Other malaise; R53.1 Weakness
CPT/HCPCS: 36415; 51701; 71045; 80053; 81000; 85025; 93005; 94640; 94664; 94760; G0378

== ENCOUNTER 2022-11-22 17:13 | Observation (INO) | payer MEDICARE, OTHER ==
[~2022-11-22] VITALS: Ht 167 cm; Wt 76.2 kg
[~2022-11-22 17:13] MED LIST changes: +DIGO125T3 PO; +DILT-27 PO; +SODI100047 MC
[2022-11-22] MEDS ORDERED: CEFEPIME INJECTION 1,000 MG in NS (IVPB) 50 ML IV ONE (17:45)
[2022-11-22] MEDS ORDERED: LIDOCAINE UROJET 2% GEL 10 ML PKG TOP ONE (17:45)
[2022-11-22] MEDS ORDERED: LACTATED RINGERS 1,000 ML IV ONE (17:45)
[2022-11-22 17:52] LABS: BASOPHILS # (AUTO) 0.1 10^3/uL (0.0-0.1); BASOPHILS % (AUTO) 1 % (0-10); EOSINOPHILS # (AUTO) 0.1 10^3/uL (0.0-0.3); EOSINOPHILS % (AUTO) 1 % (0-10); HEMATOCRIT 30 % (40-54); HEMOGLOBIN 10.7 g/dL (13.3-17.7); LYMPHOCYTES % (AUTO) 23 % (12-44); MEAN CORPUSCULAR HEMOGLOBIN 34 pg (25-34); MEAN CORPUSCULAR HGB CONC 36 g/dL (32-36); MEAN CORPUSCULAR VOLUME 96 fL (80-99); MEAN PLATELET VOLUME 9.1 fL (9.0-12.2); MONOCYTES # (AUTO) 0.7 10^3/uL (0.0-1.0); MONOCYTES % (AUTO) 15 % (0-12); NEUTROPHILS # (AUTO) 2.6 10^3/uL (1.8-7.8); NEUTROPHILS % (AUTO) 59 % (42-75); PLATELET COUNT 194 10^3/uL (130-400); WHITE BLOOD COUNT 4.5 10^3/uL (4.3-11.0)
[2022-11-22 17:56] LABS: ALBUMIN 2.5 GM/DL (3.2-4.5); CHLORIDE 94 MMOL/L (98-107); POTASSIUM 4.4 MMOL/L (3.6-5.0)
[2022-11-22 17:57] LABS: CALCIUM 8.4 MG/DL (8.5-10.1); INR 1.3 (0.8-1.4); PROTHROMBIN TIME PATIENT 16.4 SEC (12.2-14.7)
[2022-11-22 17:58] LABS: AMMONIA 27 UMOL/L (11-32); GLUCOSE 79 MG/DL (70-105); SODIUM 123 MMOL/L (135-145)
[2022-11-22 17:59] LABS: TOTAL PROTEIN 5.2 GM/DL (6.4-8.2)
[2022-11-22 18:00] LABS: BILIRUBIN,TOTAL 1.3 MG/DL (0.1-1.0); CARBON DIOXIDE 19 MMOL/L (21-32)
--- NOTE | 2022-11-22 18:00 | ED General ---
General Chief Complaint: General Problems/Pain Stated Complaint: AMS Nursing Triage Note: PT TO ED PER W/C BY GRANDSONS, PT WAS RELEASED FROM HOSPITAL YESTERDAY. PT STATES NOT FEELING WELL. PT VERY WEAK. WONT TALK TO FAMILY. PT L PUPIL LARGER THAN R. PT HAS DECUBITUS ULCERS ON COCCYX AND R HIP. AVELON PATCHES IN PLACE. Source of Information: Family, Old Records Exam Limitations: Other (PT IS NOT ANSWERING QUESTIONS) History of Present Illness Date Seen by Provider: November 22, 2022 Time Seen by Provider: 17:45 Initial Comments PT ARRIVES VIA POV FROM HOME WITH STEP SON AND GRANDSONS PT WAS ADMITTED HERE 11/19/22 FOR PNEUMONIA AND DISMISSED YESTERDAY FAMILY REPORTS THAT HE IS VERY LETHARGIC AND "WON'T RESPOND" SINCE HE HAS BEEN HOME FROM THE HOSPITAL--WORSE TODAY PT TOOK HIS MEDICATIONS YESTERDAY, BUT NO MEDICATIONS TODAY HE HAS NOT REALLY EATEN OR DRANK ANYTHING SINCE HE HAS BEEN HOME, HE ATE A FEW BITES OF EGGS YESTERDAY, NO FOOD INTAKE SINCE THEN, AND NO LIQUID INTAKE TO SPEAK OF EITHER. HE HAS NOT HAD ANYTHING AT ALL TO DRINK TODAY HE HAS NOT BEEN OUT OF BED SINCE HE HAS BEEN HOME. HE IS BEEN INCONTINENT OF BOWELS AND BLADDER. SON-IN-LAW STATES HE CHANGED HIS BRIEF AROUND 1330 TODAY, AND PT HAD A BM AT THAT TIME, AND A VERY SMALL AMOUNT OF URINE. NO URINE OUTPUT SINCE THEN NO DIFFICULTY BREATHING NO VOMITING. NO KNOWN FEVER, NO SWEATS OR CHILLS PT HAS KNOWN DECUBITUS ULCERS ON SACRUM/COCCYX AND RIGHT HIP THAT HAVE DRESSINGS IN PLACE PT HAS KNOWN ATRIAL FIBRILLATION AND IS MAINTAINED ON ELIQUIS, ASPIRIN, DILTIAZEM AND DIGOXIN. PT LIVES AT HOME WITH HIS SON. STEP SON AND GRANDSONS ARE HERE WITH PT ALSO PCP: [facility] Allergies and Home Medications Allergies Coded Allergies: No Known Drug Allergies (Unverified , 08/20/16) Patient Home Medication List Apixaban (Eliquis) 5 Mg Tablet, 5 MG PO BID, (Reported) Entered as Reported by: BETY HILL on 11/18/22 1159 Aspirin (Aspirin EC) 81 Mg Tablet.dr, 81 MG PO DAILY, (Reported) Entered as Reported by: BETY HILL on 11/18/22 1159 Diltiazem HCl (Diltiazem 24Hr ER) 120 Mg Cap.er.24h, 120 MG PO BID, (Reported) Entered as Reported by: BETY HILL on 11/18/22 1159 Pantoprazole Sodium (Pantoprazole Sodium) 40 Mg Tablet.dr, 40 MG PO DAILY, (Reported) Entered as Reported by: BETY HILL on 11/18/22 1159 Sodium Chloride (Sodium Chloride) 1,000 Mg Tablet.nohemy, 1,000 MG MC BID Prescribed by: BARB SALINAS on 11/21/22 1245 Tamsulosin HCl (Flomax) 0.4 Mg Cap, 0.4 MG PO 1800, (Reported) Entered as Reported by: BETY HILL on 11/18/22 1159 Discontinued Medications Apixaban (Eliquis) 5 Mg Tablet, 5 MG PO BID Discontinued Reason: No Longer Taking Prescribed by: LISY WEBSTER on 09/03/22 0849 Aspirin (Aspirin EC) 81 Mg Tablet., 81 MG PO DAILY Discontinued Reason: No Longer Taking Prescribed by: LISY WEBSTER on 09/03/22 0849 Digoxin (Digoxin) 125 Mcg (0.125 Mg) Tablet, 125 MCG PO DAILY, (Reported) Entered as Reported by: BETY HILL on 11/18/22 1159 Diltiazem HCl (Diltiazem HCl) 60 Mg Tablet, 60 MG PO Q6HR Discontinued Reason: No Longer Taking Prescribed by: LISY WEBSTER on 09/03/22 0849 Pantoprazole Sodium (Pantoprazole Sodium) 40 Mg Tablet., 40 MG PO DAILY@0700 Discontinued Reason: No Longer Taking Prescribed by: LISY WEBSTER on 09/03/22 0849 Tamsulosin HCl (Flomax) 0.4 Mg Cap, 0.4 MG PO DAILY@1800 Discontinued Reason: No Longer Taking Prescribed by: LISY WEBSTER on 09/03/22 0849 Review of Systems Review of Systems Constitutional: see HPI Past Catsidb-Kqedsn-Fsfewr Hx Patient Social History Tobacco Use?: Yes Tobacco type used: Cigarettes Smoking Status: Former Smoker Smokeless Tobacco Frequency: Current Everyday User Substance use?: No Alcohol Use?: Yes (HISTORY OF ALCOHOL USE) Seasonal Allergies Seasonal Allergies: No Past Medical History Surgery/Hospitalization HX: RECENT PNEM, STROKE, DEBILITY Surgeries: Yes (BACK SURGERY (1999), HERNIA SURGERY (2007);CATARACTS) Abdominal, Cardiac, Coronary Stent, Eye Surgery, Orthopedic Respiratory: Yes Pneumonia Cardiac: Yes (CHF; TRICUSPID & MITRAL REGURG; CAROTID STENOSIS) Atrial Fibrillation, Coronary Artery Disease, High Cholesterol, Hypertension, Peripheral Vascular, Valvular Heart Disease Neurological: No Reproductive Disorders: No Sexually Transmitted Disease: No HIV/AIDS: No Genitourinary: No Gastrointestinal: Yes Gastroesophageal Reflux Musculoskeletal: Yes (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) Arthritis, Chronic Back Pain Endocrine: No HEENT: Yes (LEFT PUPIL LARGER THAN RIGHT SECONDARY TO CATARACT SURGERY) Cataract Loss of Vision: Bilateral Hearing Impairment: Denies Cancer: No Psychosocial: Yes (OVERDOSED 2020 WITH SUICIDE ATTEMPT-FLECANIDE + RANEXA) Suicide Attempts, Depression Integumentary: No Blood Disorders: No Adverse Reaction/Blood Tranf: No (N/A) Family Medical History Cancer of colon 09 BROTHER Family history: Gastrointestinal disease 09 BROTHER Kidney disease 09 BROTHER SOCIAL HISTORY: -SMOKED 1 PPD, QUIT SEVERAL YEARS AGO -CHEWED TOBACCO 1/2 CAN/DAY--QUIT SEVERAL YEARS AGO -ETOH--DRINKS BEER DAILY--USED TO DRINK VERY HEAVILY EVERY DAY, BUT NOW FAMILY RATIONS HIM TO 2 BEERS A DAY. -DRUGS--DENIES USE PAST SURGICAL HISTORY: -BACK SURGERY 1999 -RIGHT INGUINAL SURGERY 2008 -CATARACT SURGERY--RIGHT 11/2017; -CARDIAC CATH WITH STENT TO LAD 05/2010 -CARDIAC CATH 08/06/[address] LYON: PATENT STENT TO LAD. NO INTERVENTION -REVEAL DEVICE PLACED 2015--REMOVED DUE TO INFECTION Physical Exam Vital Signs Vital Signs - First Documented 11/22/22 17:15 Temp 36.8 Pulse 104 Resp 24 B/P (MAP) 114/67 (83) Pulse Ox 98 Capillary Refill : Less Than 3 Seconds Height, Weight, BMI Height: 5'6.00" Weight: 167lbs. 0.0oz. [id number]; 25.00 BMI Method:Stated General Appearance: No Apparent Distress, WD/WN, Other (PT IS LETHARGIC, HE OPENS EYES TO VOICE, AND TRACKS, AND THE ONLY VERBAL RESPONSE IS THAT HE STATES HIS FIRST NAME WHEN ASKED. HE HAS NO OTHER VERBAL RESPONSE AND IS OTHERWISE NOT FOLLOWING COMMANDS. HE IS RESTING WITH HANDS FOLDED AND RESTING ON HIS UPPER ABDOMEN. HE DOES NOT APPEAR TO BE IN ANY DISCOMFORT OR OBVIOUS DISTRESS. RESPIRATIONS ARE EVEN AND UNLABORED. ) HEENT: Other (RIGHT PUPIL IS 2 MM, LEFT PUPIL IS 5-6 MM--THIS IS NORMAL BASELINE FOR PT) Neck: Normal Inspection Respiratory: No Accessory Muscle Use, No Respiratory Distress, Other (END EXPIRATORY HIGH PITCHED SQUEAK/RUB ON LEFT. OTHERWISE BREATH SOUNDS ARE CLEAR. DECREASED LUNG SOUNDS IN BOTH BASES, BUT WORSE ON RIGHT. ) Cardiovascular: No JVD, Irregularly Irregular Gastrointestinal: Non Tender, Soft Extremity: Pedal Edema (TRACE EDEMA BILATERALLY) Neurologic/Psychiatric: Other (OPENS EYES TO VOICE AND MAKES EYE CONTACT. HE IS ABLE TO MOVE ALL EXTREMITIES EQUALLY. ) Skin: Normal Color, Warm/Dry Focused Exam Lactate Level 11/22/22 17:20: Lactic Acid Level 1.17 Lactic Acid Level Laboratory Tests Test 11/22/22 17:20 Lactic Acid Level 1.17 MMOL/L (0.50-2.00) Progress/Results/Core Measures Suspected Sepsis SIRS Temperature: Pulse: 104 Respiratory Rate: 24 Laboratory Tests 11/22/22 17:20: White Blood Count 4.5 Blood Pressure 114 /67 Mean: 83 11/22/22 17:20: Lactic Acid Level 1.17 Laboratory Tests 11/22/22 17:20: Creatinine 0.61, INR Comment 1.3, Platelet Count 194, Total Bilirubin 1.3H Results/Orders Lab Results Laboratory Tests Test 11/22/22 17:20 11/22/22 17:21 11/22/22 17:57 Range/Units White Blood Count 4.5 4.3-11.0 10^3/uL Red Blood Count 3.11 L 4.30-5.52 10^6/uL Hemoglobin 10.7 L 13.3-17.7 g/dL Hematocrit 30 L 40-54 % Mean Corpuscular Volume 96 80-99 fL Mean Corpuscular Hemoglobin 34 25-34 pg Mean Corpuscular Hemoglobin Concent 36 32-36 g/dL Red Cell Distribution Width 13.4 10.0-14.5 % Platelet Count 194 130-400 10^3/uL Mean Platelet Volume 9.1 9.0-12.2 fL Immature Granulocyte % (Auto) 0 % Neutrophils (%) (Auto) 59 42-75 % Lymphocytes (%) (Auto) 23 12-44 % Monocytes (%) (Auto) 15 H 0-12 % Eosinophils (%) (Auto) 1 0-10 % Basophils (%) (Auto) 1 0-10 % Neutrophils # (Auto) 2.6 1.8-7.8 10^3/uL Lymphocytes # (Auto) 1.0 1.0-4.0 10^3/uL Monocytes # (Auto) 0.7 0.0-1.0 10^3/uL Eosinophils # (Auto) 0.1 0.0-0.3 10^3/uL Basophils # (Auto) 0.1 0.0-0.1 10^3/uL Immature Granulocyte # (Auto) 0.0 0.0-0.1 10^3/uL Erythrocyte Sedimentation Rate 78 H 0-30 MM/HR Prothrombin Time 16.4 H 12.2-14.7 SEC INR Comment 1.3 0.8-1.4 Activated Partial Thromboplast Time 44 H 24-35 SEC Sodium Level 123 *L 135-145 MMOL/L Potassium Level 4.4 3.6-5.0 MMOL/L Chloride Level 94 L 98-107 MMOL/L Carbon Dioxide Level 19 L 21-32 MMOL/L Anion Gap 10 5-14 MMOL/L Blood Urea Nitrogen 8 7-18 MG/DL Creatinine 0.61 0.60-1.30 MG/DL Estimat Glomerular Filtration Rate 96 BUN/Creatinine Ratio 13 Glucose Level 79 70-105 MG/DL Lactic Acid Level 1.17 0.50-2.00 MMOL/L Calcium Level 8.4 L 8.5-10.1 MG/DL Corrected Calcium 9.6 8.5-10.1 MG/DL Magnesium Level 1.7 1.6-2.4 MG/DL Total Bilirubin 1.3 H 0.1-1.0 MG/DL Aspartate Amino Transf (AST/SGOT) 30 5-34 U/L Alanine Aminotransferase (ALT/SGPT) 18 0-55 U/L Alkaline Phosphatase 70 40-136 U/L Ammonia 27 11-32 UMOL/L Troponin I < 0.028 <0.028 NG/ML C-Reactive Protein High Sensitivity 2.80 H 0.00-0.50 MG/DL Total Protein 5.2 L 6.4-8.2 GM/DL Albumin 2.5 L 3.2-4.5 GM/DL Serum Alcohol < 10 <10 MG/DL Glucometer 82 70-110 MG/DL Influenza Type A (RT-PCR) Not Detected Not Detecte Influenza Type B (RT-PCR) Not Detected Not Detecte SARS-CoV-2 RNA (RT-PCR) Not Detected Not Detecte My Orders Orders - CASE ALLRED DO Ed Iv/Invasive Line Start (11/22/22 17:44) Catheter(Urinary) Insert & Ass 03,15 (11/22/22:44) O2 (11/22/22:44) Monitor-Rhythm Ecg Trace Only (11/22/22:44) Chest 1 View, Ap/Pa Only (11/22/22:44) Alcohol (11/22/22:) Ammonia (11/22/22:44) Cbc With Automated Diff (11/22/22:) Comprehensive Metabolic Panel (11/22/22:44) Hs C Reactive Protein (11/22/22:44) Drug Screen Stat (Urine) (11/22/22:44) Lactic Acid Analyzer (11/22/22:44) Magnesium (11/22/22:44) Protime With Inr (11/22/22:44) Partial Thromboplastin Time (11/22/22:44) Thyroid Analyzer (11/22/22:44) Ua Culture If Indicated (11/22/22:44) Erythrocyte Sedimentation Rate (11/22/22:44) Troponin I [place] (11/22/22:44) Ct Head Wo-R/O Stroke (11/22/22:44) Covid 19 Inhouse Test (11/22/22:44) Blood Culture (11/22/22:44) Sputum Culture (11/22/22:44) Urine Culture (11/22/22:44) Ed Iv/Invasive Line Start (11/22/22:44) Ed Iv/Invasive Line Start (11/22/22:44) Vital Signs Adult Sepsis Patie Q15M (11/22/22:44) O2 (11/22/22 17:44) Remove Rings In Anticipation O (11/22/22:44) Lactated Ringers (Lr 1000 Ml Iv Solution (11/22/22 17:45) Cefepime Injection (Maxipime Injection) (11/22/22 17:45) Lidocaine 2% (Urojet) (Xylocaine Urojet) (11/22/22 17:45) Influenza A And B By Pcr (11/22/22 17:44) Isolation Central Supply Req (11/22/22 17:44) Digoxin (11/22/22 18:00) Vital Signs/I&O 11/22/22 17:15 Temp 36.8 Pulse 104 Resp 24 B/P (MAP) 114/67 (83) Pulse Ox 98 Capillary Refill : Less Than 3 Seconds Blood Pressure Mean: 83 Progress Note : Progress Note SEPSIS PROTOCOL INITIATED. GIVEN: -IV FLUIDS -CEFEPIME REVIEWED PRIOR RECORDS, INCLUDING ER VISITS, ADMITS/H&P'S/CONSULTS/DISCHARGE S UMMARIES, TESTS/PROCEDURES IT HAS BEEN RECOMMENDED ON THE LAST COUPLE OF ADMITS THAT PT GO TO [facility], BUT FAMILY HAS REPEATEDLY REFUSED THAT OPTION ECG Initial ECG Impression Date: November 22, 2022 Initial ECG Impression Time: 17:31 Initial ECG Rate: 100 Initial ECG Rhythm: A Fib/Flutter (LOW VOLTAGE THROUGHOUT) Initial ECG Intervals MI-N/A QRS 85 QT/QTC 321/378 Initial ECG Impression: Nonspecific Changes, Atrial Fibrillation w/RVR Initial ECG Comparisson: Unchanged Comment INTERPRETED BY ME Diagnostic Imaging Comments CXR--PER RADIOLOGIST REPORT AT 1825 FINDINGS: Hazy opacity is again seen in the right lung base. Possible small right pleural effusion. No pneumothorax. The left chest is clear. The heart size is stable. IMPRESSION: Hazy opacities in the right lung base with small right pleural effusion. Findings could represent infection versus mass and continued follow-up is recommended. CT HEAD--PER RADIOLOGIST REPORT AT 1814 FINDINGS: No large acute territorial ischemia, mass or hemorrhage. No midline shift or mass effect. Decreased attenuation is seen in the periventricular and subcortical white matter. The ventricles and cortical sulci are prominent. The basilar cisterns are patent and unremarkable. The orbits are normal. Paranasal sinuses are normal. Mastoid air cells are clear. No soft tissue abnormality is seen. No osseus lesion or fracture is seen. IMPRESSION: 1. No large acute territorial ischemia, mass or hemorrhage. 2. Chronic microvascular disease. 3. Generalized parenchymal volume loss. Reviewed: Reviewed by Me Departure Departure-Patient Inst. Referrals: [facility] (PCP/Family) Primary Care Physician CASE ALLRED DO November 22, 2022 18:00
[2022-11-22 18:02] LABS: ALKALINE PHOSPHATASE 70 U/L (40-136); CREATININE SERUM 0.61 MG/DL (0.60-1.30); GFR ESTIMATED 96
[2022-11-22 18:03] LABS: BUN/CREATININE RATIO 13
[2022-11-22 18:05] LABS: ALANINE AMINOTRANSFERASE 18 U/L (0-55); MAGNESIUM 1.7 MG/DL (1.6-2.4)
[2022-11-22 18:10] LABS: ERYTHROCYTE SEDIMENTATION RATE 78 MM/HR (0-30)
--- NOTE | 2022-11-22 18:13 | Diagnostic Imaging Report ---
EXAMINATION: CT head without contrast. TECHNIQUE: Multiple contiguous axial images were obtained through the brain without the use of intravenous contrast. All CT scans use one or more of the following dose optimizing techniques: automated exposure control, MA and/or KvP adjustment based on patient size and exam type or iterative reconstruction. HISTORY: Focal neurologic deficit. Aphasia. Asymmetric pupils. COMPARISON: 08/29/2022. FINDINGS: No large acute territorial ischemia, mass or hemorrhage. No midline shift or mass effect. Decreased attenuation is seen in the periventricular and subcortical white matter. The ventricles and cortical sulci are prominent. The basilar cisterns are patent and unremarkable. The orbits are normal. Paranasal sinuses are normal. Mastoid air cells are clear. No soft tissue abnormality is seen. No osseus lesion or fracture is seen. IMPRESSION: 1. No large acute territorial ischemia, mass or hemorrhage. 2. Chronic microvascular disease. 3. Generalized parenchymal volume loss. Dictated by: Dictated on workstation # [id number]
--- NOTE | 2022-11-22 18:22 | Diagnostic Imaging Report ---
EXAMINATION: Chest 1 view. HISTORY: Altered mental status. COMPARISON: 11/13/2022. FINDINGS: Hazy opacity is again seen in the right lung base. Possible small right pleural effusion. No pneumothorax. The left chest is clear. The heart size is stable. IMPRESSION: Hazy opacities in the right lung base with small right pleural effusion. Findings could represent infection versus mass and continued follow-up is recommended. Dictated by: Dictated on workstation # [id number]
[2022-11-22 18:26] LABS: TSH (THYROID ANALYZER) 9.08 UIU/ML (0.35-4.94)
[2022-11-22 18:29] LABS: BILIRUBIN,URINE NEGATIVE (NEGATIVE); CLARITY,URINE CLEAR; COLOR,URINE YELLOW; GLUCOSE, URINE (UA) NEGATIVE (NEGATIVE); KETONES,URINE NEGATIVE (NEGATIVE); LEUKOCYTE ESTERASE ,URINE TRACE (NEGATIVE); NITRITE,URINE NEGATIVE (NEGATIVE); PROTEIN,URINE NEGATIVE (NEGATIVE)
[2022-11-22 18:38] LABS: BACTERIA,URINE NEGATIVE /HPF
[2022-11-22 18:44] LABS: AMPHETAMINE SCREEN, URINE NEGATIVE (NEGATIVE); BARBITURATE SCREEN URINE NEGATIVE (NEGATIVE); BENZODIAZEPINES SCREEN URINE NEGATIVE (NEGATIVE); CANNABINOID SCREEN, URINE NEGATIVE (NEGATIVE); COCAINE SCREEN URINE NEGATIVE (NEGATIVE); METHADONE STAT NEGATIVE (NEGATIVE); OPIATE SCREEN URINE NEGATIVE (NEGATIVE); OXYCODONE STAT NEGATIVE (NEGATIVE); PROPOXYPHENE STAT NEGATIVE (NEGATIVE); TRICYCLIC ANTIDEPRESSANTS SCRE NEGATIVE (NEGATIVE)
[2022-11-22 18:59] LABS: FREE T4 (FREE THYROXINE) 0.91 NG/DL (0.70-1.48)
[2022-11-22] MEDS ORDERED: NS IV 1000 ML 1,000 ML IV SCH (19:30)
[2022-11-22] MEDS ORDERED: morphine INJ 4 MG/ML 1 ML (VIAL/SYRINGE) IVP PRN (20:15)
[2022-11-22] MEDS ORDERED: LORazepam INJ 2 MG/ML (ATIVAN) VIAL IVP PRN (20:15)
[2022-11-22 20:22] VITALS: BP 126/58
[2022-11-23 00:26] VITALS: BP 112/55
[2022-11-23 04:17] VITALS: BP 114/65
--- NOTE | 2022-11-23 07:28 | History & Physical-Hospitalist ---
History of Present Illness HPI/Chief Complaint CC: Comfort care protocol HPI: This is an 82yoWM known to me from prior multiple admits who has a h/o chronic hyponatremia from [facility] who was just DC Thursday after family insisted on bringing him home with HH but was brought back 1 day later for weakness although his labs remained stable he was essentially unresponsive and needs comfort care protocol and Hospice at [place]. He has severe dementia and has declined since ad mitted to the hospital 2 weeks ago for PNA. ER doctor spoke to family about keeping him comfortable and all in agreement with the plan. Source: patient Date Seen 11/23/22 Time Seen by a Provider: 11:00 Attending Physician [place] PCP Admitting Physician: Tanya Mckay DO Attending Physician: Tanya Mckay DO Referring Physician Date of Admission November 22, 2022 at 20:04 Home Medications & Allergies Home Medications Reviewed patient Home Medication Reconciliation performed by pharmacy medication reconciliations semiconductor processing technician and/or nursing. Patients Allergies have been reviewed. Allergies Allergies Coded Allergies No Known Drug Allergies (Unverified08/20/16) Past Xrcfugs-Pzaoyu-Rtdocs Hx Patient Social History Marrital Status: single Employed/Student: retired Tobacco Use?: Yes Tobacco type used: Cigarettes Smoking Status: Current Everyday Smoker Smokeless type used: Chew Smokeless Tobacco Frequency: Current Everyday User Substance use?: No Alcohol Use?: No Pt feels they are or have been: No Immunizations Up To Date Tetanus Booster (TDap): Unknown Seasonal Allergies Seasonal Allergies: No Current Status Communicates: Verbally Primary Language: Serbian Preferred Spoken Language: Serbian Is interpretation needed?: No Implanted or Applied Medical D: None Past Medical History Surgeries: Abdominal, Cardiac, Coronary Stent, Eye Surgery, Orthopedic Pneumonia Atrial Fibrillation, Coronary Artery Disease, High Cholesterol, Hypertension, Peripheral Vascular, Valvular Heart Disease Sexually Transmitted Disease: No HIV/AIDS: No Gastroesophageal Reflux Arthritis, Chronic Back Pain Cataract Loss of Vision: Bilateral Hearing Impairment: Denies Suicide Attempts, Depression Blood Disorders: No Adverse Reaction/Blood Tranf: No (N/A) Family Medical History Cancer of colon 09 BROTHER Family history: Gastrointestinal disease 09 BROTHER Kidney disease 09 BROTHER SOCIAL HISTORY: -SMOKED 1 PPD, QUIT SEVERAL YEARS AGO -CHEWED TOBACCO 1/2 CAN/DAY--QUIT SEVERAL YEARS AGO -ETOH--DRINKS BEER DAILY--USED TO DRINK VERY HEAVILY EVERY DAY, BUT NOW FAMILY RATIONS HIM TO 2 BEERS A DAY. -DRUGS--DENIES USE PAST SURGICAL HISTORY: -BACK SURGERY 1999 -RIGHT INGUINAL SURGERY 2008 -CATARACT SURGERY--RIGHT 11/2017; -CARDIAC CATH WITH STENT TO LAD 05/2010 -CARDIAC CATH 08/06/[address] LYON: PATENT STENT TO LAD. NO INTERVENTION -REVEAL DEVICE PLACED 2015--REMOVED DUE TO INFECTION Review of Systems Constitutional: see HPI Physical Exam Physical Exam Vital Signs Vital Signs - First Documented 11/22/22 11/22/22 17:15 19:46 Temp 36.8 Pulse 104 Resp 24 B/P (MAP) 114/67 (83) Pulse Ox 98 O2 Delivery Room Air Capillary Refill : Less Than 3 Seconds Height, Weight, BMI Height: 5'6.00" Weight: 167lbs. 0.0oz. [id number]; 27.32 BMI Method:Stated General Appearance: Chronically ill, Other (asleep) Respiratory: No Accessory Muscle Use, No Respiratory Distress, Decreased Breath Sounds Results Results/Procedures Labs Laboratory Tests 11/22/22 17:20 Patient resulted labs reviewed. Assessment/Plan Admission Diagnosis Assessment: End of life status Dementia end stage AF HTN Smoker Recent PNA Plan: Comfort care protocol Admission Status: Observation TANYA MCKAY DO November 23, 2022 07:28
[2022-11-23] MEDS ORDERED: GLYCOPYRROLATE 0.2 MG/ML (ROBINUL) 2 ML VIAL IV PRN (07:30)
[2022-11-23] MEDS ORDERED: BISACODYL 10 MG SUPP (DULCOLAX) PR PRN (07:30)
[2022-11-23] MEDS ORDERED: ACETAMINOPHEN 650 MG SUPP (TYLENOL) PR PRN ×2 (07:30→15:30)
[2022-11-23] MEDS ORDERED: PROMETHAZINE INJ 25 MG/ML (PHENERGAN) AMP IVP PRN (07:30)
[2022-11-23] MEDS ORDERED: ARTIFICAL TEARS 0.4 ML UNIT DOSE (REFRESH PLUS) OU PRN (07:30)
[2022-11-23] MEDS ORDERED: RT-ALBUTEROL/IPRATROPIUM 3 ML (DUONEB) VIAL INH PRN (07:30)
[2022-11-23] MEDS ORDERED: SALIVA SUBSTITUTE 60 ML SPRAY(MOUTHKOTE) MM PRN (07:30)
[2022-11-23] MEDS ORDERED: SCOPOLAMINE 1.5 MG (TRANSDERM-SCOP) PATCH TOP SCH (07:30)
[2022-11-23] MEDS ORDERED: LORazepam 1 MG (ATIVAN) TAB SL PRN (07:30)
[2022-11-23] MEDS ORDERED: ONDANSETRON 4 MG/2 ML (SDV) Z0FRAN IVP PRN (07:30)
[2022-11-23] MEDS ORDERED: ATROPINE 1% OPHTHALMIC SOLN 2 ML SL PRN (07:30)
[2022-11-23 08:03] VITALS: BP 92/62
[2022-11-23] MEDS ORDERED: SALIVA SUBSTITUTE 236 ML SPRAY (MOUTHKOTE) MM PRN (08:15)
[2022-11-23 11:05] VITALS: BP 101/63
[2022-11-23] MEDS ORDERED: ACETAMINOPHEN 325 MG TABLET ONE (14:10)
[2022-11-23] MEDS ORDERED: ACETAMINOPHEN 325 MG TABLET PO PRN (14:15)
[2022-11-23 15:48] VITALS: BP 106/67
[2022-11-23 19:49] VITALS: BP 95/54
--- NOTE | 2022-11-24 05:21 | Progress Note - Hospitalist ---
Subjective HPI/CC On Admission Date Seen by Provider: November 24, 2022 Time Seen by Provider: 10:00 CC: Comfort care protocol HPI: This is an 82yoWM known to me from prior multiple admits who has a h/o chronic hyponatremia from [facility] who was just DC Thursday after family insisted on bringing him home with HH but was brought back 1 day later for weakness although his labs remained stable he was essentially unresponsive and needs comfort care protocol and Hospice at [place]. He has severe dementia and has declined since admitted to the hospital 2 weeks ago for PNA. ER doctor spoke to family about keeping him comfortable and all in agreement with the plan. Focused Exam Lactate Level 11/22/22 17:20: Lactic Acid Level 1.17 Objective Exam Vital Signs Vital Signs Date Time Temp Pulse Resp B/P (MAP) Pulse Ox O2 Delivery O2 Flow Rate FiO2 11/24/22 08:00 Room Air 11/23/22 19:49 36.4 120 18 95/54 (68) 96 Capillary Refill : Less Than 3 Seconds Results/Procedures Lab Patient resulted labs reviewed. BARB SALINAS DO November 24, 2022 05:21
[2022-11-24] MEDS ORDERED: MORP100S7 PO (10:14)
[2022-11-24] MEDS ORDERED: LORA2ORA PO (10:14)
--- NOTE | 2022-11-24 10:14 | Discharge Summary ---
Discharge Summary Hospital Course Was the Problem List Reviewed?: Yes Problems/Dx: (1) Physical debility Status: Acute Hospital Course Date of Admission: November 22, 2022 at 20:04 Admission Diagnosis : Family Physician/Provider: [facility] Date of Discharge: 11/24/22 Discharge Diagnosis: [ ] Hospital Course: Short course after admitted for failure to thrive and placed on comfort care after conversation with family. Patient was DC on hospice. 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) Home Meds Active Sodium Chloride 1,000 Mg Tablet.nohemy 1,000 Mg MC BID Reported Eliquis (Apixaban) 5 Mg Tablet 5 Mg PO BID Pantoprazole Sodium 40 Mg Tablet.dr 40 Mg PO DAILY Diltiazem 24Hr ER (Diltiazem HCl) 120 Mg Cap.er.24h 120 Mg PO BID Flomax (Tamsulosin HCl) 0.4 Mg Cap 0.4 Mg PO 1800 Aspirin EC (Aspirin) 81 Mg Tablet.dr 81 Mg PO DAILY Assessment/Pt Instructions Hospice Discharge Planning: <30 minutes discharge planning Discharge Physical Examination Vital Signs Vital Signs Date Time Temp Pulse Resp B/P (MAP) Pulse Ox O2 Delivery O2 Flow Rate FiO2 11/24/22 08:00 Room Air 11/23/22 19:49 36.4 120 18 95/54 (68) 96 Allergies: Coded Allergies: No Known Drug Allergies (Unverified , 08/20/16) Discharge Summary Date of Admission November 22, 2022 at 20:04 Date of Discharge Discharge Date: November 24, 2022 Admission Diagnosis Assessment: End of life status Dementia end stage AF HTN Smoker Recent PNA Plan: Comfort care protocol Comfort Measures/ End of Life Care: Comfort Measures BARB SALINAS DO November 24, 2022 10:14
== END 2022-11-24 15:03 | disposition hospice, home (50) ==
LOC: EDUNIT# 17:13 → ER 17:15 → INTOOBSV 20:04 → 4TH 20:04
PROVIDERS: ADMIT Internal Medicine; ATTEND Internal Medicine
DX: Z51.5 Encounter for palliative care (principal); I48.91 Unspecified atrial fibrillation; I10 Essential (primary) hypertension; J18.9 Pneumonia, unspecified organism; L89.159 Pressure ulcer of sacral region, unspecified stage; F03.90 Unspecified dementia, unspecified severity, without behavioral disturbance, psychotic disturbance, mood disturbance, and anxiety; F17.290 Nicotine dependence, other tobacco product, uncomplicated; Z79.82 Long term (current) use of aspirin; Z79.899 Other long term (current) drug therapy
CPT/HCPCS: 51702; 70450; 71045; 80053; 80162; 80306; 81000; 82140; 82947; 83605; 83735; 84439; 84443; 84484; 85025; 85610; 85652; 85730; 86141; 87040; 87088; 87636; 93005; 93041; 99284; G0480; 36415; 80320; 96375